=== PATIENT | male | born 1985 | race Two or more races ===

== ENCOUNTER 2018-06-13 12:53 | Emergency (ER) | payer OTHER ==
[~2018-06-13] VITALS: Ht 182.9 cm; Wt 91.6 kg
[2018-06-13] MEDS ORDERED: NAPROXEN 500 MG TABLET PO STA (13:43)
[2018-06-13] MEDS ORDERED: HYDROcodone/APAP 5/325MG 1 TAB TABLET PO ONE (13:45)
--- NOTE | 2018-06-13 14:33 | RAD ---
Examination: 2 views of the right hip and frontal view the pelvis HISTORY: History of right hip pain COMPARISON: None available. FINDINGS: The bilateral femoral heads within the acetabula. Old fractures of the bilateral superior inferior pubic ramus are identified.There is somewhat dysplastic appearance of the right femoral head with fragmentation of the right femoral head in the superior lateral aspect with lucency identified in the right femoral head could be avascular necrosis with underlying fracture of the right femoral head. Severe degenerative changes right hip joint likely degeneration. Moderate degenerative changes left hip joint. IMPRESSION: Fragmentation of the right superolateral femoral head with lucency of the right femoral head could be avascular necrosis with underlying fracture of the right femoral head. Follow-up CT is recommended for further evaluation. Electronically signed by: Ajay Scott MD (06/13/2018 2:30 PM) [facility]
--- NOTE | 2018-06-13 15:28 | RAD ---
Examination: CT right hip without contrast HISTORY: History of right hip pain, difficulty walking COMPARISON: None available TECHNIQUE: Axial CT images of the right hip were performed without contrast. Coronal and sagittal reformats are performed Exposure: One or more of the following individualized dose reduction techniques were utilized for this examination: 1. Automated exposure control 2. Adjustment of the mA and/or kV according to patient size 3. Use of iterative reconstruction technique FINDINGS: The right femoral head is within the acetabulum. There is fragmentation of the right femoral head in its superior aspect with collapse of the superior right femoral head with multiple large subchondral cystic changes in the right femoral head. Moderate size osteophyte formation identified in the right femoral head and in the acetabulum. Moderate severe joint space loss identified in the right hip joint likely degeneration. Old right superior inferior pubic ramus fractures identified. Small right hip joint effusion identified with the fluid in the iliopsoas muscle region IMPRESSION: 1. Fragmentation and collapse of the right femoral head with large multiple subchondral cystic changes in the right femoral head could be secondary to old avascular necrosis with subchondral collapse and due to severe degenerative changes. 2. Small right hip joint effusion and fluid in the iliopsoas bursa. Electronically signed by: Ajay Scott MD (06/13/2018 3:25 PM) [facility]
[2018-06-13] MEDS ORDERED: MORPHINE SULFATE 10 MG/ML VIAL. IM ONE (16:45)
[2018-06-13] MEDS ORDERED: HYDR-3164 PO (17:15)
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
[2018-06-13 17:30] VITALS: BP 128/77
== END 2018-06-13 17:53 | disposition home or self-care (01) ==
LOC: ER 12:53
DX: M16.11 Unilateral primary osteoarthritis, right hip (principal); M25.551 Pain in right hip
CPT/HCPCS: 73502; 73700; 96372; 99284; J2270

== ENCOUNTER 2019-04-09 14:08 | Emergency (ER) | payer OTHER ==
[~2019-04-09] VITALS: Ht 182.9 cm; Wt 98.9 kg
[~2019-04-09 14:08] MED LIST: HYDR-3164 PO
[2019-04-09 14:30] VITALS: BP 206/107
[2019-04-09] MEDS ORDERED: IV NORMAL SALINE 1000ML BAG 1,000 ML IV STA (15:08)
[2019-04-09] MEDS ORDERED: MORPHINE SULFATE 10 MG/ML VIAL. IV STA (15:08)
[2019-04-09] MEDS ORDERED: ONDANSETRON PF 4 MG/2 ML VIAL. IV STA (15:08)
--- NOTE | 2019-04-09 15:25 | PHYS DOC ---
Past Medical History Past Medical History: Hypertension Past Surgical History: No Surgical History Alcohol Use: Occasionally Drug Use: None Adult General Chief Complaint Chief Complaint: FOOT INJURY PAIN HPI HPI Patient is a 33 year old male who presents with R foot pain that has been ongoing for 3 days. The patient states the pains are in the lateral side of his foot, and was red and tender to touch 3 days ago. Denies any fevers. Reports his pain as 9 out of 10 in severity and it hurts when he walks. Review of Systems Review of Systems Constitutional: Denies fever or chills [] Eyes: Denies change in visual acuity, redness, or eye pain [] HENT: Denies nasal congestion or sore throat [] Respiratory: Denies cough or shortness of breath [] Cardiovascular: No additional information not addressed in HPI [] GI: Denies abdominal pain, nausea, vomiting, bloody stools or diarrhea [] : Denies dysuria or hematuria [] Musculoskeletal: Reports R foot pain. Integument: Erythema and tenderness to R foot. Neurologic: Denies headache, focal weakness or sensory changes [] Endocrine: Denies polyuria or polydipsia [] Complete systems were reviewed and found to be within normal limits, except as documented in this note. Current Medications Current Medications Current Medications Medications (Trade) Dose Ordered Sig/Varun Start Time Stop Time Status Last Admin Dose Admin Ketorolac Tromethamine (Toradol 15mg Vial) 10 mg 1X STAT 04/09/19 15:51 04/09/19 15:52 DC 04/09/19 15:59 10 MG Morphine Sulfate (Morphine Sulfate) 5 mg 1X STAT 04/09/19 15:08 04/09/19 15:11 DC Ondansetron HCl (Zofran) 4 mg 1X STAT 04/09/19 15:08 04/09/19 15:11 DC 04/09/19 15:43 4 MG Sodium Chloride 1,000 ml @ 1,000 mls/hr 1X STAT 04/09/19 15:08 04/09/19 16:07 DC 04/09/19 15:43 1,000 MLS/HR Allergies Allergies Allergies Coded Allergies Type Severity Reaction Last Updated Verified No Known Drug Allergies 06/13/18 No Physical Exam Physical Exam Constitutional: Well developed, well nourished, no acute distress, non-toxic appearance. [] HENT: Normocephalic, atraumatic, bilateral external ears normal, oropharynx moist, no oral exudates, nose normal. [] Eyes: PERRLA, EOMI, conjunctiva normal, no discharge. [] Neck: Normal range of motion, no tenderness, supple, no stridor. [] Cardiovascular:Heart rate regular rhythm, no murmur [] Lungs & Thorax: Bilateral breath sounds clear to auscultation [] Abdomen: Bowel sounds normal, soft, no tenderness, no masses, no pulsatile masses. [] Skin: Erythema to R foot. Musculoskeletal: Tenderness to R foot. Neurologic: Alert and oriented X 3, normal motor function, normal sensory function, no focal deficits noted. [] Psychologic: Affect normal, judgement normal, mood normal. [] Current Patient Data Vital Signs Vital Signs Date Time Temp Pulse Resp B/P (MAP) Pulse Ox O2 Delivery O2 Flow Rate FiO2 04/09/19 14:30 98.8 95 16 206/107 (140) 99 Room Air 98.8 Lab Values Laboratory Tests Test 04/09/19 15:30 White Blood Count 11.2 x10^3/uL (4.0-11.0) H Red Blood Count 3.85 x10^6/uL (4.30-5.70) L Hemoglobin 13.9 g/dL (13.0-17.5) Hematocrit 40.2 % (39.0-53.0) Mean Corpuscular Volume 104 fL (79-100) H Mean Corpuscular Hemoglobin 36 pg (25-35) H Mean Corpuscular Hemoglobin Concent 35 g/dL (31-37) Red Cell Distribution Width 17.0 % (11.5-14.5) H Platelet Count 171 x10^3/uL (140-400) Neutrophils (%) (Auto) 83 % (31-73) H Lymphocytes (%) (Auto) 7 % (24-48) L Monocytes (%) (Auto) 10 % (0-9) H Eosinophils (%) (Auto) 0 % (0-3) Basophils (%) (Auto) 0 % (0-3) Neutrophils # (Auto) 9.2 x10^3/uL (1.8-7.7) H Lymphocytes # (Auto) 0.8 x10^3/uL (1.0-4.8) L Monocytes # (Auto) 1.1 x10^3/uL (0.0-1.1) Eosinophils # (Auto) 0.0 x10^3/uL (0.0-0.7) Basophils # (Auto) 0.0 x10^3/uL (0.0-0.2) Sodium Level 137 mmol/L (136-145) Potassium Level 3.5 mmol/L (3.5-5.1) Chloride Level 99 mmol/L (98-107) Carbon Dioxide Level 25 mmol/L (21-32) Anion Gap 13 (6-14) Blood Urea Nitrogen 12 mg/dL (8-26) Creatinine 0.9 mg/dL (0.7-1.3) Estimated GFR (Cockcroft-Gault) 96.0 BUN/Creatinine Ratio 13 (6-20) Glucose Level 108 mg/dL (70-99) H Uric Acid 7.0 mg/dL (3.5-7.2) Calcium Level 9.1 mg/dL (8.5-10.1) Total Bilirubin 0.9 mg/dL (0.2-1.0) Aspartate Amino Transferase (AST) 24 U/L (15-37) Alanine Aminotransferase (ALT) 19 U/L (16-63) Alkaline Phosphatase 83 U/L (46-116) Total Protein 7.9 g/dL (6.4-8.2) Albumin 4.1 g/dL (3.4-5.0) Albumin/Globulin Ratio 1.1 (1.0-1.7) Laboratory Tests 04/09/19 15:30 Laboratory Tests 04/09/19 15:30 EKG EKG [] Radiology/Procedures Radiology/Procedures [][facility] [address] [place] [address] IMAGING REPORT Signed PATIENT: ESTELLA LEVY ACCOUNT: [id number] : 1985 LOCATION: ER AGE: 33 SEX: M EXAM STATUS: REG ER ORD. PHYSICIAN: ISAMAR BOOKER APRN REASON: R foot, pain, and swelling,PT STATES LAT RT FOOT PAIN. PROCEDURE: FOOT RIGHT 3V EXAM: Right foot, 3 views. HISTORY: Pain and swelling. COMPARISON: None. FINDINGS: 3 views of the right foot are obtained. There is no fracture, dislocation or subluxation. There is a small plantar spur. IMPRESSION: No acute osseous finding. Electronically signed by: Negra Reyna MD (04/09/2019 3:37 PM) [facility] DICTATED and SIGNED BY: NEGRA REYNA MD DATE: 04/09/19 0887 Course & Med Decision Making Course & Med Decision Making Pertinent Labs and Imaging studies reviewed. (See chart for details) Patient has swollen and red R foot. Will order labs, uric acid, X-ray. Will also give supportive care. Labs show slightly elevated WBC at 11.5, appears to have R foot Cellulitis. Uric acid is WNL. Will place on Doxycycline 100 mg BID x 7 days. Dragon Disclaimer Dragon Disclaimer This electronic medical record was generated, in whole or in part, using a voice recognition dictation system. Departure Departure Impression: Primary Impression: Cellulitis Disposition: HOME, SELF-CARE Condition: STABLE Referrals: VELMA MINOR MD (PCP) Patient Instructions: Cellulitis Additional Instructions: Thank you for visiting [facility]. We appreciate you trusting us with your care. If any additional problems come up don't hesitate to return to visit us. Please follow up with your primary care provider so they can plan additional care if needed and know about the problem that you had. If symptoms worsen come back to the Emergency Department. Any concerning symptoms that start such as chest pain, shortness of air, weakness or numbness on one side of the body, running high fevers or any other concerning symptoms return to the ER. You have been prescribed an antibiotic today to help fight your infection. Please take all of the antibiotic as directed. If after 48 hours the infection is not improving, please return for more care. If the infection worsens, return to ER for additional care. Scripts Doxycycline Hyclate (DOXYCYCLINE HYCLATE) 100 Mg Capsule 1 CAP PO BID for 10 Days, #20 CAP Prov: ISAMAR BOOKER APRN 04/09/19 Problem Qualifiers Primary Impression: Cellulitis Site of cellulitis: extremity Site of cellulitis of extremity: lower extremity Laterality: right Qualified Codes: L03.115 - Cellulitis of right lower limb ISAMAR BOOKER APRN Apr 09, 2019 15:25
--- NOTE | 2019-04-09 15:40 | RAD ---
EXAM: Right foot, 3 views. HISTORY: Pain and swelling. COMPARISON: None. FINDINGS: 3 views of the right foot are obtained. There is no fracture, dislocation or subluxation. There is a small plantar spur. IMPRESSION: No acute osseous finding. Electronically signed by: Negra Mcdowell MD (04/09/2019 3:37 PM) [facility]
[2019-04-09 15:46] LABS: BASO % 0 % (0-3); EOS % 0 % (0-3); HEMATOCRIT 40.2 % (39.0-53.0); HEMOGLOBIN 13.9 g/dL (13.0-17.5); LYMPH # 0.8 x10^3/uL (1.0-4.8); LYMPH % 7 % (24-48); MEAN CORPUSCULAR HEMOGLOBIN 36 pg (25-35); MEAN CORPUSCULAR HGB CONC 35 g/dL (31-37); MEAN CORPUSCULAR VOLUME 104 fL (79-100); MONO # 1.1 x10^3/uL (0.0-1.1); MONO % 10 % (0-9); NEUT # 9.2 x10^3/uL (1.8-7.7); NEUT % 83 % (31-73); PLATELET COUNT 171 x10^3/uL (140-400); RED BLOOD COUNT 3.85 x10^6/uL (4.30-5.70); WHITE BLOOD COUNT 11.2 x10^3/uL (4.0-11.0)
[2019-04-09] MEDS ORDERED: KETOROLAC 15 MG/ML VIAL. IV STA (15:51)
[2019-04-09 15:56] LABS: CALCIUM 9.1 mg/dL (8.5-10.1); CREATININE 0.9 mg/dL (0.7-1.3); POTASSIUM 3.5 mmol/L (3.5-5.1)
[2019-04-09 16:02] LABS: ALBUMIN 4.1 g/dL (3.4-5.0); ALBUMIN/GLOBULIN RATIO 1.1 (1.0-1.7); TOTAL BILIRUBIN 0.9 mg/dL (0.2-1.0); TOTAL PROTEIN 7.9 g/dL (6.4-8.2)
[2019-04-09] MEDS ORDERED: DOXY100C2 PO (16:30)
== END 2019-04-09 16:54 | disposition home or self-care (01) ==
LOC: ER 14:08
DX: L03.115 Cellulitis of right lower limb (principal); I10 Essential (primary) hypertension
CPT/HCPCS: 36415; 73630; 80053; 84550; 85025; 96374; 96375; 99285; J1885; J2405; J7030

== ENCOUNTER 2019-04-12 05:37 | Emergency (ER) | payer OTHER ==
[~2019-04-12] VITALS: Ht 182.9 cm; Wt 99.8 kg
[~2019-04-12 05:37] MED LIST changes: +DOXY100C2 PO
[2019-04-12 06:00] VITALS: BP 180/112
[2019-04-12] MEDS ORDERED: CEPH-264 PO (06:43)
[2019-04-12] MEDS ORDERED: SULF1TAB24 PO (06:43)
[2019-04-12] MEDS ORDERED: HYDR-2761 PO (06:43)
--- NOTE | 2019-04-12 06:43 | PHYS DOC ---
Past Medical History Past Medical History: Hypertension Past Surgical History: No Surgical History Additional Information: nonsmoker Alcohol Use: Occasionally Drug Use: None Adult General Chief Complaint Chief Complaint: LOWER EXTREMITY EDEMA HPI HPI Patient is 33-year-old male with past medical history of cellulitis of the right lower extremity for 6 days and has been treated with doxycycline for 3 days is presenting to the emergency department with worsening cellulitis of the right lower lower extremity. Patient states that 3 days before [place] he noted some redness and swelling to the lateral aspect of his right foot, he was seen in the emergency department and was given a prescription for doxycycline 3 days ago. He was supposed to return to work today but the pain and swelling have gotten worse so he is presenting to the emergency department again. He denies fever, chills, chest pain, shortness of breath, dysuria, numbness or tingling of the right lower extremity, and loss of motor function of the right lower extremity. Patient denies history of diabetes, history of trauma to the right foot, open sores or stepping on anything with the right foot. Review of Systems Review of Systems Constitutional: Denies fever or chills Eyes: Denies redness or eye pain HENT: Denies nasal congestion or sore throat Respiratory: Denies cough or shortness of breath Cardiovascular: Denies chest pain or palpitations GI: Denies abdominal pain, nausea, or vomiting : Denies dysuria or hematuria Musculoskeletal: Denies back pain; reports foot pain Integument: Reports right foot erythema and swelling Neurologic: Denies headache, focal weakness or sensory changes Complete systems were reviewed and found to be within normal limits, except as documented in this note. Current Medications Current Medications Current Medications Medications (Trade) Dose Ordered Sig/Varun Start Time Stop Time Status Last Admin Dose Admin Acetaminophen/ Hydrocodone Bitart (Lortab 5/325) 1 tab 1X ONCE 04/12/19 06:45 04/12/19 06:46 DC 04/12/19 06:45 1 TAB Cephalexin HCl (Keflex) 500 mg 1X ONCE 04/12/19 07:00 04/12/19 07:01 DC 04/12/19 06:53 500 MG Trimethoprim/ Sulfamethoxazole (Bactrim Ds) 2 tab 1X ONCE 04/12/19 06:45 04/12/19 06:46 DC 04/12/19 06:45 2 TAB Allergies Allergies Allergies Coded Allergies Type Severity Reaction Last Updated Verified No Known Drug Allergies 06/13/18 No Physical Exam Physical Exam Constitutional: Well developed, well nourished, no acute distress, non-toxic appearance HENT: Normocephalic, atraumatic, oropharynx moist Eyes: Conjunctiva normal, no discharge Neck: Normal range of motion, no tenderness, supple Cardiovascular: Heart rate normal, regular rhythm Lungs & Thorax: Bilateral breath sounds clear to auscultation, no wheezing Skin: Warm, dry, no erythema, no rash Extremities: ROM intact, localized redness and swelling the right lower extremity, tenderness over the erythematous area, no evidence of trauma or open wounds Neurologic: Alert and oriented X 3, no focal deficits noted Psychologic: Affect normal, judgement normal Current Patient Data Vital Signs Vital Signs Date Time Temp Pulse Resp B/P (MAP) Pulse Ox O2 Delivery O2 Flow Rate FiO2 04/12/19 06:45 97 04/12/19 06:00 98.5 75 17 180/112 (134) Room Air 98.5 EKG EKG [] Radiology/Procedures Radiology/Procedures PROCEDURE: FOOT RIGHT 3V Exam: Right foot 3 views INDICATION: Pain TECHNIQUE: Frontal, lateral and oblique views of the right foot Comparisons: None FINDINGS: Bone mineralization is normal. No acute or healed fractures. Mild soft tissue swelling overlying the forefoot. Joint spaces are well-maintained. IMPRESSION: Soft tissue swelling overlying the forefoot without underlying osseous abnormality. Electronically signed by: Дмитрий Wright MD (04/12/2019 6:52 AM) [facility] Course & Med Decision Making Course & Med Decision Making Pertinent Imaging studies reviewed. (See chart for details) Patient is a 33-year-old male that is presenting emergency department with right lower extremity cellulitis. Patient was seen and examined at bedside. Physical exam was significant for localized redness and swelling of the right lower extremity. Patient has completed 3 days worth of doxycycline at home and is not improving. X-ray of the foot negative for acute bony pathology. Pain addressed. Patient will be discharged with change in antibiotics to Bactrim and Keflex and given return precautions for worsening local infection or systemic infection. Crutches provided. Patient stable for discharge with outpatient follow-up with PCP. Discussed findings and plan with patient and family, who acknowledge understanding and agreement. Dragon Disclaimer Dragon Disclaimer This electronic medical record was generated, in whole or in part, using a voice recognition dictation system. Departure Departure Impression: Primary Impression: Cellulitis Disposition: 01 HOME, SELF-CARE Condition: STABLE Referrals: VELMA MINOR MD (PCP) Patient Instructions: Cellulitis, [id number] Scripts Hydrocodone Bit/Acetaminophen (HYDROCODONE-APAP 5-325 ) 1 Tab Tablet 0.5-1 TAB PO PRN Q6HRS PRN for PAIN, #10 TAB 0 Refills Prov: ISAMAR YOON DO 04/12/19 Cephalexin (KEFLEX) 500 Mg Capsule 500 MG PO QID for Infection for 7 Days, #28 CAP 0 Refills Prov: ISAMAR YOON DO 04/12/19 Sulfamethoxazole/Trimethoprim (BACTRIM DS TABLET) 1 Each Tablet 2 EACH PO Q12HR for Infection for 7 Days, #28 TAB 0 Refills Prov: ISAMAR YOON DO 04/12/19 Problem Qualifiers Primary Impression: Cellulitis Site of cellulitis: extremity Site of cellulitis of extremity: lower extremity Laterality: right Qualified Codes: L03.115 - Cellulitis of right lower limb ISAMAR YOON DO Apr 12, 2019 06:43
[2019-04-12] MEDS ORDERED: HYDROcodone/APAP 5/325MG 1 TAB TABLET PO ONE (06:45)
[2019-04-12] MEDS ORDERED: SMZ/TMP 800/160MG TABLET. PO ONE (06:45)
[2019-04-12] MEDS ORDERED: CEPHALEXIN 250 MG CAPSULE. PO SCH (06:45)
--- NOTE | 2019-04-12 06:55 | RAD ---
Exam: Right foot 3 views INDICATION: Pain TECHNIQUE: Frontal, lateral and oblique views of the right foot Comparisons: None FINDINGS: Bone mineralization is normal. No acute or healed fractures. Mild soft tissue swelling overlying the forefoot. Joint spaces are well-maintained. IMPRESSION: Soft tissue swelling overlying the forefoot without underlying osseous abnormality. Electronically signed by: Дмитрий Wright MD (04/12/2019 6:52 AM) [facility]
[2019-04-12] MEDS ORDERED: CEPHALEXIN 250 MG CAPSULE. PO ONE (07:00)
== END 2019-04-12 06:54 | disposition home or self-care (01) ==
LOC: ER 05:37
DX: L03.115 Cellulitis of right lower limb (principal); M79.89 Other specified soft tissue disorders; I10 Essential (primary) hypertension; Z79.899 Other long term (current) drug therapy
CPT/HCPCS: 73630; 99284

== ENCOUNTER 2019-08-27 08:52 | Emergency (ER) | payer OTHER ==
[~2019-08-27] VITALS: Ht 180.3 cm; Wt 108.0 kg
[~2019-08-27 08:52] MED LIST changes: +CEPH-264 PO; +HYDR-2761 PO; +SULF1TAB24 PO
--- NOTE | 2019-08-27 09:25 | PHYS DOC ---
Past Medical History Past Medical History: Hypertension Past Surgical History: No Surgical History Smoking Status: Never Smoker Alcohol Use: Occasionally Drug Use: None General Adult EDM: Chief Complaint: WRIST PAIN HPI: HPI: 34-year-old male presents with a chief complaint of left wrist pain. Patient is left-hand dominant. He states last night tripped fell injured his left wrist. Patient has pain with range of motion. There is noticeable swelling along the distal radius and ulnar and in the hand. Left hand is neurovascularly intact. I do not see any obvious deformities. Review of Systems: Review of Systems: Review of systems: Constitutional symptoms- No fever, no chills. Eyes- No Discharge, No Visual Loss Respiratory symptoms- No shortness of breath, No wheezing, No Dyspnea on Exertion Cardiovascular Systems; No chest pain, No Palpitations, No syncope Gastrointestinal symptoms: NO abdominal pain, no nausea, no vomiting or diarrhea. Genitourinary symptoms: No dysuria. Musculoskeletal symptoms: No back pain positive extremity pain. NEUROLOGICAL Symptoms: No headache, no generalized weakness; No focal Weakness Heart Score: Risk Factors: Risk Factors: DM, Current or recent (<one month) smoker, HTN, HLP, family history of CAD, obesity. Risk Scores: Score 0 - 3: 2.5% MACE over next 6 weeks - Discharge Home Score 4 - 6: 20.3% MACE over next 6 weeks - Admit for Clinical Observation Score 7 - 10: 72.7% MACE over next 6 weeks - Early Invasive Strategies Allergies: Allergies: Allergies Coded Allergies Type Severity Reaction Last Updated Verified No Known Drug Allergies 06/13/18 No Physical Exam: PE: General: alert, no acute distress. Skin: warm, dry and intact. Head:: Normocephalic, atraumatic. Neck: Trachea midline. Eyes: EOMI, Normal conjunctiva, No drainage CARDIOVASCULAR: Regular rate and rhythm RESPIRATORY: No respiratory distress Back: Full range of motion. MUSCULOSKELETAL: Swelling left distal radius ulnar wrist region swelling in the hand decreased ROM at wrist due to pain and swelling, left upper extremity neurovascularly intact GASTROINTESTINAL: Abdomen soft without rebound or guarding. NEUROLOGICAL: Alert and noted to person, place and time. No neurological deficits observed Psychiatric: Cooperative. Normal judgment Current Patient Data: Vital Signs: Vital Signs Date Time Temp Pulse Resp B/P (MAP) Pulse Ox O2 Delivery O2 Flow Rate FiO2 5/13/20 08:55 97.9 118 20 196/137 (156) 100 Room Air 97.9 EKG: EKG: [] Radiology/Procedures: Radiology/Procedures: [] Impression: FINDINGS/ IMPRESSION: 1. There is a nondisplaced fracture involving the dorsal aspect of the radius with suspected intra-articular extension. No significant angulation is visualized. 2. Extensive soft tissue swelling is noted along the dorsal aspect of the hand. Positioning of the triquetrum on AP and oblique views appears normal, however on the lateral view the triquetrum appears more conspicuous without definite fracture. If there is persistent clinical concern, further evaluation with CT may be of benefit. Course & Med Decision Making: Course & Med Decision Making Pertinent Labs and Imaging studies reviewed. (See chart for details) [] Tear anterior splint placed by nursing. Splint evaluated post application. Patient's hand continues to be neurovascularly intact. Patient was initially treated with naproxen 500 mg p.o.--Minimal improvement of pain with medication. Blood pressure noted to be elevated greater than 190 systolic. I suspect patient's elevated blood pressures related due to pain. Will treat patient with morphine 2 mg IM. X-ray results reviewed and discussed with orthopedics- Dr Ng. Dr Ng is requesting CT upper extremity. Patient can follow up with him outpatient after CT performed--- ct result p ending at discharge. Patient will be discharged home with instructions to take tylenol and ibuprogen and Rx norco. Total treatment with morphine in ER-- morphine 2mg x 2 Dragon Disclaimer: Dragon Disclaimer: This electronic medical record was generated, in whole or in part, using a voice recognition dictation system. Departure Departure Impression: Primary Impression: Wrist fracture, left Additional Impression: Wrist fracture, closed Referrals: VELMA MINOR MD (PCP) Patient Instructions: Wrist Fracture Scripts Hydrocodone/Apap 5-325 (NORCO 5-325 TABLET) 1 Each Tablet 1-2 TAB PO Q4-6HRS, #20 TAB Prov: JULIAN CAPPS DO 08/27/19 Tramadol Hcl (ULTRAM) 50 Mg Tablet 1 TAB PO PRN Q6HRS PRN for pain MDD 4 Tablet(s) for 7 Days, #28 TAB 0 Refills Prov: JULIAN CAPPS DO 08/27/19 JULIAN CAPPS DO August 27, 2019 09:25
[2019-08-27] MEDS ORDERED: TRAM-48 PO (09:29)
[2019-08-27] MEDS ORDERED: NAPROXEN 500 MG TABLET PO ONE (09:45)
--- NOTE | 2019-08-27 09:49 | RAD ---
WRIST 3V LEFT 08/27/2019 9:07 AM INDICATION: Pain post fall. Posterior pain and swelling COMPARISON: None available. TECHNIQUE: 3 views the left wrist are provided. FINDINGS/ IMPRESSION: 1. There is a nondisplaced fracture involving the dorsal aspect of the radius with suspected intra-articular extension. No significant angulation is visualized. 2. Extensive soft tissue swelling is noted along the dorsal aspect of the hand. Positioning of the triquetrum on AP and oblique views appears normal, however on the lateral view the triquetrum appears more conspicuous without definite fracture. If there is persistent clinical concern, further evaluation with CT may be of benefit. Electronically signed by: Awilda Montes MD (08/27/2019 9:46 AM) [id number]
[2019-08-27 10:25] VITALS: BP 210/97
[2019-08-27] MEDS ORDERED: MORPHINE SULFATE 2 MG/ML VIAL. IM ONE ×2 (10:30→11:15)
[2019-08-27] MEDS ORDERED: HYDROcodone/APAP 5/325MG 1 TAB TABLET PO ONE (10:30)
[2019-08-27] MEDS ORDERED: HYDR-3164 PO (10:55)
--- NOTE | 2019-08-27 11:39 | RAD ---
Examination: CT left wrist without contrast HISTORY: History of intra-articular fracture left wrist COMPARISON: Radiograph same day exam TECHNIQUE: Axial CT images of the left wrist was performed without contrast. Coronal and sagittal reformats are performed Exposure: One or more of the following individualized dose reduction techniques were utilized for this examination: 1. Automated exposure control 2. Adjustment of the mA and/or kV according to patient size 3. Use of iterative reconstruction technique FINDINGS: Mild displaced comminuted fracture of the dorsal aspect of the distal radius with intra-articular extension into the radiocarpal joint. The alignment of the carpal bones grossly appears unremarkable. There is a 7 mm bony projection identified from the triquetrum dorsally probably congenital or osteophyte. The visualized flexor tendons grossly appears unremarkable. There is mild increased stranding dorsal to the extensor region of the wrist likely secondary to soft tissue injury. IMPRESSION: 1. Minimal displaced comminuted fracture of the dorsal aspect of the distal radius with intra-articular extension. Electronically signed by: Ajay Scott MD (08/27/2019 11:36 AM) [id number]
== END 2019-08-27 11:15 | disposition home or self-care (01) ==
LOC: ER 08:52
DX: S52.572A Other intraarticular fracture of lower end of left radius, initial encounter for closed fracture (principal); R60.0 Localized edema; I10 Essential (primary) hypertension; W01.0XXA Fall on same level from slipping, tripping and stumbling without subsequent striking against object, initial encounter; Y93.89 Activity, other specified; Y92.89 Other specified places as the place of occurrence of the external cause; Y99.8 Other external cause status
CPT/HCPCS: 29125; 73110; 73200; 96372; 99284; J2270

== ENCOUNTER → 2019-09-22 | Outpatient (CLI) | payer OTHER ==
[2019-08-27 10:25] VITALS: BP 210/97
[~2019-09-22] MED LIST changes: +AMLO10TA8 PO; +BUPIVACAINE MPF 0.5% 10 ML VIAL for KCIC. IJ ONE; +IOHEXOL 300 MG/ML 50 ML VIAL. INT ART ONE; +LIDOCAINE 1% Multi-Dose 20 ML VIAL. ID ONE; +LISI-130 PO; +TRAM-48 PO; +methylPREDNISolone ACETATE 40 MG/ML VIAL. INT ART ONE
--- NOTE | 2019-09-22 17:10 | KCIC ---
PROCEDURE Therapeutic right hip injection using fluoroscopic guidance. HISTORY Hip pain. TECHNIQUE The procedure was explained to the patient as were potential risks, including infection, bleeding or allergic reaction. All questions were answered. Informed written and verbal consent was obtained. The hip was prepped and draped in the usual sterile manner. Following administration of local anesthetic, a 22-gauge spinal needle was advanced into the hip joint without difficulty, with care taken to avoid the vascular structures. Stylet was removed and following negative aspiration, a mixture of 4 cc Omnipaque-300, 2 cc (80 mg) Depo-Medrol, 4 cc bupivacaine and 4 cc 1% lidocaine were injected without difficulty. Fluoroscopy demonstrates uniform and satisfactory distribution of the injection through the hip. The needle was removed. There was good hemostasis at the injection site. The patient left in stable condition without immediate complication. Patient was advised as to potential postprocedural complications and advised to contact their physician or the emergency room in such event. A single spot image was obtained. 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 FLUOROSCOPY TIME: 22 seconds Electronically signed by: Gene Damico MD (09/22/2019 5:07 PM) [id number]
== END | disposition home or self-care (01) ==
LOC: KCIC 12:22
PROVIDERS: ATTEND Orthopaedic Surgery Sports Medicine
DX: M87.051 Idiopathic aseptic necrosis of right femur (principal)
CPT/HCPCS: 20610; 77002; J1030; J3490; Q9967

== ENCOUNTER 2019-09-24 16:41 | Inpatient (IN) | payer OTHER ==
[~2019-09-24] VITALS: Ht 182.9 cm; Wt 105.2 kg
[~2019-09-24 16:41] MED LIST changes: -AMLO10TA8 PO; -BUPIVACAINE MPF 0.5% 10 ML VIAL for KCIC. IJ ONE; -IOHEXOL 300 MG/ML 50 ML VIAL. INT ART ONE; -LIDOCAINE 1% Multi-Dose 20 ML VIAL. ID ONE; -LISI-130 PO; -methylPREDNISolone ACETATE 40 MG/ML VIAL. INT ART ONE
[2019-09-24 16:59] LABS: BASO % 0 % (0-3); EOS % 1 % (0-3); HEMATOCRIT 44.4 % (39.0-53.0); HEMOGLOBIN 15.2 g/dL (13.0-17.5); LYMPH # 1.5 x10^3/uL (1.0-4.8); LYMPH % 27 % (24-48); MEAN CORPUSCULAR HEMOGLOBIN 32 pg (25-35); MEAN CORPUSCULAR HGB CONC 34 g/dL (31-37); MEAN CORPUSCULAR VOLUME 93 fL (79-100); MONO # 0.6 x10^3/uL (0.0-1.1); MONO % 10 % (0-9); NEUT # 3.5 x10^3/uL (1.8-7.7); NEUT % 62 % (31-73); PLATELET COUNT 189 x10^3/uL (140-400); RED BLOOD COUNT 4.79 x10^6/uL (4.30-5.70); WHITE BLOOD COUNT 5.7 x10^3/uL (4.0-11.0)
[2019-09-24] MEDS ORDERED: MORPHINE SULFATE 2 MG/ML VIAL. IV/SQ PRN (17:00)
--- NOTE | 2019-09-24 17:11 | RAD ---
EXAM: Chest, single view. HISTORY: Chest pain. COMPARISON: None. FINDINGS: A frontal view of the chest is obtained. There is no infiltrate, pleural effusion or pneumothorax. The heart is normal in size. IMPRESSION: No acute pulmonary finding. Electronically signed by: Negra Mcdowell MD (09/24/2019 5:08 PM) [id number]
[2019-09-24] MEDS: NITROGLYCERIN SUBLINGUAL 0.4 MG BOTTLE OF 25. SL PRN ×2 (17:14→17:48)
[2019-09-24] MEDS ORDERED: ONDANSETRON PF 4 MG/2 ML VIAL. IVP ONE (17:30)
[2019-09-24 17:40] LABS: PROTHROMBIN TIME PATIENT 13.5 SEC (11.7-14.0)
[2019-09-24 17:50] LABS: CALCIUM 8.1 mg/dL (8.5-10.1); CREATININE 0.8 mg/dL (0.7-1.3); GFR 109.4; POTASSIUM 3.9 mmol/L (3.5-5.1)
[2019-09-24 17:55] LABS: CREATINE KINASE 74 U/L (39-308)
[2019-09-24 17:56] LABS: ALBUMIN 3.6 g/dL (3.4-5.0); ALBUMIN/GLOBULIN RATIO 0.9 (1.0-1.7); MAGNESIUM 2.1 mg/dL (1.8-2.4); TOTAL BILIRUBIN 0.3 mg/dL (0.2-1.0); TOTAL PROTEIN 7.8 g/dL (6.4-8.2)
--- NOTE | 2019-09-24 18:01 | PHYS DOC ---
Past Medical History Past Medical History: Hypertension Past Surgical History: No Surgical History Smoking Status: Never Smoker Alcohol Use: Occasionally Drug Use: None General Adult EDM: Chief Complaint: CHEST PAIN HPI: HPI: Patient is a 34 year old male with history of hypertension who presents to the ED today complaining of a sharp 8 out of 10 substernal chest pain nonradiating in nature that began 1-1/2 days ago. Patient denies anything specifically exacerbating or relieving his pain. He states he went to work today and was dizzy and had shortness of breath. 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 Review of Systems: Review of Systems: Constitutional: Denies fever or chills. [] Eyes: Denies change in visual acuity. [] HENT: Denies nasal congestion or sore throat. [] Respiratory: Reports shortness of breath. Denies shortness of breath. [] Cardiovascular: Reports chest pain GI: Denies abdominal pain, nausea, vomiting, bloody stools or diarrhea. [] : Denies dysuria. [] Musculoskeletal: Denies back pain or joint pain. [] Integument: Denies rash. [] Neurologic: Denies headache, focal weakness or sensory changes. [] Endocrine: Denies polyuria or polydipsia. [] Lymphatic: Denies swollen glands. [] Psychiatric: Denies depression or anxiety. [] Heart Score: HEART Score for Chest Pain: HEART Score for Chest Pain Response (Comments) Value History Slighlty/Non-Suspicious 0 ECG Normal 0 Age < 45 0 Risk Factors 1 or 2 Risk Factors 1 Troponin < Normal Limit 0 Total 1 Risk Factors: Risk Factors: DM, Current or recent (<one month) smoker, HTN, HLP, family histo ry of CAD, obesity. Risk Scores: Score 0 - 3: 2.5% MACE over next 6 weeks - Discharge Home Score 4 - 6: 20.3% MACE over next 6 weeks - Admit for Clinical Observation Score 7 - 10: 72.7% MACE over next 6 weeks - Early Invasive Strategies Current Medications: Current Medications Medications (Trade) Dose Ordered Sig/Varun Start Time Stop Time Status Last Admin Dose Admin Morphine Sulfate (Morphine Sulfate) 2 mg PRN Q15MIN PRN 09/24/19 17:00 09/25/19 16:59 09/24/19 17:52 2 MG Nitroglycerin (Nitrostat) 0.4 mg PRN Q5MIN PRN 09/24/19 17:00 09/25/19 16:59 09/24/19 17:48 0.4 MG Ondansetron HCl (Zofran) 4 mg 1X ONCE 09/24/19 17:30 09/24/19 17:31 DC 09/24/19 17:52 4 MG Allergies: Allergies: Allergies Coded Allergies Type Severity Reaction Last Updated Verified No Known Drug Allergies 06/13/18 No Physical Exam: PE: Constitutional: Well developed, well nourished, no acute distress, non-toxic appearance. [] HENT: Normocephalic, atraumatic, bilateral external ears normal, oropharynx moist, no oral exudates, nose normal. [] Eyes: PERRLA, EOMI, conjunctiva normal, no discharge. [] Neck: Normal range of motion, no tenderness, supple, no stridor. [] Cardiovascular:Heart rate regular rhythm, no murmur [] Lungs & Thorax: Bilateral breath sounds clear to auscultation [] Abdomen: Bowel sounds normal, soft, no tenderness, no masses, no pulsatile m asses. [] Skin: Warm, dry, no erythema, no rash. [] Back: No tenderness, no CVA tenderness. [] Extremities: No tenderness, no cyanosis, no clubbing, ROM intact, no edema. [] Neurologic: Alert and oriented X 3, normal motor function, normal sensory function, no focal deficits noted. [] Psychologic: Affect normal, judgement normal, mood normal. [] Current Patient Data: Labs: Laboratory Tests Test 09/24/19 16:48 09/24/19 17:20 White Blood Count 5.7 x10^3/uL (4.0-11.0) Red Blood Count 4.79 x10^6/uL (4.30-5.70) Hemoglobin 15.2 g/dL (13.0-17.5) Hematocrit 44.4 % (39.0-53.0) Mean Corpuscular Volume 93 fL (79-100) Mean Corpuscular Hemoglobin 32 pg (25-35) Mean Corpuscular Hemoglobin Concent 34 g/dL (31-37) Red Cell Distribution Width 19.0 % (11.5-14.5) H Platelet Count 189 x10^3/uL (140-400) Neutrophils (%) (Auto) 62 % (31-73) Lymphocytes (%) (Auto) 27 % (24-48) Monocytes (%) (Auto) 10 % (0-9) H Eosinophils (%) (Auto) 1 % (0-3) Basophils (%) (Auto) 0 % (0-3) Neutrophils # (Auto) 3.5 x10^3/uL (1.8-7.7) Lymphocytes # (Auto) 1.5 x10^3/uL (1.0-4.8) Monocytes # (Auto) 0.6 x10^3/uL (0.0-1.1) Eosinophils # (Auto) 0.0 x10^3/uL (0.0-0.7) Basophils # (Auto) 0.0 x10^3/uL (0.0-0.2) Sodium Level 135 mmol/L (136-145) L Potassium Level 3.9 mmol/L (3.5-5.1) Chloride Level 100 mmol/L (98-107) Carbon Dioxide Level 22 mmol/L (21-32) Anion Gap 13 (6-14) Blood Urea Nitrogen 7 mg/dL (8-26) L Creatinine 0.8 mg/dL (0.7-1.3) Estimated GFR (Cockcroft-Gault) 109.4 BUN/Creatinine Ratio 9 (6-20) Glucose Level 95 mg/dL (70-99) Calcium Level 8.1 mg/dL (8.5-10.1) L Magnesium Level Pending Total Bilirubin Pending Aspartate Amino Transferase (AST) Pending Alanine Aminotransferase (ALT) Pending Alkaline Phosphatase Pending Creatine Kinase 74 U/L (39-308) Creatine Kinase MB (Mass) 0.9 ng/mL (0.0-3.6) Creatine Kinase MB Relative Index % (0-4) Troponin I Quantitative < 0.017 ng/mL (0.000-0.055) PB-Llg-A-Type Natriuretic Peptide 15 pg/mL (0-124) Total Protein Pending Albumin Pending Albumin/Globulin Ratio Pending Thyroid Stimulating Hormone (TSH) 0.312 uIU/mL (0.358-3.74) L Laboratory Tests 09/24/19 16:48 Laboratory Tests 6/10/20 17:20 Vital Signs: Vital Signs Date Time Temp Pulse Resp B/P (MAP) Pulse Ox O2 Delivery O2 Flow Rate FiO2 09/24/19 17:52 Room Air 09/24/19 17:48 86 143/83 09/24/19 16:41 98.3 14 100 98.3 EKG: EKG: Interpreted by Dr. Pham sinus rhythm HR 82 no STEMI[] Radiology/Procedures: Radiology/Procedures: []PROCEDURE: PORTABLE CHEST 1V EXAM: Chest, single view. HISTORY: Chest pain. COMPARISON: None. FINDINGS: A frontal view of the chest is obtained. There is no infiltrate, pleural effusion or pneumothorax. The heart is normal in size. IMPRESSION: No acute pulmonary finding. Electronically signed by: Negra Reyna MD (09/24/2019 5:08 PM) [id number] DICTATED and SIGNED BY: NEGRA REYNA MD DATE: 09/24/19 1708 Course & Med Decision Making: Course & Med Decision Making Pertinent Labs and Imaging studies reviewed. (See chart for details) This is a 34-year-old male patient presenting to the ED today complaining of substernal chest pain for 1-1/2 days. EKG is negative, chest x-ray is negative, troponin is normal, d-dimer is normal. Blood pressure noted in the 160s over low 100s. Patient was given nitroglycerin in the ED. Blood pressure has eased up in the 140s over 80s. Spoke with Dr. Patel who accepted patient for admission Routine consult placed for cardiology Dragon Disclaimer: Draggenevieve Disclaimer: This electronic medical record was generated, in whole or in part, using a voice recognition dictation system. Departure Departure Impression: Primary Impression: Chest pain Qualified Codes: R07.9 - Chest pain, unspecified Additional Impression: Hypertension Qualified Codes: I10 - Essential (primary) hypertension Disposition: ADMITTED INPATIENT Condition: STABLE Referrals: VELMA MINOR MD (PCP) Justicifation of Admission Dx: Justifications for Admission: Justification of Admission Dx: Yes Angina: New-Onset ROBYN GALAVIZ APPLICATION PERFORMANCE ENGINEER Sep 24, 2019 18:01
[2019-09-24 19:08] LABS: D-DIMER < 0.27 ug/mlFEU (0.00-0.50)
--- NOTE | 2019-09-24 20:30 | NUR ---
The patient, ESTELLA LEVY, 34 y/o, M admitted by CLARK DIEHL MD, was given written information regarding hospital policies, unit procedures and contact persons. patient was transferred to room 667 by ED bed assisted by ed staff member. Valuables were checked and noted. Patient is currently laying in bed watching TV. He denies pain at this time. Patient denies any needs at this time. This RN will continue to monitor the patient at this time.
[2019-09-24] MEDS ORDERED: ONDANSETRON PF 4 MG/2 ML VIAL. IV PRN ×2 (20:45→22:00)
[2019-09-24] MEDS ORDERED: MORPHINE SULFATE 4 MG/ML VIAL. IV PRN (20:45)
[2019-09-24] MEDS ORDERED: NITROGLYCERIN SUBLINGUAL 0.4 MG BOTTLE OF 25. SL PRN (20:45)
[2019-09-24 20:57] LABS: BILIRUBIN,URINE NEGATIVE (NEG); CLARITY,URINE CLOUDY; COLOR,URINE YELLOW; NITRITE,URINE NEGATIVE (NEG); PH,URINE 5.5 (<5.0-8.0); PROTEIN,URINE NEGATIVE (NEG-TRACE); UROBILINOGEN,URINE 0.2 mg/dL (0.2 mg/dL)
[2019-09-24 21:02] LABS: BACTERIA,URINE 0 /HPF (0-FEW); RBC,URINE 0 /HPF (0-2); SQUAMOUS EPITHELIAL CELL,UR FEW /LPF; WBC,URINE OCC /HPF (0-4)
[2019-09-24 21:03] LABS: BARBITURATES NEG (NEG); BENZODIAZEPINES NEG (NEG); CANNABINOIDS NEG (NEG); COCAINE NEG (NEG); METHADONE NEG (NEG); OPIATES POS (NEG); PHENCYCLIDINE NEG (NEG)
[2019-09-24 21:08] LABS: AMPHETAMINE/METHAMPHETAMINE NEG (NEG)
--- NOTE | 2019-09-24 21:54 | PDOC1 ---
History and Physical Date of Admission Date of Admission DATE: 09/24/19 TIME: 21:53 Identification/Chief Complaint Chief Complaint Chest pain Source Source: Patient History of Present Illness History of Present Illness Mr Finch is a 34-year-old male with PMHx elevated blood pressure without dx of HTN, ETOH use, gout who is presenting to the ED today complaining of substernal chest pain for 1 week. It comes and goes in waves, exertion sometimes exacerbates it. It does not radiate. Rates it between a 4-6 out of 10. 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 He has tried omeprazole for 2 days without relief. Cut back on red meat as well. He has not cut back on his drinking. EKG reviewed by myself is NSR with normal axis. Chest x-ray is negative for acute pathology, troponin is normal, d-dimer is normal. He notes he has been stressed since the of his daughter 5 months ago and with the coronavirus pandemic as his is a nurse and health care. He does drink moderate Giovanni heavily and realizes this may be the culprit. He is especially concerned because of early cardiac disease in his father and paternal grandfather and early at age 44 for both of them, he notes this was due to very early onset of Alzheimer's dementia. He tells me his PCP Dr. Andre had recently seen him in the office and advised him to start on antihypertensive, however this was never called into the pharmacy. I have advised him that starting an acute new antihypertensive in the hospital is not within current guidelines, and should be done on an ambulatory basis unless there is an acute coronary syndrome or acute CVA. Blood pressure noted in the 160s over low 100s. Patient was given nitroglycerin in the ED. Blood pressure has eased up in the 140s over 80s. Due to concern for above he has been admitted for further care. Past Medical History Cardiovascular: HTN Past Surgical History Past Surgical History: No pertinent history Family History Family History: Alcohol Abuse, Alzheimer's Disease (Early onset, at 44 in his father and paternal grandfather), Coronary Artery Disease, High Cholestrol, Hypertension Social History Smoke: No ALCOHOL: heavy Drugs: None Current Problem List Problem List Problems Medical Problems: (1) Chest pain Status: Acute (2) Hypertension Status: Acute Current Medications Current Medications Current Medications Nitroglycerin (Nitrostat) 0.4 mg PRN Q5MIN PRN SL CP RATING > 1/10 Last administered on 09/24/19at 17:48; Start 09/24/19 at 17:00; Stop 09/25/19 at 16:59 Morphine Sulfate (Morphine Sulfate) 2 mg PRN Q15MIN PRN IV/SQ PAIN GREATER THAN 3/10 Last administered on 09/24/19at 17:52; Start 09/24/19 at 17:00; Stop 09/25/19 at 16:59 Ondansetron HCl (Zofran) 4 mg 1X ONCE IVP Last administered on 09/24/19at 17:52; Start 09/24/19 at 17:30; Stop 09/24/19 at 17:31; Status DC Ondansetron HCl (Zofran) 4 mg PRN Q8HRS PRN IV NAUSEA/VOMITING; Start 09/24/19 at 20:45; Stop 09/25/19 at 20:44 Morphine Sulfate (Morphine Sulfate) 4 mg PRN Q2HR PRN IV PAIN; Start 09/24/19 at 20:45; Stop 09/25/19 at 20:44 Nitroglycerin (Nitrostat) 0.4 mg PRN Q5MIN PRN SL CHEST PAIN; Start 09/24/19 at 20:45; Stop 09/25/19 at 20:44; Status UNV Active Scripts Active [place] 5-325 Tablet (Acetaminophen/Hydrocodone Bitart) 1 Each Tablet 1-2 Tab PO Q4-6HRS Ultram (Tramadol Hcl) 50 Mg Tablet 1 Tab PO PRN Q6HRS PRN MDD 4 Tablet(s) 7 Days Hydrocodone-Apap 5-325 (Hydrocodone Bit/Acetaminophen) 1 Tab Tablet 0.5-1 Tab PO PRN Q6HRS PRN Keflex (Cephalexin) 500 Mg Capsule 500 Mg PO QID 7 Days Bactrim Ds Tablet (Sulfamethoxazole/Trimethoprim) 1 Each Tablet 2 Each PO Q12HR 7 Days Doxycycline Hyclate 100 Mg Capsule 1 Cap PO BID 10 Days [place] 5-325 Tablet (Acetaminophen/Hydrocodone Bitart) 1 Each Tablet 1-2 Tab PO Q6HRS Allergies Allergies: Coded Allergies: No Known Drug Allergies (Unverified , 06/13/18) ROS General: No: Chills, Night Sweats, Fatigue, Malaise, Appetite, Other PSYCHOLOGICAL ROS: No: Anxiety, Behavioral Disorder, Concentration difficultie, Decreased libido, Depression, Disorientation, Hallucinations, Hostility, Irritablity, Memory difficulties, Mood Swings, Obsessive thoughts, Physical abuse, Sexual abuse, Sleep disturbances, Suicidal ideation, Other Eyes: No Blurry vision, No Decreased vision, No Double vision, No Dry eyes, No Excessive tearing, No Eye Pain, No Itchy Eyes, No Loss of vision, No Photophobia, No Scotomata, No Uses contacts, No Uses glasses, No Other HEENT: No: Heacaches, Visual Changes, Hearing change, Nasal congestion, Nasal discharge, Oral lesions, Sinus pain, Sore Throat, Epistaxis, Sneezing, Snoring, Tinnitus, Vertigo, Vocal changes, Other ALLERGY AND IMMUNOLOGY: No: Hives, Insect Bite Sensitivity, Itchy/Watery Eyes, Nasal Congestion, Post Nasal Drip, Seasonal Allergies, Other Hematological and Lymphatic: No: Bleeding Problems, Blood Clots, Blood Transfusions, Brusing, Night Sweats, Pallor, Swollen Lymph Nodes, Other ENDOCRINE: No: Breast Changes, Galactorrhea, Hair Pattern Changes, Hot Flashes, Malaise/lethargy, Mood Swings, Palpitations, Polydipsia/polyuria, Skin Changes, Temperature Intolerance, Unexpected Weight Changes, Other Breast: No New/Changing Breast Lumps, No Nipple changes, No Nipple discharge, No Other Respiratory: YES: Cough; No: Hemoptysis, Orthopnea, Pleuritic Pain, Shortness of breath, SOB with excertion, Sputum Changes, Stridor, Tachypnea, Wheezing, Other Cardiovascular: yes Chest Pain; No Palpitations, No Orthopnea, No Paroxysmal Noc. Dyspnea, No Edema, No Lt Headedness, No Other Gastrointestinal: Yes Nausea; No Vomiting, No Abdominal Pain, No Diarrhea, No Constipation, No Melena, No Hematochezia, No Other Genitourinary: No Dysuria, No Frequency, No Incontinence, No Hematuria, No Retention, No Discharge, No Urgency, No Pain, No Flank Pain, No Other, No , No , No , No , No , No , No Musculoskeletal: No Gait Disturbance, No Joint Pain, No Joint Stiffness, No Joint Swelling, No Muscle Pain, No Muscular Weakness, No Pain In:, No Swelling In:, No Other Neurological: No Behavorial Changes, No Bowel/Bladder ControlChng, No Confusion, No Dizziness, No Gait Disturbance, No Headaches, No Impaired Coord/balance, No Memory Loss, No Numbness/Tingling, No Seizures, No Speech Problems, No Tremors, No Visual Changes, No Weakness, No Other Skin: No Dry Skin, No Eczema, No Hair Changes, No Lumps, No Mole Changes, No Mottling, No Nail Changes, No Pruritus, No Rash, No Skin Lesion Changes, No Other, No Acne Physical Exam General: Alert, Oriented X3, Cooperative, No acute distress HEENT: Atraumatic, PERRLA, EOMI, Mucous membr. moist/pink Lungs: Clear to auscultation, Normal air movement Heart: S1S2, RRR, no thrills, no rubs, no gallops, no murmurs Abdomen: Normal bowel sounds, Soft, No tenderness, No hepatosplenomegaly, No masses Rectal Exam: not examined Extremities: No clubbing, No cyanosis, No edema, Normal pulses, No tenderness/swelling Skin: No rashes, No breakdown, No significant lesion Neuro: Normal gait, Normal speech, Strength at 5/5 X4 ext, Normal tone, Sensation intact, Cranial nerves 3-12 NL, Reflexes 2+ Psych/Mental Status: Mental status NL, Mood NL Vitals Vitals Vital Signs Date Time Temp Pulse Resp B/P (MAP) Pulse Ox O2 Delivery O2 Flow Rate FiO2 09/24/19 20:23 Room Air 09/24/19 19:50 78 20 149/89 (109) 95 09/24/19 16:41 98.3 98.3 Labs Labs Laboratory Tests Test 09/24/19 16:48 09/24/19 17:20 09/24/19 20:28 09/24/19 21:05 White Blood Count 5.7 x10^3/uL (4.0-11.0) Red Blood Count 4.79 x10^6/uL (4.30-5.70) Hemoglobin 15.2 g/dL (13.0-17.5) Hematocrit 44.4 % (39.0-53.0) Mean Corpuscular Volume 93 fL (79-100) Mean Corpuscular Hemoglobin 32 pg (25-35) Mean Corpuscular Hemoglobin Concent 34 g/dL (31-37) Red Cell Distribution Width 19.0 % (11.5-14.5) Platelet Count 189 x10^3/uL (140-400) Neutrophils (%) (Auto) 62 % (31-73) Lymphocytes (%) (Auto) 27 % (24-48) Monocytes (%) (Auto) 10 % (0-9) Eosinophils (%) (Auto) 1 % (0-3) Basophils (%) (Auto) 0 % (0-3) Neutrophils # (Auto) 3.5 x10^3/uL (1.8-7.7) Lymphocytes # (Auto) 1.5 x10^3/uL (1.0-4.8) Monocytes # (Auto) 0.6 x10^3/uL (0.0-1.1) Eosinophils # (Auto) 0.0 x10^3/uL (0.0-0.7) Basophils # (Auto) 0.0 x10^3/uL (0.0-0.2) Prothrombin Time 13.5 SEC (11.7-14.0) Prothromb Time International Ratio 1.1 (0.8-1.1) D-Dimer (Amy) < 0.27 ug/mlFEU Sodium Level 135 mmol/L (136-145) Potassium Level 3.9 mmol/L (3.5-5.1) Chloride Level 100 mmol/L (98-107) Carbon Dioxide Level 22 mmol/L (21-32) Anion Gap 13 (6-14) Blood Urea Nitrogen 7 mg/dL (8-26) Creatinine 0.8 mg/dL (0.7-1.3) Estimated GFR (Cockcroft-Gault) 109.4 BUN/Creatinine Ratio 9 (6-20) Glucose Level 95 mg/dL (70-99) Calcium Level 8.1 mg/dL (8.5-10.1) Magnesium Level 2.1 mg/dL (1.8-2.4) Total Bilirubin 0.3 mg/dL (0.2-1.0) Aspartate Amino Transf (AST/SGOT) 86 U/L (15-37) Alanine Aminotransferase (ALT/SGPT) 58 U/L (16-63) Alkaline Phosphatase 100 U/L (46-116) Creatine Kinase 74 U/L (39-308) Creatine Kinase MB (Mass) 0.9 ng/mL (0.0-3.6) Creatine Kinase MB Relative Index % (0-4) Troponin I Quantitative < 0.017 ng/mL (0.000-0.055) < 0.017 ng/mL (0.000-0.055) TU-Wpd-X-Type Natriuretic Peptide 15 pg/mL (0-124) Total Protein 7.8 g/dL (6.4-8.2) Albumin 3.6 g/dL (3.4-5.0) Albumin/Globulin Ratio 0.9 (1.0-1.7) Thyroid Stimulating Hormone (TSH) 0.312 uIU/mL (0.358-3.74) Urine Collection Type Unknown Urine Color Yellow Urine Clarity Cloudy Urine pH 5.5 (<5.0-8.0) Urine Specific Panacea 1.015 (1.000-1.030) Urine Protein Negative mg/dL (NEG-TRACE) Urine Glucose (UA) Negative mg/dL (NEG) Urine Ketones (Stick) Negative mg/dL (NEG) Urine Blood Negative (NEG) Urine Nitrite Negative (NEG) Urine Bilirubin Negative (NEG) Urine Urobilinogen Dipstick 0.2 mg/dL (0.2 mg/dL) Urine Leukocyte Esterase Negative (NEG) Urine RBC 0 /HPF (0-2) Urine WBC Occ /HPF (0-4) Urine Squamous Epithelial Cells Few /LPF Urine Bacteria 0 /HPF (0-FEW) Urine Mucus Slight /LPF Urine Opiates Screen Pos (NEG) Urine Methadone Screen Neg (NEG) Urine Barbiturates Neg (NEG) Urine Phencyclidine Screen Neg (NEG) Urine Amphetamine/Methamphetamine Neg (NEG) Urine Benzodiazepines Screen Neg (NEG) Urine Cocaine Screen Neg (NEG) Urine Cannabinoids Screen Neg (NEG) Urine Ethyl Alcohol Pos (NEG) Laboratory Tests Test 09/24/19 16:48 09/24/19 17:20 09/24/19 20:28 09/24/19 21:05 White Blood Count 5.7 x10^3/uL (4.0-11.0) Red Blood Count 4.79 x10^6/uL (4.30-5.70) Hemoglobin 15.2 g/dL (13.0-17.5) Hematocrit 44.4 % (39.0-53.0) Mean Corpuscular Volume 93 fL (79-100) Mean Corpuscular Hemoglobin 32 pg (25-35) Mean Corpuscular Hemoglobin Concent 34 g/dL (31-37) Red Cell Distribution Width 19.0 % (11.5-14.5) Platelet Count 189 x10^3/uL (140-400) Neutrophils (%) (Auto) 62 % (31-73) Lymphocytes (%) (Auto) 27 % (24-48) Monocytes (%) (Auto) 10 % (0-9) Eosinophils (%) (Auto) 1 % (0-3) Basophils (%) (Auto) 0 % (0-3) Neutrophils # (Auto) 3.5 x10^3/uL (1.8-7.7) Lymphocytes # (Auto) 1.5 x10^3/uL (1.0-4.8) Monocytes # (Auto) 0.6 x10^3/uL (0.0-1.1) Eosinophils # (Auto) 0.0 x10^3/uL (0.0-0.7) Basophils # (Auto) 0.0 x10^3/uL (0.0-0.2) Prothrombin Time 13.5 SEC (11.7-14.0) Prothromb Time International Ratio 1.1 (0.8-1.1) D-Dimer (Amy) < 0.27 ug/mlFEU Sodium Level 135 mmol/L (136-145) Potassium Level 3.9 mmol/L (3.5-5.1) Chloride Level 100 mmol/L (98-107) Carbon Dioxide Level 22 mmol/L (21-32) Anion Gap 13 (6-14) Blood Urea Nitrogen 7 mg/dL (8-26) Creatinine 0.8 mg/dL (0.7-1.3) Estimated GFR (Cockcroft-Gault) 109.4 BUN/Creatinine Ratio 9 (6-20) Glucose Level 95 mg/dL (70-99) Calcium Level 8.1 mg/dL (8.5-10.1) Magnesium Level 2.1 mg/dL (1.8-2.4) Total Bilirubin 0.3 mg/dL (0.2-1.0) Aspartate Amino Transf (AST/SGOT) 86 U/L (15-37) Alanine Aminotransferase (ALT/SGPT) 58 U/L (16-63) Alkaline Phosphatase 100 U/L (46-116) Creatine Kinase 74 U/L (39-308) Creatine Kinase MB (Mass) 0.9 ng/mL (0.0-3.6) Creatine Kinase MB Relative Index % (0-4) Troponin I Quantitative < 0.017 ng/mL (0.000-0.055) < 0.017 ng/mL (0.000-0.055) JA-Ltc-X-Type Natriuretic Peptide 15 pg/mL (0-124) Total Protein 7.8 g/dL (6.4-8.2) Albumin 3.6 g/dL (3.4-5.0) Albumin/Globulin Ratio 0.9 (1.0-1.7) Thyroid Stimulating Hormone (TSH) 0.312 uIU/mL (0.358-3.74) Urine Collection Type Unknown Urine Color Yellow Urine Clarity Cloudy Urine pH 5.5 (<5.0-8.0) Urine Specific Panacea 1.015 (1.000-1.030) Urine Protein Negative mg/dL (NEG-TRACE) Urine Glucose (UA) Negative mg/dL (NEG) Urine Ketones (Stick) Negative mg/dL (NEG) Urine Blood Negative (NEG) Urine Nitrite Negative (NEG) Urine Bilirubin Negative (NEG) Urine Urobilinogen Dipstick 0.2 mg/dL (0.2 mg/dL) Urine Leukocyte Esterase Negative (NEG) Urine RBC 0 /HPF (0-2) Urine WBC Occ /HPF (0-4) Urine Squamous Epithelial Cells Few /LPF Urine Bacteria 0 /HPF (0-FEW) Urine Mucus Slight /LPF Urine Opiates Screen Pos (NEG) Urine Methadone Screen Neg (NEG) Urine Barbiturates Neg (NEG) Urine Phencyclidine Screen Neg (NEG) Urine Amphetamine/Methamphetamine Neg (NEG) Urine Benzodiazepines Screen Neg (NEG) Urine Cocaine Screen Neg (NEG) Urine Cannabinoids Screen Neg (NEG) Urine Ethyl Alcohol Pos (NEG) Images Images A frontal view of the chest is obtained. There is no infiltrate, pleural effusion or pneumothorax. The heart is normal in size. IMPRESSION: No acute pulmonary finding. VTE Prophylaxis Ordered VTE Prophylaxis Devices: No VTE Pharmacological Prophylaxi: No Assessment/Plan Assessment/Plan A/P: Chest pain - seems atypical, more likely GERD, though he failed a short PPI trial. Given his high risk family history of early paternal and paternal grandfather in 40s a further cardiac workup is indicated Elevated blood pressure without diagnosis of Hypertension - will monitor, needs ambulatory monitoring before starting meds Elevated blood sugar - will check a1c. Family history of very early onset alzheimers and early onset cardiac disease - will check lipid profile, A1c H/o gout - check uric acid Heavy ETOH use - CIWA scale. Counseled on cutting back FEN - General diet PPX - SCDs, low risk FULL CODE Dispo - inpatient for chest pain in high risk family Justicifation of Admission Dx: Justifications for Admission: Justification of Admission Dx: Yes Angina: [facility] CLARK DIEHL MD Sep 24, 2019 21:54
[2019-09-24 23:00] VITALS: BP 172/115
[2019-09-24] MEDS ORDERED: diphenhydrAMINE 50 MG/ML VIAL IVP PRN (23:30)
[2019-09-24] MEDS ORDERED: HALOPERIDOL LACTATE 5 MG/ML VIAL. IVP PRN (23:30)
[2019-09-24] MEDS ORDERED: cloNIDine HCL 0.1 MG TABLET PO PRN (23:30)
[2019-09-24] MEDS ORDERED: LIDO:MAALOX 1:1 20 ML SINGLE DOSE. PO PRN (23:45)
[2019-09-24] MEDS ORDERED: PANTOPRAZOLE 40 MG TABLET.DR. PO ONE (23:45)
[2019-09-25] MEDS: LORazepam 1 MG TABLET PO PRN ×2 (00:05→16:00)
[2019-09-25 03:00] VITALS: BP 144/96
[2019-09-25 04:25] LABS: BASO % 1 % (0-3); EOS % 1 % (0-3); HEMATOCRIT 45.5 % (39.0-53.0); HEMOGLOBIN 15.5 g/dL (13.0-17.5); LYMPH # 1.5 x10^3/uL (1.0-4.8); LYMPH % 20 % (24-48); MEAN CORPUSCULAR HEMOGLOBIN 32 pg (25-35); MEAN CORPUSCULAR HGB CONC 34 g/dL (31-37); MEAN CORPUSCULAR VOLUME 94 fL (79-100); MONO # 0.9 x10^3/uL (0.0-1.1); MONO % 12 % (0-9); NEUT # 5.1 x10^3/uL (1.8-7.7); NEUT % 66 % (31-73); PLATELET COUNT 151 x10^3/uL (140-400); RED BLOOD COUNT 4.86 x10^6/uL (4.30-5.70); RED CELL DISTRIBUTION WIDTH 18.9 % (11.5-14.5); WHITE BLOOD COUNT 7.6 x10^3/uL (4.0-11.0)
[2019-09-25 04:46] LABS: CALCIUM 8.7 mg/dL (8.5-10.1); CREATININE 1.1 mg/dL (0.7-1.3); GFR 75.7; POTASSIUM 4.2 mmol/L (3.5-5.1)
[2019-09-25 05:20] LABS: CHOLESTEROL/HDL RATIO 1.9
--- NOTE | 2019-09-25 06:39 | EKG ---
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 Electronically Signed On 09-26-2019 16:29:31 CDT by Dilip Huerta
[2019-09-25 07:00] VITALS: BP 179/97
[2019-09-25] MEDS ORDERED: PANTOPRAZOLE 40 MG TABLET.DR. PO SCH (07:30)
--- NOTE | 2019-09-25 10:57 | PDOC2 ---
DANG SINGH MEDICAL FRONT DESK SPECIALIST 09/25/19 1057: CARDIAC CONSULT DATE OF CONSULT Date of Consult DATE: 09/25/19 TIME: 10:31 REASON FOR CONSULT Reason for Consult: Chest pain REFERRING PHYSICIAN Referring Physician: Mauro SOURCE Source: Chart review, Patient HISTORY OF PRESENT ILLNESS HISTORY OF PRESENT ILLNESS This is a pleasant 34 yo male admitted for complains of chest pain. Reports that this started 2 days ago describing it as nonradiating chest pressure right above the epigastric region. This is not associated with n/v, ROM, palpitations or sustained dizziness. No diaphoresis. He took some prilosec but did not work. Yesterday it started again and it made him feel like its hard to take a deep breath but no SOA. He had a fall about 6 weeks ago and was noted with avascular necrosis to his right hip needing future surgery and sustained a broken wrist to his left from that fall which is now healing but still needing a brace. No hx of CAD, DM2 but has been told that he needs BP meds but was decided to do lifestyle modifications. So far he has failed in that regard, noting that he has gained 15 pounds in the last 6 months, drinks about 5L of white wine consumed in a 2-3 day period, He also has been noted with loud snoring and insomnia but no morning VANCE or midday somnolence but was noted that he pretty much eat only once a day. He was given protonix while he is here and his discomfort has not recurred. He also has bipolar disorder and is no treatment and he drinks this heavy which he has been doing it for >5 yrs due to anxiety. PAST MEDICAL HISTORY Cardiovascular: HTN Pulmonary: No pertinent hx CENTRAL NERVOUS SYSTEM: Other (No pertinent history) GI: No pertinent hx Heme/Onc: No pertinent hx Hepatobiliary: No pertinent hx Psych: Anxiety, Bipolar, Other (alcoholism) Musculoskeletal: Osteoarthritis, Other (right hip avascular necrosis, recent fall with left wrist injury) Rheumatologic: No pertinent hx, Gout (hyperuricemia) Infectious disease: No pertinent hx ENT: No pertinent hx Endocrine: No pertinent hx Dermatology: No pertinent hx PAST SURGICAL HISTORY Past Surgical History: Other (left calf repair) FAMILY HISTORY Family History: Coronary Artery Disease (grandfather) SOCIAL HISTORY Smoke: Quit (10 pk yr) ALCOHOL: heavy (5L of white wine consumed over 2-3 days) Lives: with Family CURRENT MEDICATIONS CURRENT MEDICATIONS Current Medications Medications (Trade) Dose Ordered Sig/Varun Route PRN Reason Start Time Stop Time Status Last Admin Dose Admin Nitroglycerin (Nitrostat) 0.4 mg PRN Q5MIN PRN SL CP RATING > 1/10 09/24/19 17:00 09/24/19 17:48 Morphine Sulfate (Morphine Sulfate) 2 mg PRN Q15MIN PRN IV/SQ PAIN GREATER THAN 3/10 09/24/19 17:00 09/25/19 16:59 09/24/19 17:52 Ondansetron HCl (Zofran) 4 mg 1X ONCE IVP 09/24/19 17:30 09/24/19 17:31 DC 09/24/19 17:52 Morphine Sulfate (Morphine Sulfate) 4 mg PRN Q2HR PRN IV PAIN 09/24/19 20:45 09/25/19 20:44 09/24/19 22:28 Lorazepam (Ativan) 2 mg PRN Q1HR PRN PO For CIWA 8-14 09/24/19 23:30 09/25/19 00:05 Pantoprazole Sodium (Protonix) 40 mg 1X ONCE PO 09/24/19 23:45 09/24/19 23:46 DC 09/25/19 00:01 Pantoprazole Sodium (Protonix) 40 mg DAILYAC PO 09/25/19 07:30 09/25/19 08:29 ALLERGIES ALLERGIES: Coded Allergies: No Known Drug Allergies (Unverified , 06/13/18) ROS Review of System 14 point ROS evaluated with pertinent positives noted per HPI PHYSICAL EXAM General: Alert, Oriented X3, Cooperative, No acute distress HEENT: Atraumatic, Mucous membr. moist/pink Lungs: Clear to auscultation, Normal air movement Heart: Regular rate (SR no ectopies), Normal S1, Normal S2, No murmurs Abdomen: Soft, No tenderness Extremities: No cyanosis, No edema Skin: No breakdown, No significant lesion Neuro: Normal speech, Sensation intact Psych/Mental Status: Mental status NL, Mood NL MUSCULOSKELETAL: Other (left wrist brace) VITALS/I&O VITALS/I&O: Vital Signs Date Time Temp Pulse Resp B/P (MAP) Pulse Ox O2 Delivery O2 Flow Rate FiO2 6/11/20 08:00 Room Air 09/25/19 07:00 98.0 72 16 179/97 (124) 98 98.0 I & O 09/24/19 09/24/19 09/25/19 15:00 23:00 07:00 Intake Total 350 ml 0 ml Balance 350 ml 0 ml LABS Lab: Laboratory Tests Test 09/24/19 16:48 09/24/19 17:20 09/24/19 20:28 09/24/19 21:05 White Blood Count 5.7 x10^3/uL (4.0-11.0) Red Blood Count 4.79 x10^6/uL (4.30-5.70) Hemoglobin 15.2 g/dL (13.0-17.5) Hematocrit 44.4 % (39.0-53.0) Mean Corpuscular Volume 93 fL (79-100) Mean Corpuscular Hemoglobin 32 pg (25-35) Mean Corpuscular Hemoglobin Concent 34 g/dL (31-37) Red Cell Distribution Width 19.0 % (11.5-14.5) H Platelet Count 189 x10^3/uL (140-400) Neutrophils (%) (Auto) 62 % (31-73) Lymphocytes (%) (Auto) 27 % (24-48) Monocytes (%) (Auto) 10 % (0-9) H Eosinophils (%) (Auto) 1 % (0-3) Basophils (%) (Auto) 0 % (0-3) Neutrophils # (Auto) 3.5 x10^3/uL (1.8-7.7) Lymphocytes # (Auto) 1.5 x10^3/uL (1.0-4.8) Monocytes # (Auto) 0.6 x10^3/uL (0.0-1.1) Eosinophils # (Auto) 0.0 x10^3/uL (0.0-0.7) Basophils # (Auto) 0.0 x10^3/uL (0.0-0.2) Prothrombin Time 13.5 SEC (11.7-14.0) Prothrombin Time INR 1.1 (0.8-1.1) D-Dimer (Amy) < 0.27 ug/mlFEU Sodium Level 135 mmol/L (136-145) L Potassium Level 3.9 mmol/L (3.5-5.1) Chloride Level 100 mmol/L (98-107) Carbon Dioxide Level 22 mmol/L (21-32) Anion Gap 13 (6-14) Blood Urea Nitrogen 7 mg/dL (8-26) L Creatinine 0.8 mg/dL (0.7-1.3) Estimated GFR (Cockcroft-Gault) 109.4 BUN/Creatinine Ratio 9 (6-20) Glucose Level 95 mg/dL (70-99) Calcium Level 8.1 mg/dL (8.5-10.1) L Magnesium Level 2.1 mg/dL (1.8-2.4) Total Bilirubin 0.3 mg/dL (0.2-1.0) Aspartate Amino Transferase (AST) 86 U/L (15-37) H Alanine Aminotransferase (ALT) 58 U/L (16-63) Alkaline Phosphatase 100 U/L (46-116) Creatine Kinase 74 U/L (39-308) Creatine Kinase MB (Mass) 0.9 ng/mL (0.0-3.6) Creatine Kinase MB Relative Index % (0-4) Troponin I Quantitative < 0.017 ng/mL (0.000-0.055) < 0.017 ng/mL (0.000-0.055) YZ-Kcp-W-Type Natriuretic Peptide 15 pg/mL (0-124) Total Protein 7.8 g/dL (6.4-8.2) Albumin 3.6 g/dL (3.4-5.0) Albumin/Globulin Ratio 0.9 (1.0-1.7) L Thyroid Stimulating Hormone (TSH) 0.312 uIU/mL (0.358-3.74) L Free Thyroxine 0.80 ng/dL (0.76-1.46) Urine Collection Type Unknown Urine Color Yellow Urine Clarity Cloudy Urine pH 5.5 (<5.0-8.0) Urine Specific [place] 1.015 (1.000-1.030) Urine Protein Negative mg/dL (NEG-TRACE) Urine Glucose (UA) Negative mg/dL (NEG) Urine Ketones (Stick) Negative mg/dL (NEG) Urine Blood Negative (NEG) Urine Nitrite Negative (NEG) Urine Bilirubin Negative (NEG) Urine Urobilinogen Dipstick 0.2 mg/dL (0.2 mg/dL) Urine Leukocyte Esterase Negative (NEG) Urine RBC 0 /HPF (0-2) Urine WBC Occ /HPF (0-4) Urine Squamous Epithelial Cells Few /LPF Urine Bacteria 0 /HPF (0-FEW) Urine Mucus Slight /LPF Urine Opiates Screen Pos (NEG) Urine Methadone Screen Neg (NEG) Urine Barbiturates Neg (NEG) Urine Phencyclidine Screen Neg (NEG) Urine Amphetamine/Methamphetamine Neg (NEG) Urine Benzodiazepines Screen Neg (NEG) Urine Cocaine Screen Neg (NEG) Urine Cannabinoids Screen Neg (NEG) Urine Ethyl Alcohol Pos (NEG) Uric Acid 7.5 mg/dL (3.5-7.2) H Test 09/25/19 00:00 09/25/19 03:43 Troponin I Quantitative < 0.017 ng/mL (0.000-0.055) White Blood Count 7.6 x10^3/uL (4.0-11.0) Red Blood Count 4.86 x10^6/uL (4.30-5.70) Hemoglobin 15.5 g/dL (13.0-17.5) Hematocrit 45.5 % (39.0-53.0) Mean Corpuscular Volume 94 fL (79-100) Mean Corpuscular Hemoglobin 32 pg (25-35) Mean Corpuscular Hemoglobin Concent 34 g/dL (31-37) Red Cell Distribution Width 18.9 % (11.5-14.5) H Platelet Count 151 x10^3/uL (140-400) Neutrophils (%) (Auto) 66 % (31-73) Lymphocytes (%) (Auto) 20 % (24-48) L Monocytes (%) (Auto) 12 % (0-9) H Eosinophils (%) (Auto) 1 % (0-3) Basophils (%) (Auto) 1 % (0-3) Neutrophils # (Auto) 5.1 x10^3/uL (1.8-7.7) Lymphocytes # (Auto) 1.5 x10^3/uL (1.0-4.8) Monocytes # (Auto) 0.9 x10^3/uL (0.0-1.1) Eosinophils # (Auto) 0.0 x10^3/uL (0.0-0.7) Basophils # (Auto) 0.0 x10^3/uL (0.0-0.2) Sodium Level 136 mmol/L (136-145) Potassium Level 4.2 mmol/L (3.5-5.1) Chloride Level 99 mmol/L (98-107) Carbon Dioxide Level 28 mmol/L (21-32) Anion Gap 9 (6-14) Blood Urea Nitrogen 9 mg/dL (8-26) Creatinine 1.1 mg/dL (0.7-1.3) Estimated GFR (Cockcroft-Gault) 75.7 Glucose Level 111 mg/dL (70-99) H Calcium Level 8.7 mg/dL (8.5-10.1) Triglycerides Level 87 mg/dL (0-150) Cholesterol Level 236 mg/dL (0-200) H LDL Cholesterol, Calculated 95 mg/dL (0-100) VLDL Cholesterol, Calculated 17 mg/dL (0-40) Non-HDL Cholesterol Calculated 112 mg/dL (0-129) HDL Cholesterol 124 mg/dL (40-60) H Cholesterol/HDL Ratio 1.9 Laboratory Tests 09/24/19 16:48 09/25/19 03:43 Laboratory Tests 09/24/19 17:20 09/25/19 03:43 ASSESSMENT/PLAN ASSESSMENT/PLAN 1. Atypical CP: possibly GI/esophagitis secondary to heavy ETOH use. doubt ACS. 2. Heavy ETOH abuse: 5L white wine consumed over 2-3 day period 3. Possible MAICO 4. Obesity: recent 15 pound wt gain with sedentary lifetyle 5. HTN urgency: multiple contributors as above 6. Hx of Bipolar disorder: mainly anxiety and depression, no meds 7. Suspect fatty liver 8. Hyperuricemia Recommendations 1. PPI.Consider outpt GI evaluation 2. Agree with starting norvasc. Avoid HCTZ with associated elevated uric acid level. If BP remains labile then could consider addition of ACEi 3. Lifestyle modification 4. Will need detox as he has been consuming this ETOH amount for >5 yrs and will need psychiatric referral 5. Will obtain baseline TTE and will referral for outpt MAICO w/u 6. Anticipate DC this afternoon if TTE is unremarkable. IRIS SALAZAR MD 09/26/19 0856: CARDIAC CONSULT ASSESSMENT/PLAN ASSESSMENT/PLAN Patient seen and examined 09/25/19. Agree with DIRECTOR DIGITAL ANALYTICS's assessment and plan. CP with atypical features and most probably GI etiology CA ruled out 2D echo showed normal LVF without any WMA Start norvas for better BP control OK for DC from cardiac standpoint DANG SINGH APRN Sep 25, 2019 10:57 IRIS SALAZAR MD Sep 26, 2019 08:56
[2019-09-25 11:00] VITALS: BP 189/118
[2019-09-25] MEDS ORDERED: amLODIPine BESYLATE 10 MG TABLET PO SCH (11:00)
--- NOTE | 2019-09-25 12:54 | NUR ---
SW following. Discussed with RN, RN advised no SW needs, discharge order for home with self care. RN advised pt to follow up outpatient for alcohol or psych information.
--- NOTE | 2019-09-25 13:23 | CARD ---
MR#: [id number] Date of Study: 09/25/2019 Ordering Physician: DANG SINGH, Referring Physician: DANG SINGH Tech: Court Atkinson [facility] APPROVED REPORT EXAM: Two-dimensional and M-mode echocardiogram with Doppler and color Doppler. Other Information Quality : Good INDICATION Chest Pain 2D DIMENSIONS RVDd2.9 (2.9-3.5cm)Left Atrium(2D)3.4 (1.6-4.0cm) IVSd1.3 (0.7-1.1cm)Aortic Root(2D)3.3 (2.0-3.7cm) LVDd5.3 (3.9-5.9cm)LVOT Diameter2.3 (1.8-2.4cm) PWd1.2 (0.7-1.1cm)LVDs3.9 (2.5-4.0cm) FS (%) 26.5 %SV69.1 ml LVEF(%)55.0 (>50%) Aortic Valve AoV Peak En.128.2cm/sAoV VTI25.0cm AO Peak GR.6.6mmHgLVOT Peak En.120.2cm/s AO Mean GR.4mmHgAVA (VMAX)3.85cm2 MIO (VTI)3.80cm2 Mitral Valve MV E Scluyxbp20.0cm/sMV DECEL YRJV247bi MV A Ksyvatue54.6cm/sE/A Ratio1.6 Tricuspid Valve TR P. Soxemdot601tw/sRAP TVYFNCAY9mfUb TR Peak Gr.75ryUwPYFD08llXt Pulmonary Vein S1 Belsgnqe56.5cm/sD2 Xgdzrvnf40.7cm/s LEFT VENTRICLE The left ventricle is normal size. There is mild concentric left ventricular hypertrophy. The left ve ntricular systolic function is normal. The Ejection Fraction is 55-60%. There is normal LV segmental wall motion. The left ventricular diastolic function and filling is normal for age. RIGHT VENTRICLE The right ventricle is normal size. The right ventricular systolic function is normal. ATRIA The left atrium size is normal. The right atrium size is normal. The interatrial septum is intact wit h no evidence for an atrial septal defect or patent foramen ovale as noted on 2-D or Doppler imaging. AORTIC VALVE The aortic valve is normal in structure and function. Doppler and Color Flow revealed no significant aortic regurgitation. There is no significant aortic valvular stenosis. MITRAL VALVE The mitral valve is normal in structure and function. There is no evidence of mitral valve prolapse. There is no mitral valve stenosis. Doppler and Color Flow revealed no mitral valve regurgitation note d. TRICUSPID VALVE The tricuspid valve is normal in structure and function. Doppler and Color Flow revealed trace tricus pid regurgitation. The PA pressure was estimated at 26 mmHg. There is no tricuspid valve stenosis. PULMONIC VALVE The pulmonary valve is normal in structure and function. Doppler and Color Flow revealed no pulmonic valvular regurgitation. There is no pulmonic valvular stenosis. GREAT VESSELS The aortic root is normal in size. The ascending aorta is normal in size. The IVC is normal in size a nd collapses >50% with inspiration. PERICARDIAL EFFUSION There is no evidence of significant pericardial effusion. Critical Notification Critical Value: No <Conclusion> The left ventricular systolic function is normal. The Ejection Fraction is 55-60%. There is normal LV segmental wall motion. Trace tricuspid regurgitation. The PA pressure was estimated at 26 mmHg. There is no evidence of significant pericardial effusion. Signed by : Robin Newsome, Electronically Approved : 09/25/2019 13:23:30
--- NOTE | 2019-09-25 14:52 | DS ---
DATE OF DISCHARGE: 09/25/2019 ADMISSION DIAGNOSIS: Chest pain. DISCHARGE DIAGNOSES: Resolving chest pain, suspect gastroesophageal reflux disease. HOSPITAL COURSE: The patient is a pleasant 34-year-old male who presented with chest pain. We admitted him. Did serial enzymes, serial EKGs, consulted Cardiology, gave him some Protonix that seem to help a lot. We suspect he has GERD. We are going to discharge with close outpatient followup. DISPOSITION: Home. ACTIVITY: As tolerated. DIET: Low sodium. MEDICATIONS: Please see MRAD. TOTAL TIME: 33 minutes. AMADA MARTINEZ DO DR: VENUS/arielle JOB#: [id number] / [id number]
[2019-09-25] MEDS ORDERED: AMLO10TA8 PO (15:22)
[2019-09-25] MEDS ORDERED: LISI-130 PO (15:22)
[2019-09-25 15:26] VITALS: BP 180/113
[2019-09-25] MEDS ORDERED: LISINOPRIL 20 MG TABLET PO SCH (16:00)
[2019-09-25 16:31] VITALS: BP 186/114
--- NOTE | 2019-09-25 16:33 | NUR ---
This RN escorted patient out to main entrance with . Called in prescriptions of lisinopril and lorazepam to pharmacy, corrected the pharmacy. IV and telemonitor removed. All personal belongings with patient.
[2019-09-29] MEDS ORDERED: MULTIVITAMIN with MINERAL TABLET. PO SCH (09:00)
[2019-09-29] MEDS ORDERED: FOLIC ACID 1 MG TABLET. PO SCH (09:00)
[2019-09-29] MEDS ORDERED: THIAMINE 100 MG TABLET. PO SCH (09:00)
== END 2019-09-25 16:33 | disposition home or self-care (01) | DRG 392 ==
LOC: ER 16:41 → 6 SOUTH 18:03
PROVIDERS: ADMIT Internal Medicine; ATTEND Internal Medicine
DX: K21.9 Gastro-esophageal reflux disease without esophagitis (principal); M87.9 Osteonecrosis, unspecified; E66.9 Obesity, unspecified; Z68.31 Body mass index [BMI] 31.0-31.9, adult; F10.10 Alcohol abuse, uncomplicated; F31.9 Bipolar disorder, unspecified; F41.9 Anxiety disorder, unspecified; I10 Essential (primary) hypertension; I16.0 Hypertensive urgency; Z82.0 Family history of epilepsy and other diseases of the nervous system; Z82.49 Family history of ischemic heart disease and other diseases of the circulatory system; M19.90 Unspecified osteoarthritis, unspecified site
CPT/HCPCS: 36415; 71045; 80048; 80053; 80061; 80307; 81001; 82553; 83735; 83880; 84439; 84443; 84480; 84484; 84550; 85025; 85379; 85610; 93005; 93306; 96374; 96375; J2270; J2405; 99285-25; G0378

== ENCOUNTER 2020-02-12 11:12 | Emergency (ER) | payer OTHER ==
[2019-09-25 11:05] VITALS: BP 179/97
[~2020-02-12] VITALS: Ht 182.9 cm; Wt 103.0 kg
[~2020-02-12 11:12] MED LIST changes: +AMLO-187 PO; +LISI-130 PO
[2020-02-12] MEDS ORDERED: DIPH,PERTUSS(ACELL),TET VAC/PF 0.5 ML SYRINGE. VAX IM ONE (11:45)
[2020-02-12] MEDS ORDERED: LIDOCAINE 1% PF 2 ML VIAL. INJ ONE (11:45)
--- NOTE | 2020-02-12 12:30 | ED.ADGEN ---
Past Medical History Past Medical History: Hypertension Past Surgical History: No Surgical History Smoking Status: Former Smoker Alcohol Use: Occasionally Drug Use: None General Adult EDM: Chief Complaint: LACERATION/AVULSION HPI: HPI: Patient is a 34 year old male who presents with lacerations to his right middle finger. PT was using a slicer and accidentally cut his finger. He is unsure of his last tetanus immunization. He denies any decreased ROM, numbness, tingling, or decreased sensation. He denies any pain at this time. Review of Systems: Review of Systems: Complete ROS is negative unless otherwise noted in HPI. Current Medications: Current Medications Medications (Trade) Dose Ordered Sig/Varun Start Time Stop Time Status Last Admin Dose Admin Diphtheria/ Tetanus/Acell Pertussis (ADACEL TDap SYRINGE) 0.5 ml ONCE ONCE 02/12/20 11:45 02/12/20 11:46 DC 02/12/20 12:08 0.5 ML Lidocaine HCl (Xylocaine-Mpf 1% 2ml Vial) 4 ml 1X ONCE 02/12/20 11:45 02/12/20 11:46 DC 02/12/20 12:08 4 ML Allergies: Allergies: Allergies Coded Allergies Type Severity Reaction Last Updated Verified No Known Drug Allergies 06/13/18 No Physical Exam: PE: See Above Constitutional: Well developed, well nourished, no acute distress, non-toxic appearance. [] HENT: Normocephalic, atraumatic, bilateral external ears normal, nose normal. [] Eyes: PERRLA, EOMI, conjunctiva normal, no discharge. [] Neck: Normal range of motion, no stridor. [] Cardiovascular:Heart rate regular rhythm Lungs & Thorax: Respirations even and unlabored, no retractions, no respiratory distress Skin: Warm, dry,; 2 lacerations to the palmar surface of the right third digit distal to the DIP the distal laceration measures 2 cm, bleeding is controlled, no visible foreign body; the proximal laceration measures 1.5 cm, bleeding is controlled, no visible foreign body Extremities: Third digit of right hand: No cyanosis, ROM intact, no edema, PMS intact [] Neurologic: Alert and oriented X 3, no focal deficits noted. [] Psychologic: Affect normal, judgement normal, mood normal. [] Current Patient Data: Vital Signs: Vital Signs Date Time Temp Pulse Resp B/P (MAP) Pulse Ox O2 Delivery O2 Flow Rate FiO2 02/12/20 11:19 97.4 69 20 181/117 (138) 98 Room Air 97.4 EKG: EKG: [] Heart Score: Risk Factors: Risk Factors: DM, Current or recent (<one month) smoker, HTN, HLP, family history of CAD, obesity. Risk Scores: Score 0 - 3: 2.5% MACE over next 6 weeks - Discharge Home Score 4 - 6: 20.3% MACE over next 6 weeks - Admit for Clinical Observation Score 7 - 10: 72.7% MACE over next 6 weeks - Early Invasive Strategies Radiology/Procedures: Radiology/Procedures: Laceration Repair by me: Anesthesia: 1% lidocaine locally Location: Distal laceration of palmar surface of right middle finger Tendon/Joint/Nerves: No injury Foreign body: None detected after copious irrigation and exploration with chlorhexidine and normal saline Technique: 5 Simple Interrupted Sutures with 4-0 Ethilon Complexity: No subcutaneous sutures/mucosal repair/edge excision Post Closure Length: 2 cm Anesthesia: 1% lidocaine locally Location: Proximal laceration of palmar surface of right middle finger Tendon/Joint/Nerves: No injury Foreign body: None detected after copious irrigation and exploration with chlorhexidine and normal saline Technique: 3 Simple Interrupted Sutures with 4-0 Ethilon Complexity: No subcutaneous sutures/mucosal repair/edge excision Post Closure Length: 1.5 cm Patient's bleeding was easily controlled in the department and there is no indication of anemia. No evidence of compartment syndrome, neurologic injury, vascular injury, open joint, tendon laceration, or foreign body. Patient is appropriate for outpatient follow up. [] Course & Med Decision Making: Course & Med Decision Making I have reviewed the PA/PLASTERER ROUGH's note and Plan of Care. I was available for consultation as needed during the patient's visit in the emergency department. I agree with the clinical impression, plans and disposition.Pertinent Labs and Imaging studies reviewed. (See chart for details) [] Dragon Disclaimer: Dragon Disclaimer: This electronic medical record was generated, in whole or in part, using a voice recognition dictation system. Departure Departure Impression: Primary Impression: Laceration of finger of right hand without foreign body without damage to pina l Additional Impressions: Laceration of middle finger of right hand without complication Need for Tdap vaccination Disposition: 01 DC HOME SELF CARE/HOMELESS Condition: STABLE Referrals: VELMA MINOR MD (PCP) Patient Instructions: Laceration Care, Adult, Llba-mf-Tsaf, VIS, Tetanus, Diphtheria (Td); Tetanus, Diphtheria, Pertussis (Tdap) - CDC Additional Instructions: Keep the area clean and dry. You may take Tylenol or ibuprofen as needed for pain. Keep the dressing that was placed today on for 24 hours then change the dressing twice a day and apply antibiotic ointment to the area. Follow-up with your primary care doctor, or return to the emergency room in 10-14 days to have the sutures removed, sooner if you develop signs of infection including: redness, warmth, drainage, or a fever. Problem Qualifiers Primary Impression: Laceration of finger of right hand without foreign body without damage to nail Encounter type: initial encounter Finger: middle finger Qualified Codes: S61.212A - Laceration without foreign body of right middle finger without damage to nail, initial encounter Additional Impressions: Laceration of middle finger of right hand without complication Encounter type: initial encounter Qualified Codes: S61.212A - Laceration without foreign body of right middle finger without damage to nail, initial encounter EMERY ATKINS APRN Feb 12, 2020 12:30 TONY RODRIGUEZ MD Feb 12, 2020 13:01
== END 2020-02-12 12:43 | disposition home or self-care (01) ==
LOC: ER 11:12
DX: S61.212A Laceration without foreign body of right middle finger without damage to nail, initial encounter (principal); I10 Essential (primary) hypertension; Z87.891 Personal history of nicotine dependence; W26.8XXA Contact with other sharp object(s), not elsewhere classified, initial encounter; Y93.89 Activity, other specified; Y92.89 Other specified places as the place of occurrence of the external cause; Y99.8 Other external cause status
CPT/HCPCS: 12002; 90471; 90715; 99283; J3490

== ENCOUNTER 2020-08-22 20:42 | Emergency (ER) | payer OTHER ==
[~2020-08-22] VITALS: Ht 182.9 cm; Wt 100.0 kg
[2020-08-22 21:18] LABS: BASO # 0.1 x10^3/uL (0.0-0.2); BASO % 1 % (0-3); EOS # 0.1 x10^3/uL (0.0-0.7); EOS % 2 % (0-3); HEMATOCRIT 42.9 % (39.0-53.0); HEMOGLOBIN 14.6 g/dL (13.0-17.5); LYMPH # 1.4 x10^3/uL (1.0-4.8); LYMPH % 25 % (24-48); MEAN CORPUSCULAR HEMOGLOBIN 32 pg (25-35); MEAN CORPUSCULAR HGB CONC 34 g/dL (31-37); MEAN CORPUSCULAR VOLUME 93 fL (79-100); MONO # 0.8 x10^3/uL (0.0-1.1); MONO % 14 % (0-9); NEUT # 3.4 x10^3/uL (1.8-7.7); NEUT % 58 % (31-73); PLATELET COUNT 107 x10^3/uL (140-400); RED CELL DISTRIBUTION WIDTH 15.1 % (11.5-14.5); WHITE BLOOD COUNT 5.8 x10^3/uL (4.0-11.0)
--- NOTE | 2020-08-22 21:24 | EKG ---
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
--- NOTE | 2020-08-22 21:24 | RAD ---
Exam: CT head INDICATION: Altered mental status TECHNIQUE: Sequential axial images through the head were obtained without the administration of IV co ntrast. Exposure: One or more of the following in the visualized dose reduction techniques were utilized for this examination: 1. Automated exposure control 2. Adjustment of the MA and/or KV according to patient size 3. Use of iterative of reconstructive technique Comparisons: None FINDINGS: No focal parenchymal lesion or hemorrhage is identified. There is no midline shift or sulcal effaceme nt. Mild patchy hypodensity in the periventricular white matter. No acute vascular territory infarction i s identified. Grant-white distinction is preserved. The ventricular system is within normal limits without compression hydrocephalus. The basal cisterns are well maintained. The visualized portions of the paranasal sinuses and mastoid air cells are well-pneumatized. No acute fractures. IMPRESSION: Mild small vessel ischemic change, technically age indeterminate without recent prior imaging. Electronically signed by: Дмитрий Wright MD (08/22/2020 9:22 PM) [facility]
[2020-08-22 21:27] LABS: CALCIUM 8.4 mg/dL (8.5-10.1); CREATININE 0.8 mg/dL (0.7-1.3); GFR 108.8; POTASSIUM 4.7 mmol/L (3.5-5.1)
[2020-08-22 21:33] LABS: ALBUMIN 4.1 g/dL (3.4-5.0); ALBUMIN/GLOBULIN RATIO 1.1 (1.0-1.7); MAGNESIUM 2.3 mg/dL (1.8-2.4); TOTAL BILIRUBIN 0.3 mg/dL (0.2-1.0); TOTAL PROTEIN 7.8 g/dL (6.4-8.2)
[2020-08-22] MEDS ORDERED: MULTIVIT INFUSN,ADULT 4,VIT K 10 ML, THIAMINE INJ 100 MG, FOLIC ACID INJ 1 MG in IV NOR... IV ONE (22:00)
--- NOTE | 2020-08-22 22:01 | PHYS DOC ---
Past Medical History Past Medical History: Alcoholism, Hypertension Past Medical History Limited secondary to intoxication Past Surgical History: No Surgical History Past Surgical History Limited secondary to intoxication Smoking Status: Former Smoker Alcohol Use: Heavy Drug Use: None Social History Limited secondary to intoxication General Adult EDM: Chief Complaint: ALCOHOL INTOXICATION HPI: HPI: Patient is a 35 year old male presents via EMS with report of episode of altered mental status in which patient was cooking in the kitchen and subsequently became less responsive and walked to another room sat down on the floor and u rinated on himself. Patient reportedly drank 1 pint of whiskey in addition to 10 beers. Spouse reports he typically drinks that amount. Denies history of seizures. Denies nausea or vomiting. EMS reports blood glucose within normal limits. History of present illness limited secondary to intoxication. Review of Systems: Review of Systems: Constitutional: Denies fever or chills Respiratory: Denies cough or shortness of breath Cardiovascular: Denies chest pain GI: Denies vomiting : Reports urination on self Neurologic: Reports episode of becoming unresponsive Review of systems limited secondary to intoxication Heart Score: C/O Chest Pain: N/A Current Medications: Current Medications Medications (Trade) Dose Ordered Sig/Varun Start Time Stop Time Status Last Admin Dose Admin Multivitamins 10 ml/Thiamine HCl 100 mg/Folic Acid 1 mg/Sodium Chloride 1,011.2 ml @ 1,000 mls/ hr 1X ONCE 08/22/20 22:00 08/22/20 23:00 08/22/20 21:30 1,000 MLS/HR Allergies: Allergies: Allergies Coded Allergies Type Severity Reaction Last Updated Verified No Known Drug Allergies 06/13/18 No Physical Exam: PE: Constitutional: Well developed, well nourished, intoxicated, non-toxic appearance HENT: Normocephalic, atraumatic Eyes: PERRL, EOMI, conjunctiva normal, no discharge, horizontal nystagmus noted Neck: Normal range of motion, no tenderness, supple Lungs & Thorax: No respiratory distress, equal chest rise and fall Abdomen: Soft, no tenderness Skin: Warm, dry, no erythema, no rash Extremities: No tenderness, ROM intact, no edema Neurologic: Alert and oriented X 3, intoxicated, normal motor function, normal sensory function, no focal deficits noted Psychologic: Affect intoxicated, judgment abnormal Current Patient Data: Labs: Laboratory Tests Test 08/22/20 20:55 White Blood Count 5.8 x10^3/uL (4.0-11.0) Red Blood Count 4.60 x10^6/uL (4.30-5.70) Hemoglobin 14.6 g/dL (13.0-17.5) Hematocrit 42.9 % (39.0-53.0) Mean Corpuscular Volume 93 fL (79-100) Mean Corpuscular Hemoglobin 32 pg (25-35) Mean Corpuscular Hemoglobin Concent 34 g/dL (31-37) Red Cell Distribution Width 15.1 % (11.5-14.5) H Platelet Count 107 x10^3/uL (140-400) L Neutrophils (%) (Auto) 58 % (31-73) Lymphocytes (%) (Auto) 25 % (24-48) Monocytes (%) (Auto) 14 % (0-9) H Eosinophils (%) (Auto) 2 % (0-3) Basophils (%) (Auto) 1 % (0-3) Neutrophils # (Auto) 3.4 x10^3/uL (1.8-7.7) Lymphocytes # (Auto) 1.4 x10^3/uL (1.0-4.8) Monocytes # (Auto) 0.8 x10^3/uL (0.0-1.1) Eosinophils # (Auto) 0.1 x10^3/uL (0.0-0.7) Basophils # (Auto) 0.1 x10^3/uL (0.0-0.2) Sodium Level 141 mmol/L (136-145) Potassium Level 4.7 mmol/L (3.5-5.1) Chloride Level 103 mmol/L (98-107) Carbon Dioxide Level 24 mmol/L (21-32) Anion Gap 14 (6-14) Blood Urea Nitrogen 13 mg/dL (8-26) Creatinine 0.8 mg/dL (0.7-1.3) Estimated GFR (Cockcroft-Gault) 108.8 BUN/Creatinine Ratio 16 (6-20) Glucose Level 92 mg/dL (70-99) Calcium Level 8.4 mg/dL (8.5-10.1) L Magnesium Level 2.3 mg/dL (1.8-2.4) Total Bilirubin 0.3 mg/dL (0.2-1.0) Aspartate Amino Transferase (AST) 78 U/L (15-37) H Alanine Aminotransferase (ALT) 64 U/L (16-63) H Alkaline Phosphatase 134 U/L (46-116) H Total Protein 7.8 g/dL (6.4-8.2) Albumin 4.1 g/dL (3.4-5.0) Albumin/Globulin Ratio 1.1 (1.0-1.7) Ethyl Alcohol Level 425 mg/dL (0-10) *H Laboratory Tests 08/22/20 20:55 Laboratory Tests 08/22/20 20:55 EKG: EKG: @2047 NSR at 89bpm, NO ST elevation, incomplete RBBB, QRS 108ms, QT/QTc 344/420ms Compared to prior EKG from 09/24/19 without significant change from prior. Radiology/Procedures: Radiology/Procedures: PROCEDURE: CT HEAD WO CONTRAST Exam: CT head INDICATION: Altered mental status TECHNIQUE: Sequential axial images through the head were obtained without the administration of IV contrast. Exposure: One or more of the following in the visualized dose reduction techni ques were utilized for this examination: 1. Automated exposure control 2. Adjustment of the MA and/or KV according to patient size 3. Use of iterative of reconstructive technique Comparisons: None FINDINGS: No focal parenchymal lesion or hemorrhage is identified. There is no midline shift or sulcal effacement. Mild patchy hypodensity in the periventricular white matter. No acute vascular territory infarction is identified. Grant-white distinction is preserved. The ventricular system is within normal limits without compression hydrocephalus. The basal cisterns are well maintained. The visualized portions of the paranasal sinuses and mastoid air cells are well- pneumatized. No acute fractures. IMPRESSION: Mild small vessel ischemic change, technically age indeterminate without recent prior imaging. Electronically signed by: Дмитрий Wright MD (08/22/2020 9:22 PM) [facility] Course & Med Decision Making: Course & Med Decision Making Pertinent Labs and Imaging studies reviewed. (See chart for details) Patient presents via EMS with report of episode of unresponsiveness. Patient reports drinking heavily. Patient does appear intoxicated. Patient otherwise neurologically intact. CT head without acute process. EKG stable. Labs obtained and posted to chart. EtOH 425. Banana bag provided. Additional liter of IVF provided. Patient observed in ER until clinically sober. Patient requesting help with his ETOH abuse. PAT consult obtained. Requesting rapid COVID testing. Rapid COVID testing negative. Recommendation for admission to [facility]. Patient stable for discharge to [facility] for drug and alcohol rehab. Discussed findings and plan with patient and spouse, who acknowledge understanding and agreement. Corrie Disclaimer: Corrie Disclaimer: This electronic medical record was generated, in whole or in part, using a voice recognition dictation system. Departure Departure Impression: Primary Impression: Alcohol abuse Additional Impression: Lactic acidosis Disposition: HOME / SELF CARE / HOMELESS (to [facility] for ETOH abuse) Condition: STABLE Referrals: VELMA MINOR MD (PCP) Patient Instructions: Alcohol Intoxication, [id number], Alcohol and Drug Addiction, Finding Treatment, Alcohol, FAQs, How Much is Too Much Alcohol, [id number] Additional Instructions: Present directly to [facility] for help with your ETOH abuse. Scripts Chlordiazepoxide Hcl (CHLORDIAZEPOXIDE HCL) 25 Mg Capsule 25 MG PO UD, #15 CAP Day #1: Take 50mg PO QID Day #2: Take 50mg PO BID Day #3: Take 25mg PO BID Day #4: Take 25mg PO QHS Prov: ISAMAR YOON DO 08/23/20 ISAMAR YOON DO August 22, 2020 22:01
[2020-08-22 22:32] LABS: BILIRUBIN,URINE NEGATIVE (NEG); CLARITY,URINE CLEAR; NITRITE,URINE NEGATIVE (NEG); PH,URINE 5.5 (<5.0-8.0); PROTEIN,URINE NEGATIVE (NEG-TRACE); UROBILINOGEN,URINE 0.2 mg/dL (0.2 mg/dL)
[2020-08-22 22:37] LABS: BARBITURATES NEG (NEG); BENZODIAZEPINES NEG (NEG); CANNABINOIDS NEG (NEG); COCAINE NEG (NEG); METHADONE NEG (NEG); OPIATES NEG (NEG); PHENCYCLIDINE NEG (NEG)
[2020-08-22 22:38] LABS: COLOR,URINE STRAW
[2020-08-22 22:39] LABS: BACTERIA,URINE 0 /HPF (0-FEW); RBC,URINE 0 /HPF (0-2); WBC,URINE 0 /HPF (0-4)
[2020-08-22 22:40] LABS: AMPHETAMINE/METHAMPHETAMINE NEG (NEG)
[2020-08-22] MEDS ORDERED: IV NORMAL SALINE 1000ML BAG 1,000 ML IV ONE (23:00)
[2020-08-23] MEDS ORDERED: CHLO25CA9 PO (00:10)
[2020-08-23 00:44] VITALS: BP 188/91
== END 2020-08-23 01:15 | disposition home or self-care (01) ==
LOC: ER 20:42
DX: F10.229 Alcohol dependence with intoxication, unspecified (principal); Y90.8 Blood alcohol level of 240 mg/100 ml or more; Z20.822 Contact with and (suspected) exposure to COVID-19; E87.2 Acidosis; R41.82 Altered mental status, unspecified; I10 Essential (primary) hypertension; Z87.891 Personal history of nicotine dependence
CPT/HCPCS: 36415; 70450; 80053; 80307; 81001; 82553; 83605; 83735; 84484; 85025; 87426; 93005; 96365; 99285; G0480; J3411; J3490; J7030; U0003; U0005

== ENCOUNTER 2020-08-27 20:59 | Inpatient (IN) | payer OTHER ==
[~2020-08-27] VITALS: Ht 182.9 cm; Wt 110.7 kg
[~2020-08-27 20:59] MED LIST changes: +CHLO25CA9 PO
[2020-08-27 21:00] VITALS: BP 177/96
[2020-08-27] MEDS ORDERED: ONDANSETRON PF 4 MG/2 ML VIAL. IVP PRN (21:30)
[2020-08-27] MEDS: ZIPRASIDONE 20 MG CAPSULE PO SCH (21:30)
[2020-08-27] MEDS: GABAPENTIN 300 MG CAPSULE. PO SCH (21:30)
[2020-08-27] MEDS ORDERED: IV NORMAL SALINE 1000ML BAG 1,000 ML IV SCH (21:30)
[2020-08-27] MEDS ORDERED: HALOPERIDOL LACTATE 5 MG/ML VIAL. IVP PRN (21:30)
[2020-08-27] MEDS ORDERED: traZODone 100 MG TABLET. PO PRN (21:30)
[2020-08-27] MEDS ORDERED: diphenhydrAMINE 50 MG/ML VIAL IVP PRN (21:30)
[2020-08-27] MEDS ORDERED: MAGNESIUM HYDROXIDE 2,400 MG/30 ML ORAL.SUSP. PO PRN (21:30)
[2020-08-27 23:00] VITALS: BP 171/100
--- NOTE | 2020-08-27 23:12 | PDOC1 ---
History and Physical Date of Admission Date of Admission DATE: 08/27/20 TIME: 23:11 Identification/Chief Complaint Chief Complaint Delerijulisa stauffer Source Source: Caregiver, Chart review, Patient History of Present Illness History of Present Illness Mr Finch is a 35-year-old male with PMHx elevated blood pressure without dx of HTN, ETOH use, gout who is presenting accepted as a direct admission from [facility]. He was seen on Sunday08/22/2020 intoxicated looking for alcohol withdrawal treatment was referred to [facility] and subsequently taken to [facility] but his withdrawal symptoms were not well controlled or manageable in residential treatment setting and therefore he was transferred to [facility] for inpatient treatment of delirium tremens. He was given phenobarbitol and valium treatment, continued to be difficult to redirect, hallucinating, making staff feel unsafe and transferred to [facility] for further care. 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 EKG reviewed by myself is NSR with normal axis and RBBB. Chest x-ray is negative for acute pathology, troponin is normal, d-dimer is normal. 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 He does drink heavily and has sought treatment on a few occasions. He is especially concerned because of early cardiac disease in his father and paternal grandfather and early at age 44 for both of them, he notes this was due to very early onset of Alzheimer's dementia. He is not easy to redirect and confused. His is concerned about history of bipolar disorder that required inpatient treatment and depakote therapy at [facility] ([facility]) several years ago. Blood pressure noted in the 170s over low 100s. Afebrile on exam. Accepted at [facility] for further treatment of his alcohol withdrawal deleriu Past Medical History Cardiovascular: HTN Pulmonary: No pertinent hx CENTRAL NERVOUS SYSTEM: Other GI: No pertinent hx Heme/Onc: No pertinent hx Hepatobiliary: No pertinent hx Psych: Anxiety, Bipolar, Other Musculoskeletal: Osteoarthritis, Other Rheumatologic: No pertinent hx, Gout Infectious disease: No pertinent hx Endocrine: No pertinent hx Past Surgical History Past Surgical History: Other Family History Family History: Coronary Artery Disease Social History Smoke: No ALCOHOL: heavy Drugs: None, Cocaine (in remission) Current Medications Current Medications Current Medications Sodium Chloride 1,000 ml @ 100 mls/hr Q10H IV ; Start 08/27/20 at 21:30; Stop 08/28/20 at 07:29 Ondansetron HCl (Zofran) 4 mg PRN Q6HRS PRN IVP NAUSEA/VOMITING; Start 08/27/20 at 21:30 Acetaminophen (Tylenol) 650 mg PRN Q6HRS PRN PO Headaches, Temp > 101.5F; Start 08/27/20 at 21:30 Senna/Docusate Sodium (Senna Plus) 1 tab BID PO ; Start 08/28/20 at 09:00 Magnesium Hydroxide (Milk Of Magnesia) 2,400 mg PRN Q12HR PRN PO CONSTIPATION; Start 08/27/20 at 21:30 Multivitamins (Thera M Plus) 1 tab DAILY PO ; Start 09/01/20 at 09:00 Folic Acid (Folic Acid) 1 mg DAILY PO ; Start 09/01/20 at 09:00 Thiamine Mononitrate (Vitamin B-1) 100 mg DAILY PO ; Start 09/01/20 at 09:00 Lorazepam (Ativan) 1 mg PRN Q1HR PRN PO For CIWA 8-14; Start 08/27/20 at 21:30 Lorazepam (Ativan) 2 mg PRN Q1HR PRN PO For CIWA 15 or greater; Start 08/27/20 at 21:30 Lorazepam (Ativan Inj) 1 mg PRN Q1HR PRN IV For CIWA 8-14; Start 08/27/20 at 21:30 Lorazepam (Ativan Inj) 2 mg PRN Q1HR PRN IV For CIWA 15 or greater; Start 08/27/20 at 21:30 Haloperidol Lactate (Haldol Inj) 5 mg PRN Q4HRS PRN IVP Hallucinatns,Confusn,Delirium; Start 08/27/20 at 21:30 Diphenhydramine HCl (Benadryl) 25 mg PRN Q15MIN PRN IVP EPS symptoms 2'Haldol admin; Start 08/27/20 at 21:30 Clonidine HCl (Catapres) 0.1 mg PRN Q1HR PRN PO SBP > 180 or DBP > 100, MRX3; Start 08/27/20 at 21:30 Gabapentin (Neurontin) 300 mg TID PO ; Start 08/27/20 at 21:30 Trazodone HCl (Desyrel) 50 mg PRN QHS PRN PO Sleep/depression; Start 08/27/20 at 21:30 Ziprasidone (Geodon) 20 mg QHS PO ; Start 08/27/20 at 21:30 Active Scripts Active Chlordiazepoxide Hcl 25 Mg Capsule 25 Mg PO UD Day #1: Take 50mg PO QID Day #2: Take 50mg PO BID Day #3: Take 25mg PO BID Day #4: Take 25mg PO QHS Lisinopril 40 Mg Tablet 40 Mg PO DAILY 30 Days Amlodipine Besylate 10 Mg Tablet 10 Mg PO DAILY 30 Days Loleta 5-325 Tablet (Acetaminophen/Hydrocodone Bitart) 1 Each Tablet 1-2 Tab PO Q4-6HRS Ultram (Tramadol Hcl) 50 Mg Tablet 1 Tab PO PRN Q6HRS PRN MDD 4 Tablet(s) 7 Days Hydrocodone-Apap 5-325 (Hydrocodone Bit/Acetaminophen) 1 Tab Tablet 0.5-1 Tab PO PRN Q6HRS PRN Keflex (Cephalexin) 500 Mg Capsule 500 Mg PO QID 7 Days Bactrim Ds Tablet (Sulfamethoxazole/Trimethoprim) 1 Each Tablet 2 Each PO Q12HR 7 Days Doxycycline Hyclate 100 Mg Capsule 1 Cap PO BID 10 Days Loleta 5-325 Tablet (Acetaminophen/Hydrocodone Bitart) 1 Each Tablet 1-2 Tab PO Q6HRS Allergies Allergies: Coded Allergies: No Known Drug Allergies (Unverified , 06/13/18) ROS Review of System Unable to complete due to confusion General: YES: Fatigue, Malaise; No: Chills, Night Sweats, Appetite, Other PSYCHOLOGICAL ROS: No: Anxiety, Behavioral Disorder, Concentration difficultie, Decreased libido, Depression, Disorientation, Hallucinations, Hostility, Irritablity, Memory difficulties, Mood Swings, Obsessive thoughts, Physical abuse, Sexual abuse, Sleep disturbances, Suicidal ideation, Other Eyes: No Blurry vision, No Decreased vision, No Double vision, No Dry eyes, No Excessive tearing, No Eye Pain, No Itchy Eyes, No Loss of vision, No Photophobia, No Scotomata, No Uses contacts, No Uses glasses, No Other HEENT: No: Heacaches, Visual Changes, Hearing change, Nasal congestion, Nasal discharge, Oral lesions, Sinus pain, Sore Throat, Epistaxis, Sneezing, Snoring, Tinnitus, Vertigo, Vocal changes, Other ALLERGY AND IMMUNOLOGY: No: Hives, Insect Bite Sensitivity, Itchy/Watery Eyes, Nasal Congestion, Post Nasal Drip, Seasonal Allergies, Other Hematological and Lymphatic: No: Bleeding Problems, Blood Clots, Blood Transfusions, Brusing, Night Sweats, Pallor, Swollen Lymph Nodes, Other ENDOCRINE: No: Breast Changes, Galactorrhea, Hair Pattern Changes, Hot Flashes, Malaise/lethargy, Mood Swings, Palpitations, Polydipsia/polyuria, Skin Changes, Temperature Intolerance, Unexpected Weight Changes, Other Breast: No New/Changing Breast Lumps, No Nipple changes, No Nipple discharge, No Other Respiratory: No: Cough, Hemoptysis, Orthopnea, Pleuritic Pain, Shortness of breath, SOB with excertion, Sputum Changes, Stridor, Tachypnea, Wheezing, Other Cardiovascular: No Chest Pain, No Palpitations, No Orthopnea, No Paroxysmal Noc. Dyspnea, No Edema, No Lt Headedness, No Other Gastrointestinal: No Nausea, No Vomiting, No Abdominal Pain, No Diarrhea, No Constipation, No Melena, No Hematochezia, No Other Genitourinary: No Dysuria, No Frequency, No Incontinence, No Hematuria, No Retention, No Discharge, No Urgency, No Pain, No Flank Pain, No Other, No , No , No , No , No , No , No Musculoskeletal: Yes Joint Pain, Yes Joint Stiffness; No Gait Disturbance, No Joint Swelling, No Muscle Pain, No Muscular Weakness, No Pain In:, No Swelling In:, No Other Neurological: No Behavorial Changes, No Bowel/Bladder ControlChng, No Confusion, No Dizziness, No Gait Disturbance, No Headaches, No Impaired Coord/balance, No Memory Loss, No Numbness/Tingling, No Seizures, No Speech Problems, No Tremors, No Visual Changes, No Weakness, No Other Skin: No Dry Skin, No Eczema, No Hair Changes, No Lumps, No Mole Changes, No Mottling, No Nail Changes, No Pruritus, No Rash, No Skin Lesion Changes, No Other, No Acne Physical Exam General: Alert, Cooperative, moderate distress HEENT: Atraumatic, PERRLA, EOMI, Mucous membr. moist/pink Lungs: Clear to auscultation, Normal air movement Heart: S1S2, RRR, no thrills, no rubs, no gallops, no murmurs Abdomen: Normal bowel sounds, Soft, No tenderness, No hepatosplenomegaly, No masses Rectal Exam: not examined Extremities: No clubbing, No cyanosis, No edema, Normal pulses, No tenderness/swelling Skin: No rashes, No breakdown, No significant lesion Neuro: Normal speech, Strength at 5/5 X4 ext, Normal tone, Sensation intact, Cranial nerves 3-12 NL, Reflexes 2+ Psych/Mental Status: Other (Delerious) Vitals Vitals Vital Signs Date Time Temp Pulse Resp B/P (MAP) Pulse Ox O2 Delivery O2 Flow Rate FiO2 08/27/20 23:00 99.2 85 20 171/100 (123) 98 Room Air 99.2 VTE Prophylaxis Ordered VTE Prophylaxis Devices: No VTE Pharmacological Prophylaxi: No Assessment/Plan Assessment/Plan A/P: Acute alcohol withdrawal with delerium - CIWA. PAT consult. Thiamine, folic acid. Add gabapentin, prn clonidine. May need acamprosate or depade/vivitrol outpatient therapy Bipolar disorder - notes prior psychiatric hospitalization started on depakote, but compliance was difficult Hypertension - will monitor, needs ambulatory monitoring for titrating meds, but based on history has been treated with amlodipine Thrombocytopenia - likely due to heavy alcohol use and bone marrow suppression Family history of very early onset alzheimers and early onset cardiac disease H/o gout - monitor uric acid Heavy ETOH use - CIWA scale. Counseled on cutting back AVN of right hip - has orthopedic surgery consult outpatient, needs ETOH treatment prior FEN - General diet PPX - SCDs, low risk FULL CODE Dispo - inpatient for chest pain in high risk family Justifications for Admission Other Justification CLARK DIEHL MD August 27, 2020 23:12
[2020-08-28 03:00] VITALS: BP 195/112
[2020-08-28] MEDS: cloNIDine HCL 0.1 MG TABLET PO PRN ×2 (03:06→08:07)
[2020-08-28 04:25] LABS: BASO % 0 % (0-3); EOS # 0.2 x10^3/uL (0.0-0.7); EOS % 2 % (0-3); HEMATOCRIT 41.8 % (39.0-53.0); HEMOGLOBIN 14.2 g/dL (13.0-17.5); LYMPH # 0.9 x10^3/uL (1.0-4.8); LYMPH % 8 % (24-48); MEAN CORPUSCULAR HEMOGLOBIN 32 pg (25-35); MEAN CORPUSCULAR HGB CONC 34 g/dL (31-37); MEAN CORPUSCULAR VOLUME 93 fL (79-100); MONO # 2.3 x10^3/uL (0.0-1.1); MONO % 22 % (0-9); NEUT # 7.2 x10^3/uL (1.8-7.7); NEUT % 68 % (31-73); PLATELET COUNT 174 x10^3/uL (140-400); RED BLOOD COUNT 4.48 x10^6/uL (4.30-5.70); RED CELL DISTRIBUTION WIDTH 14.6 % (11.5-14.5); WHITE BLOOD COUNT 10.6 x10^3/uL (4.0-11.0)
[2020-08-28 05:27] LABS: ALBUMIN 2.8 g/dL (3.4-5.0); ALBUMIN/GLOBULIN RATIO 0.6 (1.0-1.7); CALCIUM 8.9 mg/dL (8.5-10.1); CREATININE 0.7 mg/dL (0.7-1.3); GFR 126.9; POTASSIUM 3.6 mmol/L (3.5-5.1); TOTAL BILIRUBIN 0.8 mg/dL (0.2-1.0); TOTAL PROTEIN 7.4 g/dL (6.4-8.2)
[2020-08-28 07:00] VITALS: BP 187/109
[2020-08-28 07:36] LABS: % BANDS 3 % (0-9); % EOS 1 % (0-5); % LYMPHS 13 % (24-48); % MONOS 21 % (0-10); % SEGS 62 % (35-66); PLT ESTIMATE ADEQUATE (ADEQUATE)
[2020-08-28] MEDS: GABAPENTIN 300 MG CAPSULE. PO SCH ×3 (08:06→21:24)
[2020-08-28] MEDS: SENNOSIDES/DOCUSATE 8.6/50MG TABLET. PO SCH ×2 (08:06→21:24)
[2020-08-28] MEDS ORDERED: amLODIPine BESYLATE 10 MG TABLET PO SCH (09:00)
--- NOTE | 2020-08-28 09:41 | PDOC ---
PROGRESS NOTES Date of Service: DATE: 08/28/20 TIME: 09:41 Chief Complaint Chief Complaint VTE Prophylaxis Ordered VTE Prophylaxis Devices: No VTE Pharmacological Prophylaxi: No Assessment/Plan IMPRESSION A/P: Acute alcohol withdrawal with delerium - REBEL. PAT consult. Thiamine, folic acid. Add gabapentin, prn clonidine. May need acamprosate or depade/vivitrol outpatient therapy Bipolar disorder - notes prior psychiatric hospitalization started on depakote, but compliance was difficult Hypertension - will monitor, needs ambulatory monitoring for titrating meds, but based on history has been treated with amlodipine Thrombocytopenia - likely due to heavy alcohol use and bone marrow suppression uncontrolled hypertension Family history of very early onset alzheimers and early onset cardiac disease H/o gout - monitor uric acid Heavy ETOH use - CIWA scale. 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 Probable old fractures of the superior to inferior pubic ramus. 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 PLAN FEN - General diet PPX - SCDs, low risk FULL CODE Dispo - inpatient for chest pain in high risk family iv hydralazine 10 mg q 4 hrs prn bp support PAT CONSULT GI CONSULT Ammonia level change norvasc to 5 mg po bid neurology consult 38 min pt exam, chart review, > 50% of time spent with exam, chart review, pt care coordination History of Present Illness History of Present Illness dentification/Chief Complaint Chief Complaint James stauffer Source Source: Caregiver, Chart review, Patient History of Present Illness History of Present Illness Mr Finch is a 35-year-old male with PMHx elevated blood pressure without dx of HTN, ETOH use, gout who is presenting accepted as a direct admission from [facility]. He was seen on Sunday08/22/2020 intoxicated looking for alcohol withdrawal treatment was referred to [facility] [[email or web address] and subsequently taken to [facility] but his withdrawal symptoms were not well controlled or manageable in residential treatment setting and therefore he was transferred to [facility] for inpatient treatment of delirium tremens. He was given phenobarbitol and valium treatment, continued to be difficult to redirect, hallucinating, making staff feel unsafe and transferred to preferred hospital for further care. 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 EKG reviewed by myself is NSR with normal axis and RBBB. Chest x-ray is negative for acute pathology, troponin is normal, d-dimer is normal. 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 He does drink heavily and has sought treatment on a few occasions. He is especially concerned because of early cardiac disease in his father and paternal grandfather and early at age 44 for both of them, he notes this was due to very early onset of Alzheimer's dementia. He is not easy to redirect and confused. His is concerned about history of bipolar disorder that required inpatient treatment and depakote therapy at [facility] ([facility]) several years ago. Blood pressure noted in the 170s over low 100s. Afebrile on exam. Accepted at [facility] for further treatment of his alcohol withdrawal deleriu Past Medical History Cardiovascular: HTN Pulmonary: No pertinent hx CENTRAL NERVOUS SYSTEM: Other GI: No pertinent hx Heme/Onc: No pertinent hx Hepatobiliary: No pertinent hx Psych: Anxiety, Bipolar, Other Musculoskeletal: Osteoarthritis, Other Rheumatologic: No pertinent hx, Gout Infectious disease: No pertinent hx Endocrine: No pertinent hx Past Surgical History Past Surgical History: Other Family History Family History: Coronary Artery Disease Social History Smoke: No ALCOHOL: heavy Drugs: None, Cocaine (in remission) Current Medications Current Medications Current Medications Sodium Chloride 1,000 ml @ 100 mls/hr Q10H IV ; Start 08/27/20 at 21:30; Stop 08/28/20 at 07:29 Ondansetron HCl (Zofran) 4 mg PRN Q6HRS PRN IVP NAUSEA/VOMITING; Start 08/27/20 at 21:30 Acetaminophen (Tylenol) 650 mg PRN Q6HRS PRN PO Headaches, Temp > 101.5F; Start 08/27/20 at 21:30 Senna/Docusate Sodium (Senna Plus) 1 tab BID PO ; Start 08/28/20 at 09:00 Magnesium Hydroxide (Milk Of Magnesia) 2,400 mg PRN Q12HR PRN PO CONSTIPATION; Start 08/27/20 at 21:30 Multivitamins (Thera M Plus) 1 tab DAILY PO ; Start 09/01/20 at 09:00 Folic Acid (Folic Acid) 1 mg DAILY PO ; Start 09/01/20 at 09:00 Thiamine Mononitrate (Vitamin B-1) 100 mg DAILY PO ; Start 09/01/20 at 09:00 Lorazepam (Ativan) 1 mg PRN Q1HR PRN PO For CIWA 8-14; Start 08/27/20 at 21:30 Lorazepam (Ativan) 2 mg PRN Q1HR PRN PO For CIWA 15 or greater; Start 08/27/20 at 21:30 Lorazepam (Ativan Inj) 1 mg PRN Q1HR PRN IV For CIWA 8-14; Start 08/27/20 at 21:30 Lorazepam (Ativan Inj) 2 mg PRN Q1HR PRN IV For CIWA 15 or greater; Start 08/27/20 at 21:30 Haloperidol Lactate (Haldol Inj) 5 mg PRN Q4HRS PRN IVP Hallucinatns,Confusn,Delirium; Start 08/27/20 at 21:30 Diphenhydramine HCl (Benadryl) 25 mg PRN Q15MIN PRN IVP EPS symptoms 2'Haldol admin; Start 08/27/20 at 21:30 Clonidine HCl (Catapres) 0.1 mg PRN Q1HR PRN PO SBP > 180 or DBP > 100, MRX3; Start 08/27/20 at 21:30 Gabapentin (Neurontin) 300 mg TID PO ; Start 08/27/20 at 21:30 Trazodone HCl (Desyrel) 50 mg PRN QHS PRN PO Sleep/depression; Start 08/27/20 a t 21:30 Ziprasidone (Geodon) 20 mg QHS PO ; Start 08/27/20 at 21:30 Active Scripts Active Chlordiazepoxide Hcl 25 Mg Capsule 25 Mg PO UD Day #1: Take 50mg PO QID Day #2: Take 50mg PO BID Day #3: Take 25mg PO BID Day #4: Take 25mg PO QHS Lisinopril 40 Mg Tablet 40 Mg PO DAILY 30 Days Amlodipine Besylate 10 Mg Tablet 10 Mg PO DAILY 30 Days [place] 5-325 Tablet (Acetaminophen/Hydrocodone Bitart) 1 Each Tablet 1-2 Tab PO Q4-6HRS Ultram (Tramadol Hcl) 50 Mg Tablet 1 Tab PO PRN Q6HRS PRN MDD 4 Tablet(s) 7 Days Hydrocodone-Apap 5-325 (Hydrocodone Bit/Acetaminophen) 1 Tab Tablet 0.5-1 Tab PO PRN Q6HRS PRN Keflex (Cephalexin) 500 Mg Capsule 500 Mg PO QID 7 Days Bactrim Ds Tablet (Sulfamethoxazole/Trimethoprim) 1 Each Tablet 2 Each PO Q12HR 7 Days Doxycycline Hyclate 100 Mg Capsule 1 Cap PO BID 10 Days [place] 5-325 Tablet (Acetaminophen/Hydrocodone Bitart) 1 Each Tablet 1-2 Tab PO Q6HRS Allergies Allergies: Coded Allergies: No Known Drug Allergies (Unverified , 06/13/18) ROS Review of System Unable to complete due to confusion General: YES: Fatigue, Malaise; No: Chills, Night Sweats, Appetite, Other PSYCHOLOGICAL ROS: No: Anxiety, Behavioral Disorder, Concentration difficultie, Decreased libido, Depression, Disorientation, Hallucinations, Hostility, Irritablity, Memory difficulties, Mood Swings, Obsessive thoughts, Physical abuse, Sexual abuse, Sleep disturbances, Suicidal ideation, Other Eyes: No Blurry vision, No Decreased vision, No Double vision, No Dry eyes, No Excessive tearing, No Eye Pain, No Itchy Eyes, No Loss of vision, No Melissa tophobia, No Scotomata, No Uses contacts, No Uses glasses, No Other HEENT: No: Heacaches, Visual Changes, Hearing change, Nasal congestion, Nasal discharge, Oral lesions, Sinus pain, Sore Throat, Epistaxis, Sneezing, Snoring, Tinnitus, Vertigo, Vocal changes, Other ALLERGY AND IMMUNOLOGY: No: Hives, Insect Bite Sensitivity, Itchy/Watery Eyes, Nasal Congestion, Post Nasal Drip, Seasonal Allergies, Other Hematological and Lymphatic: No: Bleeding Problems, Blood Clots, Blood Transfusions, Brusing, Night Sweats, Pallor, Swollen Lymph Nodes, Other ENDOCRINE: No: Breast Changes, Galactorrhea, Hair Pattern Changes, Hot Flashes, Malaise/lethargy, Mood Swings, Palpitations, Polydipsia/polyuria, Skin Changes, Temperature Intolerance, Unexpected Weight Changes, Other Breast: No New/Changing Breast Lumps, No Nipple changes, No Nipple discharge, No Other Respiratory: No: Cough, Hemoptysis, Orthopnea, Pleuritic Pain, Shortness of breath, SOB with excertion, Sputum Changes, Stridor, Tachypnea, Wheezing, Other Cardiovascular: No Chest Pain, No Palpitations, No Orthopnea, No Paroxysmal Noc. Dyspnea, No Edema, No Lt Headedness, No Other Gastrointestinal: No Nausea, No Vomiting, No Abdominal Pain, No Diarrhea, No Constipation, No Melena, No Hematochezia, No Other Genitourinary: No Dysuria, No Frequency, No Incontinence, No Hematuria, No Retention, No Discharge, No Urgency, No Pain, No Flank Pain, No Other, No , No , No , No , No , No , No Musculoskeletal: Yes Joint Pain, Yes Joint Stiffness; No Gait Disturbance, No Joint Swelling, No Muscle Pain, No Muscular Weakness, No Pain In:, No Swelling In:, No Other Neurological: No Behavorial Changes, No Bowel/Bladder ControlChng, No Confusion, No Dizziness, No Gait Disturbance, No Headaches, No Impaired Coor d/balance, No Memory Loss, No Numbness/Tingling, No Seizures, No Speech Problems, No Tremors, No Visual Changes, No Weakness, No Other Skin: No Dry Skin, No Eczema, No Hair Changes, No Lumps, No Mole Changes, No Mottling, No Nail Changes, No Pruritus, No Rash, No Skin Lesion Changes, No Other, No Acne Vitals Vitals Vital Signs Date Time Temp Pulse Resp B/P (MAP) Pulse Ox O2 Delivery O2 Flow Rate FiO2 08/28/20 08:07 88 187/109 08/28/20 07:00 98.2 20 97 Room Air 98.2 Physical Exam Physical Exam disorented General: Alert, Cooperative, No acute distress Heart: Regular rate Lungs: Clear Abdomen: Normal bowel sounds, Soft, No tenderness, No hepatosplenomegaly, No masses Extremities: No clubbing, No cyanosis, No edema, Normal pulses, No tenderness/swelling Skin: No rashes, No breakdown, No significant lesion Labs LABS Examination: 2 views of the right hip HISTORY: History of right hip pain COMPARISON: CT right hip from 06/05/2018. 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 Probable old fractures of the superior to inferior pubic ramus. Electronically signed by: Ajay Scott MD (08/19/2019 2:51 PM) [id number] DICTATED and SIGNED BY: AJAY SCOTT MD DATE: 08/19/19 1451 Mitral Valve MV E Velocity 99.0cm/s MV DECEL TIME 163ms MV A Velocity 60.6cm/s E/A Ratio 1.6 Tricuspid Valve TR P. Velocity 238cm/s RAP ESTIMATE 3mmHg TR Peak Gr. 23mmHg RVSP 26mmHg Pulmonary Vein S1 Velocity 66.5cm/s D2 Velocity 58.7cm/s LEFT VENTRICLE The left ventricle is normal size. There is mild concentric left ventricular hypertrophy. The left ventricular systolic function is normal. The Ejection Fraction is 55-60%. There is normal LV segmental wall motion. The left ventric ular diastolic function and filling is normal for age. RIGHT VENTRICLE The right ventricle is normal size. The right ventricular systolic function is normal. ATRIA The left atrium size is normal. The right atrium size is normal. The interatrial septum is intact with no evidence for an atrial septal defect or patent foramen ovale as noted on 2-D or Doppler imaging. AORTIC VALVE The aortic valve is normal in structure and function. Doppler and Color Flow revealed no significant aortic regurgitation. There is no significant aortic valvular stenosis. MITRAL VALVE The mitral valve is normal in structure and function. There is no evidence of mitral valve prolapse. There is no mitral valve stenosis. Doppler and Color Flow revealed no mitral valve regurgitation noted. TRICUSPID VALVE The tricuspid valve is normal in structure and function. Doppler and Color Flow revealed trace tricuspid regurgitation. The PA pressure was estimated at 26 mmHg. There is no tricuspid valve stenosis. PULMONIC VALVE The pulmonary valve is normal in structure and function. Doppler and Color Flow revealed no pulmonic valvular regurgitation. There is no pulmonic valvular stenosis. GREAT VESSELS The aortic root is normal in size. The ascending aorta is normal in size. The IVC is normal in size and collapses >50% with inspiration. PERICARDIAL EFFUSION There is no evidence of significant pericardial effusion. Critical Notification Critical Value: No <Conclusion> The left ventricular systolic function is normal. The Ejection Fraction is 55-60%. There is normal LV segmental wall motion. Trace tricuspid regurgitation. The PA pressure was estimated at 26 mmHg. There is no evidence of significant pericardial effusion. Signed by : Iris Salazar, Electronically Approved : 09/25/2019 13:23:30 DICTATED and SIGNED BY: IRIS SALAZAR MD DATE: 09/25/19 1318 Exam: CT head INDICATION: Altered mental status TECHNIQUE: Sequential axial images through the head were obtained without the administration of IV contrast. Exposure: One or more of the following in the visualized dose reduction techniques were utilized for this examination: 1. Automated exposure control 2. Adjustment of the MA and/or KV according to patient size 3. Use of iterative of reconstructive technique Comparisons: None FINDINGS: No focal parenchymal lesion or hemorrhage is identified. There is no midline shift or sulcal effacement. Mild patchy hypodensity in the periventricular white matter. No acute vascular territory infarction is identified. Grant-white distinction is preserved. The ventricular system is within normal limits without compression hydrocephalus. The basal cisterns are well maintained. The visualized portions of the paranasal sinuses and mastoid air cells are well- pneumatized. No acute fractures. IMPRESSION: Mild small vessel ischemic change, technically age indeterminate without recent prior imaging. Electronically signed by: Дмитрий Sampson MD (08/22/2020 9:22 PM) [facility] DICTATED and SIGNED BY: ДМИТРИЙ SAMPSON MD DATE: 08/22/20 [id number] 0 Laboratory Tests Test 08/28/20 04:00 White Blood Count 10.6 x10^3/uL (4.0-11.0) Red Blood Count 4.48 x10^6/uL (4.30-5.70) Hemoglobin 14.2 g/dL (13.0-17.5) Hematocrit 41.8 % (39.0-53.0) Mean Corpuscular Volume 93 fL (79-100) Mean Corpuscular Hemoglobin 32 pg (25-35) Mean Corpuscular Hemoglobin Concent 34 g/dL (31-37) Red Cell Distribution Width 14.6 % (11.5-14.5) Platelet Count 174 x10^3/uL (140-400) Neutrophils (%) (Auto) 68 % (31-73) Lymphocytes (%) (Auto) 8 % (24-48) Monocytes (%) (Auto) 22 % (0-9) Eosinophils (%) (Auto) 2 % (0-3) Basophils (%) (Auto) 0 % (0-3) Neutrophils # (Auto) 7.2 x10^3/uL (1.8-7.7) Lymphocytes # (Auto) 0.9 x10^3/uL (1.0-4.8) Monocytes # (Auto) 2.3 x10^3/uL (0.0-1.1) Eosinophils # (Auto) 0.2 x10^3/uL (0.0-0.7) Basophils # (Auto) 0.0 x10^3/uL (0.0-0.2) Segmented Neutrophils % 62 % (35-66) Band Neutrophils % 3 % (0-9) Lymphocytes % 13 % (24-48) Monocytes % 21 % (0-10) Eosinophils % 1 % (0-5) Platelet Estimate Adequate (ADEQUATE) Sodium Level 136 mmol/L (136-145) Potassium Level 3.6 mmol/L (3.5-5.1) Chloride Level 101 mmol/L (98-107) Carbon Dioxide Level 22 mmol/L (21-32) Anion Gap 13 (6-14) Blood Urea Nitrogen 8 mg/dL (8-26) Creatinine 0.7 mg/dL (0.7-1.3) Estimated GFR (Cockcroft-Gault) 126.9 BUN/Creatinine Ratio 11 (6-20) Glucose Level 95 mg/dL (70-99) Calcium Level 8.9 mg/dL (8.5-10.1) Total Bilirubin 0.8 mg/dL (0.2-1.0) Aspartate Amino Transf (AST/SGOT) 29 U/L (15-37) Alanine Aminotransferase (ALT/SGPT) 55 U/L (16-63) Alkaline Phosphatase 78 U/L (46-116) Total Protein 7.4 g/dL (6.4-8.2) Albumin 2.8 g/dL (3.4-5.0) Albumin/Globulin Ratio 0.6 (1.0-1.7) Comment Review of Relevant I have reviewed the following items semaj (where applicable) has been applied. Labs Laboratory Tests Test 08/28/20 04:00 White Blood Count 10.6 x10^3/uL (4.0-11.0) Red Blood Count 4.48 x10^6/uL (4.30-5.70) Hemoglobin 14.2 g/dL (13.0-17.5) Hematocrit 41.8 % (39.0-53.0) Mean Corpuscular Volume 93 fL (79-100) Mean Corpuscular Hemoglobin 32 pg (25-35) Mean Corpuscular Hemoglobin Concent 34 g/dL (31-37) Red Cell Distribution Width 14.6 % (11.5-14.5) Platelet Count 174 x10^3/uL (140-400) Neutrophils (%) (Auto) 68 % (31-73) Lymphocytes (%) (Auto) 8 % (24-48) Monocytes (%) (Auto) 22 % (0-9) Eosinophils (%) (Auto) 2 % (0-3) Basophils (%) (Auto) 0 % (0-3) Neutrophils # (Auto) 7.2 x10^3/uL (1.8-7.7) Lymphocytes # (Auto) 0.9 x10^3/uL (1.0-4.8) Monocytes # (Auto) 2.3 x10^3/uL (0.0-1.1) Eosinophils # (Auto) 0.2 x10^3/uL (0.0-0.7) Basophils # (Auto) 0.0 x10^3/uL (0.0-0.2) Segmented Neutrophils % 62 % (35-66) Band Neutrophils % 3 % (0-9) Lymphocytes % 13 % (24-48) Monocytes % 21 % (0-10) Eosinophils % 1 % (0-5) Platelet Estimate Adequate (ADEQUATE) Sodium Level 136 mmol/L (136-145) Potassium Level 3.6 mmol/L (3.5-5.1) Chloride Level 101 mmol/L (98-107) Carbon Dioxide Level 22 mmol/L (21-32) Anion Gap 13 (6-14) Blood Urea Nitrogen 8 mg/dL (8-26) Creatinine 0.7 mg/dL (0.7-1.3) Estimated GFR (Cockcroft-Gault) 126.9 BUN/Creatinine Ratio 11 (6-20) Glucose Level 95 mg/dL (70-99) Calcium Level 8.9 mg/dL (8.5-10.1) Total Bilirubin 0.8 mg/dL (0.2-1.0) Aspartate Amino Transf (AST/SGOT) 29 U/L (15-37) Alanine Aminotransferase (ALT/SGPT) 55 U/L (16-63) Alkaline Phosphatase 78 U/L (46-116) Total Protein 7.4 g/dL (6.4-8.2) Albumin 2.8 g/dL (3.4-5.0) Albumin/Globulin Ratio 0.6 (1.0-1.7) Laboratory Tests Test 08/28/20 04:00 White Blood Count 10.6 x10^3/uL (4.0-11.0) Red Blood Count 4.48 x10^6/uL (4.30-5.70) Hemoglobin 14.2 g/dL (13.0-17.5) Hematocrit 41.8 % (39.0-53.0) Mean Corpuscular Volume 93 fL (79-100) Mean Corpuscular Hemoglobin 32 pg (25-35) Mean Corpuscular Hemoglobin Concent 34 g/dL (31-37) Red Cell Distribution Width 14.6 % (11.5-14.5) Platelet Count 174 x10^3/uL (140-400) Neutrophils (%) (Auto) 68 % (31-73) Lymphocytes (%) (Auto) 8 % (24-48) Monocytes (%) (Auto) 22 % (0-9) Eosinophils (%) (Auto) 2 % (0-3) Basophils (%) (Auto) 0 % (0-3) Neutrophils # (Auto) 7.2 x10^3/uL (1.8-7.7) Lymphocytes # (Auto) 0.9 x10^3/uL (1.0-4.8) Monocytes # (Auto) 2.3 x10^3/uL (0.0-1.1) Eosinophils # (Auto) 0.2 x10^3/uL (0.0-0.7) Basophils # (Auto) 0.0 x10^3/uL (0.0-0.2) Segmented Neutrophils % 62 % (35-66) Band Neutrophils % 3 % (0-9) Lymphocytes % 13 % (24-48) Monocytes % 21 % (0-10) Eosinophils % 1 % (0-5) Platelet Estimate Adequate (ADEQUATE) Sodium Level 136 mmol/L (136-145) Potassium Level 3.6 mmol/L (3.5-5.1) Chloride Level 101 mmol/L (98-107) Carbon Dioxide Level 22 mmol/L (21-32) Anion Gap 13 (6-14) Blood Urea Nitrogen 8 mg/dL (8-26) Creatinine 0.7 mg/dL (0.7-1.3) Estimated GFR (Cockcroft-Gault) 126.9 BUN/Creatinine Ratio 11 (6-20) Glucose Level 95 mg/dL (70-99) Calcium Level 8.9 mg/dL (8.5-10.1) Total Bilirubin 0.8 mg/dL (0.2-1.0) Aspartate Amino Transf (AST/SGOT) 29 U/L (15-37) Alanine Aminotransferase (ALT/SGPT) 55 U/L (16-63) Alkaline Phosphatase 78 U/L (46-116) Total Protein 7.4 g/dL (6.4-8.2) Albumin 2.8 g/dL (3.4-5.0) Albumin/Globulin Ratio 0.6 (1.0-1.7) Medications Current Medications Sodium Chloride 1,000 ml @ 100 mls/hr Q10H IV Last administered on 08/27/20at 23:20; Start 08/27/20 at 21:30; Stop 08/28/20 at 07:29; Status DC Ondansetron HCl (Zofran) 4 mg PRN Q6HRS PRN IVP NAUSEA/VOMITING; Start 08/27/20 at 21:30 Acetaminophen (Tylenol) 650 mg PRN Q6HRS PRN PO Headaches, Temp > 101.5F; Start 08/27/20 at 21:30 Senna/Docusate Sodium (Senna Plus) 1 tab BID PO Last administered on 08/28/20at 08:06; Start 08/28/20 at 09:00 Magnesium Hydroxide (Milk Of Magnesia) 2,400 mg PRN Q12HR PRN PO CONSTIPATION; Start 08/27/20 at 21:30 Multivitamins (Thera M Plus) 1 tab DAILY PO ; Start 09/01/20 at 09:00 Folic Acid (Folic Acid) 1 mg DAILY PO ; Start 09/01/20 at 09:00 Thiamine Mononitrate (Vitamin B-1) 100 mg DAILY PO ; Start 09/01/20 at 09:00 Lorazepam (Ativan) 1 mg PRN Q1HR PRN PO For CIWA 8-14; Start 08/27/20 at 21:30 Lorazepam (Ativan) 2 mg PRN Q1HR PRN PO For CIWA 15 or greater; Start 08/27/20 at 21:30 Lorazepam (Ativan Inj) 1 mg PRN Q1HR PRN IV For CIWA 8-14 Last administered on 08/27/20at 23:31; Start 08/27/20 at 21:30 Lorazepam (Ativan Inj) 2 mg PRN Q1HR PRN IV For CIWA 15 or greater Last administered on 08/28/20at 02:31; Start 08/27/20 at 21:30 Haloperidol Lactate (Haldol Inj) 5 mg PRN Q4HRS PRN IVP Hallucinatns,Confusn,Delirium; Start 08/27/20 at 21:30 Diphenhydramine HCl (Benadryl) 25 mg PRN Q15MIN PRN IVP EPS symptoms 2'Haldol admin; Start 08/27/20 at 21:30 Clonidine HCl (Catapres) 0.1 mg PRN Q1HR PRN PO SBP > 180 or DBP > 100, MRX3 Last administered on 08/28/20at 08:07; Start 08/27/20 at 21:30 Gabapentin (Neurontin) 300 mg TID PO Last administered on 08/28/20at 08:06; Start 08/27/20 at 21:30 Trazodone HCl (Desyrel) 50 mg PRN QHS PRN PO Sleep/depression; Start 08/27/20 at 21:30 Ziprasidone (Geodon) 20 mg QHS PO ; Start 08/27/20 at 21:30 Amlodipine Besylate (Norvasc) 10 mg DAILY PO Last administered on 08/28/20at 0 8:07; Start 08/28/20 at 09:00 Active Scripts Active Chlordiazepoxide Hcl 25 Mg Capsule 25 Mg PO UD Day #1: Take 50mg PO QID Day #2: Take 50mg PO BID Day #3: Take 25mg PO BID Day #4: Take 25mg PO QHS Lisinopril 40 Mg Tablet 40 Mg PO DAILY 30 Days Amlodipine Besylate 10 Mg Tablet 10 Mg PO DAILY 30 Days [place] 5-325 Tablet (Acetaminophen/Hydrocodone Bitart) 1 Each Tablet 1-2 Tab PO Q4-6HRS Ultram (Tramadol Hcl) 50 Mg Tablet 1 Tab PO PRN Q6HRS PRN MDD 4 Tablet(s) 7 Days Hydrocodone-Apap 5-325 (Hydrocodone Bit/Acetaminophen) 1 Tab Tablet 0.5-1 Tab PO PRN Q6HRS PRN Keflex (Cephalexin) 500 Mg Capsule 500 Mg PO QID 7 Days Bactrim Ds Tablet (Sulfamethoxazole/Trimethoprim) 1 Each Tablet 2 Each PO Q12HR 7 Days Doxycycline Hyclate 100 Mg Capsule 1 Cap PO BID 10 Days [place] 5-325 Tablet (Acetaminophen/Hydrocodone Bitart) 1 Each Tablet 1-2 Tab PO Q6HRS Vitals/I & O Vital Sign - Last 24 Hours 08/27/20 08/27/20 08/28/20 08/28/20 21:00 23:00 03:00 03:06 Temp 98.3 99.2 99.7 98.3 99.2 99.7 Pulse 78 85 96 89 Resp 18 20 18 B/P (MAP) 177/96 (123) 171/100 (123) 195/112 (139) 195/112 Pulse Ox 99 98 97 O2 Delivery Room Air Room Air Room Air 08/28/20 08/28/20 08/28/20 07:00 08:07 08:07 Temp 98.2 98.2 Pulse 88 88 88 Resp 20 B/P (MAP) 187/109 (135) 187/109 187/109 Pulse Ox 97 O2 Delivery Room Air Justicifation of Admission Dx: Justifications for Admission: Justification of Admission Dx: Yes Angina: Symp at Rest GREG OLGUIN MD August 28, 2020 09:41
[2020-08-28] MEDS ORDERED: MULTIVIT INFUSN,ADULT 4,VIT K 10 ML, THIAMINE INJ 100 MG, FOLIC ACID INJ 1 MG in IV NOR... IV SCH (10:30)
[2020-08-28 11:04] LABS: PROTHROMBIN TIME PATIENT 13.9 SEC (11.7-14.0)
[2020-08-28 11:12] VITALS: BP 181/109
[2020-08-28] MEDS: hydrALAZINE 20 MG/ML VIAL. IVP PRN (12:27)
[2020-08-28] MEDS: LISINOPRIL 20 MG TABLET PO SCH (12:31)
--- NOTE | 2020-08-28 13:18 | PDOC2 ---
GI CONSULT Reason For Consult: alcohol abuse HPI: HPI: 35-year-old male with PMHx alcohol abuse transferred from [place] for DTs and EtOH withdrawal management. CBC, CMP, ammonia all wnl. He admits to EGD and colonoscopy in the past but cannot tell me any results or where they were done. He admits to abdominal pain but cannot tell me where. Other history:elevated blood pressure without dx of HTN, ETOH use, gout who is presenting accepted as a direct admission from [facility]. He was seen on Sunday08/22/2020 intoxicated looking for alcohol withdrawal treatment was referred to [facility] and subsequently taken to [facility] but his withdrawal symptoms were not well controlled or manageable in residential treatment setting and therefore he was transferred to [facility] for inpatient treatment of delirium tremens. He was given phenobarbitol and valium treatment, continued to be difficult to redirect, hallucinating, making staff feel unsafe and transferred to [facility] for further care. 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 EKG reviewed by myself is NSR with normal axis and RBBB. Chest x-ray is negative for acute pathology, troponin is normal, d-dimer is normal. 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 He does drink heavily and has sought treatment on a few occasions. He is especially concerned because of early cardiac disease in his father and paternal grandfath er and early at age 44 for both of them, he notes this was due to very early onset of Alzheimer's dementia. He is not easy to redirect and confused. His is concerned about history of bipolar disorder that required inpatient treatment and depakote therapy at [facility] several years ago. Blood pressure noted in the 170s over low 100s. Afebrile on exam. Accepted at [facility] for further treatment of his alcohol withdrawal delerium PMH: PMH: Past Medical History Cardiovascular: HTN Pulmonary: No pertinent hx CENTRAL NERVOUS SYSTEM: Other GI: No pertinent hx Heme/Onc: No pertinent hx Hepatobiliary: No pertinent hx Psych: Anxiety, Bipolar, Other Musculoskeletal: Osteoarthritis, Other Rheumatologic: No pertinent hx, Gout Infectious disease: No pertinent hx Endocrine: No pertinent hx Past Surgical History Past Surgical History: Other Family History Family History: Coronary Artery Disease Social History Smoke: No ALCOHOL: heavy Drugs: None, Cocaine (in remission) Current Medications Current Medications Current Medications Sodium Chloride 1,000 ml @ 100 mls/hr Q10H IV ; Start 08/27/20 at 21:30; Stop 08/28/20 at 07:29 Ondansetron HCl (Zofran) 4 mg PRN Q6HRS PRN IVP NAUSEA/VOMITING; Start 08/27/20 at 21:30 Acetaminophen (Tylenol) 650 mg PRN Q6HRS PRN PO Headaches, Temp > 101.5F; Start 08/27/20 at 21:30 Senna/Docusate Sodium (Senna Plus) 1 tab BID PO ; Start 08/28/20 at 09:00 Magnesium Hydroxide (Milk Of Magnesia) 2,400 mg PRN Q12HR PRN PO CONSTIPATION; Start 08/27/20 at 21:30 Multivitamins (Thera M Plus) 1 tab DAILY PO ; Start 09/01/20 at 09:00 Folic Acid (Folic Acid) 1 mg DAILY PO ; Start 09/01/20 at 09:00 Thiamine Mononitrate (Vitamin B-1) 100 mg DAILY PO ; Start 09/01/20 at 09:00 Lorazepam (Ativan) 1 mg PRN Q1HR PRN PO For CIWA 8-14; Start 08/27/20 at 21:30 Lorazepam (Ativan) 2 mg PRN Q1HR PRN PO For CIWA 15 or greater; Start 08/27/20 at 21:30 Lorazepam (Ativan Inj) 1 mg PRN Q1HR PRN IV For CIWA 8-14; Start 08/27/20 at 21:30 Lorazepam (Ativan Inj) 2 mg PRN Q1HR PRN IV For CIWA 15 or greater; Start 08/27/20 at 21:30 Haloperidol Lactate (Haldol Inj) 5 mg PRN Q4HRS PRN IVP Hallucinatns,Confusn,Delirium; Start 08/27/20 at 21:30 Diphenhydramine HCl (Benadryl) 25 mg PRN Q15MIN PRN IVP EPS symptoms 2'Haldol admin; Start 08/27/20 at 21:30 Clonidine HCl (Catapres) 0.1 mg PRN Q1HR PRN PO SBP > 180 or DBP > 100, MRX3; Start 08/27/20 at 21:30 Gabapentin (Neurontin) 300 mg TID PO ; Start 08/27/20 at 21:30 Trazodone HCl (Desyrel) 50 mg PRN QHS PRN PO Sleep/depression; Start 08/27/20 at 21:30 Ziprasidone (Geodon) 20 mg QHS PO ; Start 08/27/20 at 21:30 Active Scripts Active Chlordiazepoxide Hcl 25 Mg Capsule 25 Mg PO UD Day #1: Take 50mg PO QID Day #2: Take 50mg PO BID Day #3: Take 25mg PO BID Day #4: Take 25mg PO QHS Lisinopril 40 Mg Tablet 40 Mg PO DAILY 30 Days Amlodipine Besylate 10 Mg Tablet 10 Mg PO DAILY 30 Days [place] 5-325 Tablet (Acetaminophen/Hydrocodone Bitart) 1 Each Tablet 1-2 Tab PO Q4-6HRS Ultram (Tramadol Hcl) 50 Mg Tablet 1 Tab PO PRN Q6HRS PRN MDD 4 Tablet(s) 7 Days Hydrocodone-Apap 5-325 (Hydrocodone Bit/Acetaminophen) 1 Tab Tablet 0.5-1 Tab PO PRN Q6HRS PRN Keflex (Cephalexin) 500 Mg Capsule 500 Mg PO QID 7 Days Bactrim Ds Tablet (Sulfamethoxazole/Trimethoprim) 1 Each Tablet 2 Each PO Q12HR 7 Days Doxycycline Hyclate 100 Mg Capsule 1 Cap PO BID 10 Days [place] 5-325 Tablet (Acetaminophen/Hydrocodone Bitart) 1 Each Tablet 1-2 Tab PO Q6HRS Allergies Allergies: Coded Allergies: No Known Drug Allergies (Unverified , 06/13/18) Social History: Smoke: No ALCOHOL: heavy Drugs: None, Cocaine (in remission) ROS: per HPI VItals: Vitals: Vital Signs Date Time Temp Pulse Resp B/P (MAP) Pulse Ox O2 Delivery O2 Flow Rate FiO2 08/28/20 12:31 95 181/109 08/28/20 11:12 98.0 20 96 Room Air 98.0 Labs: Labs: Laboratory Tests Test 08/28/20 04:00 08/28/20 10:35 White Blood Count 10.6 x10^3/uL (4.0-11.0) Red Blood Count 4.48 x10^6/uL (4.30-5.70) Hemoglobin 14.2 g/dL (13.0-17.5) Hematocrit 41.8 % (39.0-53.0) Mean Corpuscular Volume 93 fL (79-100) Mean Corpuscular Hemoglobin 32 pg (25-35) Mean Corpuscular Hemoglobin Concent 34 g/dL (31-37) Red Cell Distribution Width 14.6 % (11.5-14.5) Platelet Count 174 x10^3/uL (140-400) Neutrophils (%) (Auto) 68 % (31-73) Lymphocytes (%) (Auto) 8 % (24-48) Monocytes (%) (Auto) 22 % (0-9) Eosinophils (%) (Auto) 2 % (0-3) Basophils (%) (Auto) 0 % (0-3) Neutrophils # (Auto) 7.2 x10^3/uL (1.8-7.7) Lymphocytes # (Auto) 0.9 x10^3/uL (1.0-4.8) Monocytes # (Auto) 2.3 x10^3/uL (0.0-1.1) Eosinophils # (Auto) 0.2 x10^3/uL (0.0-0.7) Basophils # (Auto) 0.0 x10^3/uL (0.0-0.2) Segmented Neutrophils % 62 % (35-66) Band Neutrophils % 3 % (0-9) Lymphocytes % 13 % (24-48) Monocytes % 21 % (0-10) Eosinophils % 1 % (0-5) Platelet Estimate Adequate (ADEQUATE) Sodium Level 136 mmol/L (136-145) Potassium Level 3.6 mmol/L (3.5-5.1) Chloride Level 101 mmol/L (98-107) Carbon Dioxide Level 22 mmol/L (21-32) Anion Gap 13 (6-14) Blood Urea Nitrogen 8 mg/dL (8-26) Creatinine 0.7 mg/dL (0.7-1.3) Estimated GFR (Cockcroft-Gault) 126.9 BUN/Creatinine Ratio 11 (6-20) Glucose Level 95 mg/dL (70-99) Calcium Level 8.9 mg/dL (8.5-10.1) Total Bilirubin 0.8 mg/dL (0.2-1.0) Aspartate Amino Transf (AST/SGOT) 29 U/L (15-37) Alanine Aminotransferase (ALT/SGPT) 55 U/L (16-63) Alkaline Phosphatase 78 U/L (46-116) Total Protein 7.4 g/dL (6.4-8.2) Albumin 2.8 g/dL (3.4-5.0) Albumin/Globulin Ratio 0.6 (1.0-1.7) Free Thyroxine 1.31 ng/dL (0.76-1.46) Prothrombin Time 13.9 SEC (11.7-14.0) Prothromb Time International Ratio 1.1 (0.8-1.1) Ammonia 16 mcmol/L (11-34) PE: Physical Exam General: Alert, Cooperative, moderate distress HEENT: Atraumatic, PERRLA, EOMI, Mucous membr. moist/pink Lungs: Clear to auscultation, Normal air movement Heart: S1S2, RRR, no thrills, no rubs, no gallops, no murmurs Abdomen: Normal bowel sounds, Soft, No tenderness, No hepatosplenomegaly, No masses Rectal Exam: not examined Extremities: No clubbing, No cyanosis, No edema, Normal pulses, No tenderness/swelling Skin: No rashes, No breakdown, No significant lesion Neuro: Normal speech, Strength at 5/5 X4 ext, Normal tone, Sensation intact, Cranial nerves 3-12 NL, Reflexes 2+ Psych/Mental Status: Other (Delerious) A/P: A/P: A/P 1) EtOH abuse: LFTs are wnl without evidence of anemia or GI bleed. I asked the urse to add a banana bag this am 2_ Abd pain: diffsue. Will check RICHARD Cedillo MD August 28, 2020 13:18
[2020-08-28] MEDS: THIAMINE INJ 100 MG in IV DEXTROSE 5% 50 ML IV SCH ×2 (14:08→21:25)
[2020-08-28 14:29] VITALS: BP 176/112
[2020-08-28 19:00] VITALS: BP 165/107
[2020-08-28] MEDS: ZIPRASIDONE 20 MG CAPSULE PO SCH (21:24)
[2020-08-28 23:00] VITALS: BP 164/108
[2020-08-29] VITALS (7 sets, daily range): BP systolic 137–190; BP diastolic 77–113
--- NOTE | 2020-08-29 00:28 | CONS ---
DATE OF CONSULTATION: 08/28/2020 REFERRING PHYSICIAN: Olivier Garcia MD REASON FOR CONSULTATION: Alcohol withdrawal syndrome with lethargy. HISTORY OF PRESENT ILLNESS: The patient is a 35-year-old alcoholic, whose story began when he presented to [facility] on 08/22/2020 with acute intoxication. Alcohol level was measured at that time and found to be 425. He was not kept for detox at [facility], but was transferred to [facility]. At [facility], his withdrawal was not manageable, so he was transferred to [facility] on 08/25/2020. He remained at [facility] for several days, but when his discovered that [place] was not covered under their insurance, she requested transfer to [facility], which occurred on 08/27/2020. While at [place], he underwent alcohol withdrawal protocol and did have quite a bit of hallucinations and delirium. Since being at [place], he has still been very lethargic. Nurse reports she did not give him any sedating medications today. Currently, the patient denies any hallucinations. He is not complaining of any pain. PAST MEDICAL HISTORY: 1. Seasonal allergies. 2. Hypertension. 3. Right hip avascular necrosis. 4. Neuropathy. 5. Left foot bunion surgery. 6. Alcoholism. 7. Gout. ALLERGIES: No known allergies to drugs. HOME MEDICATIONS PRIOR TO ADMISSION: None. FAMILY HISTORY: His father was alcoholic; he had coronary artery disease and dementia. SOCIAL HISTORY: He does not smoke tobacco, but is a former smoker. He uses marijuana 1-2 times per month. He is a heavy drinker. REVIEW OF SYSTEMS: He is very lethargic. He denies any change in vision or hearing. He is not aware of any cognitive change. He has been able to chew and swallow. He is not having shortness of breath, chest or abdominal pain. He does not complain of bone or joint pain other than the right hip. He has had no fever or rash. No gastrointestinal or genitourinary complaints. He does have swelling. He does not complain of easy bruising or excessive bleeding. He denies any gastrointestinal or genitourinary complaints. He is not a reliable historian because he is quite sleepy. PHYSICAL EXAMINATION: VITAL SIGNS: The blood pressure was 176/112, pulse 102, respirations 20, temperature 98 degrees axillary, oximetry was 96% on room air. His weight was 110.7 kilograms, height 72 inches with a calculated body mass index of 33.1. NEUROLOGIC: He was sleepy, but able to alert slightly with stimulation. He was oriented to year and month, but did not realize he was in a hospital. When I explained he was at [facility], he did retain that information. When I asked later, but felt he had been there for about a month even though it had only been a day. He was lethargic throughout the entire exam, but was able to participate and cooperate and follow commands. He did not appear to be hallucinating. Examination of the cranial nerves revealed visual demarco were full to confrontation. Extraocular movements were intact. The eyes were conjugate. Pursuit movements were smooth and saccadic eye movements were without dysmetria. Facial sensation was intact. The muscles of mastication and facial expression were powerful symmetrically. Hearing was intact to finger rub. The palate arched symmetrically and the tongue was midline with full motion. Funduscopic exam was not possible as he could not cooperate. Muscle bulk and tone was normal. Power was fairly full and symmetric in the upper and lower extremities. He had pain to testing of the right hip. Reflexes were 2/4 and symmetric in the upper extremities, 1/4 at the knees and 1/4 at the ankles. Toes were not upgoing. Coordination testing with [id number], [id number], fine motor and rapid alternating movements were fair. Sensory exam was intact to pain, light touch, proprioception, graphesthesia, cold thermal and vibration. There was no extinction to double simultaneous stimulation. Gait was not testable. NECK: Auscultation of the carotid arteries did not reveal a bruit. CARDIOVASCULAR SYSTEM: Heart rhythm is regular without a murmur. EXTREMITIES: Peripheral pulses were symmetric in hands and feet. There did appear to be edema of the hands and feet. There was no cyanosis. LABORATORY RESULTS: CBC was performed on 08/28/2020 revealing a normal white blood cell count, hemoglobin, hematocrit and platelet count. Chemistries were performed on 08/28/2020. Electrolytes were normal. BUN and creatinine were normal and GFR calculated at 126.9. Glucose was normal as well as calcium. The liver enzymes were not elevated. Ammonia was 16. Total protein was 7.4, but albumin was low at 2.8. T4, free, was 1.31. PT/INR was 1.1. IMAGING STUDIES: CT scan of the head was performed on 08/22/2020 when he initially presented with acute intoxication to the point of alcohol poisoning when he had mild small vessel disease; there was no evidence for stroke or fracture. IMPRESSION: The patient is a 35-year-old alcoholic, who presented to [facility] in 08/22/2020 with an alcohol level of 425. He did spend several days at [facility] before he was transferred to [place]. He has received alcohol withdrawal protocol including psychotropic medications to try to prevent delirium and seizure. He is extremely sedated. He has been receiving thiamine to try to prevent damage from Wernicke or Korsakoff syndrome. He has received Geodon at [place] last evening. He has also received lorazepam late last night and early this morning. I do not see anything focal that would suggest he has had stroke. He still has the ability to retain memory, so I really do not think he has Korsakoff syndrome nor is there any ophthalmoplegia to suggest a Wernicke. RECOMMENDATIONS: At this stage of his withdrawal, we need to start to reduce sedating medications to allow him to metabolize these medicines and begin to wake up. I think he should be able to improve from the current situation. If he does not wake up off the sedating medications, then we could consider further imaging. I will be happy to reevaluate. NESTOR DR: Radha TID: [id number]
[2020-08-29] MEDS: hydrALAZINE 20 MG/ML VIAL. IVP PRN ×2 (03:02→07:41)
[2020-08-29] MEDS: ACETAMINOPHEN 325 MG TABLET. PO PRN (03:05)
[2020-08-29 04:37] LABS: BASO % 0 % (0-3); EOS # 0.1 x10^3/uL (0.0-0.7); EOS % 1 % (0-3); HEMATOCRIT 44.3 % (39.0-53.0); HEMOGLOBIN 15.3 g/dL (13.0-17.5); LYMPH # 0.6 x10^3/uL (1.0-4.8); LYMPH % 6 % (24-48); MEAN CORPUSCULAR HEMOGLOBIN 32 pg (25-35); MEAN CORPUSCULAR HGB CONC 35 g/dL (31-37); MEAN CORPUSCULAR VOLUME 92 fL (79-100); MONO # 2.1 x10^3/uL (0.0-1.1); MONO % 22 % (0-9); NEUT # 6.7 x10^3/uL (1.8-7.7); NEUT % 71 % (31-73); PLATELET COUNT 229 x10^3/uL (140-400); RED BLOOD COUNT 4.81 x10^6/uL (4.30-5.70); RED CELL DISTRIBUTION WIDTH 14.1 % (11.5-14.5); WHITE BLOOD COUNT 9.5 x10^3/uL (4.0-11.0)
[2020-08-29 05:44] LABS: ALBUMIN 2.9 g/dL (3.4-5.0); ALBUMIN/GLOBULIN RATIO 0.6 (1.0-1.7); CALCIUM 9.1 mg/dL (8.5-10.1); CREATININE 0.7 mg/dL (0.7-1.3); GFR 126.9; POTASSIUM 3.2 mmol/L (3.5-5.1); TOTAL BILIRUBIN 0.9 mg/dL (0.2-1.0); TOTAL PROTEIN 7.9 g/dL (6.4-8.2)
[2020-08-29] MEDS: THIAMINE INJ 100 MG in IV DEXTROSE 5% 50 ML IV SCH ×3 (08:26→22:04)
[2020-08-29] MEDS: SENNOSIDES/DOCUSATE 8.6/50MG TABLET. PO SCH ×2 (10:14→21:52)
[2020-08-29] MEDS: LISINOPRIL 20 MG TABLET PO SCH ×2 (10:14→21:52)
[2020-08-29] MEDS: FOLIC ACID 1 MG TABLET. PO SCH (10:14)
[2020-08-29] MEDS: GABAPENTIN 300 MG CAPSULE. PO SCH ×3 (10:15→21:52)
[2020-08-29] MEDS: amLODIPine BESYLATE 5 MG TABLET PO SCH ×2 (10:15→21:53)
--- NOTE | 2020-08-29 10:19 | RAD ---
Ultrasound the abdomen complete. HISTORY: Abdominal pain Ultrasound was used to evaluate the abdomen. Study is limited. Patient was unable to hold his breath. Pancreas was obscured. Distal abdominal aorta was normal. Spleen was normal in size. Left kidney was not optimally visualized but was normal in size measuring 12.3 cm without hydronephrosis. Right kidn ey was 11.9 cm in length without hydronephrosis. Liver is poorly evaluated. Common duct was normal me asuring 2 mm. No definite gallstones noted. Gallbladder wall is not thickened. Vena cava at the liver poorly evaluated. IMPRESSION: 1. Very limited study. 2. No definite gallstones. 3. No hydronephrosis in the kidneys. Electronically signed by: Neto Green MD (08/29/2020 10:16 AM) [facility]
--- NOTE | 2020-08-29 10:31 | PDOC ---
PROGRESS NOTES Date of Service: DATE: 08/29/20 TIME: 10:30 Chief Complaint Chief Complaint VTE Prophylaxis Ordered VTE Prophylaxis Devices: No VTE Pharmacological Prophylaxi: No Assessment/Plan IMPRESSION A/P: Acute alcohol withdrawal with delerium - CIWA. PAT consult. Thiamine, folic acid. Add gabapentin, prn clonidine. May need acamprosate or depade/vivitrol outpatient therapy Bipolar disorder - notes prior psychiatric hospitalization started on depakote, but compliance was difficult Hypertension - will monitor, needs ambulatory monitoring for titrating meds, but based on history has been treated with amlodipine Thrombocytopenia - likely due to heavy alcohol use and bone marrow suppression uncontrolled hypertension Family history of very early onset alzheimers and early onset cardiac disease H/o gout - monitor uric acid Heavy ETOH use - CIWA scale. 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 Probable old fractures of the superior to inferior pubic ramus. 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 08-29 PAT CONSULT GI CONSULT Ammonia level BP UNCONTROLLED change norvasc to 5 mg po bid ADD LISINOPRIL 5 MG PO BID , PRN IV HYDRALAZINE neurology consult receiving thiamine iv high dose to prevent damage from Wernicke or Korsakoff syndrome. Acute alcohol withdrawal with delerium - CIWA. PAT consult. Thiamine, folic acid. Add gabapentin, prn clonidine. May need acamprosate or depade/vivitrol outpatient therapy Bipolar disorder - notes prior psychiatric hospitalization started on depakote, but compliance was difficult 39 min pt exam, chart review, > 50% of time spent with exam, chart review, pt care coordination History of Present Illness History of Present Illness dentification/Chief Complaint Chief Complaint Delerium tremens Source Source: Caregiver, Chart review, Patient History of Present Illness History of Present Illness Mr Finch is a 35-year-old male with PMHx elevated blood pressure without dx of HTN, ETOH use, gout who is presenting accepted as a direct admission from [facility]. He was seen on Sunday08/22/2020 intoxicated looking for alcohol withdrawal treatment was referred to [facility] and subsequently taken to [facility] but his withdrawal symptoms were not well controlled or manageable in residential treatment setting and therefore he was transferred to [facility] for inpatient treatment of delirium tremens. He was given phenobarbitol and valium treatment, continued to be difficult to redirect, hallucinating, making staff feel unsafe and transferred to [facility] for further care. 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 EKG reviewed by myself is NSR with normal axis and RBBB. Chest x-ray is negative for acute pathology, troponin is normal, d-dimer is normal. 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 He does drink heavily and has sought treatment on a few occasions. He is especially concerned because of early cardiac disease in his father and paternal grandfather and early at age 44 for both of them, he notes this was due to very early onset of Alzheimer's dementia. He is not easy to redirect and confused. His is concerned about history of bipolar disorder that required inpatient treatment and depakote therapy at [facility] ([facility]) several years ago. Blood pressure noted in the 170s over low 100s. Afebrile on exam. Accepted at [facility] for further treatment of his alcohol withdrawal deleriu Past Medical History Cardiovascular: HTN Pulmonary: No pertinent hx CENTRAL NERVOUS SYSTEM: Other GI: No pertinent hx Heme/Onc: No pertinent hx Hepatobiliary: No pertinent hx Psych: Anxiety, Bipolar, Other Musculoskeletal: Osteoarthritis, Other Rheumatologic: No pertinent hx, Gout Infectious disease: No pertinent hx Endocrine: No pertinent hx Past Surgical History Past Surgical History: Other Family History Family History: Coronary Artery Disease Social History Smoke: No ALCOHOL: heavy Drugs: None, Cocaine (in remission) Current Medications Current Medications Current Medications Sodium Chloride 1,000 ml @ 100 mls/hr Q10H IV ; Start 08/27/20 at 21:30; Stop 08/28/20 at 07:29 Ondansetron HCl (Zofran) 4 mg PRN Q6HRS PRN IVP NAUSEA/VOMITING; Start 08/27/20 at 21:30 Acetaminophen (Tylenol) 650 mg PRN Q6HRS PRN PO Headaches, Temp > 101.5F; Start 08/27/20 at 21:30 Senna/Docusate Sodium (Senna Plus) 1 tab BID PO ; Start 08/28/20 at 09:00 Magnesium Hydroxide (Milk Of Magnesia) 2,400 mg PRN Q12HR PRN PO CONSTIPATION; Start 08/27/20 at 21:30 Multivitamins (Thera M Plus) 1 tab DAILY PO ; Start 09/01/20 at 09:00 Folic Acid (Folic Acid) 1 mg DAILY PO ; Start 09/01/20 at 09:00 Thiamine Mononitrate (Vitamin B-1) 100 mg DAILY PO ; Start 09/01/20 at 09:00 Lorazepam (Ativan) 1 mg PRN Q1HR PRN PO For CIWA 8-14; Start 08/27/20 at 21:30 Lorazepam (Ativan) 2 mg PRN Q1HR PRN PO For CIWA 15 or greater; Start 08/27/20 at 21:30 Lorazepam (Ativan Inj) 1 mg PRN Q1HR PRN IV For CIWA 8-14; Start 08/27/20 at 21:30 Lorazepam (Ativan Inj) 2 mg PRN Q1HR PRN IV For CIWA 15 or greater; Start 08/27/20 at 21:30 Haloperidol Lactate (Haldol Inj) 5 mg PRN Q4HRS PRN IVP Hallucinatns,Confusn,Delirium; Start 08/27/20 at 21:30 Diphenhydramine HCl (Benadryl) 25 mg PRN Q15MIN PRN IVP EPS symptoms 2'Haldol admin; Start 08/27/20 at 21:30 Clonidine HCl (Catapres) 0.1 mg PRN Q1HR PRN PO SBP > 180 or DBP > 100, MRX3; Start 08/27/20 at 21:30 Gabapentin (Neurontin) 300 mg TID PO ; Start 08/27/20 at 21:30 Trazodone HCl (Desyrel) 50 mg PRN QHS PRN PO Sleep/depression; Start 08/27/20 at 21:30 Ziprasidone (Geodon) 20 mg QHS PO ; Start 08/27/20 at 21:30 Active Scripts Active Chlordiazepoxide Hcl 25 Mg Capsule 25 Mg PO UD Day #1: Take 50mg PO QID Day #2: Take 50mg PO BID Day #3: Take 25mg PO BID Day #4: Take 25mg PO QHS Lisinopril 40 Mg Tablet 40 Mg PO DAILY 30 Days Amlodipine Besylate 10 Mg Tablet 10 Mg PO DAILY 30 Days [place] 5-325 Tablet (Acetaminophen/Hydrocodone Bitart) 1 Each Tablet 1-2 Tab PO Q4-6HRS Ultram (Tramadol Hcl) 50 Mg Tablet 1 Tab PO PRN Q6HRS PRN MDD 4 Tablet(s) 7 Days Hydrocodone-Apap 5-325 (Hydrocodone Bit/Acetaminophen) 1 Tab Tablet 0.5-1 Tab PO PRN Q6HRS PRN Keflex (Cephalexin) 500 Mg Capsule 500 Mg PO QID 7 Days Bactrim Ds Tablet (Sulfamethoxazole/Trimethoprim) 1 Each Tablet 2 Each PO Q12HR 7 Days Doxycycline Hyclate 100 Mg Capsule 1 Cap PO BID 10 Days [place] 5-325 Tablet (Acetaminophen/Hydrocodone Bitart) 1 Each Tablet 1-2 Tab PO Q6HRS Allergies Allergies: Coded Allergies: No Known Drug Allergies (Unverified , 06/13/18) ROS Review of System Unable to complete due to confusion General: YES: Fatigue, Malaise; No: Chills, Night Sweats, Appetite, Other PSYCHOLOGICAL ROS: No: Anxiety, Behavioral Disorder, Concentration difficultie, Decreased libido, Depression, Disorientation, Hallucinations, Hostility, Irritablity, Memory difficulties, Mood Swings, Obsessive thoughts, Physical abuse, Sexual abuse, Sleep disturbances, Suicidal ideation, Other Eyes: No Blurry vision, No Decreased vision, No Double vision, No Dry eyes, No Excessive tearing, No Eye Pain, No Itchy Eyes, No Loss of vision, No Photophobia, No Scotomata, No Uses contacts, No Uses glasses, No Other HEENT: No: Heacaches, Visual Changes, Hearing change, Nasal congestion, Nasal discharge, Oral lesions, Sinus pain, Sore Throat, Epistaxis, Sneezing, Snoring, Tinnitus, Vertigo, Vocal changes, Other ALLERGY AND IMMUNOLOGY: No: Hives, Insect Bite Sensitivity, Itchy/Watery Eyes, Nasal Congestion, Post Nasal Drip, Seasonal Allergies, Other Hematological and Lymphatic: No: Bleeding Problems, Blood Clots, Blood Transfusions, Brusing, Night Sweats, Pallor, Swollen Lymph Nodes, Other ENDOCRINE: No: Breast Changes, Galactorrhea, Hair Pattern Changes, Hot Flashes, Malaise/lethargy, Mood Swings, Palpitations, Polydipsia/polyuria, Skin Changes, Temperature Intolerance, Unexpected Weight Changes, Other Breast: No New/Changing Breast Lumps, No Nipple changes, No Nipple discharge, No Other Respiratory: No: Cough, Hemoptysis, Orthopnea, Pleuritic Pain, Shortness of breath, SOB with excertion, Sputum Changes, Stridor, Tachypnea, Wheezing, Other Cardiovascular: No Chest Pain, No Palpitations, No Orthopnea, No Paroxysmal Noc. Dyspnea, No Edema, No Lt Headedness, No Other Gastrointestinal: No Nausea, No Vomiting, No Abdominal Pain, No Diarrhea, No Constipation, No Melena, No Hematochezia, No Other Genitourinary: No Dysuria, No Frequency, No Incontinence, No Hematuria, No Retention, No Discharge, No Urgency, No Pain, No Flank Pain, No Other, No , No , No , No , No , No , No Musculoskeletal: Yes Joint Pain, Yes Joint Stiffness; No Gait Disturbance, No Joint Swelling, No Muscle Pain, No Muscular Weakness, No Pain In:, No Swelling In:, No Other Neurological: No Behavorial Changes, No Bowel/Bladder ControlChng, No Confusion, No Dizziness, No Gait Disturbance, No Headaches, No Impaired Coord/balance, No Memory Loss, No Numbness/Tingling, No Seizures, No Speech Problems, No Tremors, No Visual Changes, No Weakness, No Other Skin: No Dry Skin, No Eczema, No Hair Changes, No Lumps, No Mole Changes, No Mottling, No Nail Changes, No Pruritus, No Rash, No Skin Lesion Changes, No Other, No Acne Vitals Vitals Vital Signs Date Time Temp Pulse Resp B/P (MAP) Pulse Ox O2 Delivery O2 Flow Rate FiO2 08/29/20 10:15 102 176/113 08/29/20 08:00 Room Air 08/29/20 07:00 98.8 20 96 98.8 Physical Exam Physical Exam disorented General: Alert, Cooperative, No acute distress Heart: Regular rate Lungs: Clear Abdomen: Normal bowel sounds, Soft, No tenderness, No hepatosplenomegaly, No masses Extremities: No clubbing, No cyanosis, No edema, Normal pulses, No tenderness/swelling Skin: No rashes, No breakdown, No significant lesion Labs LABS Laboratory Tests Test 08/28/20 10:35 08/29/20 03:30 Prothrombin Time 13.9 SEC (11.7-14.0) Prothromb Time International Ratio 1.1 (0.8-1.1) Ammonia 16 mcmol/L (11-34) White Blood Count 9.5 x10^3/uL (4.0-11.0) Red Blood Count 4.81 x10^6/uL (4.30-5.70) Hemoglobin 15.3 g/dL (13.0-17.5) Hematocrit 44.3 % (39.0-53.0) Mean Corpuscular Volume 92 fL (79-100) Mean Corpuscular Hemoglobin 32 pg (25-35) Mean Corpuscular Hemoglobin Concent 35 g/dL (31-37) Red Cell Distribution Width 14.1 % (11.5-14.5) Platelet Count 229 x10^3/uL (140-400) Neutrophils (%) (Auto) 71 % (31-73) Lymphocytes (%) (Auto) 6 % (24-48) Monocytes (%) (Auto) 22 % (0-9) Eosinophils (%) (Auto) 1 % (0-3) Basophils (%) (Auto) 0 % (0-3) Neutrophils # (Auto) 6.7 x10^3/uL (1.8-7.7) Lymphocytes # (Auto) 0.6 x10^3/uL (1.0-4.8) Monocytes # (Auto) 2.1 x10^3/uL (0.0-1.1) Eosinophils # (Auto) 0.1 x10^3/uL (0.0-0.7) Basophils # (Auto) 0.0 x10^3/uL (0.0-0.2) Sodium Level 134 mmol/L (136-145) Potassium Level 3.2 mmol/L (3.5-5.1) Chloride Level 97 mmol/L (98-107) Carbon Dioxide Level 22 mmol/L (21-32) Anion Gap 15 (6-14) Blood Urea Nitrogen 8 mg/dL (8-26) Creatinine 0.7 mg/dL (0.7-1.3) Estimated GFR (Cockcroft-Gault) 126.9 BUN/Creatinine Ratio 11 (6-20) Glucose Level 93 mg/dL (70-99) Calcium Level 9.1 mg/dL (8.5-10.1) Total Bilirubin 0.9 mg/dL (0.2-1.0) Aspartate Amino Transf (AST/SGOT) 33 U/L (15-37) Alanine Aminotransferase (ALT/SGPT) 50 U/L (16-63) Alkaline Phosphatase 92 U/L (46-116) Total Protein 7.9 g/dL (6.4-8.2) Albumin 2.9 g/dL (3.4-5.0) Albumin/Globulin Ratio 0.6 (1.0-1.7) Comment Review of Relevant I have reviewed the following items semaj (where applicable) has been applied. Labs Laboratory Tests Test 08/28/20 04:00 08/28/20 10:35 08/29/20 03:30 White Blood Count 10.6 x10^3/uL (4.0-11.0) 9.5 x10^3/uL (4.0-11.0) Red Blood Count 4.48 x10^6/uL (4.30-5.70) 4.81 x10^6/uL (4.30-5.70) Hemoglobin 14.2 g/dL (13.0-17.5) 15.3 g/dL (13.0-17.5) Hematocrit 41.8 % (39.0-53.0) 44.3 % (39.0-53.0) Mean Corpuscular Volume 93 fL (79-100) 92 fL (79-100) Mean Corpuscular Hemoglobin 32 pg (25-35) 32 pg (25-35) Mean Corpuscular Hemoglobin Concent 34 g/dL (31-37) 35 g/dL (31-37) Red Cell Distribution Width 14.6 % (11.5-14.5) 14.1 % (11.5-14.5) Platelet Count 174 x10^3/uL (140-400) 229 x10^3/uL (140-400) Neutrophils (%) (Auto) 68 % (31-73) 71 % (31-73) Lymphocytes (%) (Auto) 8 % (24-48) 6 % (24-48) Monocytes (%) (Auto) 22 % (0-9) 22 % (0-9) Eosinophils (%) (Auto) 2 % (0-3) 1 % (0-3) Basophils (%) (Auto) 0 % (0-3) 0 % (0-3) Neutrophils # (Auto) 7.2 x10^3/uL (1.8-7.7) 6.7 x10^3/uL (1.8-7.7) Lymphocytes # (Auto) 0.9 x10^3/uL (1.0-4.8) 0.6 x10^3/uL (1.0-4.8) Monocytes # (Auto) 2.3 x10^3/uL (0.0-1.1) 2.1 x10^3/uL (0.0-1.1) Eosinophils # (Auto) 0.2 x10^3/uL (0.0-0.7) 0.1 x10^3/uL (0.0-0.7) Basophils # (Auto) 0.0 x10^3/uL (0.0-0.2) 0.0 x10^3/uL (0.0-0.2) Segmented Neutrophils % 62 % (35-66) Band Neutrophils % 3 % (0-9) Lymphocytes % 13 % (24-48) Monocytes % 21 % (0-10) Eosinophils % 1 % (0-5) Platelet Estimate Adequate (ADEQUATE) Sodium Level 136 mmol/L (136-145) 134 mmol/L (136-145) Potassium Level 3.6 mmol/L (3.5-5.1) 3.2 mmol/L (3.5-5.1) Chloride Level 101 mmol/L (98-107) 97 mmol/L (98-107) Carbon Dioxide Level 22 mmol/L (21-32) 22 mmol/L (21-32) Anion Gap 13 (6-14) 15 (6-14) Blood Urea Nitrogen 8 mg/dL (8-26) 8 mg/dL (8-26) Creatinine 0.7 mg/dL (0.7-1.3) 0.7 mg/dL (0.7-1.3) Estimated GFR (Cockcroft-Gault) 126.9 126.9 BUN/Creatinine Ratio 11 (6-20) 11 (6-20) Glucose Level 95 mg/dL (70-99) 93 mg/dL (70-99) Calcium Level 8.9 mg/dL (8.5-10.1) 9.1 mg/dL (8.5-10.1) Total Bilirubin 0.8 mg/dL (0.2-1.0) 0.9 mg/dL (0.2-1.0) Aspartate Amino Transf (AST/SGOT) 29 U/L (15-37) 33 U/L (15-37) Alanine Aminotransferase (ALT/SGPT) 55 U/L (16-63) 50 U/L (16-63) Alkaline Phosphatase 78 U/L (46-116) 92 U/L (46-116) Total Protein 7.4 g/dL (6.4-8.2) 7.9 g/dL (6.4-8.2) Albumin 2.8 g/dL (3.4-5.0) 2.9 g/dL (3.4-5.0) Albumin/Globulin Ratio 0.6 (1.0-1.7) 0.6 (1.0-1.7) Free Thyroxine 1.31 ng/dL (0.76-1.46) Prothrombin Time 13.9 SEC (11.7-14.0) Prothromb Time International Ratio 1.1 (0.8-1.1) Ammonia 16 mcmol/L (11-34) Laboratory Tests Test 08/28/20 10:35 08/29/20 03:30 Prothrombin Time 13.9 SEC (11.7-14.0) Prothromb Time International Ratio 1.1 (0.8-1.1) Ammonia 16 mcmol/L (11-34) White Blood Count 9.5 x10^3/uL (4.0-11.0) Red Blood Count 4.81 x10^6/uL (4.30-5.70) Hemoglobin 15.3 g/dL (13.0-17.5) Hematocrit 44.3 % (39.0-53.0) Mean Corpuscular Volume 92 fL (79-100) Mean Corpuscular Hemoglobin 32 pg (25-35) Mean Corpuscular Hemoglobin Concent 35 g/dL (31-37) Red Cell Distribution Width 14.1 % (11.5-14.5) Platelet Count 229 x10^3/uL (140-400) Neutrophils (%) (Auto) 71 % (31-73) Lymphocytes (%) (Auto) 6 % (24-48) Monocytes (%) (Auto) 22 % (0-9) Eosinophils (%) (Auto) 1 % (0-3) Basophils (%) (Auto) 0 % (0-3) Neutrophils # (Auto) 6.7 x10^3/uL (1.8-7.7) Lymphocytes # (Auto) 0.6 x10^3/uL (1.0-4.8) Monocytes # (Auto) 2.1 x10^3/uL (0.0-1.1) Eosinophils # (Auto) 0.1 x10^3/uL (0.0-0.7) Basophils # (Auto) 0.0 x10^3/uL (0.0-0.2) Sodium Level 134 mmol/L (136-145) Potassium Level 3.2 mmol/L (3.5-5.1) Chloride Level 97 mmol/L (98-107) Carbon Dioxide Level 22 mmol/L (21-32) Anion Gap 15 (6-14) Blood Urea Nitrogen 8 mg/dL (8-26) Creatinine 0.7 mg/dL (0.7-1.3) Estimated GFR (Cockcroft-Gault) 126.9 BUN/Creatinine Ratio 11 (6-20) Glucose Level 93 mg/dL (70-99) Calcium Level 9.1 mg/dL (8.5-10.1) Total Bilirubin 0.9 mg/dL (0.2-1.0) Aspartate Amino Transf (AST/SGOT) 33 U/L (15-37) Alanine Aminotransferase (ALT/SGPT) 50 U/L (16-63) Alkaline Phosphatase 92 U/L (46-116) Total Protein 7.9 g/dL (6.4-8.2) Albumin 2.9 g/dL (3.4-5.0) Albumin/Globulin Ratio 0.6 (1.0-1.7) Medications Current Medications Sodium Chloride 1,000 ml @ 100 mls/hr Q10H IV Last administered on 08/27/20at 23:20; Start 08/27/20 at 21:30; Stop 08/28/20 at 07:29; Status DC Ondansetron HCl (Zofran) 4 mg PRN Q6HRS PRN IVP NAUSEA/VOMITING; Start 08/27/20 at 21:30 Acetaminophen (Tylenol) 650 mg PRN Q6HRS PRN PO Headaches, Temp > 101.5F Last administered on 08/29/20at 03:05; Start 08/27/20 at 21:30 Senna/Docusate Sodium (Senna Plus) 1 tab BID PO Last administered on 08/29/20at 10:14; Start 08/28/20 at 09:00 Magnesium Hydroxide (Milk Of Magnesia) 2,400 mg PRN Q12HR PRN PO CONSTIPATION; Start 08/27/20 at 21:30 Multivitamins (Thera M Plus) 1 tab DAILY PO ; Start 09/01/20 at 09:00 Folic Acid (Folic Acid) 1 mg DAILY PO Last administered on 08/29/20at 10:14; Start 08/29/20 at 09:00 Thiamine Mononitrate (Vitamin B-1) 100 mg DAILY PO ; Start 09/01/20 at 09:00; Stop 08/28/20 at 11:38; Status DC Lorazepam (Ativan) 1 mg PRN Q1HR PRN PO For CIWA 8-14; Start 08/27/20 at 21:30 Lorazepam (Ativan) 2 mg PRN Q1HR PRN PO For CIWA 15 or greater; Start 08/27/20 at 21:30 Lorazepam (Ativan Inj) 1 mg PRN Q1HR PRN IV For CIWA 8-14 Last administered on 08/27/20at 23:31; Start 08/27/20 at 21:30 Lorazepam (Ativan Inj) 2 mg PRN Q1HR PRN IV For CIWA 15 or greater Last administered on 08/29/20at 10:24; Start 08/27/20 at 21:30 Haloperidol Lactate (Haldol Inj) 5 mg PRN Q4HRS PRN IVP Hallucinatns,Confusn,Delirium; Start 08/27/20 at 21:30 Diphenhydramine HCl (Benadryl) 25 mg PRN Q15MIN PRN IVP EPS symptoms 2'Haldol admin; Start 08/27/20 at 21:30 Clonidine HCl (Catapres) 0.1 mg PRN Q1HR PRN PO SBP > 180 or DBP > 100, MRX3 Last administered on 08/28/20at 08:07; Start 08/27/20 at 21:30 Gabapentin (Neurontin) 300 mg TID PO Last administered on 08/29/20at 10:15; Start 08/27/20 at 21:30 Trazodone HCl (Desyrel) 50 mg PRN QHS PRN PO Sleep/depression; Start 08/27/20 at 21:30 Ziprasidone (Geodon) 20 mg QHS PO Last administered on 08/28/20at 21:24; Start 08/27/20 at 21:30 Amlodipine Besylate (Norvasc) 10 mg DAILY PO Last administered on 08/28/20at 08:07; Start 08/28/20 at 09:00; Stop 08/28/20 at 09:53; Status DC Hydralazine HCl (Apresoline Inj) 10 mg PRN Q4HRS PRN IVP ELEVATED BP, SEE COMMENTS Last administered on 08/29/20at 07:41; Start 08/28/20 at 10:00 Lisinopril (Prinivil) 40 mg DAILY PO Last administered on 08/29/20at 10:14; Start 08/28/20 at 10:00 Amlodipine Besylate (Norvasc) 5 mg BID PO Last administered on 08/29/20at 10:15; Start 08/29/20 at 09:00 Multivitamins 10 ml/Thiamine HCl 100 mg/Folic Acid 1 mg/Sodium Chloride 1,011.2 ml @ 100 mls/ hr DAILY IV ; Start 08/28/20 at 10:30; Stop 08/28/20 at 11:38; Status DC Thiamine HCl 100 mg/Dextrose 51 ml @ 102 mls/hr TID IV Last administered on 08/29/20at 08:26; Start 08/28/20 at 14:00 Active Scripts Active Chlordiazepoxide Hcl 25 Mg Capsule 25 Mg PO UD Day #1: Take 50mg PO QID Day #2: Take 50mg PO BID Day #3: Take 25mg PO BID Day #4: Take 25mg PO QHS Lisinopril 40 Mg Tablet 40 Mg PO DAILY 30 Days Amlodipine Besylate 10 Mg Tablet 10 Mg PO DAILY 30 Days [place] 5-325 Tablet (Acetaminophen/Hydrocodone Bitart) 1 Each Tablet 1-2 Tab PO Q4-6HRS Ultram (Tramadol Hcl) 50 Mg Tablet 1 Tab PO PRN Q6HRS PRN MDD 4 Tablet(s) 7 Days Hydrocodone-Apap 5-325 (Hydrocodone Bit/Acetaminophen) 1 Tab Tablet 0.5-1 Tab PO PRN Q6HRS PRN Keflex (Cephalexin) 500 Mg Capsule 500 Mg PO QID 7 Days Bactrim Ds Tablet (Sulfamethoxazole/Trimethoprim) 1 Each Tablet 2 Each PO Q12HR 7 Days Doxycycline Hyclate 100 Mg Capsule 1 Cap PO BID 10 Days [place] 5-325 Tablet (Acetaminophen/Hydrocodone Bitart) 1 Each Tablet 1-2 Tab PO Q6HRS Vitals/I & O Vital Sign - Last 24 Hours 08/28/20 08/28/20 08/28/20 08/28/20 11:12 12:27 12:31 14:29 Temp 98.0 98.0 98.0 98.0 Pulse 95 95 95 102 Resp 20 20 B/P (MAP) 181/109 (133) 181/109 181/109 176/112 (133) Pulse Ox 96 96 O2 Delivery Room Air Room Air 08/28/20 08/28/20 08/28/20 08/29/20 19:00 20:15 23:00 03:00 Temp 97.6 98.2 101.5 97.6 98.2 101.5 Pulse 95 107 111 Resp 20 20 18 B/P (MAP) 165/107 (126) 164/108 (126) 190/113 (138) Pulse Ox 96 96 98 O2 Delivery Room Air Room Air Room Air Room Air 5/16/08/29/20 08/29/20 08/29/20 03:02 04:15 07:00 07:41 Temp 101.2 98.8 101.2 98.8 Pulse 111 90 102 Resp 18 20 B/P (MAP) 190/113 155/88 (110) 176/113 (134) 176/113 Pulse Ox 98 96 O2 Delivery Room Air 08/29/20 08/29/20 08/29/20 08:00 10:14 10:15 Pulse 102 102 B/P (MAP) 176/113 176/113 O2 Delivery Room Air Intake and Output 08/28/20 08/28/20 08/29/20 15:00 23:00 07:00 Intake Total 350 ml 100 ml Output Total 0 ml 0 ml Balance 350 ml 100 ml 0 ml Justicifation of Admission Dx: Justifications for Admission: Justification of Admission Dx: Yes Angina: Symp at Rest GREG OLGUIN MD August 29, 2020 10:30
[2020-08-29] MEDS ORDERED: POTASSIUM CHLORIDE 20 MEQ TABLET.ER. PO ONE (12:30)
[2020-08-29] MEDS: LISINOPRIL 5 MG TABLET. PO SCH ×2 (12:36→22:02)
--- NOTE | 2020-08-29 13:32 | PDOC ---
Date of Service: DATE: 08/29/20 TIME: 13:30 Subjective: Subjective: denies pain today. Abd sono unrevealing Objective: Vital Signs: Vital Signs Date Time Temp Pulse Resp B/P (MAP) Pulse Ox O2 Delivery O2 Flow Rate FiO2 08/29/20 12:36 99 143/82 08/29/20 11:00 99.3 22 95 Room Air 99.3 Labs: Laboratory Tests Test 08/29/20 03:30 White Blood Count 9.5 x10^3/uL (4.0-11.0) Red Blood Count 4.81 x10^6/uL (4.30-5.70) Hemoglobin 15.3 g/dL (13.0-17.5) Hematocrit 44.3 % (39.0-53.0) Mean Corpuscular Volume 92 fL (79-100) Mean Corpuscular Hemoglobin 32 pg (25-35) Mean Corpuscular Hemoglobin Concent 35 g/dL (31-37) Red Cell Distribution Width 14.1 % (11.5-14.5) Platelet Count 229 x10^3/uL (140-400) Neutrophils (%) (Auto) 71 % (31-73) Lymphocytes (%) (Auto) 6 % (24-48) Monocytes (%) (Auto) 22 % (0-9) Eosinophils (%) (Auto) 1 % (0-3) Basophils (%) (Auto) 0 % (0-3) Neutrophils # (Auto) 6.7 x10^3/uL (1.8-7.7) Lymphocytes # (Auto) 0.6 x10^3/uL (1.0-4.8) Monocytes # (Auto) 2.1 x10^3/uL (0.0-1.1) Eosinophils # (Auto) 0.1 x10^3/uL (0.0-0.7) Basophils # (Auto) 0.0 x10^3/uL (0.0-0.2) Sodium Level 134 mmol/L (136-145) Potassium Level 3.2 mmol/L (3.5-5.1) Chloride Level 97 mmol/L (98-107) Carbon Dioxide Level 22 mmol/L (21-32) Anion Gap 15 (6-14) Blood Urea Nitrogen 8 mg/dL (8-26) Creatinine 0.7 mg/dL (0.7-1.3) Estimated GFR (Cockcroft-Gault) 126.9 BUN/Creatinine Ratio 11 (6-20) Glucose Level 93 mg/dL (70-99) Calcium Level 9.1 mg/dL (8.5-10.1) Total Bilirubin 0.9 mg/dL (0.2-1.0) Aspartate Amino Transf (AST/SGOT) 33 U/L (15-37) Alanine Aminotransferase (ALT/SGPT) 50 U/L (16-63) Alkaline Phosphatase 92 U/L (46-116) Total Protein 7.9 g/dL (6.4-8.2) Albumin 2.9 g/dL (3.4-5.0) Albumin/Globulin Ratio 0.6 (1.0-1.7) Physical Exam: Physical Exam: PE: Physical Exam General: Alert, Cooperative, moderate distress HEENT: Atraumatic, PERRLA, EOMI, Mucous membr. moist/pink Lungs: Clear to auscultation, Normal air movement Heart: S1S2, RRR, no thrills, no rubs, no gallops, no murmurs Abdomen: Normal bowel sounds, Soft, No tenderness, No hepatosplenomegaly, No masses Rectal Exam: not examined Extremities: No clubbing, No cyanosis, No edema, Normal pulses, No tenderness/swelling Skin: No rashes, No breakdown, No significant lesion Neuro: Normal speech, Strength at 5/5 X4 ext, Normal tone, Sensation intact, Cranial nerves 3-12 NL, Reflexes 2+ Psych/Mental Status: Other (Delerious) Assessment & Plan: Assessment : A/P: A/P: A/P 1) EtOH abuse: LFTs are wnl without evidence of anemia or GI bleed. 2_Abd pain: diffuse. Abd sono unrevealing Plan: Monitor Justicifation of Admission Dx: Justifications for Admission: Justification of Admission Dx: Yes Angina: Symp at Rest RICHARD FREY MD August 29, 2020 13:32
--- NOTE | 2020-08-29 18:03 | PDOC ---
PROGRESS NOTES Date of Service DATE: 08/29/20 TIME: 17:58 Assessment 1. Prolonged alcohol withdrawal syndrome-he initially presented to the emergency room at [facility] on August 22, 2020 with an alcohol level of 425. He is now 7 days out from his last drink. He should be recovering from the alcohol withdrawal but continues to be lethargic at times. I am concerned that the Ativan is perpetuating the lethargy. 2. He does not have any cranial neuropathies. Strength and coordination are symmetric as is sensation. Plan 1. I would like to try limiting medications such as Ativan to see if he can start to wake up. I would recommend getting him out of the bed and walking him with assist to try to get him activated. I would continue with multivitamins and thiamine. Subjective I would like to be on less sedating medications. Objective Vital Signs Date Time Temp Pulse Resp B/P (MAP) Pulse Ox O2 Delivery O2 Flow Rate FiO2 08/29/20 15:00 99.9 97 22 142/77 (98) 93 Room Air 99.9 Intake and Output 08/29/20 07:00 Intake Total 450 ml Output Total 0 ml Balance 450 ml Intake Oral 450 ml Output Urine Total 0 ml # Voids 4 PHYSICAL EXAM He was lying in the bed on his back with his left eye open and his right eye partially open. Speech was fluent and clear. He was able to respond to ques tions. He was not oriented to place but was oriented to month and year. Examination of the cranial nerves revealed visual demarco were full to confrontation. Extraocular movements were intact. The eyes were conjugate. There was no nystagmus. Facial sensation was intact. The muscles of mastication and facial expression were symmetric. Hearing was intact to finger rub. The tongue was midline with full motion. Shoulder shrug was symmetric. Muscle bulk and tone was normal. He did not have asterixis with outstretched arms. There was no rebound. Power was fairly full and symmetric in arms and legs. Right leg was not as testable because of his painful right hip. Coordination testing with [id number] was slow but did not have ataxia. Sensation was intact to light touch. Review of Relevant I have reviewed the following items semaj (where applicable) has been applied. Labs Laboratory Tests Test 08/28/20 04:00 08/28/20 10:35 08/29/20 03:30 White Blood Count 10.6 x10^3/uL (4.0-11.0) 9.5 x10^3/uL (4.0-11.0) Red Blood Count 4.48 x10^6/uL (4.30-5.70) 4.81 x10^6/uL (4.30-5.70) Hemoglobin 14.2 g/dL (13.0-17.5) 15.3 g/dL (13.0-17.5) Hematocrit 41.8 % (39.0-53.0) 44.3 % (39.0-53.0) Mean Corpuscular Volume 93 fL (79-100) 92 fL (79-100) Mean Corpuscular Hemoglobin 32 pg (25-35) 32 pg (25-35) Mean Corpuscular Hemoglobin Concent 34 g/dL (31-37) 35 g/dL (31-37) Red Cell Distribution Width 14.6 % (11.5-14.5) 14.1 % (11.5-14.5) Platelet Count 174 x10^3/uL (140-400) 229 x10^3/uL (140-400) Neutrophils (%) (Auto) 68 % (31-73) 71 % (31-73) Lymphocytes (%) (Auto) 8 % (24-48) 6 % (24-48) Monocytes (%) (Auto) 22 % (0-9) 22 % (0-9) Eosinophils (%) (Auto) 2 % (0-3) 1 % (0-3) Basophils (%) (Auto) 0 % (0-3) 0 % (0-3) Neutrophils # (Auto) 7.2 x10^3/uL (1.8-7.7) 6.7 x10^3/uL (1.8-7.7) Lymphocytes # (Auto) 0.9 x10^3/uL (1.0-4.8) 0.6 x10^3/uL (1.0-4.8) Monocytes # (Auto) 2.3 x10^3/uL (0.0-1.1) 2.1 x10^3/uL (0.0-1.1) Eosinophils # (Auto) 0.2 x10^3/uL (0.0-0.7) 0.1 x10^3/uL (0.0-0.7) Basophils # (Auto) 0.0 x10^3/uL (0.0-0.2) 0.0 x10^3/uL (0.0-0.2) Segmented Neutrophils % 62 % (35-66) Band Neutrophils % 3 % (0-9) Lymphocytes % 13 % (24-48) Monocytes % 21 % (0-10) Eosinophils % 1 % (0-5) Platelet Estimate Adequate (ADEQUATE) Sodium Level 136 mmol/L (136-145) 134 mmol/L (136-145) Potassium Level 3.6 mmol/L (3.5-5.1) 3.2 mmol/L (3.5-5.1) Chloride Level 101 mmol/L (98-107) 97 mmol/L (98-107) Carbon Dioxide Level 22 mmol/L (21-32) 22 mmol/L (21-32) Anion Gap 13 (6-14) 15 (6-14) Blood Urea Nitrogen 8 mg/dL (8-26) 8 mg/dL (8-26) Creatinine 0.7 mg/dL (0.7-1.3) 0.7 mg/dL (0.7-1.3) Estimated GFR (Cockcroft-Gault) 126.9 126.9 BUN/Creatinine Ratio 11 (6-20) 11 (6-20) Glucose Level 95 mg/dL (70-99) 93 mg/dL (70-99) Calcium Level 8.9 mg/dL (8.5-10.1) 9.1 mg/dL (8.5-10.1) Total Bilirubin 0.8 mg/dL (0.2-1.0) 0.9 mg/dL (0.2-1.0) Aspartate Amino Transf (AST/SGOT) 29 U/L (15-37) 33 U/L (15-37) Alanine Aminotransferase (ALT/SGPT) 55 U/L (16-63) 50 U/L (16-63) Alkaline Phosphatase 78 U/L (46-116) 92 U/L (46-116) Total Protein 7.4 g/dL (6.4-8.2) 7.9 g/dL (6.4-8.2) Albumin 2.8 g/dL (3.4-5.0) 2.9 g/dL (3.4-5.0) Albumin/Globulin Ratio 0.6 (1.0-1.7) 0.6 (1.0-1.7) Free Thyroxine 1.31 ng/dL (0.76-1.46) Prothrombin Time 13.9 SEC (11.7-14.0) Prothromb Time International Ratio 1.1 (0.8-1.1) Ammonia 16 mcmol/L (11-34) Laboratory Tests Test 08/29/20 03:30 White Blood Count 9.5 x10^3/uL (4.0-11.0) Red Blood Count 4.81 x10^6/uL (4.30-5.70) Hemoglobin 15.3 g/dL (13.0-17.5) Hematocrit 44.3 % (39.0-53.0) Mean Corpuscular Volume 92 fL (79-100) Mean Corpuscular Hemoglobin 32 pg (25-35) Mean Corpuscular Hemoglobin Concent 35 g/dL (31-37) Red Cell Distribution Width 14.1 % (11.5-14.5) Platelet Count 229 x10^3/uL (140-400) Neutrophils (%) (Auto) 71 % (31-73) Lymphocytes (%) (Auto) 6 % (24-48) Monocytes (%) (Auto) 22 % (0-9) Eosinophils (%) (Auto) 1 % (0-3) Basophils (%) (Auto) 0 % (0-3) Neutrophils # (Auto) 6.7 x10^3/uL (1.8-7.7) Lymphocytes # (Auto) 0.6 x10^3/uL (1.0-4.8) Monocytes # (Auto) 2.1 x10^3/uL (0.0-1.1) Eosinophils # (Auto) 0.1 x10^3/uL (0.0-0.7) Basophils # (Auto) 0.0 x10^3/uL (0.0-0.2) Sodium Level 134 mmol/L (136-145) Potassium Level 3.2 mmol/L (3.5-5.1) Chloride Level 97 mmol/L (98-107) Carbon Dioxide Level 22 mmol/L (21-32) Anion Gap 15 (6-14) Blood Urea Nitrogen 8 mg/dL (8-26) Creatinine 0.7 mg/dL (0.7-1.3) Estimated GFR (Cockcroft-Gault) 126.9 BUN/Creatinine Ratio 11 (6-20) Glucose Level 93 mg/dL (70-99) Calcium Level 9.1 mg/dL (8.5-10.1) Total Bilirubin 0.9 mg/dL (0.2-1.0) Aspartate Amino Transf (AST/SGOT) 33 U/L (15-37) Alanine Aminotransferase (ALT/SGPT) 50 U/L (16-63) Alkaline Phosphatase 92 U/L (46-116) Total Protein 7.9 g/dL (6.4-8.2) Albumin 2.9 g/dL (3.4-5.0) Albumin/Globulin Ratio 0.6 (1.0-1.7) Medications Current Medications Sodium Chloride 1,000 ml @ 100 mls/hr Q10H IV Last administered on 08/27/20at 23:20; Start 08/27/20 at 21:30; Stop 08/28/20 at 07:29; Status DC Ondansetron HCl (Zofran) 4 mg PRN Q6HRS PRN IVP NAUSEA/VOMITING; Start 08/27/20 at 21:30 Acetaminophen (Tylenol) 650 mg PRN Q6HRS PRN PO Headaches, Temp > 101.5F Last administered on 08/29/20at 03:05; Start 08/27/20 at 21:30 Senna/Docusate Sodium (Senna Plus) 1 tab BID PO Last administered on 08/29/20at 10:14; Start 08/28/20 at 09:00 Magnesium Hydroxide (Milk Of Magnesia) 2,400 mg PRN Q12HR PRN PO CONSTIPATION; Start 08/27/20 at 21:30 Multivitamins (Thera M Plus) 1 tab DAILY PO ; Start 09/01/20 at 09:00 Folic Acid (Folic Acid) 1 mg DAILY PO Last administered on 08/29/20at 10:14; Start 08/29/20 at 09:00 Thiamine Mononitrate (Vitamin B-1) 100 mg DAILY PO ; Start 09/01/20 at 09:00; Stop 08/28/20 at 11:38; Status DC Lorazepam (Ativan) 1 mg PRN Q1HR PRN PO For CIWA 8-14; Start 08/27/20 at 21:30 Lorazepam (Ativan) 2 mg PRN Q1HR PRN PO For CIWA 15 or greater; Start 08/27/20 at 21:30 Lorazepam (Ativan Inj) 1 mg PRN Q1HR PRN IV For CIWA 8-14 Last administered on 08/27/20at 23:31; Start 08/27/20 at 21:30 Lorazepam (Ativan Inj) 2 mg PRN Q1HR PRN IV For CIWA 15 or greater Last administered on 08/29/20at 12:36; Start 08/27/20 at 21:30 Haloperidol Lactate (Haldol Inj) 5 mg PRN Q4HRS PRN IVP Hallucinatns,Confusn,Delirium; Start 08/27/20 at 21:30 Diphenhydramine HCl (Benadryl) 25 mg PRN Q15MIN PRN IVP EPS symptoms 2'Haldol admin; Start 08/27/20 at 21:30 Clonidine HCl (Catapres) 0.1 mg PRN Q1HR PRN PO SBP > 180 or DBP > 100, MRX3 Last administered on 08/28/20at 08:07; Start 08/27/20 at 21:30 Gabapentin (Neurontin) 300 mg TID PO Last administered on 08/29/20at 13:53; Start 08/27/20 at 21:30 Trazodone HCl (Desyrel) 50 mg PRN QHS PRN PO Sleep/depression; Start 08/27/20 at 21:30 Ziprasidone (Geodon) 20 mg QHS PO Last administered on 08/28/20at 21:24; Start 08/27/20 at 21:30 Amlodipine Besylate (Norvasc) 10 mg DAILY PO Last administered on 08/28/20at 08:07; Start 08/28/20 at 09:00; Stop 08/28/20 at 09:53; Status DC Hydralazine HCl (Apresoline Inj) 10 mg PRN Q4HRS PRN IVP ELEVATED BP, SEE COMMENTS Last administered on 08/29/20at 07:41; Start 08/28/20 at 10:00 Lisinopril (Prinivil) 40 mg DAILY PO Last administered on 08/29/20at 10:14; Start 08/28/20 at 10:00 Amlodipine Besylate (Norvasc) 5 mg BID PO Last administered on 08/29/20at 10:15; Start 08/29/20 at 09:00 Multivitamins 10 ml/Thiamine HCl 100 mg/Folic Acid 1 mg/Sodium Chloride 1,011.2 ml @ 100 mls/ hr DAILY IV ; Start 08/28/20 at 10:30; Stop 08/28/20 at 11:38; Status DC Thiamine HCl 100 mg/Dextrose 51 ml @ 102 mls/hr TID IV Last administered on 08/29/20at 14:00; Start 08/28/20 at 14:00 Lisinopril (Prinivil) 5 mg BID PO Last administered on 08/29/20at 12:36; Start 08/29/20 at 12:30 Potassium Chloride (Klor-Con) 40 meq 1X ONCE PO Last administered on 08/29/20at 12:35; Start 08/29/20 at 12:30; Stop 08/29/20 at 12:31; Status DC Potassium Chloride (Klor-Con) 20 meq [id number] PO ; Start 08/30/20 at 08:00 Active Scripts Active Chlordiazepoxide Hcl 25 Mg Capsule 25 Mg PO UD Day #1: Take 50mg PO QID Day #2: Take 50mg PO BID Day #3: Take 25mg PO BID Day #4: Take 25mg PO QHS Lisinopril 40 Mg Tablet 40 Mg PO DAILY 30 Days Amlodipine Besylate 10 Mg Tablet 10 Mg PO DAILY 30 Days Aquilla 5-325 Tablet (Acetaminophen/Hydrocodone Bitart) 1 Each Tablet 1-2 Tab PO Q4-6HRS Ultram (Tramadol Hcl) 50 Mg Tablet 1 Tab PO PRN Q6HRS PRN MDD 4 Tablet(s) 7 Days Hydrocodone-Apap 5-325 (Hydrocodone Bit/Acetaminophen) 1 Tab Tablet 0.5-1 Tab PO PRN Q6HRS PRN Keflex (Cephalexin) 500 Mg Capsule 500 Mg PO QID 7 Days Bactrim Ds Tablet (Sulfamethoxazole/Trimethoprim) 1 Each Tablet 2 Each PO Q12HR 7 Days Doxycycline Hyclate 100 Mg Capsule 1 Cap PO BID 10 Days Aquilla 5-325 Tablet (Acetaminophen/Hydrocodone Bitart) 1 Each Tablet 1-2 Tab PO Q6HRS Vitals/I & O Vital Sign - Last 24 Hours 08/28/20 08/28/20 08/28/20 08/29/20 19:00 20:15 23:00 03:00 Temp 97.6 98.2 101.5 97.6 98.2 101.5 Pulse 95 107 111 Resp 20 20 18 B/P (MAP) 165/107 (126) 164/108 (126) 190/113 (138) Pulse Ox 96 96 98 O2 Delivery Room Air Room Air Room Air Room Air 08/29/20 08/29/20 08/29/20 08/29/20 03:02 04:15 07:00 07:41 Temp 101.2 98.8 101.2 98.8 Pulse 111 90 102 Resp 18 20 B/P (MAP) 190/113 155/88 (110) 176/113 (134) 176/113 Pulse Ox 98 96 O2 Delivery Room Air 08/29/20 08/29/20 08/29/20 08/29/20 08:00 10:14 10:15 11:00 Temp 99.3 99.3 Pulse 102 102 99 Resp 22 B/P (MAP) 176/113 176/113 143/82 (102) Pulse Ox 95 O2 Delivery Room Air Room Air 08/29/20 08/29/20 12:36 15:00 Temp 99.9 99.9 Pulse 99 97 Resp 22 B/P (MAP) 143/82 142/77 (98) Pulse Ox 93 O2 Delivery Room Air Intake and Output 08/28/20 08/28/20 08/29/20 15:00 23:00 07:00 Intake Total 350 ml 100 ml Output Total 0 ml 0 ml Balance 350 ml 100 ml 0 ml Justicifation of Admission Dx: Justifications for Admission: Justification of Admission Dx: Yes Angina: Symp at Rest [address] MD August 29, 2020 18:03
[2020-08-29] MEDS: ZIPRASIDONE 20 MG CAPSULE PO SCH (21:53)
[2020-08-30 03:00] VITALS: BP 181/103
[2020-08-30] MEDS: hydrALAZINE 20 MG/ML VIAL. IVP PRN (04:49)
[2020-08-30] MEDS: ACETAMINOPHEN 325 MG TABLET. PO PRN (04:50)
[2020-08-30 07:00] VITALS: BP 141/83
[2020-08-30] MEDS: SENNOSIDES/DOCUSATE 8.6/50MG TABLET. PO SCH ×2 (08:29→20:04)
[2020-08-30] MEDS: POTASSIUM CHLORIDE 20 MEQ TABLET.ER. PO SCH (08:30)
[2020-08-30] MEDS: amLODIPine BESYLATE 5 MG TABLET PO SCH ×2 (08:30→20:05)
[2020-08-30] MEDS: LISINOPRIL 5 MG TABLET. PO SCH ×2 (08:31→20:05)
[2020-08-30] MEDS: FOLIC ACID 1 MG TABLET. PO SCH (08:31)
[2020-08-30] MEDS: GABAPENTIN 300 MG CAPSULE. PO SCH ×3 (08:31→20:05)
[2020-08-30] MEDS: THIAMINE INJ 100 MG in IV DEXTROSE 5% 50 ML IV SCH ×3 (08:32→20:04)
--- NOTE | 2020-08-30 08:40 | PDOC ---
PROGRESS NOTES Date of Service: DATE: 08/30/20 TIME: 08:40 Chief Complaint Chief Complaint VTE Prophylaxis Ordered VTE Prophylaxis Devices: No VTE Pharmacological Prophylaxi: No Assessment/Plan IMPRESSION A/P: Acute alcohol withdrawal with delerium - CIWA. PAT consult. Thiamine, folic acid. Add gabapentin, prn clonidine. May need acamprosate or depade/vivitrol outpatient therapy Bipolar disorder - notes prior psychiatric hospitalization started on depakote, but compliance was difficult Hypertension - will monitor, needs ambulatory monitoring for titrating meds, but based on history has been treated with amlodipine Thrombocytopenia - likely due to heavy alcohol use and bone marrow suppression uncontrolled hypertension Family history of very early onset alzheimers and early onset cardiac disease H/o gout - monitor uric acid Heavy ETOH use - CIWA scale. 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 Probable old fractures of the superior to inferior pubic ramus. 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 08-30 PAT CONSULT GI CONSULT Ammonia level BP UNCONTROLLED change norvasc to 5 mg po bid ADD LISINOPRIL 5 MG PO BID , PRN IV HYDRALAZINE neurology consult receiving thiamine iv high dose to prevent damage from Wernicke or Korsakoff syndrome. Acute alcohol withdrawal with delerium - CIWA. PAT consult. Thiamine, folic acid. Add gabapentin, prn clonidine. May need acamprosate or depade/vivitrol outpatient therapy Bipolar disorder - notes prior psychiatric hospitalization started on depakote, but compliance was difficult 29 min pt exam, chart review, > 50% of time spent with exam, chart review, pt care coordination 5-16 PAT CONSULT GI CONSULT Ammonia level BP UNCONTROLLED change norvasc to 5 mg po bid ADD LISINOPRIL 5 MG PO BID , PRN IV HYDRALAZINE neurology consult receiving thiamine iv high dose to prevent damage from Wernicke or Korsakoff syndrome. Acute alcohol withdrawal with delerium - CIWA. PAT consult. Thiamine, folic acid. Add gabapentin, prn clonidine. May need acamprosate or depade/vivitrol outpatient therapy Bipolar disorder - notes prior psychiatric hospitalization started on depakote, but compliance was difficult 39 min pt exam, chart review, > 50% of time spent with exam, chart review, pt care coordination History of Present Illness History of Present Illness dentification/Chief Complaint Chief Complaint James stauffer Source Source: Caregiver, Chart review, Patient History of Present Illness History of Present Illness Mr Finch is a 35-year-old male with PMHx elevated blood pressure without dx of HTN, ETOH use, gout who is presenting accepted as a direct admission from [facility]. He was seen on Sunday08/22/2020 intoxicated looking for alcohol withdrawal treatment was referred to [facility] and subsequently taken to [facility] but his withdrawal symptoms were not well controlled or manageable in residential treatment setting and therefore he was transferred to [facility] for inpatient treatment of delirium tremens. He was given phenobarbitol and valium treatment, continued to be difficult to redirect, hallucinating, making staff feel unsafe and transferred to [facility] for further care. 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 EKG reviewed by myself is NSR with normal axis and RBBB. Chest x-ray is negative for acute pathology, troponin is normal, d-dimer is normal. 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 He does drink heavily and has sought treatment on a few occasions. He is especially concerned because of early cardiac disease in his father and paternal grandfather and early at age 44 for both of them, he notes this was due to very early onset of Alzheimer's dementia. He is not easy to redirect and confused. His is concerned about history of bipolar disorder that required inpatient treatment and depakote therapy at [facility] ([facility] several years ago. Blood pressure noted in the 170s over low 100s. Afebrile on exam. Accepted at [facility] for further treatment of his alcohol withdrawal deleriu Past Medical History Cardiovascular: HTN Pulmonary: No pertinent hx CENTRAL NERVOUS SYSTEM: Other GI: No pertinent hx Heme/Onc: No pertinent hx Hepatobiliary: No pertinent hx Psych: Anxiety, Bipolar, Other Musculoskeletal: Osteoarthritis, Other Rheumatologic: No pertinent hx, Gout Infectious disease: No pertinent hx Endocrine: No pertinent hx Past Surgical History Past Surgical History: Other Family History Family History: Coronary Artery Disease Social History Smoke: No ALCOHOL: heavy Drugs: None, Cocaine (in remission) Current Medications Current Medications Current Medications Sodium Chloride 1,000 ml @ 100 mls/hr Q10H IV ; Start 08/27/20 at 21:30; Stop 08/28/20 at 07:29 Ondansetron HCl (Zofran) 4 mg PRN Q6HRS PRN IVP NAUSEA/VOMITING; Start 08/27/20 at 21:30 Acetaminophen (Tylenol) 650 mg PRN Q6HRS PRN PO Headaches, Temp > 101.5F; Start 08/27/20 at 21:30 Senna/Docusate Sodium (Senna Plus) 1 tab BID PO ; Start 08/28/20 at 09:00 Magnesium Hydroxide (Milk Of Magnesia) 2,400 mg PRN Q12HR PRN PO CONSTIPATION; Start 08/27/20 at 21:30 Multivitamins (Thera M Plus) 1 tab DAILY PO ; Start 09/01/20 at 09:00 Folic Acid (Folic Acid) 1 mg DAILY PO ; Start 09/01/20 at 09:00 Thiamine Mononitrate (Vitamin B-1) 100 mg DAILY PO ; Start 09/01/20 at 09:00 Lorazepam (Ativan) 1 mg PRN Q1HR PRN PO For CIWA 8-14; Start 08/27/20 at 21:30 Lorazepam (Ativan) 2 mg PRN Q1HR PRN PO For CIWA 15 or greater; Start 08/27/20 at 21:30 Lorazepam (Ativan Inj) 1 mg PRN Q1HR PRN IV For CIWA 8-14; Start 08/27/20 at 21:30 Lorazepam (Ativan Inj) 2 mg PRN Q1HR PRN IV For CIWA 15 or greater; Start 08/27/20 at 21:30 Haloperidol Lactate (Haldol Inj) 5 mg PRN Q4HRS PRN IVP Hallucinatns,Confusn,Delirium; Start 08/27/20 at 21:30 Diphenhydramine HCl (Benadryl) 25 mg PRN Q15MIN PRN IVP EPS symptoms 2'Haldol admin; Start 08/27/20 at 21:30 Clonidine HCl (Catapres) 0.1 mg PRN Q1HR PRN PO SBP > 180 or DBP > 100, MRX3; Start 08/27/20 at 21:30 Gabapentin (Neurontin) 300 mg TID PO ; Start 08/27/20 at 21:30 Trazodone HCl (Desyrel) 50 mg PRN QHS PRN PO Sleep/depression; Start 08/27/20 at 21:30 Ziprasidone (Geodon) 20 mg QHS PO ; Start 08/27/20 at 21:30 Active Scripts Active Chlordiazepoxide Hcl 25 Mg Capsule 25 Mg PO UD Day #1: Take 50mg PO QID Day #2: Take 50mg PO BID Day #3: Take 25mg PO BID Day #4: Take 25mg PO QHS Lisinopril 40 Mg Tablet 40 Mg PO DAILY 30 Days Amlodipine Besylate 10 Mg Tablet 10 Mg PO DAILY [address] [employer] 5-325 Tablet (Acetaminophen/Hydrocodone Bitart) 1 Each Tablet 1-2 Tab PO Q4-6HRS Ultram (Tramadol Hcl) 50 Mg Tablet 1 Tab PO PRN Q6HRS PRN MDD 4 Tablet(s) 7 Days Hydrocodone-Apap 5-325 (Hydrocodone Bit/Acetaminophen) 1 Tab Tablet 0.5-1 Tab PO PRN Q6HRS PRN Keflex (Cephalexin) 500 Mg Capsule 500 Mg PO QID 7 Days Bactrim Ds Tablet (Sulfamethoxazole/Trimethoprim) 1 Each Tablet 2 Each PO Q12HR 7 Days Doxycycline Hyclate 100 Mg Capsule 1 Cap PO BID [address] [employer] 5-325 Tablet (Acetaminophen/Hydrocodone Bitart) 1 Each Tablet 1-2 Tab PO Q6HRS Allergies Allergies: Coded Allergies: No Known Drug Allergies (Unverified , 06/13/18) ROS Review of System Unable to complete due to confusion General: YES: Fatigue, Malaise; No: Chills, Night Sweats, Appetite, Other PSYCHOLOGICAL ROS: No: Anxiety, Behavioral Disorder, Concentration difficultie, Decreased libido, Depression, Disorientation, Hallucinations, Hostility, Irritablity, Memory difficulties, Mood Swings, Obsessive thoughts, Physical abuse, Sexual abuse, Sleep disturbances, Suicidal ideation, Other Eyes: No Blurry vision, No Decreased vision, No Double vision, No Dry eyes, No Excessive tearing, No Eye Pain, No Itchy Eyes, No Loss of vision, No Photophobia, No Scotomata, No Uses contacts, No Uses glasses, No Other HEENT: No: Heacaches, Visual Changes, Hearing change, Nasal congestion, Nasal discharge, Oral lesions, Sinus pain, Sore Throat, Epistaxis, Sneezing, Snoring, Tinnitus, Vertigo, Vocal changes, Other ALLERGY AND IMMUNOLOGY: No: Hives, Insect Bite Sensitivity, Itchy/Watery Eyes, Nasal Congestion, Post Nasal Drip, Seasonal Allergies, Other Hematological and Lymphatic: No: Bleeding Problems, Blood Clots, Blood Tr ansfusions, Brusing, Night Sweats, Pallor, Swollen Lymph Nodes, Other ENDOCRINE: No: Breast Changes, Galactorrhea, Hair Pattern Changes, Hot Flashes, Malaise/lethargy, Mood Swings, Palpitations, Polydipsia/polyuria, Skin Changes, Temperature Intolerance, Unexpected Weight Changes, Other Breast: No New/Changing Breast Lumps, No Nipple changes, No Nipple discharge, No Other Respiratory: No: Cough, Hemoptysis, Orthopnea, Pleuritic Pain, Shortness of breath, SOB with excertion, Sputum Changes, Stridor, Tachypnea, Wheezing, Other Cardiovascular: No Chest Pain, No Palpitations, No Orthopnea, No Paroxysmal Noc. Dyspnea, No Edema, No Lt Headedness, No Other Gastrointestinal: No Nausea, No Vomiting, No Abdominal Pain, No Diarrhea, No Constipation, No Melena, No Hematochezia, No Other Genitourinary: No Dysuria, No Frequency, No Incontinence, No Hematuria, No Retention, No Discharge, No Urgency, No Pain, No Flank Pain, No Other, No , No , No , No , No , No , No Musculoskeletal: Yes Joint Pain, Yes Joint Stiffness; No Gait Disturbance, No Joint Swelling, No Muscle Pain, No Muscular Weakness, No Pain In:, No Swelling In:, No Other Neurological: No Behavorial Changes, No Bowel/Bladder ControlChng, No Confusion, No Dizziness, No Gait Disturbance, No Headaches, No Impaired Coord/balance, No Memory Loss, No Numbness/Tingling, No Seizures, No Speech Problems, No Tremors, No Visual Changes, No Weakness, No Other Skin: No Dry Skin, No Eczema, No Hair Changes, No Lumps, No Mole Changes, No Mottling, No Nail Changes, No Pruritus, No Rash, No Skin Lesion Changes, No Other, No Acne Vitals Vitals Vital Signs Date Time Temp Pulse Resp B/P (MAP) Pulse Ox O2 Delivery O2 Flow Rate FiO2 08/30/20 08:31 98 141/83 08/30/20 07:00 99.4 18 96 Room Air 99.4 Physical Exam Physical Exam disorented General: Alert, Cooperative, No acute distress Heart: Regular rate Lungs: Clear Abdomen: Normal bowel sounds, Soft, No tenderness, No hepatosplenomegaly, No masses Extremities: No clubbing, No cyanosis, No edema, Normal pulses, No tenderness/swelling Skin: No rashes, No breakdown, No significant lesion Comment Review of Relevant I have reviewed the following items semaj (where applicable) has been applied. Labs Laboratory Tests Test 08/28/20 10:35 08/29/20 03:30 Prothrombin Time 13.9 SEC (11.7-14.0) Prothromb Time International Ratio 1.1 (0.8-1.1) Ammonia 16 mcmol/L (11-34) White Blood Count 9.5 x10^3/uL (4.0-11.0) Red Blood Count 4.81 x10^6/uL (4.30-5.70) Hemoglobin 15.3 g/dL (13.0-17.5) Hematocrit 44.3 % (39.0-53.0) Mean Corpuscular Volume 92 fL (79-100) Mean Corpuscular Hemoglobin 32 pg (25-35) Mean Corpuscular Hemoglobin Concent 35 g/dL (31-37) Red Cell Distribution Width 14.1 % (11.5-14.5) Platelet Count 229 x10^3/uL (140-400) Neutrophils (%) (Auto) 71 % (31-73) Lymphocytes (%) (Auto) 6 % (24-48) Monocytes (%) (Auto) 22 % (0-9) Eosinophils (%) (Auto) 1 % (0-3) Basophils (%) (Auto) 0 % (0-3) Neutrophils # (Auto) 6.7 x10^3/uL (1.8-7.7) Lymphocytes # (Auto) 0.6 x10^3/uL (1.0-4.8) Monocytes # (Auto) 2.1 x10^3/uL (0.0-1.1) Eosinophils # (Auto) 0.1 x10^3/uL (0.0-0.7) Basophils # (Auto) 0.0 x10^3/uL (0.0-0.2) Sodium Level 134 mmol/L (136-145) Potassium Level 3.2 mmol/L (3.5-5.1) Chloride Level 97 mmol/L (98-107) Carbon Dioxide Level 22 mmol/L (21-32) Anion Gap 15 (6-14) Blood Urea Nitrogen 8 mg/dL (8-26) Creatinine 0.7 mg/dL (0.7-1.3) Estimated GFR (Cockcroft-Gault) 126.9 BUN/Creatinine Ratio 11 (6-20) Glucose Level 93 mg/dL (70-99) Calcium Level 9.1 mg/dL (8.5-10.1) Total Bilirubin 0.9 mg/dL (0.2-1.0) Aspartate Amino Transf (AST/SGOT) 33 U/L (15-37) Alanine Aminotransferase (ALT/SGPT) 50 U/L (16-63) Alkaline Phosphatase 92 U/L (46-116) Total Protein 7.9 g/dL (6.4-8.2) Albumin 2.9 g/dL (3.4-5.0) Albumin/Globulin Ratio 0.6 (1.0-1.7) Medications Current Medications Sodium Chloride 1,000 ml @ 100 mls/hr Q10H IV Last administered on 08/27/20at 23:20; Start 08/27/20 at 21:30; Stop 08/28/20 at 07:29; Status DC Ondansetron HCl (Zofran) 4 mg PRN Q6HRS PRN IVP NAUSEA/VOMITING; Start 08/27/20 at 21:30 Acetaminophen (Tylenol) 650 mg PRN Q6HRS PRN PO Headaches, Temp > 101.5F Last administered on 08/30/20at 04:50; Start 08/27/20 at 21:30 Senna/Docusate Sodium (Senna Plus) 1 tab BID PO Last administered on 08/30/20at 08:29; Start 08/28/20 at 09:00 Magnesium Hydroxide (Milk Of Magnesia) 2,400 mg PRN Q12HR PRN PO CONSTIPATION; Start 08/27/20 at 21:30 Multivitamins (Thera M Plus) 1 tab DAILY PO ; Start 09/01/20 at 09:00 Folic Acid (Folic Acid) 1 mg DAILY PO Last administered on 08/30/20at 08:31; Start 08/29/20 at 09:00 Thiamine Mononitrate (Vitamin B-1) 100 mg DAILY PO ; Start 09/01/20 at 09:00; Stop 08/28/20 at 11:38; Status DC Lorazepam (Ativan) 1 mg PRN Q1HR PRN PO For CIWA 8-14; Start 08/27/20 at 21:30 Lorazepam (Ativan) 2 mg PRN Q1HR PRN PO For CIWA 15 or greater; Start 08/27/20 at 21:30 Lorazepam (Ativan Inj) 1 mg PRN Q1HR PRN IV For CIWA 8-14 Last administered on 08/27/20at 23:31; Start 08/27/20 at 21:30 Lorazepam (Ativan Inj) 2 mg PRN Q1HR PRN IV For CIWA 15 or greater Last administered on 08/29/20at 12:36; Start 08/27/20 at 21:30 Haloperidol Lactate (Haldol Inj) 5 mg PRN Q4HRS PRN IVP Hallucinatns,Confusn,Delirium; Start 08/27/20 at 21:30 Diphenhydramine HCl (Benadryl) 25 mg PRN Q15MIN PRN IVP EPS symptoms 2'Haldol admin; Start 08/27/20 at 21:30 Clonidine HCl (Catapres) 0.1 mg PRN Q1HR PRN PO SBP > 180 or DBP > 100, MRX3 Last administered on 08/28/20at 08:07; Start 08/27/20 at 21:30 Gabapentin (Neurontin) 300 mg TID PO Last administered on 08/30/20at 08:31; Start 08/27/20 at 21:30 Trazodone HCl (Desyrel) 50 mg PRN QHS PRN PO Sleep/depression; Start 08/27/20 at 21:30 Ziprasidone (Geodon) 20 mg QHS PO Last administered on 08/29/20at 21:53; Start 08/27/20 at 21:30 Amlodipine Besylate (Norvasc) 10 mg DAILY PO Last administered on 08/28/20 08:07; Start 08/28/20 at 09:00; Stop 08/28/20 at 09:53; Status DC Hydralazine HCl (Apresoline Inj) 10 mg PRN Q4HRS PRN IVP ELEVATED BP, SEE COMMENTS Last administered on 08/30/20at 04:49; Start 08/28/20 at 10:00 Lisinopril (Prinivil) 40 mg DAILY PO Last administered on 08/29/20at 21:52; Start 08/28/20 at 10:00 Amlodipine Besylate (Norvasc) 5 mg BID PO Last administered on 08/30/20 08:30; Start 08/29/20 at 09:00 Multivitamins 10 ml/Thiamine HCl 100 mg/Folic Acid 1 mg/Sodium Chloride 1,011.2 ml @ 100 mls/ hr DAILY IV ; Start 08/28/20 at 10:30; Stop 08/28/20 at 11:38; Status DC Thiamine HCl 100 mg/Dextrose 51 ml @ 102 mls/hr TID IV Last administered on 08/30/20at 08:32; Start 08/28/20 at 14:00 Lisinopril (Prinivil) 5 mg BID PO Last administered on 08/30/20at 08:31; Start 08/29/20 at 12:30 Potassium Chloride (Klor-Con) 40 meq 1X ONCE PO Last administered on 08/29/20at 12:35; Start 08/29/20 at 12:30; Stop 08/29/20 at 12:31; Status DC Potassium Chloride (Klor-Con) 20 meq [id number] PO Last administered on 08/30/20at 08:30; Start 08/30/20 at 08:00 Active Scripts Active Chlordiazepoxide Hcl 25 Mg Capsule 25 Mg PO UD Day #1: Take 50mg PO QID Day #2: Take 50mg PO BID Day #3: Take 25mg PO BID Day #4: Take 25mg PO QHS Lisinopril 40 Mg Tablet 40 Mg PO DAILY 30 Days Amlodipine Besylate 10 Mg Tablet 10 Mg PO DAILY [address] [employer] 5-325 Tablet (Acetaminophen/Hydrocodone Bitart) 1 Each Tablet 1-2 Tab PO Q4-6HRS Ultram (Tramadol Hcl) 50 Mg Tablet 1 Tab PO PRN Q6HRS PRN MDD 4 Tablet(s) 7 Days Hydrocodone-Apap 5-325 (Hydrocodone Bit/Acetaminophen) 1 Tab Tablet 0.5-1 Tab PO PRN Q6HRS PRN Keflex (Cephalexin) 500 Mg Capsule 500 Mg PO QID 7 Days Bactrim Ds Tablet (Sulfamethoxazole/Trimethoprim) 1 Each Tablet 2 Each PO Q12HR 7 Days Doxycycline Hyclate 100 Mg Capsule 1 Cap PO BID [address] [employer] 5-325 Tablet (Acetaminophen/Hydrocodone Bitart) 1 Each Tablet 1-2 Tab PO Q6HRS Vitals/I & O Vital Sign - Last 24 Hours 08/29/20 08/29/20 08/29/20 08/29/20 10:14 10:15 11:00 12:36 Temp 99.3 99.3 Pulse 102 102 99 99 Resp 22 B/P (MAP) 176/113 176/113 143/82 (102) 143/82 Pulse Ox 95 O2 Delivery Room Air 08/29/20 08/29/20 08/29/20 08/29/20 15:00 19:00 19:45 21:52 Temp 99.9 99.6 99.9 99.6 Pulse 97 108 108 Resp 22 20 B/P (MAP) 142/77 (98) 163/105 (124) 163/105 Pulse Ox 93 94 O2 Delivery Room Air Room Air Room Air 08/29/20 08/29/20 08/29/20 08/30/20 21:53 22:02 23:00 03:00 Temp 101.0 100.3 101.0 100.3 Pulse 108 108 109 103 Resp 18 18 B/P (MAP) 163/105 163/105 137/89 (105) 181/103 (129) Pulse Ox 92 95 O2 Delivery Room Air Room Air 08/30/20 08/30/20 08/30/20 08/30/20 04:49 07:00 08:30 08:31 Temp 99.4 99.4 Pulse 102 98 98 98 Resp 18 B/P (MAP) 181/94 141/83 (102) 141/83 141/83 Pulse Ox 96 O2 Delivery Room Air Intake and Output 08/29/20 08/29/20 08/30/20 15:00 23:00 07:00 Intake Total 0 ml 100 ml Balance 0 ml 100 ml Justicifation of Admission Dx: Justifications for Admission: Justification of Admission Dx: Yes Angina: Symp at Rest GREG OLGUIN MD August 30, 2020 08:40
--- NOTE | 2020-08-30 10:34 | NUR ---
[facility] following. Discussed with RN, pt from home, room air, regular diet. PT/OT/ST ordered. Neurology and GI following. Suman LUIS) meeting with patient today. [facility] will continue to follow. Addendum: 08/30/20 at 1245 by ZACHARIAH NOVAK Suman LUIS) met with pt, pt does want treatment but is not medically stable to be screened at this time. Suman will return when pt medically ready to be seen.
[2020-08-30 11:00] VITALS: BP 106/55
[2020-08-30] MEDS ORDERED: MULTIVIT INFUSN,ADULT 4,VIT K 10 ML, THIAMINE INJ 100 MG, FOLIC ACID INJ 1 MG in IV NOR... IV ONE (11:00)
[2020-08-30] MEDS: IV NORMAL SALINE 1000ML BAG 1,000 ML IV SCH ×2 (11:25→20:04)
--- NOTE | 2020-08-30 12:40 | PDOC ---
PROGRESS NOTES Date of Service DATE: 08/30/20 TIME: 12:37 Assessment Prolonged alcohol withdrawal syndrome Also role of medications to treat withdrawal, last dose of lorazepam was yesterday, 08/29 Bipolar disorder, hypertension, thrombocytopenia, h/o gout, AVN of right hip Plan Continue current regimen, no additional neurological studies needed Subjective No complaints Objective Vital Signs Date Time Temp Pulse Resp B/P (MAP) Pulse Ox O2 Delivery O2 Flow Rate FiO2 08/30/20 11:00 99.2 98 18 106/55 (72) 95 Room Air 99.2 Intake and Output 08/30/20 07:00 Intake Total 100 ml Balance 100 ml Intake Oral 100 ml # Voids 5 # Bowel Movements 2 PHYSICAL EXAM Alert. Oriented to place and person, not date. PERRL. EOMI. CN: no focal findings. Muscle tone: normal. Muscle strength: 5/5, right hip limited by pain DTR: 1+ Plantar reflex: Flexor Gait: not examined in bed. Sensory exam: no abnormal findings. No cerebellar signs elicited. Review of Relevant I have reviewed the following items semaj (where applicable) has been applied. Labs Laboratory Tests Test 08/29/20 03:30 White Blood Count 9.5 x10^3/uL (4.0-11.0) Red Blood Count 4.81 x10^6/uL (4.30-5.70) Hemoglobin 15.3 g/dL (13.0-17.5) Hematocrit 44.3 % (39.0-53.0) Mean Corpuscular Volume 92 fL (79-100) Mean Corpuscular Hemoglobin 32 pg (25-35) Mean Corpuscular Hemoglobin Concent 35 g/dL (31-37) Red Cell Distribution Width 14.1 % (11.5-14.5) Platelet Count 229 x10^3/uL (140-400) Neutrophils (%) (Auto) 71 % (31-73) Lymphocytes (%) (Auto) 6 % (24-48) Monocytes (%) (Auto) 22 % (0-9) Eosinophils (%) (Auto) 1 % (0-3) Basophils (%) (Auto) 0 % (0-3) Neutrophils # (Auto) 6.7 x10^3/uL (1.8-7.7) Lymphocytes # (Auto) 0.6 x10^3/uL (1.0-4.8) Monocytes # (Auto) 2.1 x10^3/uL (0.0-1.1) Eosinophils # (Auto) 0.1 x10^3/uL (0.0-0.7) Basophils # (Auto) 0.0 x10^3/uL (0.0-0.2) Sodium Level 134 mmol/L (136-145) Potassium Level 3.2 mmol/L (3.5-5.1) Chloride Level 97 mmol/L (98-107) Carbon Dioxide Level 22 mmol/L (21-32) Anion Gap 15 (6-14) Blood Urea Nitrogen 8 mg/dL (8-26) Creatinine 0.7 mg/dL (0.7-1.3) Estimated GFR (Cockcroft-Gault) 126.9 BUN/Creatinine Ratio 11 (6-20) Glucose Level 93 mg/dL (70-99) Calcium Level 9.1 mg/dL (8.5-10.1) Total Bilirubin 0.9 mg/dL (0.2-1.0) Aspartate Amino Transf (AST/SGOT) 33 U/L (15-37) Alanine Aminotransferase (ALT/SGPT) 50 U/L (16-63) Alkaline Phosphatase 92 U/L (46-116) Total Protein 7.9 g/dL (6.4-8.2) Albumin 2.9 g/dL (3.4-5.0) Albumin/Globulin Ratio 0.6 (1.0-1.7) Medications Current Medications Sodium Chloride 1,000 ml @ 100 mls/hr Q10H IV Last administered on 08/27/20at 23:20; Start 08/27/20 at 21:30; Stop 08/28/20 at 07:29; Status DC Ondansetron HCl (Zofran) 4 mg PRN Q6HRS PRN IVP NAUSEA/VOMITING; Start 08/27/20 at 21:30 Acetaminophen (Tylenol) 650 mg PRN Q6HRS PRN PO Headaches, Temp > 101.5F Last administered on 08/30/20at 04:50; Start 08/27/20 at 21:30 Senna/Docusate Sodium (Senna Plus) 1 tab BID PO Last administered on 08/30/20at 08:29; Start 08/28/20 at 09:00 Magnesium Hydroxide (Milk Of Magnesia) 2,400 mg PRN Q12HR PRN PO CONSTIPATION; Start 08/27/20 at 21:30 Multivitamins (Thera M Plus) 1 tab DAILY PO ; Start 09/01/20 at 09:00 Folic Acid (Folic Acid) 1 mg DAILY PO Last administered on 08/30/20at 08:31; Start 08/29/20 at 09:00 Thiamine Mononitrate (Vitamin B-1) 100 mg DAILY PO ; Start 09/01/20 at 09:00; Stop 08/28/20 at 11:38; Status DC Lorazepam (Ativan) 1 mg PRN Q1HR PRN PO For CIWA 8-14; Start 08/27/20 at 21:30 Lorazepam (Ativan) 2 mg PRN Q1HR PRN PO For CIWA 15 or greater; Start 08/27/20 at 21:30 Lorazepam (Ativan Inj) 1 mg PRN Q1HR PRN IV For CIWA 8-14 Last administered on 08/27/20at 23:31; Start 08/27/20 at 21:30 Lorazepam (Ativan Inj) 2 mg PRN Q1HR PRN IV For CIWA 15 or greater Last administered on 08/29/20at 12:36; Start 08/27/20 at 21:30 Haloperidol Lactate (Haldol Inj) 5 mg PRN Q4HRS PRN IVP Hallucinatns,Confusn,Delirium; Start 08/27/20 at 21:30 Diphenhydramine HCl (Benadryl) 25 mg PRN Q15MIN PRN IVP EPS symptoms 2'Haldol admin; Start 08/27/20 at 21:30 Clonidine HCl (Catapres) 0.1 mg PRN Q1HR PRN PO SBP > 180 or DBP > 100, MRX3 Last administered on 08/28/20at 08:07; Start 08/27/20 at 21:30 Gabapentin (Neurontin) 300 mg TID PO Last administered on 08/30/20at 08:31; Start 08/27/20 at 21:30 Trazodone HCl (Desyrel) 50 mg PRN QHS PRN PO Sleep/depression; Start 08/27/20 at 21:30 Ziprasidone (Geodon) 20 mg QHS PO Last administered on 08/29/20at 21:53; Start 08/27/20 at 21:30 Amlodipine Besylate (Norvasc) 10 mg DAILY PO Last administered on 08/28/20at 08:07; Start 08/28/20 at 09:00; Stop 08/28/20 at 09:53; Status DC Hydralazine HCl (Apresoline Inj) 10 mg PRN Q4HRS PRN IVP ELEVATED BP, SEE COMMENTS Last administered on 08/30/20at 04:49; Start 08/28/20 at 10:00 Lisinopril (Prinivil) 40 mg DAILY PO Last administered on 08/29/20at 21:52; Start 08/28/20 at 10:00 Amlodipine Besylate (Norvasc) 5 mg BID PO Last administered on 08/30/20at 08:30; Start 08/29/20 at 09:00 Multivitamins 10 ml/Thiamine HCl 100 mg/Folic Acid 1 mg/Sodium Chloride 1,011.2 ml @ 100 mls/ hr DAILY IV ; Start 08/28/20 at 10:30; Stop 08/28/20 at 11:38; Status DC Thiamine HCl 100 mg/Dextrose 51 ml @ 102 mls/hr TID IV Last administered on 08/30/20at 08:32; Start 08/28/20 at 14:00 Lisinopril (Prinivil) 5 mg BID PO Last administered on 08/30/20at 08:31; Start 08/29/20 at 12:30 Potassium Chloride (Klor-Con) 40 meq 1X ONCE PO Last administered on 08/29/20at 12:35; Start 08/29/20 at 12:30; Stop 08/29/20 at 12:31; Status DC Potassium Chloride (Klor-Con) 20 meq [id number] PO Last administered on 08/30/20at 08:30; Start 08/30/20 at 08:00 Multivitamins 10 ml/Thiamine HCl 100 mg/Folic Acid 1 mg/Sodium Chloride 1,011.2 ml @ 1,000.088 mls/hr 1X ONCE IV Last administered on 08/30/20at 09:47; Start 08/30/20 at 11:00; Stop 08/30/20 at 12:00; Status DC Sodium Chloride 1,000 ml @ 100 mls/hr Q10H IV Last administered on 08/30/20at 11:25; Start 08/30/20 at 12:00 Multivitamins 10 ml/Thiamine HCl 100 mg/Folic Acid 1 mg/Sodium Chloride 1,011.2 ml @ 1,000.088 mls/hr DAILY IV ; Start 08/31/20 at 09:00; Stop 09/03/20 at 10:01 Active Scripts Active Chlordiazepoxide Hcl 25 Mg Capsule 25 Mg PO UD Day #1: Take 50mg PO QID Day #2: Take 50mg PO BID Day #3: Take 25mg PO BID Day #4: Take 25mg PO QHS Lisinopril 40 Mg Tablet 40 Mg PO DAILY 30 Days Amlodipine Besylate 10 Mg Tablet 10 Mg PO DAILY 30 Days [place] 5-325 Tablet (Acetaminophen/Hydrocodone Bitart) 1 Each Tablet 1-2 Tab PO Q4-6HRS Ultram (Tramadol Hcl) 50 Mg Tablet 1 Tab PO PRN Q6HRS PRN MDD 4 Tablet(s) 7 Days Hydrocodone-Apap 5-325 (Hydrocodone Bit/Acetaminophen) 1 Tab Tablet 0.5-1 Tab PO PRN Q6HRS PRN Keflex (Cephalexin) 500 Mg Capsule 500 Mg PO QID 7 Days Bactrim Ds Tablet (Sulfamethoxazole/Trimethoprim) 1 Each Tablet 2 Each PO Q12HR 7 Days Doxycycline Hyclate 100 Mg Capsule 1 Cap PO BID 10 Days [place] 5-325 Tablet (Acetaminophen/Hydrocodone Bitart) 1 Each Tablet 1-2 Tab PO Q6HRS Vitals/I & O Vital Sign - Last 24 Hours 08/29/20 08/29/20 08/29/20 08/29/20 15:00 19:00 19:45 21:52 Temp 99.9 99.6 99.9 99.6 Pulse 97 108 108 Resp 22 20 B/P (MAP) 142/77 (98) 163/105 (124) 163/105 Pulse Ox 93 94 O2 Delivery Room Air Room Air Room Air 08/29/20 08/29/20 08/29/20 08/30/20 21:53 22:02 23:00 03:00 Temp 101.0 100.3 101.0 100.3 Pulse 108 108 109 103 Resp 18 18 B/P (MAP) 163/105 163/105 137/89 (105) 181/103 (129) Pulse Ox 92 95 O2 Delivery Room Air Room Air 08/30/20 08/30/20 08/30/20 08/30/20 04:49 07:00 08:00 08:30 Temp 99.4 99.4 Pulse 102 98 98 Resp 18 B/P (MAP) 181/94 141/83 (102) 141/83 Pulse Ox 96 O2 Delivery Room Air Room Air 08/30/20 08/30/20 08:31 11:00 Temp 99.2 99.2 Pulse 98 98 Resp 18 B/P (MAP) 141/83 106/55 (72) Pulse Ox 95 O2 Delivery Room Air Intake and Output 08/29/20 08/29/20 08/30/20 15:00 23:00 07:00 Intake Total 0 ml 100 ml Balance 0 ml 100 ml Justicifation of Admission Dx: Justifications for Admission: Justification of Admission Dx: Yes Angina: [facility] ЕКАТЕРИНА CAAL MD August 30, 2020 12:40
[2020-08-30 13:35] LABS: CALCIUM 9.2 mg/dL (8.5-10.1); CREATININE 1.6 mg/dL (0.7-1.3); GFR 48.9; POTASSIUM 3.6 mmol/L (3.5-5.1)
--- NOTE | 2020-08-30 14:28 | PDOC ---
Date of Service: DATE: 08/30/20 TIME: 14:25 Objective: Objective: D/w staff - sometimes wakes up but doesn't make sense. Vital Signs: Vital Signs Date Time Temp Pulse Resp B/P (MAP) Pulse Ox O2 Delivery O2 Flow Rate FiO2 08/30/20 11:00 99.2 98 18 106/55 (72) 95 Room Air 99.2 Labs: Laboratory Tests Test 08/30/20 13:00 Sodium Level 138 mmol/L Potassium Level 3.6 mmol/L Chloride Level 101 mmol/L Carbon Dioxide Level 25 mmol/L Anion Gap 12 Blood Urea Nitrogen 19 mg/dL Creatinine 1.6 mg/dL Estimated GFR (Cockcroft-Gault) 48.9 Glucose Level 114 mg/dL Calcium Level 9.2 mg/dL PE: GEN: NAD - lunch tray untouched LUNGS: snoring HEART: RRR ABD: soft, quiet BS NEURO/PSYCH: sleeping, did not rouse w/ exam A/P: Alcohol withdrawal, encephalopathy -- Continue support. Justicifation of Admission Dx: Justifications for Admission: Justification of Admission Dx: Yes Angina: [facility] at [facility] MARIBEL CAPPS August 30, 2020 14:28
[2020-08-30 14:59] VITALS: BP 129/72
[2020-08-30 19:00] VITALS: BP 143/94
[2020-08-30] MEDS: ZIPRASIDONE 20 MG CAPSULE PO SCH (20:05)
[2020-08-30 22:57] VITALS: BP 160/91
[2020-08-31 03:25] VITALS: BP 187/108
[2020-08-31] MEDS: cloNIDine HCL 0.1 MG TABLET PO PRN ×2 (05:00→10:52)
[2020-08-31 07:00] VITALS: BP 186/113
[2020-08-31] MEDS: amLODIPine BESYLATE 5 MG TABLET PO SCH ×2 (07:52→20:09)
[2020-08-31] MEDS: LISINOPRIL 20 MG TABLET PO SCH (07:53)
[2020-08-31] MEDS: FOLIC ACID 1 MG TABLET. PO SCH (07:53)
[2020-08-31] MEDS: GABAPENTIN 300 MG CAPSULE. PO SCH ×3 (07:53→20:09)
[2020-08-31] MEDS: LISINOPRIL 5 MG TABLET. PO SCH (07:53)
[2020-08-31] MEDS: THIAMINE INJ 100 MG in IV DEXTROSE 5% 50 ML IV SCH ×3 (07:58→20:09)
[2020-08-31] MEDS: IV NORMAL SALINE 1000ML BAG 1,000 ML IV SCH ×2 (08:00→22:35)
[2020-08-31] MEDS: SENNOSIDES/DOCUSATE 8.6/50MG TABLET. PO SCH ×2 (09:00→20:09)
[2020-08-31] MEDS ORDERED: MULTIVIT INFUSN,ADULT 4,VIT K 10 ML, THIAMINE INJ 100 MG, FOLIC ACID INJ 1 MG in IV NOR... IV SCH (09:00)
--- NOTE | 2020-08-31 09:43 | PDOC ---
PROGRESS NOTES Date of Service: DATE: 08/31/20 TIME: 09:43 Chief Complaint Chief Complaint VTE Prophylaxis Ordered VTE Prophylaxis Devices: No VTE Pharmacological Prophylaxi: No Assessment/Plan IMPRESSION A/P: Acute alcohol withdrawal with delerium - CIRUPERTO. PAT consult. Thiamine, folic acid. Add gabapentin, prn clonidine. May need acamprosate or depade/vivitrol outpatient therapy Bipolar disorder - notes prior psychiatric hospitalization started on depakote, but compliance was difficult Hypertension - will monitor, needs ambulatory monitoring for titrating meds, but based on history has been treated with amlodipine Thrombocytopenia - likely due to heavy alcohol use and bone marrow suppression uncontrolled hypertension Family history of very early onset alzheimers and early onset cardiac disease H/o gout - monitor uric acid Heavy ETOH use - CIWA scale. 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 Probable old fractures of the superior to inferior pubic ramus. 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 08-31 PAT CONSULT GI CONSULT Ammonia level BP UNCONTROLLED change norvasc to 5 mg po bid ADD LISINOPRIL 5 MG PO BID , PRN IV HYDRALAZINE neurology consult receiving thiamine iv high dose to prevent damage from Wernicke or Korsakoff syndrome. Acute alcohol withdrawal with delerium - RACHELLEWA. PAT consult. Thiamine, folic acid. Add gabapentin, prn clonidine. May need acamprosate or depade/vivitrol outpatient therapy Bipolar disorder - notes prior psychiatric hospitalization started on depakote, but compliance was difficult MAY NEED INPATIENT REHAB D/W BY PHONE [phone] 27 min pt exam, chart review, > 50% of time spent with exam, chart review, pt care coordination 5-17 PAT CONSULT GI CONSULT Ammonia level BP UNCONTROLLED change norvasc to 5 mg po bid ADD LISINOPRIL 5 MG PO BID , PRN IV HYDRALAZINE neurology consult receiving thiamine iv high dose to prevent damage from Wernicke or Korsakoff syndrome. Acute alcohol withdrawal with delerium - CIWA. PAT consult. Thiamine, folic acid. Add gabapentin, prn clonidine. May need acamprosate or depade/vivitrol outpatient therapy Bipolar disorder - notes prior psychiatric hospitalization started on depakote, but compliance was difficult 29 min pt exam, chart review, > 50% of time spent with exam, chart review, pt care coordination 5-16 PAT CONSULT GI CONSULT Ammonia level BP UNCONTROLLED change norvasc to 5 mg po bid ADD LISINOPRIL 5 MG PO BID , PRN IV HYDRALAZINE neurology consult receiving thiamine iv high dose to prevent damage from Wernicke or Korsakoff syndrome. Acute alcohol withdrawal with delerium - CIWA. PAT consult. Thiamine, folic acid. Add gabapentin, prn clonidine. May need acamprosate or depade/vivitrol outpatient therapy Bipolar disorder - notes prior psychiatric hospitalization started on depakote, but compliance was difficult 39 min pt exam, chart review, > 50% of time spent with exam, chart review, pt care coordination History of Present Illness History of Present Illness dentification/Chief Complaint Chief Complaint James stauffer Source Source: Caregiver, Chart review, Patient History of Present Illness History of Present Illness Mr Finch is a 35-year-old male with PMHx elevated blood pressure without dx of HTN, ETOH use, gout who is presenting accepted as a direct admission from [facility]. He was seen on Sunday08/22/2020 intoxicated looking for alcohol withdrawal treatment was referred to [facility] and subsequently taken to [facility] but his withdrawal symptoms were not well controlled or manageable in residential treatment setting and therefore he was transferred to [facility] for inpatient treatment of delirium tremens. He was given phenobarbitol and valium treatment, continued to be difficult to redirect, hallucinating, making staff feel unsafe and transferred to preferred hospital for further care. 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 EKG reviewed by myself is NSR with normal axis and RBBB. Chest x-ray is negative for acute pathology, troponin is normal, d-dimer is normal. 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 He does drink heavily and has sought treatment on a few occasions. He is especially concerned because of early cardiac disease in his father and paternal grandfather and early at age 44 for both of them, he notes this was due to very early onset of Alzheimer's dementia. He is not easy to redirect and confused. His is concerned about history of bipolar disorder that required inpatient treatment and depakote therapy at [facility] several years ago. Blood pressure noted in the 170s over low 100s. Afebrile on exam. Accepted at [facility] for further treatment of his alcohol withdrawal deleriu Past Medical History Cardiovascular: HTN Pulmonary: No pertinent hx CENTRAL NERVOUS SYSTEM: Other GI: No pertinent hx Heme/Onc: No pertinent hx Hepatobiliary: No pertinent hx Psych: Anxiety, Bipolar, Other Musculoskeletal: Osteoarthritis, Other Rheumatologic: No pertinent hx, Gout Infectious disease: No pertinent hx Endocrine: No pertinent hx Past Surgical History Past Surgical History: Other Family History Family History: Coronary Artery Disease Social History Smoke: No ALCOHOL: heavy Drugs: None, Cocaine (in remission) Current Medications Current Medications Current Medications Sodium Chloride 1,000 ml @ 100 mls/hr Q10H IV ; Start 08/27/20 at 21:30; Stop 08/28/20 at 07:29 Ondansetron HCl (Zofran) 4 mg PRN Q6HRS PRN IVP NAUSEA/VOMITING; Start 08/27/20 at 21:30 Acetaminophen (Tylenol) 650 mg PRN Q6HRS PRN PO Headaches, Temp > 101.5F; Start 08/27/20 at 21:30 Senna/Docusate Sodium (Senna Plus) 1 tab BID PO ; Start 08/28/20 at 09:00 Magnesium Hydroxide (Milk Of Magnesia) 2,400 mg PRN Q12HR PRN PO CONSTIPATION; Start 08/27/20 at 21:30 Multivitamins (Thera M Plus) 1 tab DAILY PO ; Start 09/01/20 at 09:00 Folic Acid (Folic Acid) 1 mg DAILY PO ; Start 09/01/20 at 09:00 Thiamine Mononitrate (Vitamin B-1) 100 mg DAILY PO ; Start 09/01/20 at 09:00 Lorazepam (Ativan) 1 mg PRN Q1HR PRN PO For CIWA 8-14; Start 08/27/20 at 21:30 Lorazepam (Ativan) 2 mg PRN Q1HR PRN PO For CIWA 15 or greater; Start 08/27/20 at 21:30 Lorazepam (Ativan Inj) 1 mg PRN Q1HR PRN IV For CIWA 8-14; Start 08/27/20 at 21:30 Lorazepam (Ativan Inj) 2 mg PRN Q1HR PRN IV For CIWA 15 or greater; Start 08/27/20 at 21:30 Haloperidol Lactate (Haldol Inj) 5 mg PRN Q4HRS PRN IVP Halluci natns,Confusn,Delirium; Start 08/27/20 at 21:30 Diphenhydramine HCl (Benadryl) 25 mg PRN Q15MIN PRN IVP EPS symptoms 2'Haldol a dmin; Start 08/27/20 at 21:30 Clonidine HCl (Catapres) 0.1 mg PRN Q1HR PRN PO SBP > 180 or DBP > 100, MRX3; Start 08/27/20 at 21:30 Gabapentin (Neurontin) 300 mg TID PO ; Start 08/27/20 at 21:30 Trazodone HCl (Desyrel) 50 mg PRN QHS PRN PO Sleep/depression; Start 08/27/20 at 21:30 Ziprasidone (Geodon) 20 mg QHS PO ; Start 08/27/20 at 21:30 Active Scripts Active Chlordiazepoxide Hcl 25 Mg Capsule 25 Mg PO UD Day #1: Take 50mg PO QID Day #2: Take 50mg PO BID Day #3: Take 25mg PO BID Day #4: Take 25mg PO QHS Lisinopril 40 Mg Tablet 40 Mg PO DAILY 30 Days Amlodipine Besylate 10 Mg Tablet 10 Mg PO DAILY 30 Days Carman 5-325 Tablet (Acetaminophen/Hydrocodone Bitart) 1 Each Tablet 1-2 Tab PO Q4-6HRS Ultram (Tramadol Hcl) 50 Mg Tablet 1 Tab PO PRN Q6HRS PRN MDD 4 Tablet(s) 7 Days Hydrocodone-Apap 5-325 (Hydrocodone Bit/Acetaminophen) 1 Tab Tablet 0.5-1 Tab PO PRN Q6HRS PRN Keflex (Cephalexin) 500 Mg Capsule 500 Mg PO QID 7 Days Bactrim Ds Tablet (Sulfamethoxazole/Trimethoprim) 1 Each Tablet 2 Each PO Q12HR 7 Days Doxycycline Hyclate 100 Mg Capsule 1 Cap PO BID 10 Days Carman 5-325 Tablet (Acetaminophen/Hydrocodone Bitart) 1 Each Tablet 1-2 Tab PO Q6HRS Allergies Allergies: Coded Allergies: No Known Drug Allergies (Unverified , 06/13/18) ROS Review of System Unable to complete due to confusion General: YES: Fatigue, Malaise; No: Chills, Night Sweats, Appetite, Other PSYCHOLOGICAL ROS: No: Anxiety, Behavioral Disorder, Concentration difficultie, Decreased libido, Depression, Disorientation, Hallucinations, Hostility, Irritablity, Memory difficulties, Mood Swings, Obsessive thoughts, Physical abuse, Sexual abuse, Sleep disturbances, Suicidal ideation, Other Eyes: No Blurry vision, No Decreased vision, No Double vision, No Dry eyes, No Excessive tearing, No Eye Pain, No Itchy Eyes, No Loss of vision, No Photophobia, No Scotomata, No Uses contacts, No Uses glasses, No Other HEENT: No: Heacaches, Visual Changes, Hearing change, Nasal congestion, Nasal discharge, Oral lesions, Sinus pain, Sore Throat, Epistaxis, Sneezing, Snoring, Tinnitus, Vertigo, Vocal changes, Other ALLERGY AND IMMUNOLOGY: No: Hives, Insect Bite Sensitivity, Itchy/Watery Eyes, Nasal Congestion, Post Nasal Drip, Seasonal Allergies, Other Hematological and Lymphatic: No: Bleeding Problems, Blood Clots, Blood Transfusions, Brusing, Night Sweats, Pallor, Swollen Lymph Nodes, Other ENDOCRINE: No: Breast Changes, Galactorrhea, Hair Pattern Changes, Hot Flashes, Malaise/lethargy, Mood Swings, Palpitations, Polydipsia/polyuria, Skin Changes, Temperature Intolerance, Unexpected Weight Changes, Other Breast: No New/Changing Breast Lumps, No Nipple changes, No Nipple discharge, No Other Respiratory: No: Cough, Hemoptysis, Orthopnea, Pleuritic Pain, Shortness of breath, SOB with excertion, Sputum Changes, Stridor, Tachypnea, Wheezing, Other Cardiovascular: No Chest Pain, No Palpitations, No Orthopnea, No Paroxysmal Noc. Dyspnea, No Edema, No Lt Headedness, No Other Gastrointestinal: No Nausea, No Vomiting, No Abdominal Pain, No Diarrhea, No Constipation, No Melena, No Hematochezia, No Other Genitourinary: No Dysuria, No Frequency, No Incontinence, No Hematuria, No Retention, No Discharge, No Urgency, No Pain, No Flank Pain, No Other, No , No , No , No , No , No , No Musculoskeletal: Yes Joint Pain, Yes Joint Stiffness; No Gait Disturbance, No Joint Swelling, No Muscle Pain, No Muscular Weakness, No Pain In:, No Swelling In:, No Other Neurological: No Behavorial Changes, No Bowel/Bladder ControlChng, No Confusion, No Dizziness, No Gait Disturbance, No Headaches, No Impaired Coord/balance, No Memory Loss, No Numbness/Tingling, No Seizures, No Speech Problems, No Tremors, No Visual Changes, No Weakness, No Other Skin: No Dry Skin, No Eczema, No Hair Changes, No Lumps, No Mole Changes, No Mo ttling, No Nail Changes, No Pruritus, No Rash, No Skin Lesion Changes, No Other, No Acne Vitals Vitals Vital Signs Date Time Temp Pulse Resp B/P (MAP) Pulse Ox O2 Delivery O2 Flow Rate FiO2 08/31/20 07:53 101 186/113 08/31/20 07:00 98.5 20 92 Room Air 98.5 Physical Exam Physical Exam disorented General: Alert, Oriented X3, Cooperative, No acute distress Heart: Regular rate Lungs: Clear Abdomen: Normal bowel sounds, Soft, No tenderness, No hepatosplenomegaly, No masses Extremities: No clubbing, No cyanosis, No edema, Normal pulses, No te nderness/swelling Skin: No rashes, No breakdown, No significant lesion Labs LABS Laboratory Tests Test 08/30/20 13:00 Sodium Level 138 mmol/L (136-145) Potassium Level 3.6 mmol/L (3.5-5.1) Chloride Level 101 mmol/L (98-107) Carbon Dioxide Level 25 mmol/L (21-32) Anion Gap 12 (6-14) Blood Urea Nitrogen 19 mg/dL (8-26) Creatinine 1.6 mg/dL (0.7-1.3) Estimated GFR (Cockcroft-Gault) 48.9 Glucose Level 114 mg/dL (70-99) Calcium Level 9.2 mg/dL (8.5-10.1) Comment Review of Relevant I have reviewed the following items semaj (where applicable) has been applied. Labs Laboratory Tests Test 08/30/20 13:00 Sodium Level 138 mmol/L (136-145) Potassium Level 3.6 mmol/L (3.5-5.1) Chloride Level 101 mmol/L (98-107) Carbon Dioxide Level 25 mmol/L (21-32) Anion Gap 12 (6-14) Blood Urea Nitrogen 19 mg/dL (8-26) Creatinine 1.6 mg/dL (0.7-1.3) Estimated GFR (Cockcroft-Gault) 48.9 Glucose Level 114 mg/dL (70-99) Calcium Level 9.2 mg/dL (8.5-10.1) Laboratory Tests Test 08/30/20 13:00 Sodium Level 138 mmol/L (136-145) Potassium Level 3.6 mmol/L (3.5-5.1) Chloride Level 101 mmol/L (98-107) Carbon Dioxide Level 25 mmol/L (21-32) Anion Gap 12 (6-14) Blood Urea Nitrogen 19 mg/dL (8-26) Creatinine 1.6 mg/dL (0.7-1.3) Estimated GFR (Cockcroft-Gault) 48.9 Glucose Level 114 mg/dL (70-99) Calcium Level 9.2 mg/dL (8.5-10.1) Medications Current Medications Sodium Chloride 1,000 ml @ 100 mls/hr Q10H IV Last administered on 08/27/20at 23:20; Start 08/27/20 at 21:30; Stop 08/28/20 at 07:29; Status DC Ondansetron HCl (Zofran) 4 mg PRN Q6HRS PRN IVP NAUSEA/VOMITING; Start 08/27/20 at 21:30 Acetaminophen (Tylenol) 650 mg PRN Q6HRS PRN PO Headaches, Temp > 101.5F Last administered on 08/30/20at 04:50; Start 08/27/20 at 21:30 Senna/Docusate Sodium (Senna Plus) 1 tab BID PO Last administered on 08/30/20at 20:04; Start 08/28/20 at 09:00 Magnesium Hydroxide (Milk Of Magnesia) 2,400 mg PRN Q12HR PRN PO CONSTIPATION; Start 08/27/20 at 21:30 Multivitamins (Thera M Plus) 1 tab DAILY PO ; Start 09/01/20 at 09:00 Folic Acid (Folic Acid) 1 mg DAILY PO Last administered on 08/31/20at 07:53; Start 08/29/20 at 09:00 Thiamine Mononitrate (Vitamin B-1) 100 mg DAILY PO ; Start 09/01/20 at 09:00; Stop 08/28/20 at 11:38; Status DC Lorazepam (Ativan) 1 mg PRN Q1HR PRN PO For CIWA 8-14; Start 08/27/20 at 21:30 Lorazepam (Ativan) 2 mg PRN Q1HR PRN PO For CIWA 15 or greater Last administered on 08/30/20at 12:47; Start 08/27/20 at 21:30 Lorazepam (Ativan Inj) 1 mg PRN Q1HR PRN IV For CIWA 8-14 Last administered on 08/27/20at 23:31; Start 08/27/20 at 21:30 Lorazepam (Ativan Inj) 2 mg PRN Q1HR PRN IV For CIWA 15 or greater Last administered on 08/29/20at 12:36; Start 08/27/20 at 21:30 Haloperidol Lactate (Haldol Inj) 5 mg PRN Q4HRS PRN IVP Hallucinatns,Confusn,Delirium; Start 08/27/20 at 21:30 Diphenhydramine HCl (Benadryl) 25 mg PRN Q15MIN PRN IVP EPS symptoms 2'Haldol admin; Start 08/27/20 at 21:30 Clonidine HCl (Catapres) 0.1 mg PRN Q1HR PRN PO SBP > 180 or DBP > 100, MRX3 Last administered on 08/31/20at 05:00; Start 08/27/20 at 21:30 Gabapentin (Neurontin) 300 mg TID PO Last administered on 08/31/20at 07:53; Start 08/27/20 at 21:30 Trazodone HCl (Desyrel) 50 mg PRN QHS PRN PO Sleep/depression; Start 08/27/20 at 21:30 Ziprasidone (Geodon) 20 mg QHS PO Last administered on 08/30/20at 20:05; Start 08/27/20 at 21:30 Amlodipine Besylate (Norvasc) 10 mg DAILY PO Last administered on 08/28/20at 08:07; Start 08/28/20 at 09:00; Stop 08/28/20 at 09:53; Status DC Hydralazine HCl (Apresoline Inj) 10 mg PRN Q4HRS PRN IVP ELEVATED BP, SEE COMMENTS Last administered on 08/30/20at 04:49; Start 08/28/20 at 10:00 Lisinopril (Prinivil) 40 mg DAILY PO Last administered on 08/31/20at 07:53; Start 08/28/20 at 10:00 Amlodipine Besylate (Norvasc) 5 mg BID PO Last administered on 08/31/20at 07:52; Start 08/29/20 at 09:00 Multivitamins 10 ml/Thiamine HCl 100 mg/Folic Acid 1 mg/Sodium Chloride 1,011.2 ml @ 100 mls/ hr DAILY IV ; Start 08/28/20 at 10:30; Stop 08/28/20 at 11:38; Status DC Thiamine HCl 100 mg/Dextrose 51 ml @ 102 mls/hr TID IV Last administered on 08/31/20at 07:58; Start 08/28/20 at 14:00 Lisinopril (Prinivil) 5 mg BID PO Last administered on 08/31/20at 07:53; Start 08/29/20 at 12:30 Potassium Chloride (Klor-Con) 40 meq 1X ONCE PO Last administered on 08/29/20at 12:35; Start 08/29/20 at 12:30; Stop 08/29/20 at 12:31; Status DC Potassium Chloride (Klor-Con) 20 meq [id number] PO Last administered on 08/30/20at 08:30; Start 08/30/20 at 08:00 Multivitamins 10 ml/Thiamine HCl 100 mg/Folic Acid 1 mg/Sodium Chloride 1,011.2 ml @ 1,000.088 mls/hr 1X ONCE IV Last administered on 08/30/20at 09:47; Start 08/30/20 at 11:00; Stop 08/30/20 at 12:00; Status DC Sodium Chloride 1,000 ml @ 100 mls/hr Q10H IV Last administered on 08/30/20at 20:04; Start 08/30/20 at 12:00 Multivitamins 10 ml/Thiamine HCl 100 mg/Folic Acid 1 mg/Sodium Chloride 1,011.2 ml @ 1,000.088 mls/hr DAILY IV ; Start 08/31/20 at 09:00; Stop 09/03/20 at 10:01 Active Scripts Active Chlordiazepoxide Hcl 25 Mg Capsule 25 Mg PO UD Day #1: Take 50mg PO QID Day #2: Take 50mg PO BID Day #3: Take 25mg PO BID Day #4: Take 25mg PO QHS Lisinopril 40 Mg Tablet 40 Mg PO DAILY 30 Days Amlodipine Besylate 10 Mg Tablet 10 Mg PO DAILY 30 Days Carman 5-325 Tablet (Acetaminophen/Hydrocodone Bitart) 1 Each Tablet 1-2 Tab PO Q4-6HRS Ultram (Tramadol Hcl) 50 Mg Tablet 1 Tab PO PRN Q6HRS PRN MDD 4 Tablet(s) 7 Days Hydrocodone-Apap 5-325 (Hydrocodone Bit/Acetaminophen) 1 Tab Tablet 0.5-1 Tab PO PRN Q6HRS PRN Keflex (Cephalexin) 500 Mg Capsule 500 Mg PO QID 7 Days Bactrim Ds Tablet (Sulfamethoxazole/Trimethoprim) 1 Each Tablet 2 Each PO Q12HR 7 Days Doxycycline Hyclate 100 Mg Capsule 1 Cap PO BID 10 Days Carman 5-325 Tablet (Acetaminophen/Hydrocodone Bitart) 1 Each Tablet 1-2 Tab PO Q6HRS Vitals/I & O Vital Sign - Last 24 Hours 08/30/20 08/30/20 08/30/20 08/30/20 11:00 14:59 19:00 20:00 Temp 99.2 100.3 99.0 99.2 100.3 99.0 Pulse 98 96 103 Resp 18 18 20 B/P (MAP) 106/55 (72) 129/72 (91) 143/94 (110) Pulse Ox 95 95 93 O2 Delivery Room Air Room Air Room Air Room Air 508/30/20 08/30/20 08/31/20 20:05 20:05 22:57 03:25 Temp 98.8 98.9 98.8 98.9 Pulse 103 103 98 116 Resp 18 20 B/P (MAP) 143/94 143/94 160/91 (114) 187/108 (134) Pulse Ox 93 94 O2 Delivery Room Air Room Air 08/31/20 08/31/20 08/31/20 08/31/20 05:00 07:00 07:52 07:53 Temp 98.5 98.5 Pulse 116 101 101 101 Resp 20 B/P (MAP) 187/108 186/113 (137) 186/113 186/113 Pulse Ox 92 O2 Delivery Room Air 08/31/20 07:53 Pulse 101 B/P (MAP) 186/113 Intake and Output 08/30/20 08/30/20 08/31/20 15:00 23:00 07:00 Intake Total 400 ml 1486 ml 0 ml Balance 400 ml 1486 ml 0 ml Justicifation of Admission Dx: Justifications for Admission: Justification of Admission Dx: Yes Angina: Symp at Rest GREG OLGUIN MD August 31, 2020 09:43
[2020-08-31] MEDS: POTASSIUM CHLORIDE 20 MEQ TABLET.ER. PO SCH (10:33)
--- NOTE | 2020-08-31 10:40 | PDOC ---
Date of Service: DATE: 08/31/20 TIME: 10:38 Subjective: Subjective: Not going to eat the breakfast that's here - that's for tomorrow. Said he cooked himself a meal last night - braised meat with a nicky-glaze. Objective: Objective: D/w nurse - better today, has stooled (large amount). Vital Signs: Vital Signs Date Time Temp Pulse Resp B/P (MAP) Pulse Ox O2 Delivery O2 Flow Rate FiO2 08/31/20 07:53 101 186/113 08/31/20 07:00 98.5 20 92 Room Air 98.5 Labs: Laboratory Tests Test 08/30/20 13:00 Sodium Level 138 mmol/L Potassium Level 3.6 mmol/L Chloride Level 101 mmol/L Carbon Dioxide Level 25 mmol/L Anion Gap 12 Blood Urea Nitrogen 19 mg/dL Creatinine 1.6 mg/dL Estimated GFR (Cockcroft-Gault) 48.9 Glucose Level 114 mg/dL Calcium Level 9.2 mg/dL PE: GEN: NAD LUNGS: CTAB HEART: mildly tachycardic ABD: S/ND/NT NEURO/PSYCH: confused A/P: Alcohol withdrawal, encephalopathy -- More alert today but mental status still a problem. Justicifation of Admission Dx: Justifications for Admission: Justification of Admission Dx: Yes Angina: Symp at Rest MARIBEL CAPPS August 31, 2020 10:40
--- NOTE | 2020-08-31 10:50 | PDOC ---
PROGRESS NOTES Date of Service DATE: 08/31/20 TIME: 10:47 Assessment Prolonged alcohol withdrawal syndrome, I doubt that he has early Alzheimer's, still too soon to state that this is Korsakoff dementia Also role of medications to treat withdrawal, last dose of lorazepam was yesterday, 08/29 Bipolar disorder, hypertension, thrombocytopenia, h/o gout, AVN of right hip Plan Continue current regimen, no additional neurological studies needed He can follow-up with me or my nurse practitioner in 2 or 3 months for repeat mental status testing, as long as he abstains from alcohol Subjective No complaints. is worried about family history of early Alzheimer's Objective Vital Signs Date Time Temp Pulse Resp B/P (MAP) Pulse Ox O2 Delivery O2 Flow Rate FiO2 08/31/20 07:53 101 186/113 08/31/20 07:00 98.5 20 92 Room Air 98.5 Intake and Output 08/31/20 07:00 Intake Total 1886 ml Balance 1886 ml Intake Oral 450 ml Blood Product IV Normal Saline Flush 1436 ml # Voids 1 # Bowel Movements 1 PHYSICAL EXAM Alert. Oriented to place and person, not date. PERRL. EOMI. CN: no focal findings. Muscle tone: normal. Muscle strength: 5/5, right hip limited by pain DTR: 1+ Plantar reflex: Flexor Gait: not examined in bed. Sensory exam: no abnormal findings. No cerebellar signs elicited. Review of Relevant I have reviewed the following items semaj (where applicable) has been applied. Labs Laboratory Tests Test 08/30/20 13:00 Sodium Level 138 mmol/L (136-145) Potassium Level 3.6 mmol/L (3.5-5.1) Chloride Level 101 mmol/L (98-107) Carbon Dioxide Level 25 mmol/L (21-32) Anion Gap 12 (6-14) Blood Urea Nitrogen 19 mg/dL (8-26) Creatinine 1.6 mg/dL (0.7-1.3) Estimated GFR (Cockcroft-Gault) 48.9 Glucose Level 114 mg/dL (70-99) Calcium Level 9.2 mg/dL (8.5-10.1) Laboratory Tests Test 08/30/20 13:00 Sodium Level 138 mmol/L (136-145) Potassium Level 3.6 mmol/L (3.5-5.1) Chloride Level 101 mmol/L (98-107) Carbon Dioxide Level 25 mmol/L (21-32) Anion Gap 12 (6-14) Blood Urea Nitrogen 19 mg/dL (8-26) Creatinine 1.6 mg/dL (0.7-1.3) Estimated GFR (Cockcroft-Gault) 48.9 Glucose Level 114 mg/dL (70-99) Calcium Level 9.2 mg/dL (8.5-10.1) Medications Current Medications Sodium Chloride 1,000 ml @ 100 mls/hr Q10H IV Last administered on 08/27/20at 23:20; Start 08/27/20 at 21:30; Stop 08/28/20 at 07:29; Status DC Ondansetron HCl (Zofran) 4 mg PRN Q6HRS PRN IVP NAUSEA/VOMITING; Start 08/27/20 at 21:30 Acetaminophen (Tylenol) 650 mg PRN Q6HRS PRN PO Headaches, Temp > 101.5F Last administered on 08/30/20at 04:50; Start 08/27/20 at 21:30 Senna/Docusate Sodium (Senna Plus) 1 tab BID PO Last administered on 08/30/20at 20:04; Start 08/28/20 at 09:00 Magnesium Hydroxide (Milk Of Magnesia) 2,400 mg PRN Q12HR PRN PO CONSTIPATION; Start 08/27/20 at 21:30 Multivitamins (Thera M Plus) 1 tab DAILY PO ; Start 09/01/20 at 09:00 Folic Acid (Folic Acid) 1 mg DAILY PO Last administered on 08/31/20at 07:53; Start 08/29/20 at 09:00 Thiamine Mononitrate (Vitamin B-1) 100 mg DAILY PO ; Start 09/01/20 at 09:00; Stop 08/28/20 at 11:38; Status DC Lorazepam (Ativan) 1 mg PRN Q1HR PRN PO For CIWA 8-14; Start 08/27/20 at 21:30 Lorazepam (Ativan) 2 mg PRN Q1HR PRN PO For CIWA 15 or greater Last admini stered on 08/30/20at 12:47; Start 08/27/20 at 21:30 Lorazepam (Ativan Inj) 1 mg PRN Q1HR PRN IV For CIWA 8-14 Last administered on 08/27/20at 23:31; Start 08/27/20 at 21:30 Lorazepam (Ativan Inj) 2 mg PRN Q1HR PRN IV For CIWA 15 or greater Last administered on 08/29/20at 12:36; Start 08/27/20 at 21:30 Haloperidol Lactate (Haldol Inj) 5 mg PRN Q4HRS PRN IVP Hallucinatns,Confusn,Delirium; Start 08/27/20 at 21:30 Diphenhydramine HCl (Benadryl) 25 mg PRN Q15MIN PRN IVP EPS symptoms 2'Haldol admin; Start 08/27/20 at 21:30 Clonidine HCl (Catapres) 0.1 mg PRN Q1HR PRN PO SBP > 180 or DBP > 100, MRX3 Last administered on 08/31/20at 05:00; Start 08/27/20 at 21:30 Gabapentin (Neurontin) 300 mg TID PO Last administered on 08/31/20at 07:53; Start 08/27/20 at 21:30 Trazodone HCl (Desyrel) 50 mg PRN QHS PRN PO Sleep/depression; Start 08/27/20 at 21:30 Ziprasidone (Geodon) 20 mg QHS PO Last administered on 08/30/20at 20:05; Start 08/27/20 at 21:30 Amlodipine Besylate (Norvasc) 10 mg DAILY PO Last administered on 08/28/20at 08:07; Start 08/28/20 at 09:00; Stop 08/28/20 at 09:53; Status DC Hydralazine HCl (Apresoline Inj) 10 mg PRN Q4HRS PRN IVP ELEVATED BP, SEE COMMENTS Last administered on 08/30/20at 04:49; Start 08/28/20 at 10:00 Lisinopril (Prinivil) 40 mg DAILY PO Last administered on 08/31/20at 07:53; Start 08/28/20 at 10:00 Amlodipine Besylate (Norvasc) 5 mg BID PO Last administered on 08/31/20at 07:52; Start 08/29/20 at 09:00 Multivitamins 10 ml/Thiamine HCl 100 mg/Folic Acid 1 mg/Sodium Chloride 1,011.2 ml @ 100 mls/ hr DAILY IV ; Start 08/28/20 at 10:30; Stop 08/28/20 at 11:38; Status DC Thiamine HCl 100 mg/Dextrose 51 ml @ 102 mls/hr TID IV Last administered on 08/31/20at 07:58; Start 08/28/20 at 14:00 Lisinopril (Prinivil) 5 mg BID PO Last administered on 08/31/20at 07:53; Start 08/29/20 at 12:30 Potassium Chloride (Klor-Con) 40 meq 1X ONCE PO Last administered on 08/29/20at 12:35; Start 08/29/20 at 12:30; Stop 08/29/20 at 12:31; Status DC Potassium Chloride (Klor-Con) 20 meq [id number] PO Last administered on 08/31/20at 10:33; Start 08/30/20 at 08:00 Multivitamins 10 ml/Thiamine HCl 100 mg/Folic Acid 1 mg/Sodium Chloride 1,011.2 ml @ 1,000.088 mls/hr 1X ONCE IV Last administered on 08/30/20at 09:47; Start 08/30/20 at 11:00; Stop 08/30/20 at 12:00; Status DC Sodium Chloride 1,000 ml @ 100 mls/hr Q10H IV Last administered on 08/30/20at 20:04; Start 08/30/20 at 12:00 Multivitamins 10 ml/Thiamine HCl 100 mg/Folic Acid 1 mg/Sodium Chloride 1,011.2 ml @ 1,000.088 mls/hr DAILY IV Last administered on 08/31/20at 10:30; Start 08/31/20 at 09:00; Stop 09/03/20 at 10:01 Active Scripts Active Chlordiazepoxide Hcl 25 Mg Capsule 25 Mg PO UD Day #1: Take 50mg PO QID Day #2: Take 50mg PO BID Day #3: Take 25mg PO BID Day #4: Take 25mg PO QHS Lisinopril 40 Mg Tablet 40 Mg PO DAILY 30 Days Amlodipine Besylate 10 Mg Tablet 10 Mg PO DAILY 30 Days [place] 5-325 Tablet (Acetaminophen/Hydrocodone Bitart) 1 Each Tablet 1-2 Tab PO Q4-6HRS Ultram (Tramadol Hcl) 50 Mg Tablet 1 Tab PO PRN Q6HRS PRN MDD 4 Tablet(s) 7 Days Hydrocodone-Apap 5-325 (Hydrocodone Bit/Acetaminophen) 1 Tab Tablet 0.5-1 Tab PO PRN Q6HRS PRN Keflex (Cephalexin) 500 Mg Capsule 500 Mg PO QID 7 Days Bactrim Ds Tablet (Sulfamethoxazole/Trimethoprim) 1 Each Tablet 2 Each PO Q12HR 7 Days Doxycycline Hyclate 100 Mg Capsule 1 Cap PO BID 10 Days [place] 5-325 Tablet (Acetaminophen/Hydrocodone Bitart) 1 Each Tablet 1-2 Tab PO Q6HRS Vitals/I & O Vital Sign - Last 24 Hours 08/30/20 08/30/20 08/30/20 08/30/20 11:00 14:59 19:00 20:00 Temp 99.2 100.3 99.0 99.2 100.3 99.0 Pulse 98 96 103 Resp 18 18 20 B/P (MAP) 106/55 (72) 129/72 (91) 143/94 (110) Pulse Ox 95 95 93 O2 Delivery Room Air Room Air Room Air Room Air 08/30/20 08/30/20 08/30/20 08/31/20 20:05 20:05 22:57 03:25 Temp 98.8 98.9 98.8 98.9 Pulse 103 103 98 116 Resp 18 20 B/P (MAP) 143/94 143/94 160/91 (114) 187/108 (134) Pulse Ox 93 94 O2 Delivery Room Air Room Air 08/31/20 08/31/20 08/31/20 08/31/20 05:00 07:00 07:52 07:53 Temp 98.5 98.5 Pulse 116 101 101 101 Resp 20 B/P (MAP) 187/108 186/113 (137) 186/113 186/113 Pulse Ox 92 O2 Delivery Room Air 08/31/20 07:53 Pulse 101 B/P (MAP) 186/113 Intake and Output 08/30/20 08/30/20 08/31/20 15:00 23:00 07:00 Intake Total 400 ml 1486 ml 0 ml Balance 400 ml 1486 ml 0 ml Justicifation of Admission Dx: Justifications for Admission: Justification of Admission Dx: Yes Angina: Symp at Rest ЕКАТЕРИНА CAAL MD August 31, 2020 10:50
[2020-08-31 11:00] VITALS: BP 189/104
[2020-08-31] MEDS ORDERED: cloNIDine TTS-2 1 PATCH PATCH TD SCH (13:00)
[2020-08-31 15:00] VITALS: BP 149/85
[2020-08-31 19:00] VITALS: BP 135/77
[2020-08-31] MEDS: ZIPRASIDONE 20 MG CAPSULE PO SCH (20:09)
[2020-08-31 22:48] VITALS: BP 146/87
[2020-09-01 03:00] VITALS: BP 142/82
[2020-09-01 06:14] LABS: ALBUMIN 2.5 g/dL (3.4-5.0); CALCIUM 8.6 mg/dL (8.5-10.1); CREATININE 0.8 mg/dL (0.7-1.3); GFR 108.8; PHOSPHORUS 2.9 mg/dL (2.6-4.7); POTASSIUM 3.5 mmol/L (3.5-5.1)
[2020-09-01 07:00] VITALS: BP 147/94
--- NOTE | 2020-09-01 08:43 | PDOC ---
PROGRESS NOTES Date of Service: DATE: 09/01/20 TIME: 08:43 Chief Complaint Chief Complaint VTE Prophylaxis Ordered VTE Prophylaxis Devices: No VTE Pharmacological Prophylaxi: No Assessment/Plan IMPRESSION A/P: Acute alcohol withdrawal with delerium - REBEL. PAT consult. Thiamine, folic acid. Add gabapentin, prn clonidine. May need acamprosate or depade/vivitrol outpatient therapy Bipolar disorder - notes prior psychiatric hospitalization started on depakote, but compliance was difficult Hypertension - will monitor, needs ambulatory monitoring for titrating meds, but based on history has been treated with amlodipine Thrombocytopenia - likely due to heavy alcohol use and bone marrow suppression uncontrolled hypertension Family history of very early onset alzheimers and early onset cardiac disease H/o gout - monitor uric acid Heavy ETOH use - CIWA scale. 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 Probable old fractures of the superior to inferior pubic ramus. 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 09-01 PAT CONSULT today, less confused GI CONSULT Ammonia level BP CONTROLLED change norvasc to 5 mg po bid ADD LISINOPRIL 5 MG PO BID , PRN IV HYDRALAZINE neurology consult receiving thiamine iv high dose to prevent damage from Wernicke or Korsakoff syndrome. Acute alcohol withdrawal with delerium - REBEL. PAT consult. Thiamine, folic acid. Add gabapentin, prn clonidine. May need acamprosate or depade/vivitrol outpatient therapy Bipolar disorder - notes prior psychiatric hospitalization started on depakote, but compliance was difficult NEEDs INPATIENT REHAB D/W BY PHONE [phone] left message 29 min pt exam, chart review, > 50% of time spent with exam, chart review, pt care coordination 5-18 PAT CONSULT GI CONSULT Ammonia level BP UNCONTROLLED change norvasc to 5 mg po bid ADD LISINOPRIL 5 MG PO BID , PRN IV HYDRALAZINE neurology consult receiving thiamine iv high dose to prevent damage from Wernicke or Korsakoff syndrome. Acute alcohol withdrawal with delerium - CIWA. PAT consult. Thiamine, folic acid. Add gabapentin, prn clonidine. May need acamprosate or depade/vivitrol outpatient therapy Bipolar disorder - notes prior psychiatric hospitalization started on depakote, but compliance was difficult MAY NEED INPATIENT REHAB D/W BY PHONE [phone] 27 min pt exam, chart review, > 50% of time spent with exam, chart review, pt care coordination 5-17 PAT CONSULT GI CONSULT Ammonia level BP UNCONTROLLED change norvasc to 5 mg po bid ADD LISINOPRIL 5 MG PO BID , PRN IV HYDRALAZINE neurology consult receiving thiamine iv high dose to prevent damage from Wernicke or Korsakoff syndrome. Acute alcohol withdrawal with delerium - CIWA. PAT consult. Thiamine, folic acid. Add gabapentin, prn clonidine. May need acamprosate or depade/vivitrol outpatient therapy Bipolar disorder - notes prior psychiatric hospitalization started on depakote, but compliance was difficult 29 min pt exam, chart review, > 50% of time spent with exam, chart review, pt care coordination 5-16 PAT CONSULT GI CONSULT Ammonia level BP UNCONTROLLED change norvasc to 5 mg po bid ADD LISINOPRIL 5 MG PO BID , PRN IV HYDRALAZINE neurology consult receiving thiamine iv high dose to prevent damage from Wernicke or Korsakoff syndrome. Acute alcohol withdrawal with delerium - CIWA. PAT consult. Thiamine, folic acid. Add gabapentin, prn clonidine. May need acamprosate or depade/vivitrol outpatient therapy Bipolar disorder - notes prior psychiatric hospitalization started on depakote, but compliance was difficult 39 min pt exam, chart review, > 50% of time spent with exam, chart review, pt care coordination History of Present Illness History of Present Illness dentification/Chief Complaint Chief Complaint James stauffer Source Source: Caregiver, Chart review, Patient History of Present Illness History of Present Illness Mr Finch is a 35-year-old male with PMHx elevated blood pressure without dx of HTN, ETOH use, gout who is presenting accepted as a direct admission from [facility]. He was seen on Sunday08/22/2020 intoxicated looking for alcohol withdrawal treatment was referred to [facility] and subsequently taken to [facility] but his withdrawal symptoms were not well controlled or manageable in residential treatment setting and therefore he was transferred to [facility] for inpatient treatment of delirium tremens. He was given phenobarbitol and valium treatment, continued to be difficult to redirect, hallucinating, making staff feel unsafe and transferred to preferred hospital for further care. 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 EKG reviewed by myself is NSR with normal axis and RBBB. Chest x-ray is negative for acute pathology, troponin is normal, d-dimer is normal. 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 He does drink heavily and has sought treatment on a few occasions. He is especially concerned because of early cardiac disease in his father and paternal grandfather and early at age 44 for both of them, he notes this was due to very early onset of Alzheimer's dementia. He is not easy to redirect and confused. His is concerned about history of bipolar disorder that required inpatient treatment and depakote therapy at [facility] ([facility]) several years ago. Blood pressure noted in the 170s over low 100s. Afebrile on exam. Accepted at [facility] for further treatment of his alcohol withdrawal deleriu Past Medical History Cardiovascular: HTN Pulmonary: No pertinent hx CENTRAL NERVOUS SYSTEM: Other GI: No pertinent hx Heme/Onc: No pertinent hx Hepatobiliary: No pertinent hx Psych: Anxiety, Bipolar, Other Musculoskeletal: Osteoarthritis, Other Rheumatologic: No pertinent hx, Gout Infectious disease: No pertinent hx Endocrine: No pertinent hx Past Surgical History Past Surgical History: Other Family History Family History: Coronary Artery Disease Social History Smoke: No ALCOHOL: heavy Drugs: None, Cocaine (in remission) Current Medications Current Medications Current Medications Sodium Chloride 1,000 ml @ 100 mls/hr Q10H IV ; Start 08/27/20 at 21:30; Stop 08/28/20 at 07:29 Ondansetron HCl (Zofran) 4 mg PRN Q6HRS PRN IVP NAUSEA/VOMITING; Start 08/27/20 at 21:30 Acetaminophen (Tylenol) 650 mg PRN Q6HRS PRN PO Headaches, Temp > 101.5F; Start 08/27/20 at 21:30 Senna/Docusate Sodium (Senna Plus) 1 tab BID PO ; Start 08/28/20 at 09:00 Magnesium Hydroxide (Milk Of Magnesia) 2,400 mg PRN Q12HR PRN PO CONSTIPATION; Start 08/27/20 at 21:30 Multivitamins (Thera M Plus) 1 tab DAILY PO ; Start 09/01/20 at 09:00 Folic Acid (Folic Acid) 1 mg DAILY PO ; Start 09/01/20 at 09:00 Thiamine Mononitrate (Vitamin B-1) 100 mg DAILY PO ; Start 09/01/20 at 09:00 Lorazepam (Ativan) 1 mg PRN Q1HR PRN PO For CIWA 8-14; Start 08/27/20 at 21:30 Lorazepam (Ativan) 2 mg PRN Q1HR PRN PO For CIWA 15 or greater; Start 08/27/20 at 21:30 Lorazepam (Ativan Inj) 1 mg PRN Q1HR PRN IV For CIWA 8-14; Start 08/27/20 at 21:30 Lorazepam (Ativan Inj) 2 mg PRN Q1HR PRN IV For CIWA 15 or greater; Start 08/27/20 at 21:30 Haloperidol Lactate (Haldol Inj) 5 mg PRN Q4HRS PRN IVP Hallucinatns,Confusn,Delirium; Start 08/27/20 at 21:30 Diphenhydramine HCl (Benadryl) 25 mg PRN Q15MIN PRN IVP EPS symptoms 2'Haldol admin; Start 08/27/20 at 21:30 Clonidine HCl (Catapres) 0.1 mg PRN Q1HR PRN PO SBP > 180 or DBP > 100, MRX3; Start 08/27/20 at 21:30 Gabapentin (Neurontin) 300 mg TID PO ; Start 08/27/20 at 21:30 Trazodone HCl (Desyrel) 50 mg PRN QHS PRN PO Sleep/depression; Start 08/27/20 at 21:30 Ziprasidone (Geodon) 20 mg QHS PO ; Start 08/27/20 at 21:30 Active Scripts Active Chlordiazepoxide Hcl 25 Mg Capsule 25 Mg PO UD Day #1: Take 50mg PO QID Day #2: Take 50mg PO BID Day #3: Take 25mg PO BID Day #4: Take 25mg PO QHS Lisinopril 40 Mg Tablet 40 Mg PO DAILY 30 Days Amlodipine Besylate 10 Mg Tablet 10 Mg PO DAILY 30 Days [place] 5-325 Tablet (Acetaminophen/Hydrocodone Bitart) 1 Each Tablet 1-2 Tab PO Q4-6HRS Ultram (Tramadol Hcl) 50 Mg Tablet 1 Tab PO PRN Q6HRS PRN MDD 4 Tablet(s) 7 Days Hydrocodone-Apap 5-325 (Hydrocodone Bit/Acetaminophen) 1 Tab Tablet 0.5-1 Tab PO PRN Q6HRS PRN Keflex (Cephalexin) 500 Mg Capsule 500 Mg PO QID 7 Days Bactrim Ds Tablet (Sulfamethoxazole/Trimethoprim) 1 Each Tablet 2 Each PO Q12HR 7 Days Doxycycline Hyclate 100 Mg Capsule 1 Cap PO BID 10 Days [place] 5-325 Tablet (Acetaminophen/Hydrocodone Bitart) 1 Each Tablet 1-2 Tab PO Q6HRS Allergies Allergies: Coded Allergies: No Known Drug Allergies (Unverified , 06/13/18) ROS Review of System Unable to complete due to confusion General: YES: Fatigue, Malaise; No: Chills, Night Sweats, Appetite, Other PSYCHOLOGICAL ROS: No: Anxiety, Behavioral Disorder, Concentration difficultie, Decreased libido, Depression, Disorientation, Hallucinations, Hostility, Irritablity, Memory difficulties, Mood Swings, Obsessive thoughts, Physical abuse, Sexual abuse, Sleep disturbances, Suicidal ideation, Other Eyes: No Blurry vision, No Decreased vision, No Double vision, No Dry eyes, No Excessive tearing, No Eye Pain, No Itchy Eyes, No Loss of vision, No Photophobia, No Scotomata, No Uses contacts, No Uses glasses, No Other HEENT: No: Heacaches, Visual Changes, Hearing change, Nasal congestion, Nasal discharge, Oral lesions, Sinus pain, Sore Throat, Epistaxis, Sneezing, Snoring, Tinnitus, Vertigo, Vocal changes, Other ALLERGY AND IMMUNOLOGY: No: Hives, Insect Bite Sensitivity, Itchy/Watery Eyes, Nasal Congestion, Post Nasal Drip, Seasonal Allergies, Other Hematological and Lymphatic: No: Bleeding Problems, Blood Clots, Blood Transfusions, Brusing, Night Sweats, Pallor, Swollen Lymph Nodes, Other ENDOCRINE: No: Breast Changes, Galactorrhea, Hair Pattern Changes, Hot Flashes, Malaise/lethargy, Mood Swings, Palpitations, Polydipsia/polyuria, Skin Changes, Temperature Intolerance, Unexpected Weight Changes, Other Breast: No New/Changing Breast Lumps, No Nipple changes, No Nipple discharge, No Other Respiratory: No: Cough, Hemoptysis, Orthopnea, Pleuritic Pain, Shortness of breath, SOB with excertion, Sputum Changes, Stridor, Tachypnea, Wheezing, Other Cardiovascular: No Chest Pain, No Palpitations, No Orthopnea, No Paroxysmal Noc. Dyspnea, No Edema, No Lt Headedness, No Other Gastrointestinal: No Nausea, No Vomiting, No Abdominal Pain, No Diarrhea, No Constipation, No Melena, No Hematochezia, No Other Genitourinary: No Dysuria, No Frequency, No Incontinence, No Hematuria, No Retention, No Discharge, No Urgency, No Pain, No Flank Pain, No Other, No , No , No , No , No , No , No Musculoskeletal: Yes Joint Pain, Yes Joint Stiffness; No Gait Disturbance, No Joint Swelling, No Muscle Pain, No Muscular Weakness, No Pain In:, No Swelling In:, No Other Neurological: No Behavorial Changes, No Bowel/Bladder ControlChng, No Confusion, No Dizziness, No Gait Disturbance, No Headaches, No Impaired Coord/balance, No Memory Loss, No Numbness/Tingling, No Seizures, No Speech Problems, No Tremors, No Visual Changes, No Weakness, No Other Skin: No Dry Skin, No Eczema, No Hair Changes, No Lumps, No Mole Changes, No Mottling, No Nail Changes, No Pruritus, No Rash, No Skin Lesion Changes, No Other, No Acne Vitals Vitals Vital Signs Date Time Temp Pulse Resp B/P (MAP) Pulse Ox O2 Delivery O2 Flow Rate FiO2 09/01/20 07:00 99.5 75 18 147/94 (111) 94 Room Air 99.5 Physical Exam Physical Exam disorented General: Alert, Oriented X3, Cooperative, No acute distress, mild distress Heart: Regular rate, Normal S1, Normal S2 Lungs: Clear Abdomen: Normal bowel sounds, Soft, No tenderness, No hepatosplenomegaly, No masses Extremities: No clubbing, No cyanosis, No edema, Normal pulses, No tenderness/swelling Skin: No rashes, No breakdown, No significant lesion Labs LABS Laboratory Tests Test 09/01/20 05:35 Sodium Level 137 mmol/L (136-145) Potassium Level 3.5 mmol/L (3.5-5.1) Chloride Level 102 mmol/L (98-107) Carbon Dioxide Level 24 mmol/L (21-32) Anion Gap 11 (6-14) Blood Urea Nitrogen 8 mg/dL (8-26) Creatinine 0.8 mg/dL (0.7-1.3) Estimated GFR (Cockcroft-Gault) 108.8 Glucose Level 93 mg/dL (70-99) Calcium Level 8.6 mg/dL (8.5-10.1) Phosphorus Level 2.9 mg/dL (2.6-4.7) Albumin 2.5 g/dL (3.4-5.0) Comment Review of Relevant I have reviewed the following items semaj (where applicable) has been applied. Labs Laboratory Tests Test 08/30/20 13:00 09/01/20 05:35 Sodium Level 138 mmol/L (136-145) 137 mmol/L (136-145) Potassium Level 3.6 mmol/L (3.5-5.1) 3.5 mmol/L (3.5-5.1) Chloride Level 101 mmol/L (98-107) 102 mmol/L (98-107) Carbon Dioxide Level 25 mmol/L (21-32) 24 mmol/L (21-32) Anion Gap 12 (6-14) 11 (6-14) Blood Urea Nitrogen 19 mg/dL (8-26) 8 mg/dL (8-26) Creatinine 1.6 mg/dL (0.7-1.3) 0.8 mg/dL (0.7-1.3) Estimated GFR (Cockcroft-Gault) 48.9 108.8 Glucose Level 114 mg/dL (70-99) 93 mg/dL (70-99) Calcium Level 9.2 mg/dL (8.5-10.1) 8.6 mg/dL (8.5-10.1) Phosphorus Level 2.9 mg/dL (2.6-4.7) Albumin 2.5 g/dL (3.4-5.0) Laboratory Tests Test 09/01/20 05:35 Sodium Level 137 mmol/L (136-145) Potassium Level 3.5 mmol/L (3.5-5.1) Chloride Level 102 mmol/L (98-107) Carbon Dioxide Level 24 mmol/L (21-32) Anion Gap 11 (6-14) Blood Urea Nitrogen 8 mg/dL (8-26) Creatinine 0.8 mg/dL (0.7-1.3) Estimated GFR (Cockcroft-Gault) 108.8 Glucose Level 93 mg/dL (70-99) Calcium Level 8.6 mg/dL (8.5-10.1) Phosphorus Level 2.9 mg/dL (2.6-4.7) Albumin 2.5 g/dL (3.4-5.0) Medications Current Medications Sodium Chloride 1,000 ml @ 100 mls/hr Q10H IV Last administered on 08/27/20at 23:20; Start 08/27/20 at 21:30; Stop 08/28/20 at 07:29; Status DC Ondansetron HCl (Zofran) 4 mg PRN Q6HRS PRN IVP NAUSEA/VOMITING; Start 08/27/20 at 21:30 Acetaminophen (Tylenol) 650 mg PRN Q6HRS PRN PO Headaches, Temp > 101.5F Last administered on 08/30/20at 04:50; Start 08/27/20 at 21:30 Senna/Docusate Sodium (Senna Plus) 1 tab BID PO Last administered on 08/30/20at 20:04; Start 08/28/20 at 09:00 Magnesium Hydroxide (Milk Of Magnesia) 2,400 mg PRN Q12HR PRN PO CONSTIPATION; Start 08/27/20 at 21:30 Multivitamins (Thera M Plus) 1 tab DAILY PO ; Start 09/01/20 at 09:00 Folic Acid (Folic Acid) 1 mg DAILY PO Last administered on 08/31/20at 07:53; Start 08/29/20 at 09:00 Thiamine Mononitrate (Vitamin B-1) 100 mg DAILY PO ; Start 09/01/20 at 09:00; Stop 08/28/20 at 11:38; Status DC Lorazepam (Ativan) 1 mg PRN Q1HR PRN PO For CIWA 8-14; Start 08/27/20 at 21:30 Lorazepam (Ativan) 2 mg PRN Q1HR PRN PO For CIWA 15 or greater Last administered on 08/30/20at 12:47; Start 08/27/20 at 21:30 Lorazepam (Ativan Inj) 1 mg PRN Q1HR PRN IV For CIWA 8-14 Last administered on 09/01/20at 00:07; Start 08/27/20 at 21:30 Lorazepam (Ativan Inj) 2 mg PRN Q1HR PRN IV For CIWA 15 or greater Last administered on 08/29/20at 12:36; Start 08/27/20 at 21:30 Haloperidol Lactate (Haldol Inj) 5 mg PRN Q4HRS PRN IVP Hallucinatns,Confusn,Delirium; Start 08/27/20 at 21:30 Diphenhydramine HCl (Benadryl) 25 mg PRN Q15MIN PRN IVP EPS symptoms 2'Haldol admin; Start 08/27/20 at 21:30 Clonidine HCl (Catapres) 0.1 mg PRN Q1HR PRN PO SBP > 180 or DBP > 100, MRX3 Last administered on 08/31/20at 10:52; Start 08/27/20 at 21:30 Gabapentin (Neurontin) 300 mg TID PO Last administered on 08/31/20at 20:09; Start 08/27/20 at 21:30 Trazodone HCl (Desyrel) 50 mg PRN QHS PRN PO Sleep/depression; Start 08/27/20 at 21:30 Ziprasidone (Geodon) 20 mg QHS PO Last administered on 08/31/20at 20:09; Start 08/27/20 at 21:30 Amlodipine Besylate (Norvasc) 10 mg DAILY PO Last administered on 08/28/20at 08:07; Start 08/28/20 at 09:00; Stop 08/28/20 at 09:53; Status DC Hydralazine HCl (Apresoline Inj) 10 mg PRN Q4HRS PRN IVP ELEVATED BP, SEE COMMENTS Last administered on 08/30/20at 04:49; Start 08/28/20 at 10:00 Lisinopril (Prinivil) 40 mg DAILY PO Last administered on 08/31/20at 07:53; Start 08/28/20 at 10:00 Amlodipine Besylate (Norvasc) 5 mg BID PO Last administered on 08/31/20at 20:09; Start 08/29/20 at 09:00 Multivitamins 10 ml/Thiamine HCl 100 mg/Folic Acid 1 mg/Sodium Chloride 1,011.2 ml @ 100 mls/ hr DAILY IV ; Start 08/28/20 at 10:30; Stop 08/28/20 at 11:38; Status DC Thiamine HCl 100 mg/Dextrose 51 ml @ 102 mls/hr TID IV Last administered on 08/31/20at 20:09; Start 08/28/20 at 14:00 Lisinopril (Prinivil) 5 mg BID PO Last administered on 08/31/20at 07:53; Start 08/29/20 at 12:30; Stop 08/31/20 at 13:56; Status DC Potassium Chloride (Klor-Con) 40 meq 1X ONCE PO Last administered on 08/29/20at 12:35; Start 08/29/20 at 12:30; Stop 08/29/20 at 12:31; Status DC Potassium Chloride (Klor-Con) 20 meq DAILYWBKFT PO Last administered on 08/31/20at 10:33; Start 08/30/20 at 08:00 Multivitamins 10 ml/Thiamine HCl 100 mg/Folic Acid 1 mg/Sodium Chloride 1,011.2 ml @ 1,000.088 mls/hr 1X ONCE IV Last administered on 08/30/20at 09:47; Start 08/30/20 at 11:00; Stop 08/30/20 at 12:00; Status DC Sodium Chloride 1,000 ml @ 100 mls/hr Q10H IV Last administered on 08/31/20at 22:35; Start 08/30/20 at 12:00 Multivitamins 10 ml/Thiamine HCl 100 mg/Folic Acid 1 mg/Sodium Chloride 1,011.2 ml @ 1,000.088 mls/hr DAILY IV Last administered on 08/31/20at 10:30; Start 08/31/20 at 09:00; Stop 08/31/20 at 12:45; Status DC Clonidine HCl (Catapres Tts-2) 1 patch WEEKLY TD Last administered on 08/31/20at 14:06; Start 08/31/20 at 13:00 Active Scripts Active Chlordiazepoxide Hcl 25 Mg Capsule 25 Mg PO UD Day #1: Take 50mg PO QID Day #2: Take 50mg PO BID Day #3: Take 25mg PO BID Day #4: Take 25mg PO QHS Lisinopril 40 Mg Tablet 40 Mg PO DAILY 30 Days Amlodipine Besylate 10 Mg Tablet 10 Mg PO DAILY 30 Days [place] 5-325 Tablet (Acetaminophen/Hydrocodone Bitart) 1 Each Tablet 1-2 Tab PO Q4-6HRS Ultram (Tramadol Hcl) 50 Mg Tablet 1 Tab PO PRN Q6HRS PRN MDD 4 Tablet(s) 7 Days Hydrocodone-Apap 5-325 (Hydrocodone Bit/Acetaminophen) 1 Tab Tablet 0.5-1 Tab PO PRN Q6HRS PRN Keflex (Cephalexin) 500 Mg Capsule 500 Mg PO QID 7 Days Bactrim Ds Tablet (Sulfamethoxazole/Trimethoprim) 1 Each Tablet 2 Each PO Q12HR 7 Days Doxycycline Hyclate 100 Mg Capsule 1 Cap PO BID 10 Days [place] 5-325 Tablet (Acetaminophen/Hydrocodone Bitart) 1 Each Tablet 1-2 Tab PO Q6HRS Vitals/I & O Vital Sign - Last 24 Hours 08/31/20 08/31/20 08/31/20 08/31/20 10:52 11:00 15:00 19:00 Temp 98.8 99.0 99.5 98.8 99.0 99.5 Pulse 101 104 86 89 Resp 22 18 18 B/P (MAP) 189/104 189/104 (132) 149/85 (106) 135/77 (96) Pulse Ox 94 93 93 O2 Delivery Room Air Room Air Room Air 08/31/20 08/31/20 08/31/20 09/01/20 20:00 20:09 22:48 03:00 Temp 99.6 99.2 99.6 99.2 Pulse 89 100 94 Resp 18 18 B/P (MAP) 135/77 146/87 (106) 142/82 (102) Pulse Ox 93 92 O2 Delivery Room Air Room Air Room Air 09/01/20 07:00 Temp 99.5 99.5 Pulse 75 Resp 18 B/P (MAP) 147/94 (111) Pulse Ox 94 O2 Delivery Room Air Intake and Output 08/31/20 08/31/20 09/01/20 14:59 22:59 06:59 Intake Total 500 ml Balance 500 ml Justicifation of Admission Dx: Justifications for Admission: Justification of Admission Dx: Yes Angina: [facility] GREG OLGUIN MD September 01, 2020 08:43
[2020-09-01] MEDS ORDERED: THIAMINE 100 MG TABLET. PO SCH (09:00)
[2020-09-01] MEDS: THIAMINE INJ 100 MG in IV DEXTROSE 5% 50 ML IV SCH ×3 (09:10→20:31)
[2020-09-01] MEDS: IV NORMAL SALINE 1000ML BAG 1,000 ML IV SCH ×2 (09:12→20:31)
[2020-09-01] MEDS: SENNOSIDES/DOCUSATE 8.6/50MG TABLET. PO SCH ×2 (09:45→20:37)
[2020-09-01] MEDS: POTASSIUM CHLORIDE 20 MEQ TABLET.ER. PO SCH (09:45)
[2020-09-01] MEDS: GABAPENTIN 300 MG CAPSULE. PO SCH ×3 (09:46→20:31)
[2020-09-01] MEDS: amLODIPine BESYLATE 5 MG TABLET PO SCH ×2 (09:46→20:31)
[2020-09-01] MEDS: MULTIVITAMIN with MINERAL TABLET. PO SCH (09:46)
[2020-09-01] MEDS: LISINOPRIL 20 MG TABLET PO SCH (09:46)
[2020-09-01] MEDS: FOLIC ACID 1 MG TABLET. PO SCH (09:46)
--- NOTE | 2020-09-01 09:54 | PDOC ---
Date of Service: DATE: 09/01/20 TIME: 09:53 Subjective: Subjective: Didn't want breakfast. Knows where he's at, knows the year. Objective: Vital Signs: Vital Signs Date Time Temp Pulse Resp B/P (MAP) Pulse Ox O2 Delivery O2 Flow Rate FiO2 09/01/20 09:46 75 147/94 09/01/20 08:30 Room Air 09/01/20 07:00 99.5 18 94 99.5 PE: GEN: NAD LUNGS: CTAB HEART: RRR ABD: soft, non-tender NEURO/PSYCH: still seems a little fuzzy A/P: Alcohol withdrawal -- Less confused? Continue support. Justicifation of Admission Dx: Justifications for Admission: Justification of Admission Dx: Yes Angina: [facility] MARIBEL CAPPS September 01, 2020 09:54
[2020-09-01 11:00] VITALS: BP 143/78
--- NOTE | 2020-09-01 13:56 | NUR ---
SW following. Discussed with RN, pt from home, room air, regular diet. Therapy recommending acute rehab. Suman (RAUL) met with pt, pt stating he is in [place] - pt not appropriate to be screened for placement. RN obtaining a COVID swab for placement. SW will continue to follow.
[2020-09-01 15:00] VITALS: BP 120/64
[2020-09-01 19:00] VITALS: BP 145/93
[2020-09-01] MEDS: ZIPRASIDONE 20 MG CAPSULE PO SCH (20:31)
[2020-09-01 22:44] VITALS: BP 160/99
[2020-09-02] MEDS: IV NORMAL SALINE 1000ML BAG 1,000 ML IV SCH
[2020-09-02 03:00] VITALS: BP 159/97
[2020-09-02 07:00] VITALS: BP 177/97
[2020-09-02 07:15] LABS: BASO # 0.1 x10^3/uL (0.0-0.2); BASO % 1 % (0-3); EOS # 0.3 x10^3/uL (0.0-0.7); EOS % 4 % (0-3); HEMATOCRIT 40.5 % (39.0-53.0); HEMOGLOBIN 13.7 g/dL (13.0-17.5); LYMPH % 13 % (24-48); MEAN CORPUSCULAR HEMOGLOBIN 32 pg (25-35); MEAN CORPUSCULAR HGB CONC 34 g/dL (31-37); MEAN CORPUSCULAR VOLUME 94 fL (79-100); MONO # 1.3 x10^3/uL (0.0-1.1); MONO % 16 % (0-9); NEUT # 5.4 x10^3/uL (1.8-7.7); NEUT % 66 % (31-73); PLATELET COUNT 424 x10^3/uL (140-400); RED BLOOD COUNT 4.31 x10^6/uL (4.30-5.70); RED CELL DISTRIBUTION WIDTH 14.4 % (11.5-14.5); WHITE BLOOD COUNT 8.1 x10^3/uL (4.0-11.0)
[2020-09-02 07:27] LABS: ALBUMIN 2.5 g/dL (3.4-5.0); ALBUMIN/GLOBULIN RATIO 0.5 (1.0-1.7); CALCIUM 8.9 mg/dL (8.5-10.1); CREATININE 0.8 mg/dL (0.7-1.3); GFR 108.8; POTASSIUM 3.7 mmol/L (3.5-5.1); TOTAL BILIRUBIN 0.5 mg/dL (0.2-1.0); TOTAL PROTEIN 7.1 g/dL (6.4-8.2)
[2020-09-02] MEDS: amLODIPine BESYLATE 5 MG TABLET PO SCH ×2 (08:37→21:34)
[2020-09-02] MEDS: MULTIVITAMIN with MINERAL TABLET. PO SCH (08:37)
[2020-09-02] MEDS: GABAPENTIN 300 MG CAPSULE. PO SCH ×3 (08:37→21:37)
[2020-09-02] MEDS: FOLIC ACID 1 MG TABLET. PO SCH (08:38)
[2020-09-02] MEDS: LISINOPRIL 20 MG TABLET PO SCH (08:38)
[2020-09-02] MEDS: POTASSIUM CHLORIDE 20 MEQ TABLET.ER. PO SCH (08:38)
[2020-09-02] MEDS: THIAMINE 100 MG TABLET. PO SCH ×3 (08:38→21:33)
[2020-09-02] MEDS: SENNOSIDES/DOCUSATE 8.6/50MG TABLET. PO SCH ×2 (09:00→21:34)
--- NOTE | 2020-09-02 09:17 | PDOC ---
PROGRESS NOTES Date of Service: DATE: 09/02/20 TIME: 09:17 Chief Complaint Chief Complaint VTE Prophylaxis Ordered VTE Prophylaxis Devices: No VTE Pharmacological Prophylaxi: No Assessment/Plan IMPRESSION A/P: Acute alcohol withdrawal with delerijulisa - REBEL. PAT consult. Thiamine, folic acid. Add gabapentin, prn clonidine. May need acamprosate or depade/vivitrol outpatient therapy Bipolar disorder - notes prior psychiatric hospitalization started on depakote, but compliance was difficult Hypertension - will monitor, needs ambulatory monitoring for titrating meds, but based on history has been treated with amlodipine Thrombocytopenia - likely due to heavy alcohol use and bone marrow suppression uncontrolled hypertension Family history of very early onset alzheimers and early onset cardiac disease H/o gout - monitor uric acid Heavy ETOH use - CIWA scale. 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 Probable old fractures of the superior to inferior pubic ramus. 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 09-02 PAT CONSULT today, less confused d/w rn GI CONSULT Ammonia level BP CONTROLLED change norvasc to 5 mg po bid ADD LISINOPRIL 5 MG PO BID , PRN IV HYDRALAZINE neurology consult receiving thiamine iv high dose to prevent damage from Wernicke or Korsakoff syn drome. Acute alcohol withdrawal with henrry LUQUE. PAT consult. Thiamine, folic acid. Add gabapentin, prn clonidine. May need acamprosate or depade/vivitrol outpatient therapy Bipolar disorder - notes prior psychiatric hospitalization started on de pakote, but compliance was difficult NEEDs INPATIENT REHAB D/W BY PHONE [phone] Discharge Recommendations * Acute Rehab facility 5-19 PAT CONSULT today, less confused GI CONSULT Ammonia level BP CONTROLLED change norvasc to 5 mg po bid ADD LISINOPRIL 5 MG PO BID , PRN IV HYDRALAZINE neurology consult receiving thiamine iv high dose to prevent damage from Wernicke or Korsakoff syndrome. Acute alcohol withdrawal with delerium - CIWA. PAT consult. Thiamine, folic acid. Add gabapentin, prn clonidine. May need acamprosate or depade/vivitrol outpatient therapy Bipolar disorder - notes prior psychiatric hospitalization started on depakote, but compliance was difficult NEEDs INPATIENT REHAB D/W BY PHONE [phone] left message 29 min pt exam, chart review, > 50% of time spent with exam, chart review, pt care coordination 5-18 PAT CONSULT GI CONSULT Ammonia level BP UNCONTROLLED change norvasc to 5 mg po bid ADD LISINOPRIL 5 MG PO BID , PRN IV HYDRALAZINE neurology consult receiving thiamine iv high dose to prevent damage from Wernicke or Korsakoff syndrome. Acute alcohol withdrawal with delerium - CIWA. PAT consult. Thiamine, folic acid. Add gabapentin, prn clonidine. May need acamprosate or depade/vivitrol outpatient therapy Bipolar disorder - notes prior psychiatric hospitalization started on depakote, but compliance was difficult MAY NEED INPATIENT REHAB D/W BY PHONE [phone] 27 min pt exam, chart review, > 50% of time spent with exam, chart review, pt care coordination 5-17 PAT CONSULT GI CONSULT Ammonia level BP UNCONTROLLED change norvasc to 5 mg po bid ADD LISINOPRIL 5 MG PO BID , PRN IV HYDRALAZINE neurology consult receiving thiamine iv high dose to prevent damage from Wernicke or Korsakoff syndrome. Acute alcohol withdrawal with delerium - CIWA. PAT consult. Thiamine, folic acid. Add gabapentin, prn clonidine. May need acamprosate or depade/vivitrol outpatient therapy Bipolar disorder - notes prior psychiatric hospitalization started on depakote, but compliance was difficult 29 min pt exam, chart review, > 50% of time spent with exam, chart review, pt care coordination 5-16 PAT CONSULT GI CONSULT Ammonia level BP UNCONTROLLED change norvasc to 5 mg po bid ADD LISINOPRIL 5 MG PO BID , PRN IV HYDRALAZINE neurology consult receiving thiamine iv high dose to prevent damage from Wernicke or Korsakoff syndrome. Acute alcohol withdrawal with henrry LUQUE. PAT consult. Thiamine, folic acid. Add gabapentin, prn clonidine. May need acamprosate or depade/vivitrol outpatient therapy Bipolar disorder - notes prior psychiatric hospitalization started on depakote, but compliance was difficult 39 min pt exam, chart review, > 50% of time spent with exam, chart review, pt care coordination History of Present Illness History of Present Illness dentification/Chief Complaint Chief Complaint Delerijulisa stauffer Source Source: Caregiver, Chart review, Patient History of Present Illness History of Present Illness Mr Finch is a 35-year-old male with PMHx elevated blood pressure without dx of HTN, ETOH use, gout who is presenting accepted as a direct admission from [facility]. He was seen on Sunday08/22/2020 intoxicated looking for alcohol withdrawal treatment was referred to [facility] and subsequently taken to [facility] but his withdrawal symptoms were not well controlled or manageable in residential treatment setting and therefore he was transferred to [facility] for inpatient treatment of delirium tremens. He was given phenobarbitol and valium treatment, continued to be difficult to redirect, hallucinating, making staff feel unsafe and transferred to [facility] for further care. 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 EKG reviewed by myself is NSR with normal axis and RBBB. Chest x-ray is negative for acute pathology, troponin is normal, d-dimer is normal. 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 He does drink heavily and has sought treatment on a few occasions. He is especially concerned because of early cardiac disease in his father and paternal grandfather and early at age 44 for both of them, he notes this was due to very early onset of Alzheimer's dementia. He is not easy to redirect and confused. His is concerned about history of bipolar disorder that required inpatient treatment and depakote therapy at [facility] ([facility]) several years ago. Blood pressure noted in the 170s over low 100s. Afebrile on exam. Accepted at [facility] for further treatment of his alcohol withdrawal deleriu Past Medical History Cardiovascular: HTN Pulmonary: No pertinent hx CENTRAL NERVOUS SYSTEM: Other GI: No pertinent hx Heme/Onc: No pertinent hx Hepatobiliary: No pertinent hx Psych: Anxiety, Bipolar, Other Musculoskeletal: Osteoarthritis, Other Rheumatologic: No pertinent hx, Gout Infectious disease: No pertinent hx Endocrine: No pertinent hx Past Surgical History Past Surgical History: Other Family History Family History: Coronary Artery Disease Social History Smoke: No ALCOHOL: heavy Drugs: None, Cocaine (in remission) Current Medications Current Medications Current Medications Sodium Chloride 1,000 ml @ 100 mls/hr Q10H IV ; Start 08/27/20 at 21:30; Stop 08/28/20 at 07:29 Ondansetron HCl (Zofran) 4 mg PRN Q6HRS PRN IVP NAUSEA/VOMITING; Start 08/27/20 at 21:30 Acetaminophen (Tylenol) 650 mg PRN Q6HRS PRN PO Headaches, Temp > 101.5F; Start 08/27/20 at 21:30 Senna/Docusate Sodium (Senna Plus) 1 tab BID PO ; Start 08/28/20 at 09:00 Magnesium Hydroxide (Milk Of Magnesia) 2,400 mg PRN Q12HR PRN PO CONSTIPATION; Start 08/27/20 at 21:30 Multivitamins (Thera M Plus) 1 tab DAILY PO ; Start 09/01/20 at 09:00 Folic Acid (Folic Acid) 1 mg DAILY PO ; Start 09/01/20 at 09:00 Thiamine Mononitrate (Vitamin B-1) 100 mg DAILY PO ; Start 09/01/20 at 09:00 Lorazepam (Ativan) 1 mg PRN Q1HR PRN PO For CIWA 8-14; Start 08/27/20 at 21:30 Lorazepam (Ativan) 2 mg PRN Q1HR PRN PO For CIWA 15 or greater; Start 08/27/20 at 21:30 Lorazepam (Ativan Inj) 1 mg PRN Q1HR PRN IV For CIWA 8-14; Start 08/27/20 at 21:30 Lorazepam (Ativan Inj) 2 mg PRN Q1HR PRN IV For CIWA 15 or greater; Start 08/27/20 at 21:30 Haloperidol Lactate (Haldol Inj) 5 mg PRN Q4HRS PRN IVP Hallucinatns,Confusn,Delirium; Start 08/27/20 at 21:30 Diphenhydramine HCl (Benadryl) 25 mg PRN Q15MIN PRN IVP EPS symptoms 2'Haldol admin; Start 08/27/20 at 21:30 Clonidine HCl (Catapres) 0.1 mg PRN Q1HR PRN PO SBP > 180 or DBP > 100, MRX3; Start 08/27/20 at 21:30 Gabapentin (Neurontin) 300 mg TID PO ; Start 08/27/20 at 21:30 Trazodone HCl (Desyrel) 50 mg PRN QHS PRN PO Sleep/depression; Start 08/27/20 at 21:30 Ziprasidone (Geodon) 20 mg QHS PO ; Start 08/27/20 at 21:30 Active Scripts Active Chlordiazepoxide Hcl 25 Mg Capsule 25 Mg PO UD Day #1: Take 50mg PO QID Day #2: Take 50mg PO BID Day #3: Take 25mg PO BID Day #4: Take 25mg PO QHS Lisinopril 40 Mg Tablet 40 Mg PO DAILY 30 Days Amlodipine Besylate 10 Mg Tablet 10 Mg PO DAILY 30 Days [place] 5-325 Tablet (Acetaminophen/Hydrocodone Bitart) 1 Each Tablet 1-2 Tab PO Q4-6HRS Ultram (Tramadol Hcl) 50 Mg Tablet 1 Tab PO PRN Q6HRS PRN MDD 4 Tablet(s) 7 Days Hydrocodone-Apap 5-325 (Hydrocodone Bit/Acetaminophen) 1 Tab Tablet 0.5-1 Tab PO PRN Q6HRS PRN Keflex (Cephalexin) 500 Mg Capsule 500 Mg PO QID 7 Days Bactrim Ds Tablet (Sulfamethoxazole/Trimethoprim) 1 Each Tablet 2 Each PO Q12HR 7 Days Doxycycline Hyclate 100 Mg Capsule 1 Cap PO BID 10 Days [place] 5-325 Tablet (Acetaminophen/Hydrocodone Bitart) 1 Each Tablet 1-2 Tab PO Q6HRS Allergies Allergies: Coded Allergies: No Known Drug Allergies (Unverified , 06/13/18) ROS Review of System Unable to complete due to confusion General: YES: Fatigue, Malaise; No: Chills, Night Sweats, Appetite, Other PSYCHOLOGICAL ROS: No: Anxiety, Behavioral Disorder, Concentration difficultie, Decreased libido, Depression, Disorientation, Hallucinations, Hostility, Irritablity, Memory difficulties, Mood Swings, Obsessive thoughts, Physical abuse, Sexual abuse, Sleep disturbances, Suicidal ideation, Other Eyes: No Blurry vision, No Decreased vision, No Double vision, No Dry eyes, No Excessive tearing, No Eye Pain, No Itchy Eyes, No Loss of vision, No Photophobia, No Scotomata, No Uses contacts, No Uses glasses, No Other HEENT: No: Heacaches, Visual Changes, Hearing change, Nasal congestion, Nasal discharge, Oral lesions, Sinus pain, Sore Throat, Epistaxis, Sneezing, Snoring, Tinnitus, Vertigo, Vocal changes, Other ALLERGY AND IMMUNOLOGY: No: Hives, Insect Bite Sensitivity, Itchy/Watery Eyes, Nasal Congestion, Post Nasal Drip, Seasonal Allergies, Other Hematological and Lymphatic: No: Bleeding Problems, Blood Clots, Blood Transfusions, Brusing, Night Sweats, Pallor, Swollen Lymph Nodes, Other ENDOCRINE: No: Breast Changes, Galactorrhea, Hair Pattern Changes, Hot Flashes, Malaise/lethargy, Mood Swings, Palpitations, Polydipsia/polyuria, Skin Changes, Temperature Intolerance, Unexpected Weight Changes, Other Breast: No New/Changing Breast Lumps, No Nipple changes, No Nipple discharge, No Other Respiratory: No: Cough, Hemoptysis, Orthopnea, Pleuritic Pain, Shortness of breath, SOB with excertion, Sputum Changes, Stridor, Tachypnea, Wheezing, Other Cardiovascular: No Chest Pain, No Palpitations, No Orthopnea, No Paroxysmal Noc. Dyspnea, No Edema, No Lt Headedness, No Other Gastrointestinal: No Nausea, No Vomiting, No Abdominal Pain, No Diarrhea, No Constipation, No Melena, No Hematochezia, No Other Genitourinary: No Dysuria, No Frequency, No Incontinence, No Hematuria, No Retention, No Discharge, No Urgency, No Pain, No Flank Pain, No Other, No , No , No , No , No , No , No Musculoskeletal: Yes Joint Pain, Yes Joint Stiffness; No Gait Disturbance, No Joint Swelling, No Muscle Pain, No Muscular Weakness, No Pain In:, No Swelling In:, No Other Neurological: No Behavorial Changes, No Bowel/Bladder ControlChng, No Confusion, No Dizziness, No Gait Disturbance, No Headaches, No Impaired Coord/balance, No Memory Loss, No Numbness/Tingling, No Seizures, No Speech Problems, No Tremors, No Visual Changes, No Weakness, No Other Skin: No Dry Skin, No Eczema, No Hair Changes, No Lumps, No Mole Changes, No Mottling, No Nail Changes, No Pruritus, No Rash, No Skin Lesion Changes, No Other, No Acne Vitals Vitals Vital Signs Date Time Temp Pulse Resp B/P (MAP) Pulse Ox O2 Delivery O2 Flow Rate FiO2 09/02/20 08:38 82 159/97 09/02/20 07:00 99.2 18 94 99.2 09/02/20 03:00 Room Air Physical Exam Physical Exam disorented General: Alert, Oriented X3, Cooperative, No acute distress Heart: Regular rate, Normal S1, Normal S2 Lungs: Clear Abdomen: Normal bowel sounds, Soft, No tenderness, No hepatosplenomegaly, No masses Extremities: No clubbing, No cyanosis, No edema, Normal pulses, No tenderness/swelling Skin: No rashes, No breakdown, No significant lesion Labs LABS * Coordination Patient condition at conclusion of therapy * Pt in chair * Personal alarm on * Call light in reach * Phone in reach * PtIn no apparent distress * Pt denies further needs Communicated Patient Care With (Name, Title) * NANCY Klein Goal 1 - Bed Mobility Assistance Required * Independent Goal 1 Assessment * Appropriate - Continue Goal 2 - Transfers Assistance Required * Independent Goal 2 - Transfer Type * Stand-Step Goal 3 - Ambulation Assistance Required * Independent Goal 3 - Ambulation Distance * 100' Goal 3 - Ambulation Device * No Device Goal 3 Assessment * Appropriate - Continue Goal 4 - Stairs Assistance Required * Independent Goal 4 - Number of Stairs * >9 Goal 4 - Device on Stairs * Rail on Right Goal 4 Assessment * Appropriate - Continue Treatment Plan * Therapeutic Exercise * Bed Mobility Training * Transfer training * Gait Training * Dynamic Balance Training Frequency of Treatment Expected * 5 visits/week Duration of Treatment Expected * 1 week Discharge Recommendations * Acute Rehab facility Laboratory Tests Test 09/01/20 11:09 09/02/20 05:55 SARS-CoV-2 RNA (EMMANUELLE) Negative (Negative) White Blood Count 8.1 x10^3/uL (4.0-11.0) Red Blood Count 4.31 x10^6/uL (4.30-5.70) Hemoglobin 13.7 g/dL (13.0-17.5) Hematocrit 40.5 % (39.0-53.0) Mean Corpuscular Volume 94 fL (79-100) Mean Corpuscular Hemoglobin 32 pg (25-35) Mean Corpuscular Hemoglobin Concent 34 g/dL (31-37) Red Cell Distribution Width 14.4 % (11.5-14.5) Platelet Count 424 x10^3/uL (140-400) Neutrophils (%) (Auto) 66 % (31-73) Lymphocytes (%) (Auto) 13 % (24-48) Monocytes (%) (Auto) 16 % (0-9) Eosinophils (%) (Auto) 4 % (0-3) Basophils (%) (Auto) 1 % (0-3) Neutrophils # (Auto) 5.4 x10^3/uL (1.8-7.7) Lymphocytes # (Auto) 1.0 x10^3/uL (1.0-4.8) Monocytes # (Auto) 1.3 x10^3/uL (0.0-1.1) Eosinophils # (Auto) 0.3 x10^3/uL (0.0-0.7) Basophils # (Auto) 0.1 x10^3/uL (0.0-0.2) Sodium Level 140 mmol/L (136-145) Potassium Level 3.7 mmol/L (3.5-5.1) Chloride Level 103 mmol/L (98-107) Carbon Dioxide Level 26 mmol/L (21-32) Anion Gap 11 (6-14) Blood Urea Nitrogen 9 mg/dL (8-26) Creatinine 0.8 mg/dL (0.7-1.3) Estimated GFR (Cockcroft-Gault) 108.8 BUN/Creatinine Ratio 11 (6-20) Glucose Level 82 mg/dL (70-99) Calcium Level 8.9 mg/dL (8.5-10.1) Total Bilirubin 0.5 mg/dL (0.2-1.0) Aspartate Amino Transf (AST/SGOT) 29 U/L (15-37) Alanine Aminotransferase (ALT/SGPT) 32 U/L (16-63) Alkaline Phosphatase 83 U/L (46-116) Total Protein 7.1 g/dL (6.4-8.2) Albumin 2.5 g/dL (3.4-5.0) Albumin/Globulin Ratio 0.5 (1.0-1.7) Comment Review of Relevant I have reviewed the following items semaj (where applicable) has been applied. Labs Laboratory Tests Test 09/01/20 05:35 09/01/20 11:09 09/02/20 05:55 Sodium Level 137 mmol/L (136-145) 140 mmol/L (136-145) Potassium Level 3.5 mmol/L (3.5-5.1) 3.7 mmol/L (3.5-5.1) Chloride Level 102 mmol/L (98-107) 103 mmol/L (98-107) Carbon Dioxide Level 24 mmol/L (21-32) 26 mmol/L (21-32) Anion Gap 11 (6-14) 11 (6-14) Blood Urea Nitrogen 8 mg/dL (8-26) 9 mg/dL (8-26) Creatinine 0.8 mg/dL (0.7-1.3) 0.8 mg/dL (0.7-1.3) Estimated GFR (Cockcroft-Gault) 108.8 108.8 Glucose Level 93 mg/dL (70-99) 82 mg/dL (70-99) Calcium Level 8.6 mg/dL (8.5-10.1) 8.9 mg/dL (8.5-10.1) Phosphorus Level 2.9 mg/dL (2.6-4.7) Albumin 2.5 g/dL (3.4-5.0) 2.5 g/dL (3.4-5.0) SARS-CoV-2 RNA (EMMANUELLE) Negative (Negative) White Blood Count 8.1 x10^3/uL (4.0-11.0) Red Blood Count 4.31 x10^6/uL (4.30-5.70) Hemoglobin 13.7 g/dL (13.0-17.5) Hematocrit 40.5 % (39.0-53.0) Mean Corpuscular Volume 94 fL (79-100) Mean Corpuscular Hemoglobin 32 pg (25-35) Mean Corpuscular Hemoglobin Concent 34 g/dL (31-37) Red Cell Distribution Width 14.4 % (11.5-14.5) Platelet Count 424 x10^3/uL (140-400) Neutrophils (%) (Auto) 66 % (31-73) Lymphocytes (%) (Auto) 13 % (24-48) Monocytes (%) (Auto) 16 % (0-9) Eosinophils (%) (Auto) 4 % (0-3) Basophils (%) (Auto) 1 % (0-3) Neutrophils # (Auto) 5.4 x10^3/uL (1.8-7.7) Lymphocytes # (Auto) 1.0 x10^3/uL (1.0-4.8) Monocytes # (Auto) 1.3 x10^3/uL (0.0-1.1) Eosinophils # (Auto) 0.3 x10^3/uL (0.0-0.7) Basophils # (Auto) 0.1 x10^3/uL (0.0-0.2) BUN/Creatinine Ratio 11 (6-20) Total Bilirubin 0.5 mg/dL (0.2-1.0) Aspartate Amino Transf (AST/SGOT) 29 U/L (15-37) Alanine Aminotransferase (ALT/SGPT) 32 U/L (16-63) Alkaline Phosphatase 83 U/L (46-116) Total Protein 7.1 g/dL (6.4-8.2) Albumin/Globulin Ratio 0.5 (1.0-1.7) Laboratory Tests Test 09/01/20 11:09 09/02/20 05:55 SARS-CoV-2 RNA (EMMANUELLE) Negative (Negative) White Blood Count 8.1 x10^3/uL (4.0-11.0) Red Blood Count 4.31 x10^6/uL (4.30-5.70) Hemoglobin 13.7 g/dL (13.0-17.5) Hematocrit 40.5 % (39.0-53.0) Mean Corpuscular Volume 94 fL (79-100) Mean Corpuscular Hemoglobin 32 pg (25-35) Mean Corpuscular Hemoglobin Concent 34 g/dL (31-37) Red Cell Distribution Width 14.4 % (11.5-14.5) Platelet Count 424 x10^3/uL (140-400) Neutrophils (%) (Auto) 66 % (31-73) Lymphocytes (%) (Auto) 13 % (24-48) Monocytes (%) (Auto) 16 % (0-9) Eosinophils (%) (Auto) 4 % (0-3) Basophils (%) (Auto) 1 % (0-3) Neutrophils # (Auto) 5.4 x10^3/uL (1.8-7.7) Lymphocytes # (Auto) 1.0 x10^3/uL (1.0-4.8) Monocytes # (Auto) 1.3 x10^3/uL (0.0-1.1) Eosinophils # (Auto) 0.3 x10^3/uL (0.0-0.7) Basophils # (Auto) 0.1 x10^3/uL (0.0-0.2) Sodium Level 140 mmol/L (136-145) Potassium Level 3.7 mmol/L (3.5-5.1) Chloride Level 103 mmol/L (98-107) Carbon Dioxide Level 26 mmol/L (21-32) Anion Gap 11 (6-14) Blood Urea Nitrogen 9 mg/dL (8-26) Creatinine 0.8 mg/dL (0.7-1.3) Estimated GFR (Cockcroft-Gault) 108.8 BUN/Creatinine Ratio 11 (6-20) Glucose Level 82 mg/dL (70-99) Calcium Level 8.9 mg/dL (8.5-10.1) Total Bilirubin 0.5 mg/dL (0.2-1.0) Aspartate Amino Transf (AST/SGOT) 29 U/L (15-37) Alanine Aminotransferase (ALT/SGPT) 32 U/L (16-63) Alkaline Phosphatase 83 U/L (46-116) Total Protein 7.1 g/dL (6.4-8.2) Albumin 2.5 g/dL (3.4-5.0) Albumin/Globulin Ratio 0.5 (1.0-1.7) Medications Current Medications Sodium Chloride 1,000 ml @ 100 mls/hr Q10H IV Last administered on 08/27/20at 23:20; Start 08/27/20 at 21:30; Stop 08/28/20 at 07:29; Status DC Ondansetron HCl (Zofran) 4 mg PRN Q6HRS PRN IVP NAUSEA/VOMITING; Start 08/27/20 at 21:30 Acetaminophen (Tylenol) 650 mg PRN Q6HRS PRN PO Headaches, Temp > 101.5F Last administered on 08/30/20at 04:50; Start 08/27/20 at 21:30 Senna/Docusate Sodium (Senna Plus) 1 tab BID PO Last administered on 09/01/20at 20:37; Start 08/28/20 at 09:00 Magnesium Hydroxide (Milk Of Magnesia) 2,400 mg PRN Q12HR PRN PO CONSTIPATION; Start 08/27/20 at 21:30 Multivitamins (Thera M Plus) 1 tab DAILY PO Last administered on 09/02/20at 08:37; Start 09/01/20 at 09:00 Folic Acid (Folic Acid) 1 mg DAILY PO Last administered on 09/02/20at 08:38; Start 08/29/20 at 09:00 Thiamine Mononitrate (Vitamin B-1) 100 mg DAILY PO ; Start 09/01/20 at 09:00; Stop 08/28/20 at 11:38; Status DC Lorazepam (Ativan) 1 mg PRN Q1HR PRN PO For CIWA 8-14; Start 08/27/20 at 21:30 Lorazepam (Ativan) 2 mg PRN Q1HR PRN PO For CIWA 15 or greater Last administered on 08/30/20at 12:47; Start 08/27/20 at 21:30 Lorazepam (Ativan Inj) 1 mg PRN Q1HR PRN IV For CIWA 8-14 Last administered on 09/01/20at 00:07; Start 08/27/20 at 21:30 Lorazepam (Ativan Inj) 2 mg PRN Q1HR PRN IV For CIWA 15 or greater Last administered on 08/29/20at 12:36; Start 08/27/20 at 21:30 Haloperidol Lactate (Haldol Inj) 5 mg PRN Q4HRS PRN IVP Hallucin atns,Confusn,Delirium; Start 08/27/20 at 21:30 Diphenhydramine HCl (Benadryl) 25 mg PRN Q15MIN PRN IVP EPS symptoms 2'Haldol admin; Start 08/27/20 at 21:30 Clonidine HCl (Catapres) 0.1 mg PRN Q1HR PRN PO SBP > 180 or DBP > 100, MRX3 Last administered on 08/31/20at 10:52; Start 08/27/20 at 21:30 Gabapentin (Neurontin) 300 mg TID PO Last administered on 09/02/20at 08:37; Start 08/27/20 at 21:30 Trazodone HCl (Desyrel) 50 mg PRN QHS PRN PO Sleep/depression; Start 08/27/20 at 21:30 Ziprasidone (Geodon) 20 mg QHS PO Last administered on 09/01/20at 20:31; Start 08/27/20 at 21:30 Amlodipine Besylate (Norvasc) 10 mg DAILY PO Last administered on 08/28/20at 08:07; Start 08/28/20 at 09:00; Stop 08/28/20 at 09:53; Status DC Hydralazine HCl (Apresoline Inj) 10 mg PRN Q4HRS PRN IVP ELEVATED BP, SEE COMMENTS Last administered on 08/30/20at 04:49; Start 08/28/20 at 10:00 Lisinopril (Prinivil) 40 mg DAILY PO Last administered on 09/02/20at 08:38; Start 08/28/20 at 10:00 Amlodipine Besylate (Norvasc) 5 mg BID PO Last administered on 09/02/20at 08:37; Start 08/29/20 at 09:00 Multivitamins 10 ml/Thiamine HCl 100 mg/Folic Acid 1 mg/Sodium Chloride 1,011.2 ml @ 100 mls/ hr DAILY IV ; Start 08/28/20 at 10:30; Stop 08/28/20 at 11:38; Status DC Thiamine HCl 100 mg/Dextrose 51 ml @ 102 mls/hr TID IV Last administered on 09/01/20at 20:31; Start 08/28/20 at 14:00; Stop 09/02/20 at 03:59; Status DC Lisinopril (Prinivil) 5 mg BID PO Last administered on 08/31/20at 07:53; Start 08/29/20 at 12:30; Stop 08/31/20 at 13:56; Status DC Potassium Chloride (Klor-Con) 40 meq 1X ONCE PO Last administered on 08/29/20at 12:35; Start 08/29/20 at 12:30; Stop 08/29/20 at 12:31; Status DC Potassium Chloride (Klor-Con) 20 meq [id number] PO Last administered on 09/02/20at 08:38; Start 08/30/20 at 08:00 Multivitamins 10 ml/Thiamine HCl 100 mg/Folic Acid 1 mg/Sodium Chloride 1,011.2 ml @ 1,000.088 mls/hr 1X ONCE IV Last administered on 08/30/20at 09:47; Start 08/30/20 at 11:00; Stop 08/30/20 at 12:00; Status DC Sodium Chloride 1,000 ml @ 100 mls/hr Q10H IV Last administered on 09/01/20at 20:31; Start 08/30/20 at 12:00 Multivitamins 10 ml/Thiamine HCl 100 mg/Folic Acid 1 mg/Sodium Chloride 1,011.2 ml @ 1,000.088 mls/hr DAILY IV Last administered on 08/31/20at 10:30; Start 08/31/20 at 09:00; Stop 08/31/20 at 12:45; Status DC Clonidine HCl (Catapres Tts-2) 1 patch WEEKLY TD Last administered on 08/31/20at 14:06; Start 08/31/20 at 13:00 Thiamine Mononitrate (Vitamin B-1) 100 mg TID PO Last administered on 09/02/20at 08:38; Start 09/02/20 at 09:00 Active Scripts Active Chlordiazepoxide Hcl 25 Mg Capsule 25 Mg PO UD Day #1: Take 50mg PO QID Day #2: Take 50mg PO BID Day #3: Take 25mg PO BID Day #4: Take 25mg PO QHS Lisinopril 40 Mg Tablet 40 Mg PO DAILY 30 Days Amlodipine Besylate 10 Mg Tablet 10 Mg PO DAILY 30 Days [place] 5-325 Tablet (Acetaminophen/Hydrocodone Bitart) 1 Each Tablet 1-2 Tab PO Q4-6HRS Ultram (Tramadol Hcl) 50 Mg Tablet 1 Tab PO PRN Q6HRS PRN MDD 4 Tablet(s) 7 Days Hydrocodone-Apap 5-325 (Hydrocodone Bit/Acetaminophen) 1 Tab Tablet 0.5-1 Tab PO PRN Q6HRS PRN Keflex (Cephalexin) 500 Mg Capsule 500 Mg PO QID 7 Days Bactrim Ds Tablet (Sulfamethoxazole/Trimethoprim) 1 Each Tablet 2 Each PO Q12HR 7 Days Doxycycline Hyclate 100 Mg Capsule 1 Cap PO BID 10 Days [place] 5-325 Tablet (Acetaminophen/Hydrocodone Bitart) 1 Each Tablet 1-2 Tab PO Q6HRS Vitals/I & O Vital Sign - Last 24 Hours 09/01/20 09/01/20 09/01/20 09/01/20 09:46 09:46 11:00 15:00 Temp 98.4 98.7 98.4 98.7 Pulse 75 75 92 77 Resp 18 18 B/P (MAP) 147/94 147/94 143/78 (99) 120/64 (82) Pulse Ox 95 93 O2 Delivery Room Air Room Air 09/01/20 09/01/20 09/01/20 09/01/20 19:00 20:00 20:31 22:44 Temp 98.7 98.8 98.7 98.8 Pulse 66 66 71 Resp 18 18 B/P (MAP) 145/93 (110) 145/93 160/99 (119) Pulse Ox 96 98 O2 Delivery Room Air Room Air Room Air 09/02/20 09/02/20 09/02/20 09/02/20 03:00 07:00 08:37 08:38 Temp 99.6 99.2 99.6 99.2 Pulse 82 79 82 82 Resp 18 18 B/P (MAP) 159/97 (117) 177/97 (123) 159/97 159/97 Pulse Ox 97 94 O2 Delivery Room Air Intake and Output 09/01/20 09/01/20 09/02/20 15:00 23:00 07:00 Intake Total 300 ml 350 ml 0 ml Balance 300 ml 350 ml 0 ml Justicifation of Admission Dx: Justifications for Admission: Justification of Admission Dx: Yes Angina: Symp at Rest GREG OLGUIN MD September 02, 2020 09:17
--- NOTE | 2020-09-02 10:32 | PDOC ---
Date of Service: DATE: 09/02/20 TIME: 10:30 Subjective: Subjective: No complaints. 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 Objective: Objective: D/w nurse - no GI concerns. Vital Signs: Vital Signs Date Time Temp Pulse Resp B/P (MAP) Pulse Ox O2 Delivery O2 Flow Rate FiO2 09/02/20 08:38 82 159/97 09/02/20 07:00 99.2 18 94 99.2 09/02/20 03:00 Room Air Labs: Laboratory Tests Test 09/01/20 11:09 09/02/20 05:55 SARS-CoV-2 RNA (EMMANUELLE) Negative White Blood Count 8.1 x10^3/uL Red Blood Count 4.31 x10^6/uL Hemoglobin 13.7 g/dL Hematocrit 40.5 % Mean Corpuscular Volume 94 fL Mean Corpuscular Hemoglobin 32 pg Mean Corpuscular Hemoglobin Concent 34 g/dL Red Cell Distribution Width 14.4 % Platelet Count 424 x10^3/uL Neutrophils (%) (Auto) 66 % Lymphocytes (%) (Auto) 13 % Monocytes (%) (Auto) 16 % Eosinophils (%) (Auto) 4 % Basophils (%) (Auto) 1 % Neutrophils # (Auto) 5.4 x10^3/uL Lymphocytes # (Auto) 1.0 x10^3/uL Monocytes # (Auto) 1.3 x10^3/uL Eosinophils # (Auto) 0.3 x10^3/uL Basophils # (Auto) 0.1 x10^3/uL Sodium Level 140 mmol/L Potassium Level 3.7 mmol/L Chloride Level 103 mmol/L Carbon Dioxide Level 26 mmol/L Anion Gap 11 Blood Urea Nitrogen 9 mg/dL Creatinine 0.8 mg/dL Estimated GFR (Cockcroft-Gault) 108.8 BUN/Creatinine Ratio 11 Glucose Level 82 mg/dL Calcium Level 8.9 mg/dL Total Bilirubin 0.5 mg/dL Aspartate Amino Transf (AST/SGOT) 29 U/L Alanine Aminotransferase (ALT/SGPT) 32 U/L Alkaline Phosphatase 83 U/L Total Protein 7.1 g/dL Albumin 2.5 g/dL Albumin/Globulin Ratio 0.5 PE: GEN: NAD LUNGS: CTAB HEART: RRR ABD: NABS, S/ND/NT NEURO/PSYCH: A & O 3 A/P: Alcohol withdrawal -- Improving. ?DC soon Justicifation of Admission Dx: Justifications for Admission: Justification of Admission Dx: Yes Angina: Symp at Rest MARIBEL CAPPS September 02, 2020 10:32
[2020-09-02 11:00] VITALS: BP 146/88
--- NOTE | 2020-09-02 14:29 | NUR ---
SCARLET following. Discussed with RN, pt finally clear enough to speak with RAUL. Faith (RAUL) met with pt , provided resources for [facility] and [employer] [employer]. Pt reported to Faith that his is already working with [facility] for treatment for him. SCARLET spoke with pt's , Perla - she reported pt did a 5-7 day detox at [facility], but needs inpatient drug and ETOH rehab. SCARLET notified Perla of therapy recommendation of acute rehab, Perla is in agreement and would like referral sent to [facility] since they are in network with [employer]. Perla questioned whether the acute rehab could get pt transferred to an inpatient drug & ETOH program after he is stronger. SCARLET spoke with Melanie at [facility], she will review the referral, awaiting acceptance decision, notified Melanie of Perlas question. SCARLET will continue to follow. Addendum: 09/02/20 at 1515 by ZACHARIAH NOVAK Pt accepted at [facility]. Awaiting confirmation of when pt will be ready for discharge. NANCY notified.
--- NOTE | 2020-09-02 14:31 | PDOC ---
PROGRESS NOTES Date of Service DATE: 09/02/20 TIME: 14:29 Assessment Prolonged alcohol withdrawal syndrome, I doubt that he has early Alzheimer's, still too soon to state that this is Korsakoff dementia. He always jokes around about his location, apparently told PAT team that he was in [place] Also role of medications to treat withdrawal, last dose of lorazepam was 09/01 Bipolar disorder, hypertension, thrombocytopenia, h/o gout, AVN of right hip Plan Continue current regimen, no additional neurological studies needed He can follow-up with me or my nurse practitioner in 2 or 3 months for repeat mental status testing, as long as he abstains from alcohol Objective Vital Signs Date Time Temp Pulse Resp B/P (MAP) Pulse Ox O2 Delivery O2 Flow Rate FiO2 09/02/20 11:00 98.6 88 18 146/88 (107) 95 98.6 09/02/20 08:30 Room Air Intake and Output 09/02/20 07:00 Intake Total 650 ml Balance 650 ml Intake Oral 650 ml # Voids 1 PHYSICAL EXAM Alert. Oriented to place and person, not date. PERRL. EOMI. CN: no focal findings. Muscle tone: normal. Muscle strength: 5/5, right hip limited by pain DTR: 1+ Plantar reflex: Flexor Gait: not examined in bed. Sensory exam: no abnormal findings. No cerebellar signs elicited. Review of Relevant I have reviewed the following items semaj (where applicable) has been applied. Labs Laboratory Tests Test 09/01/20 05:35 09/01/20 11:09 09/02/20 05:55 Sodium Level 137 mmol/L (136-145) 140 mmol/L (136-145) Potassium Level 3.5 mmol/L (3.5-5.1) 3.7 mmol/L (3.5-5.1) Chloride Level 102 mmol/L (98-107) 103 mmol/L (98-107) Carbon Dioxide Level 24 mmol/L (21-32) 26 mmol/L (21-32) Anion Gap 11 (6-14) 11 (6-14) Blood Urea Nitrogen 8 mg/dL (8-26) 9 mg/dL (8-26) Creatinine 0.8 mg/dL (0.7-1.3) 0.8 mg/dL (0.7-1.3) Estimated GFR (Cockcroft-Gault) 108.8 108.8 Glucose Level 93 mg/dL (70-99) 82 mg/dL (70-99) Calcium Level 8.6 mg/dL (8.5-10.1) 8.9 mg/dL (8.5-10.1) Phosphorus Level 2.9 mg/dL (2.6-4.7) Albumin 2.5 g/dL (3.4-5.0) 2.5 g/dL (3.4-5.0) SARS-CoV-2 RNA (EMMANUELLE) Negative (Negative) White Blood Count 8.1 x10^3/uL (4.0-11.0) Red Blood Count 4.31 x10^6/uL (4.30-5.70) Hemoglobin 13.7 g/dL (13.0-17.5) Hematocrit 40.5 % (39.0-53.0) Mean Corpuscular Volume 94 fL (79-100) Mean Corpuscular Hemoglobin 32 pg (25-35) Mean Corpuscular Hemoglobin Concent 34 g/dL (31-37) Red Cell Distribution Width 14.4 % (11.5-14.5) Platelet Count 424 x10^3/uL (140-400) Neutrophils (%) (Auto) 66 % (31-73) Lymphocytes (%) (Auto) 13 % (24-48) Monocytes (%) (Auto) 16 % (0-9) Eosinophils (%) (Auto) 4 % (0-3) Basophils (%) (Auto) 1 % (0-3) Neutrophils # (Auto) 5.4 x10^3/uL (1.8-7.7) Lymphocytes # (Auto) 1.0 x10^3/uL (1.0-4.8) Monocytes # (Auto) 1.3 x10^3/uL (0.0-1.1) Eosinophils # (Auto) 0.3 x10^3/uL (0.0-0.7) Basophils # (Auto) 0.1 x10^3/uL (0.0-0.2) BUN/Creatinine Ratio 11 (6-20) Total Bilirubin 0.5 mg/dL (0.2-1.0) Aspartate Amino Transf (AST/SGOT) 29 U/L (15-37) Alanine Aminotransferase (ALT/SGPT) 32 U/L (16-63) Alkaline Phosphatase 83 U/L (46-116) Total Protein 7.1 g/dL (6.4-8.2) Albumin/Globulin Ratio 0.5 (1.0-1.7) Laboratory Tests Test 09/02/20 05:55 White Blood Count 8.1 x10^3/uL (4.0-11.0) Red Blood Count 4.31 x10^6/uL (4.30-5.70) Hemoglobin 13.7 g/dL (13.0-17.5) Hematocrit 40.5 % (39.0-53.0) Mean Corpuscular Volume 94 fL (79-100) Mean Corpuscular Hemoglobin 32 pg (25-35) Mean Corpuscular Hemoglobin Concent 34 g/dL (31-37) Red Cell Distribution Width 14.4 % (11.5-14.5) Platelet Count 424 x10^3/uL (140-400) Neutrophils (%) (Auto) 66 % (31-73) Lymphocytes (%) (Auto) 13 % (24-48) Monocytes (%) (Auto) 16 % (0-9) Eosinophils (%) (Auto) 4 % (0-3) Basophils (%) (Auto) 1 % (0-3) Neutrophils # (Auto) 5.4 x10^3/uL (1.8-7.7) Lymphocytes # (Auto) 1.0 x10^3/uL (1.0-4.8) Monocytes # (Auto) 1.3 x10^3/uL (0.0-1.1) Eosinophils # (Auto) 0.3 x10^3/uL (0.0-0.7) Basophils # (Auto) 0.1 x10^3/uL (0.0-0.2) Sodium Level 140 mmol/L (136-145) Potassium Level 3.7 mmol/L (3.5-5.1) Chloride Level 103 mmol/L (98-107) Carbon Dioxide Level 26 mmol/L (21-32) Anion Gap 11 (6-14) Blood Urea Nitrogen 9 mg/dL (8-26) Creatinine 0.8 mg/dL (0.7-1.3) Estimated GFR (Cockcroft-Gault) 108.8 BUN/Creatinine Ratio 11 (6-20) Glucose Level 82 mg/dL (70-99) Calcium Level 8.9 mg/dL (8.5-10.1) Total Bilirubin 0.5 mg/dL (0.2-1.0) Aspartate Amino Transf (AST/SGOT) 29 U/L (15-37) Alanine Aminotransferase (ALT/SGPT) 32 U/L (16-63) Alkaline Phosphatase 83 U/L (46-116) Total Protein 7.1 g/dL (6.4-8.2) Albumin 2.5 g/dL (3.4-5.0) Albumin/Globulin Ratio 0.5 (1.0-1.7) Medications Current Medications Sodium Chloride 1,000 ml @ 100 mls/hr Q10H IV Last administered on 08/27/20at 23:20; Start 08/27/20 at 21:30; Stop 08/28/20 at 07:29; Status DC Ondansetron HCl (Zofran) 4 mg PRN Q6HRS PRN IVP NAUSEA/VOMITING; Start 08/27/20 at 21:30 Acetaminophen (Tylenol) 650 mg PRN Q6HRS PRN PO Headaches, Temp > 101.5F Last administered on 08/30/20at 04:50; Start 08/27/20 at 21:30 Senna/Docusate Sodium (Senna Plus) 1 tab BID PO Last administered on 09/01/20at 20:37; Start 08/28/20 at 09:00 Magnesium Hydroxide (Milk Of Magnesia) 2,400 mg PRN Q12HR PRN PO CONSTIPATION; Start 08/27/20 at 21:30 Multivitamins (Thera M Plus) 1 tab DAILY PO Last administered on 09/02/20at 08:37; Start 09/01/20 at 09:00 Folic Acid (Folic Acid) 1 mg DAILY PO Last administered on 09/02/20at 08:38; Start 08/29/20 at 09:00 Thiamine Mononitrate (Vitamin B-1) 100 mg DAILY PO ; Start 09/01/20 at 09:00; Stop 08/28/20 at 11:38; Status DC Lorazepam (Ativan) 1 mg PRN Q1HR PRN PO For CIWA 8-14; Start 08/27/20 at 21:30 Lorazepam (Ativan) 2 mg PRN Q1HR PRN PO For CIWA 15 or greater Last administered on 08/30/20at 12:47; Start 08/27/20 at 21:30 Lorazepam (Ativan Inj) 1 mg PRN Q1HR PRN IV For CIWA 8-14 Last administered on 09/01/20at 00:07; Start 08/27/20 at 21:30 Lorazepam (Ativan Inj) 2 mg PRN Q1HR PRN IV For CIWA 15 or greater Last administered on 08/29/20at 12:36; Start 08/27/20 at 21:30 Haloperidol Lactate (Haldol Inj) 5 mg PRN Q4HRS PRN IVP Hallucinatns,Confusn,Delirium; Start 08/27/20 at 21:30 Diphenhydramine HCl (Benadryl) 25 mg PRN Q15MIN PRN IVP EPS symptoms 2'Haldol admin; Start 08/27/20 at 21:30 Clonidine HCl (Catapres) 0.1 mg PRN Q1HR PRN PO SBP > 180 or DBP > 100, MRX3 Last administered on 08/31/20at 10:52; Start 08/27/20 at 21:30 Gabapentin (Neurontin) 300 mg TID PO Last administered on 09/02/20at 14:16; Start 08/27/20 at 21:30 Trazodone HCl (Desyrel) 50 mg PRN QHS PRN PO Sleep/depression; Start 08/27/20 at 21:30 Ziprasidone (Geodon) 20 mg QHS PO Last administered on 09/01/20at 20:31; Start 08/27/20 at 21:30 Amlodipine Besylate (Norvasc) 10 mg DAILY PO Last administered on 08/28/20at 08:07; Start 08/28/20 at 09:00; Stop 08/28/20 at 09:53; Status DC Hydralazine HCl (Apresoline Inj) 10 mg PRN Q4HRS PRN IVP ELEVATED BP, SEE COMMENTS Last administered on 08/30/20at 04:49; Start 08/28/20 at 10:00 Lisinopril (Prinivil) 40 mg DAILY PO Last administered on 09/02/20at 08:38; Start 08/28/20 at 10:00 Amlodipine Besylate (Norvasc) 5 mg BID PO Last administered on 09/02/20at 08:37; Start 08/29/20 at 09:00 Multivitamins 10 ml/Thiamine HCl 100 mg/Folic Acid 1 mg/Sodium Chloride 1,011.2 ml @ 100 mls/ hr DAILY IV ; Start 08/28/20 at 10:30; Stop 08/28/20 at 11:38; Status DC Thiamine HCl 100 mg/Dextrose 51 ml @ 102 mls/hr TID IV Last administered on 09/01/20at 20:31; Start 08/28/20 at 14:00; Stop 09/02/20 at 03:59; Status DC Lisinopril (Prinivil) 5 mg BID PO Last administered on 08/31/20at 07:53; Start 08/29/20 at 12:30; Stop 08/31/20 at 13:56; Status DC Potassium Chloride (Klor-Con) 40 meq 1X ONCE PO Last administered on 08/29/20at 12:35; Start 08/29/20 at 12:30; Stop 08/29/20 at 12:31; Status DC Potassium Chloride (Klor-Con) 20 meq [id number] PO Last administered on 09/02/20at 08:38; Start 08/30/20 at 08:00 Multivitamins 10 ml/Thiamine HCl 100 mg/Folic Acid 1 mg/Sodium Chloride 1,011.2 ml @ 1,000.088 mls/hr 1X ONCE IV Last administered on 08/30/20at 09:47; Start 08/30/20 at 11:00; Stop 08/30/20 at 12:00; Status DC Sodium Chloride 1,000 ml @ 100 mls/hr Q10H IV Last administered on 09/01/20at 20:31; Start 08/30/20 at 12:00; Stop 09/02/20 at 11:14; Status DC Multivitamins 10 ml/Thiamine HCl 100 mg/Folic Acid 1 mg/Sodium Chloride 1,011.2 ml @ 1,000.088 mls/hr DAILY IV Last administered on 08/31/20at 10:30; Start 08/31/20 at 09:00; Stop 08/31/20 at 12:45; Status DC Clonidine HCl (Catapres Tts-2) 1 patch WEEKLY TD Last administered on 08/31/20at 14:06; Start 08/31/20 at 13:00 Thiamine Mononitrate (Vitamin B-1) 100 mg TID PO Last administered on 09/02/20at 14:16; Start 09/02/20 at 09:00 Active Scripts Active Chlordiazepoxide Hcl 25 Mg Capsule 25 Mg PO UD Day #1: Take 50mg PO QID Day #2: Take 50mg PO BID Day #3: Take 25mg PO BID Day #4: Take 25mg PO QHS Lisinopril 40 Mg Tablet 40 Mg PO DAILY 30 Days Amlodipine Besylate 10 Mg Tablet 10 Mg PO DAILY 30 Days [place] 5-325 Tablet (Acetaminophen/Hydrocodone Bitart) 1 Each Tablet 1-2 Tab PO Q4-6HRS Ultram (Tramadol Hcl) 50 Mg Tablet 1 Tab PO PRN Q6HRS PRN MDD 4 Tablet(s) 7 Days Hydrocodone-Apap 5-325 (Hydrocodone Bit/Acetaminophen) 1 Tab Tablet 0.5-1 Tab PO PRN Q6HRS PRN Keflex (Cephalexin) 500 Mg Capsule 500 Mg PO QID 7 Days Bactrim Ds Tablet (Sulfamethoxazole/Trimethoprim) 1 Each Tablet 2 Each PO Q12HR 7 Days Doxycycline Hyclate 100 Mg Capsule 1 Cap PO BID 10 Days [place] 5-325 Tablet (Acetaminophen/Hydrocodone Bitart) 1 Each Tablet 1-2 Tab PO Q6HRS Vitals/I & O Vital Sign - Last 24 Hours 09/01/20 09/01/20 09/01/20 09/01/20 15:00 19:00 20:00 20:31 Temp 98.7 98.7 98.7 98.7 Pulse 77 66 66 Resp 18 18 B/P (MAP) 120/64 (82) 145/93 (110) 145/93 Pulse Ox 93 96 O2 Delivery Room Air Room Air Room Air 09/01/20 09/02/20 09/02/20 09/02/20 22:44 03:00 07:00 08:30 Temp 98.8 99.6 99.2 98.8 99.6 99.2 Pulse 71 82 79 Resp 18 18 18 B/P (MAP) 160/99 (119) 159/97 (117) 177/97 (123) Pulse Ox 98 97 94 O2 Delivery Room Air Room Air Room Air 09/02/20 09/02/20 09/02/20 08:37 08:38 11:00 Temp 98.6 98.6 Pulse 82 82 88 Resp 18 B/P (MAP) 159/97 159/97 146/88 (107) Pulse Ox 95 Intake and Output 09/01/20 09/01/20 09/02/20 15:00 23:00 07:00 Intake Total 300 ml 350 ml 0 ml Balance 300 ml 350 ml 0 ml Justicifation of Admission Dx: Justifications for Admission: Justification of Admission Dx: Yes Angina: Symp at Rest ЕКАТЕРИНА CAAL MD September 02, 2020 14:31
[2020-09-02 15:00] VITALS: BP 162/98
[2020-09-02 19:00] VITALS: BP 148/91
[2020-09-02] MEDS: ZIPRASIDONE 20 MG CAPSULE PO SCH (21:34)
[2020-09-02 23:00] VITALS: BP 149/94
[2020-09-03 03:00] VITALS: BP 149/72
[2020-09-03 07:00] VITALS: BP 144/85
[2020-09-03] MEDS: GABAPENTIN 300 MG CAPSULE. PO SCH ×3 (08:56→21:22)
[2020-09-03] MEDS: THIAMINE 100 MG TABLET. PO SCH ×3 (08:56→21:20)
[2020-09-03] MEDS: LISINOPRIL 20 MG TABLET PO SCH (08:56)
[2020-09-03] MEDS: POTASSIUM CHLORIDE 20 MEQ TABLET.ER. PO SCH (08:56)
[2020-09-03] MEDS: FOLIC ACID 1 MG TABLET. PO SCH (08:56)
[2020-09-03] MEDS: MULTIVITAMIN with MINERAL TABLET. PO SCH (08:57)
[2020-09-03] MEDS: amLODIPine BESYLATE 5 MG TABLET PO SCH ×2 (08:57→21:21)
[2020-09-03] MEDS: SENNOSIDES/DOCUSATE 8.6/50MG TABLET. PO SCH ×2 (08:59→21:00)
[2020-09-03] MEDS: ACETAMINOPHEN 325 MG TABLET. PO PRN (08:59)
--- NOTE | 2020-09-03 09:54 | PDOC ---
PROGRESS NOTES Date of Service: DATE: 09/03/20 TIME: 09:52 Chief Complaint Chief Complaint VTE Prophylaxis Ordered VTE Prophylaxis Devices: No VTE Pharmacological Prophylaxi: No Assessment/Plan IMPRESSION A/P: Acute alcohol withdrawal with delerium - REBEL. PAT consult. Thiamine, folic acid. Add gabapentin, prn clonidine. May need acamprosate or depade/vivitrol outpatient therapy Bipolar disorder - notes prior psychiatric hospitalization started on depakote, but compliance was difficult Hypertension - will monitor, needs ambulatory monitoring for titrating meds, but based on history has been treated with amlodipine Thrombocytopenia - likely due to heavy alcohol use and bone marrow suppression uncontrolled hypertension Family history of very early onset alzheimers and early onset cardiac disease H/o gout - monitor uric acid Heavy ETOH use - CIWA scale. 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 Probable old fractures of the superior to inferior pubic ramus. 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 09-03 ALERT NAD NO TREMOR , less confused d/w rn GI CONSULT Ammonia level BP CONTROLLED change norvasc to 5 mg po bid ADD LISINOPRIL 5 MG PO BID , PRN IV HYDRALAZINE neurology consult receiving thiamine iv high dose to prevent damage from Wernicke or Korsakoff sy ndrome. Acute alcohol withdrawal with josephum - REBEL. PAT consult. Thiamine, folic acid. Add gabapentin, prn clonidine. May need acamprosate or depade/vivitrol outpatient therapy Bipolar disorder - notes prior psychiatric hospitalization started on d epakote, but compliance was difficult NEEDs INPATIENT REHAB D/W BY PHONE [phone] Discharge Recommendations * Acute Rehab facility * * * D/C PLANNING 34 MIN 5-20 PAT CONSULT today, less confused d/w rn GI CONSULT Ammonia level BP CONTROLLED change norvasc to 5 mg po bid ADD LISINOPRIL 5 MG PO BID , PRN IV HYDRALAZINE neurology consult receiving thiamine iv high dose to prevent damage from Wernicke or Korsakoff syndrome. Acute alcohol withdrawal with delerium - CIWA. PAT consult. Thiamine, folic acid. Add gabapentin, prn clonidine. May need acamprosate or depade/vivitrol outpatient therapy Bipolar disorder - notes prior psychiatric hospitalization started on depakote, but compliance was difficult NEEDs INPATIENT REHAB D/W BY PHONE [phone] Discharge Recommendations * Acute Rehab facility 5-19 PAT CONSULT today, less confused GI CONSULT Ammonia level BP CONTROLLED change norvasc to 5 mg po bid ADD LISINOPRIL 5 MG PO BID , PRN IV HYDRALAZINE neurology consult receiving thiamine iv high dose to prevent damage from Wernicke or Korsakoff syndrome. Acute alcohol withdrawal with delerium - CIWA. PAT consult. Thiamine, folic acid. Add gabapentin, prn clonidine. May need acamprosate or depade/vivitrol outpatient therapy Bipolar disorder - notes prior psychiatric hospitalization started on depakote, but compliance was difficult NEEDs INPATIENT REHAB D/W BY PHONE [phone] left message 29 min pt exam, chart review, > 50% of time spent with exam, chart review, pt care coordination 5-18 PAT CONSULT GI CONSULT Ammonia level BP UNCONTROLLED change norvasc to 5 mg po bid ADD LISINOPRIL 5 MG PO BID , PRN IV HYDRALAZINE neurology consult receiving thiamine iv high dose to prevent damage from Wernicke or Korsakoff syndrome. Acute alcohol withdrawal with delerium - CIWA. PAT consult. Thiamine, folic acid. Add gabapentin, prn clonidine. May need acamprosate or depade/vivitrol outpatient therapy Bipolar disorder - notes prior psychiatric hospitalization started on depakote, but compliance was difficult MAY NEED INPATIENT REHAB D/W BY PHONE [phone] 27 min pt exam, chart review, > 50% of time spent with exam, chart review, pt care coordination 5-17 PAT CONSULT GI CONSULT Ammonia level BP UNCONTROLLED change norvasc to 5 mg po bid ADD LISINOPRIL 5 MG PO BID , PRN IV HYDRALAZINE neurology consult receiving thiamine iv high dose to prevent damage from Wernicke or Korsakoff syndrome. Acute alcohol withdrawal with delerium - CIWA. PAT consult. Thiamine, folic acid. Add gabapentin, prn clonidine. May need acamprosate or depade/vivitrol outpatient therapy Bipolar disorder - notes prior psychiatric hospitalization started on depakote, but compliance was difficult 29 min pt exam, chart review, > 50% of time spent with exam, chart review, pt care coordination 5-16 PAT CONSULT GI CONSULT Ammonia level BP UNCONTROLLED change norvasc to 5 mg po bid ADD LISINOPRIL 5 MG PO BID , PRN IV HYDRALAZINE neurology consult receiving thiamine iv high dose to prevent damage from Wernicke or Korsakoff syndrome. Acute alcohol withdrawal with delerium - CIWA. PAT consult. Thiamine, folic acid. Add gabapentin, prn clonidine. May need acamprosate or depade/vivitrol outpatient therapy Bipolar disorder - notes prior psychiatric hospitalization started on depakote, but compliance was difficult 39 min pt exam, chart review, > 50% of time spent with exam, chart review, pt care coordination History of Present Illness History of Present Illness dentification/Chief Complaint Chief Complaint Delerium trem Source Source: Caregiver, Chart review, Patient History of Present Illness History of Present Illness Mr Finch is a 35-year-old male with PMHx elevated blood pressure without dx of HTN, ETOH use, gout who is presenting accepted as a direct admission from [facility]. He was seen on Sunday08/22/2020 intoxicated looking for alcohol withdrawal treatment was referred to [facility] and subsequently taken to [facility] but his withdrawal symptoms were not well controlled or manageable in residential treatment setting and therefore he was transferred to [facility] for inpatient treatment of delirium tremens. He was given phenobarbitol and valium treatment, continued to be difficult to redirect, hallucinating, making staff feel unsafe and transferred to [facility] for further care. 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 EKG reviewed by myself is NSR with normal axis and RBBB. Chest x-ray is negative for acute pathology, troponin is normal, d-dimer is normal. 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 He does drink heavily and has sought treatment on a few occasions. He is especially concerned because of early cardiac disease in his father and paternal grandfather and early at age 44 for both of them, he notes this was due to very early onset of Alzheimer's dementia. He is not easy to redirect and confused. His is concerned about history of bipolar disorder that required inpatient treatment and depakote therapy at [facility] ([facility]) several years ago. Blood pressure noted in the 170s over low 100s. Afebrile on exam. Accepted at [facility] for further treatment of his alcohol withdrawal deleriu Past Medical History Cardiovascular: HTN Pulmonary: No pertinent hx CENTRAL NERVOUS SYSTEM: Other GI: No pertinent hx Heme/Onc: No pertinent hx Hepatobiliary: No pertinent hx Psych: Anxiety, Bipolar, Other Musculoskeletal: Osteoarthritis, Other Rheumatologic: No pertinent hx, Gout Infectious disease: No pertinent hx Endocrine: No pertinent hx Past Surgical History Past Surgical History: Other Family History Family History: Coronary Artery Disease Social History Smoke: No ALCOHOL: heavy Drugs: None, Cocaine (in remission) Current Medications Current Medications Current Medications Sodium Chloride 1,000 ml @ 100 mls/hr Q10H IV ; Start 08/27/20 at 21:30; Stop 08/28/20 at 07:29 Ondansetron HCl (Zofran) 4 mg PRN Q6HRS PRN IVP NAUSEA/VOMITING; Start 08/27/20 at 21:30 Acetaminophen (Tylenol) 650 mg PRN Q6HRS PRN PO Headaches, Temp > 101.5F; Start 08/27/20 at 21:30 Senna/Docusate Sodium (Senna Plus) 1 tab BID PO ; Start 08/28/20 at 09:00 Magnesium Hydroxide (Milk Of Magnesia) 2,400 mg PRN Q12HR PRN PO CONSTIPATION; Start 08/27/20 at 21:30 Multivitamins (Thera M Plus) 1 tab DAILY PO ; Start 09/01/20 at 09:00 Folic Acid (Folic Acid) 1 mg DAILY PO ; Start 09/01/20 at 09:00 Thiamine Mononitrate (Vitamin B-1) 100 mg DAILY PO ; Start 09/01/20 at 09:00 Lorazepam (Ativan) 1 mg PRN Q1HR PRN PO For CIWA 8-14; Start 08/27/20 at 21:30 Lorazepam (Ativan) 2 mg PRN Q1HR PRN PO For CIWA 15 or greater; Start 08/27/20 at 21:30 Lorazepam (Ativan Inj) 1 mg PRN Q1HR PRN IV For CIWA 8-14; Start 08/27/20 at 21:30 Lorazepam (Ativan Inj) 2 mg PRN Q1HR PRN IV For CIWA 15 or greater; Start 08/27/20 at 21:30 Haloperidol Lactate (Haldol Inj) 5 mg PRN Q4HRS PRN IVP Hallucinatns,Confusn,Delirium; Start 08/27/20 at 21:30 Diphenhydramine HCl (Benadryl) 25 mg PRN Q15MIN PRN IVP EPS symptoms 2'Haldol admin; Start 08/27/20 at 21:30 Clonidine HCl (Catapres) 0.1 mg PRN Q1HR PRN PO SBP > 180 or DBP > 100, MRX3; Start 08/27/20 at 21:30 Gabapentin (Neurontin) 300 mg TID PO ; Start 08/27/20 at 21:30 Trazodone HCl (Desyrel) 50 mg PRN QHS PRN PO Sleep/depression; Start 08/27/20 at 21:30 Ziprasidone (Geodon) 20 mg QHS PO ; Start 08/27/20 at 21:30 Active Scripts Active Chlordiazepoxide Hcl 25 Mg Capsule 25 Mg PO UD Day #1: Take 50mg PO QID Day #2: Take 50mg PO BID Day #3: Take 25mg PO BID Day #4: Take 25mg PO QHS Lisinopril 40 Mg Tablet 40 Mg PO DAILY 30 Days Amlodipine Besylate 10 Mg Tablet 10 Mg PO DAILY 30 Days [place] 5-325 Tablet (Acetaminophen/Hydrocodone Bitart) 1 Each Tablet 1-2 Tab PO Q4-6HRS Ultram (Tramadol Hcl) 50 Mg Tablet 1 Tab PO PRN Q6HRS PRN MDD 4 Tablet(s) 7 Days Hydrocodone-Apap 5-325 (Hydrocodone Bit/Acetaminophen) 1 Tab Tablet 0.5-1 Tab PO PRN Q6HRS PRN Keflex (Cephalexin) 500 Mg Capsule 500 Mg PO QID 7 Days Bactrim Ds Tablet (Sulfamethoxazole/Trimethoprim) 1 Each Tablet 2 Each PO Q12HR 7 Days Doxycycline Hyclate 100 Mg Capsule 1 Cap PO BID 10 Days [place] 5-325 Tablet (Acetaminophen/Hydrocodone Bitart) 1 Each Tablet 1-2 Tab PO Q6HRS Allergies Allergies: Coded Allergies: No Known Drug Allergies (Unverified , 06/13/18) ROS Review of System Unable to complete due to confusion General: YES: Fatigue, Malaise; No: Chills, Night Sweats, Appetite, Other PSYCHOLOGICAL ROS: No: Anxiety, Behavioral Disorder, Concentration difficultie, Decreased libido, Depression, Disorientation, Hallucinations, Hostility, Irritablity, Memory difficulties, Mood Swings, Obsessive thoughts, Physical abuse, Sexual abuse, Sleep disturbances, Suicidal ideation, Other Eyes: No Blurry vision, No Decreased vision, No Double vision, No Dry eyes, No Excessive tearing, No Eye Pain, No Itchy Eyes, No Loss of vision, No Photophobia, No Scotomata, No Uses contacts, No Uses glasses, No Other HEENT: No: Heacaches, Visual Changes, Hearing change, Nasal congestion, Nasal discharge, Oral lesions, Sinus pain, Sore Throat, Epistaxis, Sneezing, Snoring, Tinnitus, Vertigo, Vocal changes, Other ALLERGY AND IMMUNOLOGY: No: Hives, Insect Bite Sensitivity, Itchy/Watery Eyes, Nasal Congestion, Post Nasal Drip, Seasonal Allergies, Other Hematological and Lymphatic: No: Bleeding Problems, Blood Clots, Blood Transfusions, Brusing, Night Sweats, Pallor, Swollen Lymph Nodes, Other ENDOCRINE: No: Breast Changes, Galactorrhea, Hair Pattern Changes, Hot Flashes, Malaise/lethargy, Mood Swings, Palpitations, Polydipsia/polyuria, Skin Changes, Temperature Intolerance, Unexpected Weight Changes, Other Breast: No New/Changing Breast Lumps, No Nipple changes, No Nipple discharge, No Other Respiratory: No: Cough, Hemoptysis, Orthopnea, Pleuritic Pain, Shortness of breath, SOB with excertion, Sputum Changes, Stridor, Tachypnea, Wheezing, Other Cardiovascular: No Chest Pain, No Palpitations, No Orthopnea, No Paroxysmal Noc. Dyspnea, No Edema, No Lt Headedness, No Other Gastrointestinal: No Nausea, No Vomiting, No Abdominal Pain, No Diarrhea, No Constipation, No Melena, No Hematochezia, No Other Genitourinary: No Dysuria, No Frequency, No Incontinence, No Hematuria, No Retention, No Discharge, No Urgency, No Pain, No Flank Pain, No Other, No , No , No , No , No , No , No Musculoskeletal: Yes Joint Pain, Yes Joint Stiffness; No Gait Disturbance, No Joint Swelling, No Muscle Pain, No Muscular Weakness, No Pain In:, No Swelling In:, No Other Neurological: No Behavorial Changes, No Bowel/Bladder ControlChng, No Confusion, No Dizziness, No Gait Disturbance, No Headaches, No Impaired Coord/balance, No Memory Loss, No Numbness/Tingling, No Seizures, No Speech Problems, No Tremors, No Visual Changes, No Weakness, No Other Skin: No Dry Skin, No Eczema, No Hair Changes, No Lumps, No Mole Changes, No Mottling, No Nail Changes, No Pruritus, No Rash, No Skin Lesion Changes, No Other, No Acne Vitals Vitals Vital Signs Date Time Temp Pulse Resp B/P (MAP) Pulse Ox O2 Delivery O2 Flow Rate FiO2 09/03/20 08:57 93 144/85 09/03/20 07:00 100.9 18 97 100.9 09/03/20 03:00 Room Air Physical Exam Physical Exam disorented General: Alert, Oriented X3, Cooperative, No acute distress Heart: Regular rate, Normal S1, Normal S2 Lungs: Clear Abdomen: Normal bowel sounds, Soft, No tenderness, No hepatosplenomegaly, No masses Extremities: No clubbing, No cyanosis, No edema, Normal pulses, No tenderness/swelling Skin: No rashes, No breakdown, No significant lesion Comment Review of Relevant I have reviewed the following items semaj (where applicable) has been applied. Labs Laboratory Tests Test 09/01/20 11:09 09/02/20 05:55 SARS-CoV-2 RNA (EMMANUELLE) Negative (Negative) White Blood Count 8.1 x10^3/uL (4.0-11.0) Red Blood Count 4.31 x10^6/uL (4.30-5.70) Hemoglobin 13.7 g/dL (13.0-17.5) Hematocrit 40.5 % (39.0-53.0) Mean Corpuscular Volume 94 fL (79-100) Mean Corpuscular Hemoglobin 32 pg (25-35) Mean Corpuscular Hemoglobin Concent 34 g/dL (31-37) Red Cell Distribution Width 14.4 % (11.5-14.5) Platelet Count 424 x10^3/uL (140-400) Neutrophils (%) (Auto) 66 % (31-73) Lymphocytes (%) (Auto) 13 % (24-48) Monocytes (%) (Auto) 16 % (0-9) Eosinophils (%) (Auto) 4 % (0-3) Basophils (%) (Auto) 1 % (0-3) Neutrophils # (Auto) 5.4 x10^3/uL (1.8-7.7) Lymphocytes # (Auto) 1.0 x10^3/uL (1.0-4.8) Monocytes # (Auto) 1.3 x10^3/uL (0.0-1.1) Eosinophils # (Auto) 0.3 x10^3/uL (0.0-0.7) Basophils # (Auto) 0.1 x10^3/uL (0.0-0.2) Sodium Level 140 mmol/L (136-145) Potassium Level 3.7 mmol/L (3.5-5.1) Chloride Level 103 mmol/L (98-107) Carbon Dioxide Level 26 mmol/L (21-32) Anion Gap 11 (6-14) Blood Urea Nitrogen 9 mg/dL (8-26) Creatinine 0.8 mg/dL (0.7-1.3) Estimated GFR (Cockcroft-Gault) 108.8 BUN/Creatinine Ratio 11 (6-20) Glucose Level 82 mg/dL (70-99) Calcium Level 8.9 mg/dL (8.5-10.1) Total Bilirubin 0.5 mg/dL (0.2-1.0) Aspartate Amino Transf (AST/SGOT) 29 U/L (15-37) Alanine Aminotransferase (ALT/SGPT) 32 U/L (16-63) Alkaline Phosphatase 83 U/L (46-116) Total Protein 7.1 g/dL (6.4-8.2) Albumin 2.5 g/dL (3.4-5.0) Albumin/Globulin Ratio 0.5 (1.0-1.7) Medications Current Medications Sodium Chloride 1,000 ml @ 100 mls/hr Q10H IV Last administered on 08/27/20at 23:20; Start 08/27/20 at 21:30; Stop 08/28/20 at 07:29; Status DC Ondansetron HCl (Zofran) 4 mg PRN Q6HRS PRN IVP NAUSEA/VOMITING; Start 08/27/20 at 21:30 Acetaminophen (Tylenol) 650 mg PRN Q6HRS PRN PO Headaches, Temp > 101.5F Last administered on 09/03/20at 08:59; Start 08/27/20 at 21:30 Senna/Docusate Sodium (Senna Plus) 1 tab BID PO Last administered on 09/02/20at 21:34; Start 08/28/20 at 09:00 Magnesium Hydroxide (Milk Of Magnesia) 2,400 mg PRN Q12HR PRN PO CONSTIPATION; Start 08/27/20 at 21:30 Multivitamins (Thera M Plus) 1 tab DAILY PO Last administered on 09/03/20at 08:57; Start 09/01/20 at 09:00 Folic Acid (Folic Acid) 1 mg DAILY PO Last administered on 09/03/20at 08:56; Start 08/29/20 at 09:00 Thiamine Mononitrate (Vitamin B-1) 100 mg DAILY PO ; Start 09/01/20 at 09:00; Stop 08/28/20 at 11:38; Status DC Lorazepam (Ativan) 1 mg PRN Q1HR PRN PO For CIWA 8-14; Start 08/27/20 at 21:30 Lorazepam (Ativan) 2 mg PRN Q1HR PRN PO For CIWA 15 or greater Last administ ered on 08/30/20at 12:47; Start 08/27/20 at 21:30 Lorazepam (Ativan Inj) 1 mg PRN Q1HR PRN IV For CIWA 8-14 Last administered on 09/01/20at 00:07; Start 08/27/20 at 21:30 Lorazepam (Ativan Inj) 2 mg PRN Q1HR PRN IV For CIWA 15 or greater Last administered on 08/29/20at 12:36; Start 08/27/20 at 21:30 Haloperidol Lactate (Haldol Inj) 5 mg PRN Q4HRS PRN IVP Hallucinatns,Confusn,Delirium; Start 08/27/20 at 21:30 Diphenhydramine HCl (Benadryl) 25 mg PRN Q15MIN PRN IVP EPS symptoms 2'Haldol admin; Start 08/27/20 at 21:30 Clonidine HCl (Catapres) 0.1 mg PRN Q1HR PRN PO SBP > 180 or DBP > 100, MRX3 Last administered on 08/31/20at 10:52; Start 08/27/20 at 21:30 Gabapentin (Neurontin) 300 mg TID PO Last administered on 09/03/20at 08:56; Start 08/27/20 at 21:30 Trazodone HCl (Desyrel) 50 mg PRN QHS PRN PO Sleep/depression; Start 08/27/20 at 21:30 Ziprasidone (Geodon) 20 mg QHS PO Last administered on 09/02/20at 21:34; Start 08/27/20 at 21:30 Amlodipine Besylate (Norvasc) 10 mg DAILY PO Last administered on 08/28/20at 08:07; Start 08/28/20 at 09:00; Stop 08/28/20 at 09:53; Status DC Hydralazine HCl (Apresoline Inj) 10 mg PRN Q4HRS PRN IVP ELEVATED BP, SEE COMMENTS Last administered on 08/30/20at 04:49; Start 08/28/20 at 10:00 Lisinopril (Prinivil) 40 mg DAILY PO Last administered on 09/03/20at 08:56; Start 08/28/20 at 10:00 Amlodipine Besylate (Norvasc) 5 mg BID PO Last administered on 09/03/20at 08:57; Start 08/29/20 at 09:00 Multivitamins 10 ml/Thiamine HCl 100 mg/Folic Acid 1 mg/Sodium Chloride 1,011.2 ml @ 100 mls/ hr DAILY IV ; Start 08/28/20 at 10:30; Stop 08/28/20 at 11:38; Status DC Thiamine HCl 100 mg/Dextrose 51 ml @ 102 mls/hr TID IV Last administered on 09/01/20at 20:31; Start 08/28/20 at 14:00; Stop 09/02/20 at 03:59; Status DC Lisinopril (Prinivil) 5 mg BID PO Last administered on 08/31/20at 07:53; Start 08/29/20 at 12:30; Stop 08/31/20 at 13:56; Status DC Potassium Chloride (Klor-Con) 40 meq 1X ONCE PO Last administered on 08/29/20at 12:35; Start 08/29/20 at 12:30; Stop 08/29/20 at 12:31; Status DC Potassium Chloride (Klor-Con) 20 meq DAILYWBKFT PO Last administered on 09/03/20at 08:56; Start 08/30/20 at 08:00 Multivitamins 10 ml/Thiamine HCl 100 mg/Folic Acid 1 mg/Sodium Chloride 1,011.2 ml @ 1,000.088 mls/hr 1X ONCE IV Last administered on 08/30/20at 09:47; Start 08/30/20 at 11:00; Stop 08/30/20 at 12:00; Status DC Sodium Chloride 1,000 ml @ 100 mls/hr Q10H IV Last administered on 09/01/20at 20:31; Start 08/30/20 at 12:00; Stop 09/02/20 at 11:14; Status DC Multivitamins 10 ml/Thiamine HCl 100 mg/Folic Acid 1 mg/Sodium Chloride 1,011.2 ml @ 1,000.088 mls/hr DAILY IV Last administered on 08/31/20at 10:30; Start 08/31/20 at 09:00; Stop 08/31/20 at 12:45; Status DC Clonidine HCl (Catapres Tts-2) 1 patch WEEKLY TD Last administered on 08/31/20at 14:06; Start 08/31/20 at 13:00 Thiamine Mononitrate (Vitamin B-1) 100 mg TID PO Last administered on 09/03/20at 08:56; Start 09/02/20 at 09:00 Active Scripts Active Chlordiazepoxide Hcl 25 Mg Capsule 25 Mg PO UD Day #1: Take 50mg PO QID Day #2: Take 50mg PO BID Day #3: Take 25mg PO BID Day #4: Take 25mg PO QHS Lisinopril 40 Mg Tablet 40 Mg PO DAILY 30 Days Amlodipine Besylate 10 Mg Tablet 10 Mg PO DAILY 30 Days [place] 5-325 Tablet (Acetaminophen/Hydrocodone Bitart) 1 Each Tablet 1-2 Tab PO Q4-6HRS Ultram (Tramadol Hcl) 50 Mg Tablet 1 Tab PO PRN Q6HRS PRN MDD 4 Tablet(s) 7 Days Hydrocodone-Apap 5-325 (Hydrocodone Bit/Acetaminophen) 1 Tab Tablet 0.5-1 Tab PO PRN Q6HRS PRN Keflex (Cephalexin) 500 Mg Capsule 500 Mg PO QID 7 Days Bactrim Ds Tablet (Sulfamethoxazole/Trimethoprim) 1 Each Tablet 2 Each PO Q12HR 7 Days Doxycycline Hyclate 100 Mg Capsule 1 Cap PO BID 10 Days [place] 5-325 Tablet (Acetaminophen/Hydrocodone Bitart) 1 Each Tablet 1-2 Tab PO Q6HRS Vitals/I & O Vital Sign - Last 24 Hours 09/02/20 09/02/20 09/02/20 09/02/20 11:00 15:00 19:00 20:00 Temp 98.6 99.1 99.4 98.6 99.1 99.4 Pulse 88 76 83 Resp 18 18 20 B/P (MAP) 146/88 (107) 162/98 (119) 148/91 (110) Pulse Ox 95 94 96 O2 Delivery Room Air Room Air 09/02/20 09/02/20 09/03/20 09/03/20 21:34 23:00 03:00 07:00 Temp 100.0 100.7 100.9 100.0 100.7 100.9 Pulse 83 80 88 93 Resp 20 20 18 B/P (MAP) 148/91 149/94 (112) 149/72 (97) 144/85 (104) Pulse Ox 96 96 97 O2 Delivery Room Air Room Air 09/03/20 09/03/20 08:56 08:57 Pulse 93 93 B/P (MAP) 144/85 144/85 Intake and Output 09/02/20 09/02/20 09/03/20 15:00 23:00 07:00 Intake Total 200 ml 400 ml Balance 200 ml 400 ml Justicifation of Admission Dx: Justifications for Admission: Justification of Admission Dx: Yes Angina: Symp at Rest GREG OLGUIN MD September 03, 2020 09:53
--- NOTE | 2020-09-03 09:58 | PDOC3 ---
Discharge Summary Date of Admission: August 27, 2020 Date of Discharge: September 03, 2020 Follow-Up: 1-2 days Admitting Diagnosis comment: hospital course HPI History of Present Illness Mr Finch is a 35-year-old male with PMHx elevated blood pressure with dx of HTN, ETOH use, gout who is presenting accepted as a direct admission from [facility]. He was seen on Sunday08/22/2020 intoxicated looking for alcohol withdrawal treatment was referred to [facility] and subsequently taken to [facility] but his withdrawal symptoms were not well controlled or manageable in residential treatment setting and therefore he was transferred to [facility] for inpatient treatment of delirium tremens. He was given phenobarbitol and valium treatment, continued to be difficult to redirect, hallucinating, making staff feel unsafe and transferred [facility] care. 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 EKG reviewed by myself is NSR with normal axis and RBBB. Chest x-ray is negative for acute pathology, troponin is normal, d-dimer is normal. 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 He does drink heavily and has sought treatment on a few occasions. He is especially concerned because of early cardiac disease in his father and paternal grandfather and early at age 44 for both of them, he notes this was due to very early onset of Alzheimer's dementia. He is not easy to redirect and confused. His is concerned about history of bipolar disorder that required inpatient treatment and depakote therapy at [facility] ([facility]) several years ago. Blood pressure noted in the 170s over low 100s. Afebrile on exam. Accepted at [facility] for further treatment of his alcohol withdrawal delerium COMPLICATIONS NONE D/C CONDITION GOOD PROGNOSIS EXCELLENT WITH COMPLIANCE D/C MEDS SEE MAR TRANSFER TO INPATIENT REHAB [facility] DISCHARGE DX IMPRESSION Acute alcohol withdrawal with delerium - CIWA. PAT consult. Thiamine, folic acid. Add gabapentin, prn clonidine. May need acamprosate or depade/vivitrol outpatient therapy Bipolar disorder - notes prior psychiatric hospitalization started on depakote, but compliance was difficult Hypertension - will monitor, needs ambulatory monitoring for titrating meds, but based on history has been treated with amlodipine Thrombocytopenia - likely due to heavy alcohol use and bone marrow suppression uncontrolled hypertension Family history of very early onset alzheimers and early onset cardiac disease H/o gout - monitor uric acid Heavy ETOH use - CIWA scale. 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 Probable old fractures of the superior to inferior pubic ramus. 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 5-21 ALERT NAD NO TREMOR , less confused d/w rn GI CONSULT Ammonia level BP CONTROLLED change norvasc to 5 mg po bid ADD LISINOPRIL 5 MG PO BID , PRN IV HYDRALAZINE neurology consult receiving thiamine iv high dose to prevent damage from Wernicke or Korsakoff syndrome. Acute alcohol withdrawal with delerium - CIWA. PAT consult. Thiamine, folic acid. Add gabapentin, prn clonidine. May need acamprosate or depade/vivitrol outpatient therapy Bipolar disorder - notes prior psychiatric hospitalization started on depakote, but compliance was difficult NEEDs INPATIENT REHAB D/W BY PHONE [phone] Discharge Recommendations * Acute Rehab facility * * * D/C PLANNING 34 MIN 5-20 PAT CONSULT today, less confused d/w rn GI CONSULT Ammonia level BP CONTROLLED change norvasc to 5 mg po bid ADD LISINOPRIL 5 MG PO BID , PRN IV HYDRALAZINE neurology consult receiving thiamine iv high dose to prevent damage from Wernicke or Korsakoff syndrome. Acute alcohol withdrawal with delerium - REBEL. PAT consult. Thiamine, folic acid. Add gabapentin, prn clonidine. May need acamprosate or depade/vivitrol outpatient therapy Bipolar disorder - notes prior psychiatric hospitalization started on depakote, but compliance was difficult NEEDs INPATIENT REHAB D/W BY PHONE [phone] Discharge Recommendations * Acute Rehab facility 5-19 PAT CONSULT today, less confused GI CONSULT Ammonia level BP CONTROLLED change norvasc to 5 mg po bid ADD LISINOPRIL 5 MG PO BID , PRN IV HYDRALAZINE neurology consult receiving thiamine iv high dose to prevent damage from Wernicke or Korsakoff syndrome. Acute alcohol withdrawal with delerium - REBEL. PAT consult. Thiamine, folic acid. Add gabapentin, prn clonidine. May need acamprosate or depade/vivitrol outpatient therapy Bipolar disorder - notes prior psychiatric hospitalization started on depakote, but compliance was difficult NEEDs INPATIENT REHAB D/W BY PHONE [phone] left message 29 min pt exam, chart review, > 50% of time spent with exam, chart review, pt care coordination 08-31 PAT CONSULT GI CONSULT Ammonia level BP UNCONTROLLED change norvasc to 5 mg po bid ADD LISINOPRIL 5 MG PO BID , PRN IV HYDRALAZINE neurology consult receiving thiamine iv high dose to prevent damage from Wernicke or Korsakoff syndrome. Acute alcohol withdrawal with delerium - REBEL. PAT consult. Thiamine, folic acid. Add gabapentin, prn clonidine. May need acamprosate or depade/vivitrol outpatient therapy Bipolar disorder - notes prior psychiatric hospitalization started on depakote, but compliance was difficult MAY NEED INPATIENT REHAB D/W BY PHONE [phone] 27 min pt exam, chart review, > 50% of time spent with exam, chart review, pt care coordination - PAT CONSULT GI CONSULT Ammonia level BP UNCONTROLLED change norvasc to 5 mg po bid ADD LISINOPRIL 5 MG PO BID , PRN IV HYDRALAZINE neurology consult receiving thiamine iv high dose to prevent damage from Wernicke or Korsakoff syndrome. Acute alcohol withdrawal with delerium - REBEL. PAT consult. Thiamine, folic acid. Add gabapentin, prn clonidine. May need acamprosate or depade/vivitrol outpatient therapy Bipolar disorder - notes prior psychiatric hospitalization started on depakote, but compliance was difficult 29 min pt exam, chart review, > 50% of time spent with exam, chart review, pt care coordination 5-16 PAT CONSULT GI CONSULT Ammonia level BP UNCONTROLLED change norvasc to 5 mg po bid ADD LISINOPRIL 5 MG PO BID , PRN IV HYDRALAZINE neurology consult receiving thiamine iv high dose to prevent damage from Wernicke or Korsakoff syn drome. Acute alcohol withdrawal with delerium - CIWA. PAT consult. Thiamine, folic acid. Add gabapentin, prn clonidine. May need acamprosate or depade/vivitrol outpatient therapy Bipolar disorder - notes prior psychiatric hospitalization started on de pakote, but compliance was difficult 39 min pt exam, chart review, > 50% of time spent with exam, chart review, pt care coordination History of Present Illness History of Present Illness dentification/Chief Complaint Chief Complaint Fabianrijulisa stauffer Source Source: Caregiver, Chart review, Patient History of Present Illness History of Present Illness Mr Finch is a 35-year-old male with PMHx elevated blood pressure without dx of HTN, ETOH use, gout who is presenting accepted as a direct admission from [facility]. He was seen on Sunday08/22/2020 intoxicated looking for alcohol withdrawal treatment was referred to [facility] and subsequently taken to [facility] but his withdrawal symptoms were not well controlled or manageable in residential treatment setting and therefore he was transferred to [facility] for inpatient treatment of delirium tremens. He was given phenobarbitol and valium treatment, continued to be difficult to redirect, hallucinating, making staff feel unsafe and transferred to [facility] for further care. 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 EKG reviewed by myself is NSR with normal axis and RBBB. Chest x-ray is negative for acute pathology, troponin is normal, d-dimer is normal. 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 He does drink heavily and has sought treatment on a few occasions. He is especially concerned because of early cardiac disease in his father and paternal grandfather and early at age 44 for both of them, he notes this was due to very early onset of Alzheimer's dementia. He is not easy to redirect and confused. His is concerned about history of bipolar disorder that required inpatient treatment and depakote therapy at [facility] ([facility]) several years ago. Blood pressure noted in the 170s over low 100s. Afebrile on exam. Accepted at [facility] for further treatment of his alcohol withdrawal deleriu Past Medical History Cardiovascular: HTN Pulmonary: No pertinent hx CENTRAL NERVOUS SYSTEM: Other GI: No pertinent hx Heme/Onc: No pertinent hx Hepatobiliary: No pertinent hx Psych: Anxiety, Bipolar, Other Musculoskeletal: Osteoarthritis, Other Rheumatologic: No pertinent hx, Gout Infectious disease: No pertinent hx Endocrine: No pertinent hx Past Surgical History Past Surgical History: Other Family History Family History: Coronary Artery Disease Social History Smoke: No ALCOHOL: heavy Drugs: None, Cocaine (in remission) Current Medications Current Medications Current Medications Sodium Chloride 1,000 ml @ 100 mls/hr Q10H IV ; Start 08/27/20 at 21:30; Stop 08/28/20 at 07:29 Ondansetron HCl (Zofran) 4 mg PRN Q6HRS PRN IVP NAUSEA/VOMITING; Start 08/27/20 at 21:30 Acetaminophen (Tylenol) 650 mg PRN Q6HRS PRN PO Headaches, Temp > 101.5F; Start 08/27/20 at 21:30 Senna/Docusate Sodium (Senna Plus) 1 tab BID PO ; Start 08/28/20 at 09:00 Magnesium Hydroxide (Milk Of Magnesia) 2,400 mg PRN Q12HR PRN PO CONSTIPATION; Start 08/27/20 at 21:30 Multivitamins (Thera M Plus) 1 tab DAILY PO ; Start 09/01/20 at 09:00 Folic Acid (Folic Acid) 1 mg DAILY PO ; Start 09/01/20 at 09:00 Thiamine Mononitrate (Vitamin B-1) 100 mg DAILY PO ; Start 09/01/20 at 09:00 Lorazepam (Ativan) 1 mg PRN Q1HR PRN PO For CIWA 8-14; Start 08/27/20 at 21:30 Lorazepam (Ativan) 2 mg PRN Q1HR PRN PO For CIWA 15 or greater; Start 08/27/20 at 21:30 Lorazepam (Ativan Inj) 1 mg PRN Q1HR PRN IV For CIWA 8-14; Start 08/27/20 at 21:30 Lorazepam (Ativan Inj) 2 mg PRN Q1HR PRN IV For CIWA 15 or greater; Start 08/27/20 at 21:30 Haloperidol Lactate (Haldol Inj) 5 mg PRN Q4HRS PRN IVP Hallucinatns,Confusn,Delirium; Start 08/27/20 at 21:30 Diphenhydramine HCl (Benadryl) 25 mg PRN Q15MIN PRN IVP EPS symptoms 2'Haldol admin; Start 08/27/20 at 21:30 Clonidine HCl (Catapres) 0.1 mg PRN Q1HR PRN PO SBP > 180 or DBP > 100, MRX3; Start 08/27/20 at 21:30 Gabapentin (Neurontin) 300 mg TID PO ; Start 08/27/20 at 21:30 Trazodone HCl (Desyrel) 50 mg PRN QHS PRN PO Sleep/depression; Start 08/27/20 at 21:30 Ziprasidone (Geodon) 20 mg QHS PO ; Start 08/27/20 at 21:30 Active Scripts Active Chlordiazepoxide Hcl 25 Mg Capsule 25 Mg PO UD Day #1: Take 50mg PO QID Day #2: Take 50mg PO BID Day #3: Take 25mg PO BID Day #4: Take 25mg PO QHS Lisinopril 40 Mg Tablet 40 Mg PO DAILY 30 Days Amlodipine Besylate 10 Mg Tablet 10 Mg PO DAILY 30 Days [place] 5-325 Tablet (Acetaminophen/Hydrocodone Bitart) 1 Each Tablet 1-2 Tab PO Q4-6HRS Ultram (Tramadol Hcl) 50 Mg Tablet 1 Tab PO PRN Q6HRS PRN MDD 4 Tablet(s) 7 Days Hydrocodone-Apap 5-325 (Hydrocodone Bit/Acetaminophen) 1 Tab Tablet 0.5-1 Tab PO PRN Q6HRS PRN Keflex (Cephalexin) 500 Mg Capsule 500 Mg PO QID 7 Days Bactrim Ds Tablet (Sulfamethoxazole/Trimethoprim) 1 Each Tablet 2 Each PO Q12HR 7 Days Doxycycline Hyclate 100 Mg Capsule 1 Cap PO BID 10 Days [place] 5-325 Tablet (Acetaminophen/Hydrocodone Bitart) 1 Each Tablet 1-2 Tab PO Q6HRS Allergies Allergies: Coded Allergies: No Known Drug Allergies (Unverified , 06/13/18) ROS Review of System Unable to complete due to confusion General: YES: Fatigue, Malaise; No: Chills, Night Sweats, Appetite, Other PSYCHOLOGICAL ROS: No: Anxiety, Behavioral Disorder, Concentration difficultie, Decreased libido, Depression, Disorientation, Hallucinations, Hostility, Irritablity, Memory difficulties, Mood Swings, Obsessive thoughts, Physical abuse, Sexual abuse, Sleep disturbances, Suicidal ideation, Other Eyes: No Blurry vision, No Decreased vision, No Double vision, No Dry eyes, No Excessive tearing, No Eye Pain, No Itchy Eyes, No Loss of vision, No Photophobia, No Scotomata, No Uses contacts, No Uses glasses, No Other HEENT: No: Heacaches, Visual Changes, Hearing change, Nasal congestion, Nasal discharge, Oral lesions, Sinus pain, Sore Throat, Epistaxis, Sneezing, Snoring, Tinnitus, Vertigo, Vocal changes, Other ALLERGY AND IMMUNOLOGY: No: Hives, Insect Bite Sensitivity, Itchy/Watery Eyes, Nasal Congestion, Post Nasal Drip, Seasonal Allergies, Other Hematological and Lymphatic: No: Bleeding Problems, Blood Clots, Blood Transfusions, Brusing, Night Sweats, Pallor, Swollen Lymph Nodes, Other ENDOCRINE: No: Breast Changes, Galactorrhea, Hair Pattern Changes, Hot Flashes, Malaise/lethargy, Mood Swings, Palpitations, Polydipsia/polyuria, Skin Changes, Temperature Intolerance, Unexpected Weight Changes, Other Breast: No New/Changing Breast Lumps, No Nipple changes, No Nipple discharge, No Other Respiratory: No: Cough, Hemoptysis, Orthopnea, Pleuritic Pain, Shortness of breath, SOB with excertion, Sputum Changes, Stridor, Tachypnea, Wheezing, Other Cardiovascular: No Chest Pain, No Palpitations, No Orthopnea, No Paroxysmal Noc. Dyspnea, No Edema, No Lt Headedness, No Other Gastrointestinal: No Nausea, No Vomiting, No Abdominal Pain, No Diarrhea, No Constipation, No Melena, No Hematochezia, No Other Genitourinary: No Dysuria, No Frequency, No Incontinence, No Hematuria, No Retention, No Discharge, No Urgency, No Pain, No Flank Pain, No Other, No , No , No , No , No , No , No Musculoskeletal: Yes Joint Pain, Yes Joint Stiffness; No Gait Disturbance, No Joint Swelling, No Muscle Pain, No Muscular Weakness, No Pain In:, No Swelling In:, No Other Neurological: No Behavorial Changes, No Bowel/Bladder ControlChng, No Confusion, No Dizziness, No Gait Disturbance, No Headaches, No Impaired C oord/balance, No Memory Loss, No Numbness/Tingling, No Seizures, No Speech Problems, No Tremors, No Visual Changes, No Weakness, No Other Skin: No Dry Skin, No Eczema, No Hair Changes, No Lumps, No Mole Changes, No Mottling, No Nail Changes, No Pruritus, No Rash, No Skin Lesion Changes, No Other, No Acne Vitals Vitals Vital Signs Date Time Temp Pulse Resp B/P (MAP) Pulse Ox O2 Delivery O2 Flow Rate FiO2 09/03/20 08:57 93 144/85 09/03/20 07:00 100.9 18 97 100.9 09/03/20 03:00 Room Air Physical Exam Physical Exam disorented General: Alert, Oriented X3, Cooperative, No acute distress Heart: Regular rate, Normal S1, Normal S2 Lungs: Clear Abdomen: Normal bowel sounds, Soft, No tenderness, No hepatosplenomegaly, No masses Extremities: No clubbing, No cyanosis, No edema, Normal pulses, No tenderness/swelling Skin: No rashes, No breakdown, No significant lesion Brief Hospital Course Mr. Finch is a 35 old [sex] who presented with [ ] Discharge Medications Current Medications Sodium Chloride 1,000 ml @ 100 mls/hr Q10H IV Last administered on 08/27/20at 23:20; Start 08/27/20 at 21:30; Stop 08/28/20 at 07:29; Status DC Ondansetron HCl (Zofran) 4 mg PRN Q6HRS PRN IVP NAUSEA/VOMITING; Start 08/27/20 at 21:30 Acetaminophen (Tylenol) 650 mg PRN Q6HRS PRN PO Headaches, Temp > 101.5F Last administered on 09/03/20at 08:59; Start 08/27/20 at 21:30 Senna/Docusate Sodium (Senna Plus) 1 tab BID PO Last administered on 09/02/20at 21:34; Start 08/28/20 at 09:00 Magnesium Hydroxide (Milk Of Magnesia) 2,400 mg PRN Q12HR PRN PO CONSTIPATION; Start 08/27/20 at 21:30 Multivitamins (Thera M Plus) 1 tab DAILY PO Last administered on 09/03/20at 08:57; Start 09/01/20 at 09:00 Folic Acid (Folic Acid) 1 mg DAILY PO Last administered on 09/03/20at 08:56; Start 08/29/20 at 09:00 Thiamine Mononitrate (Vitamin B-1) 100 mg DAILY PO ; Start 09/01/20 at 09:00; Stop 08/28/20 at 11:38; Status DC Lorazepam (Ativan) 1 mg PRN Q1HR PRN PO For CIWA 8-14; Start 08/27/20 at 21:30 Lorazepam (Ativan) 2 mg PRN Q1HR PRN PO For CIWA 15 or greater Last administered on 08/30/20at 12:47; Start 08/27/20 at 21:30 Lorazepam (Ativan Inj) 1 mg PRN Q1HR PRN IV For CIWA 8-14 Last administered on 09/01/20at 00:07; Start 08/27/20 at 21:30 Lorazepam (Ativan Inj) 2 mg PRN Q1HR PRN IV For CIWA 15 or greater Last administered on 08/29/20at 12:36; Start 08/27/20 at 21:30 Haloperidol Lactate (Haldol Inj) 5 mg PRN Q4HRS PRN IVP Hallucinatns,Confusn,Delirium; Start 08/27/20 at 21:30 Diphenhydramine HCl (Benadryl) 25 mg PRN Q15MIN PRN IVP EPS symptoms 2'Haldol admin; Start 08/27/20 at 21:30 Clonidine HCl (Catapres) 0.1 mg PRN Q1HR PRN PO SBP > 180 or DBP > 100, MRX3 Last administered on 08/31/20at 10:52; Start 08/27/20 at 21:30 Gabapentin (Neurontin) 300 mg TID PO Last administered on 09/03/20at 08:56; Start 08/27/20 at 21:30 Trazodone HCl (Desyrel) 50 mg PRN QHS PRN PO Sleep/depression; Start 08/27/20 at 21:30 Ziprasidone (Geodon) 20 mg QHS PO Last administered on 09/02/20at 21:34; Start 08/27/20 at 21:30 Amlodipine Besylate (Norvasc) 10 mg DAILY PO Last administered on 08/28/20at 08:07; Start 08/28/20 at 09:00; Stop 08/28/20 at 09:53; Status DC Hydralazine HCl (Apresoline Inj) 10 mg PRN Q4HRS PRN IVP ELEVATED BP, SEE COMMENTS Last administered on 08/30/20at 04:49; Start 08/28/20 at 10:00 Lisinopril (Prinivil) 40 mg DAILY PO Last administered on 09/03/20at 08:56; Sta rt 08/28/20 at 10:00 Amlodipine Besylate (Norvasc) 5 mg BID PO Last administered on 09/03/20at 08:57; Start 08/29/20 at 09:00 Multivitamins 10 ml/Thiamine HCl 100 mg/Folic Acid 1 mg/Sodium Chloride 1,011.2 ml @ 100 mls/ hr DAILY IV ; Start 08/28/20 at 10:30; Stop 08/28/20 at 11:38; Status DC Thiamine HCl 100 mg/Dextrose 51 ml @ 102 mls/hr TID IV Last administered on 09/01/20at 20:31; Start 08/28/20 at 14:00; Stop 09/02/20 at 03:59; Status DC Lisinopril (Prinivil) 5 mg BID PO Last administered on 08/31/20at 07:53; Start 08/29/20 at 12:30; Stop 08/31/20 at 13:56; Status DC Potassium Chloride (Klor-Con) 40 meq 1X ONCE PO Last administered on 08/29/20at 12:35; Start 08/29/20 at 12:30; Stop 08/29/20 at 12:31; Status DC Potassium Chloride (Klor-Con) 20 meq [id number] PO Last administered on 09/03/20at 08:56; Start 08/30/20 at 08:00 Multivitamins 10 ml/Thiamine HCl 100 mg/Folic Acid 1 mg/Sodium Chloride 1,011.2 ml @ 1,000.088 mls/hr 1X ONCE IV Last administered on 08/30/20at 09:47; Start 08/30/20 at 11:00; Stop 08/30/20 at 12:00; Status DC Sodium Chloride 1,000 ml @ 100 mls/hr Q10H IV Last administered on 09/01/20at 20:31; Start 08/30/20 at 12:00; Stop 09/02/20 at 11:14; Status DC Multivitamins 10 ml/Thiamine HCl 100 mg/Folic Acid 1 mg/Sodium Chloride 1,011.2 ml @ 1,000.088 mls/hr DAILY IV Last administered on 08/31/20at 10:30; Start 08/31/20 at 09:00; Stop 08/31/20 at 12:45; Status DC Clonidine HCl (Catapres Tts-2) 1 patch WEEKLY TD Last administered on 08/31/20at 14:06; Start 08/31/20 at 13:00 Thiamine Mononitrate (Vitamin B-1) 100 mg TID PO Last administered on 09/03/20at 08:56; Start 09/02/20 at 09:00 Active Scripts Active Chlordiazepoxide Hcl 25 Mg Capsule 25 Mg PO UD Day #1: Take 50mg PO QID Day #2: Take 50mg PO BID Day #3: Take 25mg PO BID Day #4: Take 25mg PO QHS Lisinopril 40 Mg Tablet 40 Mg PO DAILY 30 Days Amlodipine Besylate 10 Mg Tablet 10 Mg PO DAILY 30 Days [place] 5-325 Tablet (Acetaminophen/Hydrocodone Bitart) 1 Each Tablet 1-2 Tab PO Q4-6HRS Ultram (Tramadol Hcl) 50 Mg Tablet 1 Tab PO PRN Q6HRS PRN MDD 4 Tablet(s) 7 Days Hydrocodone-Apap 5-325 (Hydrocodone Bit/Acetaminophen) 1 Tab Tablet 0.5-1 Tab PO PRN Q6HRS PRN Keflex (Cephalexin) 500 Mg Capsule 500 Mg PO QID 7 Days Bactrim Ds Tablet (Sulfamethoxazole/Trimethoprim) 1 Each Tablet 2 Each PO Q12HR 7 Days Doxycycline Hyclate 100 Mg Capsule 1 Cap PO BID 10 Days [place] 5-325 Tablet (Acetaminophen/Hydrocodone Bitart) 1 Each Tablet 1-2 Tab PO Q6HRS Vital Signs Vital Signs Date Time Temp Pulse Resp B/P (MAP) Pulse Ox O2 Delivery O2 Flow Rate FiO2 09/03/20 08:57 93 144/85 09/03/20 07:00 100.9 18 97 100.9 09/03/20 03:00 Room Air Labs Laboratory Tests Test 09/01/20 11:09 09/02/20 05:55 SARS-CoV-2 RNA (EMMANUELLE) Negative (Negative) White Blood Count 8.1 x10^3/uL (4.0-11.0) Red Blood Count 4.31 x10^6/uL (4.30-5.70) Hemoglobin 13.7 g/dL (13.0-17.5) Hematocrit 40.5 % (39.0-53.0) Mean Corpuscular Volume 94 fL (79-100) Mean Corpuscular Hemoglobin 32 pg (25-35) Mean Corpuscular Hemoglobin Concent 34 g/dL (31-37) Red Cell Distribution Width 14.4 % (11.5-14.5) Platelet Count 424 x10^3/uL (140-400) Neutrophils (%) (Auto) 66 % (31-73) Lymphocytes (%) (Auto) 13 % (24-48) Monocytes (%) (Auto) 16 % (0-9) Eosinophils (%) (Auto) 4 % (0-3) Basophils (%) (Auto) 1 % (0-3) Neutrophils # (Auto) 5.4 x10^3/uL (1.8-7.7) Lymphocytes # (Auto) 1.0 x10^3/uL (1.0-4.8) Monocytes # (Auto) 1.3 x10^3/uL (0.0-1.1) Eosinophils # (Auto) 0.3 x10^3/uL (0.0-0.7) Basophils # (Auto) 0.1 x10^3/uL (0.0-0.2) Sodium Level 140 mmol/L (136-145) Potassium Level 3.7 mmol/L (3.5-5.1) Chloride Level 103 mmol/L (98-107) Carbon Dioxide Level 26 mmol/L (21-32) Anion Gap 11 (6-14) Blood Urea Nitrogen 9 mg/dL (8-26) Creatinine 0.8 mg/dL (0.7-1.3) Estimated GFR (Cockcroft-Gault) 108.8 BUN/Creatinine Ratio 11 (6-20) Glucose Level 82 mg/dL (70-99) Calcium Level 8.9 mg/dL (8.5-10.1) Total Bilirubin 0.5 mg/dL (0.2-1.0) Aspartate Amino Transf (AST/SGOT) 29 U/L (15-37) Alanine Aminotransferase (ALT/SGPT) 32 U/L (16-63) Alkaline Phosphatase 83 U/L (46-116) Total Protein 7.1 g/dL (6.4-8.2) Albumin 2.5 g/dL (3.4-5.0) Albumin/Globulin Ratio 0.5 (1.0-1.7) Allergies Allergies Coded Allergies Type Severity Reaction Last Updated Verified No Known Drug Allergies 06/13/18 No Justicifation of Admission Dx: Justifications for Admission: Justification of Admission Dx: Yes Angina: Symp at Rest GREG OLGUNI MD September 03, 2020 09:58
[2020-09-03] MEDS ORDERED: POTA20TA4 PO (10:03)
[2020-09-03] MEDS ORDERED: TRAZ-123 PO (10:03)
[2020-09-03] MEDS ORDERED: Folic Acid PO (10:03)
[2020-09-03] MEDS ORDERED: AMLO-186 PO (10:03)
[2020-09-03] MEDS ORDERED: ZIPR20CA2 PO (10:03)
[2020-09-03] MEDS ORDERED: GABA300C18 PO (10:03)
[2020-09-03] MEDS ORDERED: CLON1PAT6 TD (10:03)
[2020-09-03] MEDS ORDERED: THIA100T22 PO (10:03)
[2020-09-03] MEDS ORDERED: MULT1TAB92 PO (10:03)
[2020-09-03] MEDS ORDERED: ACET325T21 PO (10:03)
--- NOTE | 2020-09-03 10:05 | SNU/HH DC ---
DISCHARGE ORDERS DISCHARGE INFORMATION: DISCHARGE DATE: September 03, 2020 CONDITION ON DISCHARGE: Stable CODE STATUS: Code Status: Full ALF: SNF STAY <30 DAYS: No HOSPICE: HOSPICE: No HOSPICE EVAL & TREAT: No LTAC: ADMIT TO LTAC: No POST DISCHARGE ORDERS: ACTIVITY ORDERS: Activity as tolerated WEIGHT BEARING STATUS: Partial weight bearing DIET AFTER DISCHARGE: Cardiac CHECKS AFTER DISCHARGE: CHECKS AFTER DISCHARGE: Check blood press - daily FOLLOW-UP: PHYSICIAN FOLLOW-UP: transfer to [facility] rehab TREATMENT/EQUIPMENT ORDERS: ADAPTIVE EQUIPMENT NEEDED: Front wheeled walker Physical Therapy For: Evalulation/Treatment Occupational Therapy For: Evaluation/Treatment Speech Language Pathology For: Evaluation/Treatment DISCHARGE MEDICATIONS: Home Meds Active Scripts Multivits,Ca,Minerals/Iron/Fa (THERA-M TABLET) 1 Each Tablet, 1 TAB PO DAILY for supplement for 14 Days, #14 TAB Prov:GREG OLGUIN MD 09/03/20 Thiamine Mononitrate (VITAMIN B-1) 100 Mg Tablet, 100 MG PO TID for supplement for 14 Days, #42 TAB Prov:GREG OLGUIN MD 09/03/20 [Folic Acid] 1 MG TABLET No Conflict Check, 1 MG PO DAILY for supplement for 14 Days, #14 Prov:GREG OLGUIN MD 09/03/20 Potassium Chloride (KLOR-CON M20) 20 Meq Tab.er.prt, 20 MEQ PO DAILYWBKFT for supplement for 14 Days, #14 TAB.SR Prov:GREG OLGUIN MD 09/03/20 Ziprasidone Hcl (GEODON) 20 Mg Capsule, 20 MG PO QHS for mood for 14 Days, #14 CAP Prov:GREG OLGUIN MD 09/03/20 Trazodone Hcl (TRAZODONE HCL) 100 Mg Tablet, 50 MG PO PRN QHS PRN for Sleep/depression for 14 Days, #14 TAB Prov:GREG OLGUIN MD 09/03/20 Gabapentin (GABAPENTIN) 300 Mg Capsule, 300 MG PO TID for neuropathy, pain for 14 Days, #42 CAP Prov:GREG OLGUIN MD 09/03/20 Acetaminophen (ACETAMINOPHEN) 325 Mg Tablet, 650 MG PO PRN Q6HRS PRN for Headaches, Temp > 101.5F for 14 Days, #30 TAB Prov:GREG OLGUIN MD 09/03/20 Amlodipine Besylate (AMLODIPINE BESYLATE) 5 Mg Tablet, 5 MG PO BID for blood pressure for 30 Days, #60 TAB Prov:GREG OLGUIN MD 09/03/20 Clonidine (CLONIDINE TTS-2 ) 1 Each Patch.tdwk, 1 PATCH TD WEEKLY for blood pressure for 14 Days, #14 PATCH Prov:GREG OLGUIN MD 09/03/20 Lisinopril (LISINOPRIL) 40 Mg Tablet, 40 MG PO DAILY for HTN for 30 Days, #30 TAB 2 Refills Prov:DANG SINGH [employer] 09/25/19 Discontinued Scripts Chlordiazepoxide Hcl (CHLORDIAZEPOXIDE HCL) 25 Mg Capsule, 25 MG PO UD, #15 CAP Day #1: Take 50mg PO QID Day #2: Take 50mg PO BID Day #3: Take 25mg PO BID Day #4: Take 25mg PO QHS Prov:ISAMAR YOON DO 08/23/20 Amlodipine Besylate (AMLODIPINE BESYLATE) 10 Mg Tablet, 10 MG PO DAILY for HTN for 30 Days, #30 TAB 2 Refills Prov:DANG SINGH [employer] 09/25/19 Hydrocodone/Apap 5-325 (NORCO 5-325 TABLET) 1 Each Tablet, 1-2 TAB PO Q4-6HRS, #20 TAB Prov:UJLIAN CAPPS DO 08/27/19 Tramadol Hcl (ULTRAM) 50 Mg Tablet, 1 TAB PO PRN Q6HRS PRN for pain MDD 4 Tablet(s) for 7 Days, #28 TAB 0 Refills Prov:JULIAN CAPPS DO 08/27/19 Hydrocodone Bit/Acetaminophen (HYDROCODONE-APAP 5-325 ) 1 Tab Tablet, 0.5-1 TAB PO PRN Q6HRS PRN for PAIN, #10 TAB 0 Refills Prov:ISAMAR YOON DO 04/12/19 Cephalexin (KEFLEX) 500 Mg Capsule, 500 MG PO QID for Infection for 7 Days, #28 CAP 0 Refills Prov:ISAMAR YOON DO 04/12/19 Sulfamethoxazole/Trimethoprim (BACTRIM DS TABLET) 1 Each Tablet, 2 EACH PO Q12HR for Infection for 7 Days, #28 TAB 0 Refills Prov:ISAAMR YOON DO 04/12/19 Doxycycline Hyclate (DOXYCYCLINE HYCLATE) 100 Mg Capsule, 1 CAP PO BID for 10 Days, #20 CAP Prov:ISAMAR BOOKER APRN 04/09/19 Hydrocodone/Apap 5-325 (NORCO 5-325 TABLET) 1 Each Tablet, 1-2 TAB PO Q6HRS, #20 TAB Prov:ROBYN GALAVIZ APRN 06/13/18 GREG OLGUIN MD September 03, 2020 10:05
--- NOTE | 2020-09-03 10:32 | NUR ---
SW following. Discussed with RN, pt discharging to [facility] today between [id number]. Melanie at [facility] accessed discharged orders. Report number given to RN. Family notified. Choice form completed. No further SW needs.
[2020-09-03 11:00] VITALS: BP 127/73
--- NOTE | 2020-09-03 11:18 | RAD ---
Single AP view of the chest. Comparison: 09/24/2019. Indication: Fever Findings: The heart is at the upper limits of normal but stable. There is no pneumothorax or effusion. No air space or interstitial disease. Impression: 1. No acute cardiopulmonary process. Electronically signed by: Justin Rivas MD (09/03/2020 11:16 AM) [id number]
--- NOTE | 2020-09-03 12:03 | PDOC ---
Date of Service: DATE: 09/03/20 TIME: 12:01 Subjective: Subjective: Walking w/ therapy in [place] w/ walker. Doing better. Objective: Vital Signs: Vital Signs Date Time Temp Pulse Resp B/P (MAP) Pulse Ox O2 Delivery O2 Flow Rate FiO2 09/03/20 11:00 99.5 89 18 127/73 (91) 97 99.5 09/03/20 07:55 Room Air Imaging: CXR 09/03 Impression: 1. No acute cardiopulmonary process. PE: GEN: w/ therapy as above A/P: Alcohol withdrawal -- Improving. Justicifation of Admission Dx: Justifications for Admission: Justification of Admission Dx: Yes Angina: [facility] MARIBEL CAPPS September 03, 2020 12:03
[2020-09-03 15:00] VITALS: BP 137/85
[2020-09-03 15:07] LABS: BILIRUBIN,URINE NEGATIVE (NEG); CLARITY,URINE CLEAR; COLOR,URINE YELLOW; NITRITE,URINE NEGATIVE (NEG); PROTEIN,URINE NEGATIVE (NEG-TRACE); UROBILINOGEN,URINE 0.2 mg/dL (0.2 mg/dL)
[2020-09-03 15:27] LABS: HYALINE CASTS, URINE MANY /HPF
[2020-09-03 15:28] LABS: BACTERIA,URINE FEW /HPF (0-FEW); RBC,URINE 0 /HPF (0-2)
[2020-09-03 19:00] VITALS: BP 114/46
[2020-09-03] MEDS: ZIPRASIDONE 20 MG CAPSULE PO SCH (21:20)
[2020-09-03] MEDS: CETIRIZINE HCL 10 MG TABLET. PO SCH (22:25)
[2020-09-03 23:00] VITALS: BP 143/84
[2020-09-04 03:02] VITALS: BP 150/95
[2020-09-04 07:50] VITALS: BP 133/75
[2020-09-04] MEDS: SENNOSIDES/DOCUSATE 8.6/50MG TABLET. PO SCH (09:00)
--- NOTE | 2020-09-04 09:32 | PDOC ---
PROGRESS NOTES Date of Service: DATE: 09/04/20 TIME: 09:30 Chief Complaint Chief Complaint VTE Prophylaxis Ordered VTE Prophylaxis Devices: No VTE Pharmacological Prophylaxi: No Assessment/Plan IMPRESSION A/P: Acute alcohol withdrawal with delerium - CIWA. PAT consult. Thiamine, folic acid. Add gabapentin, prn clonidine. May need acamprosate or depade/vivitrol outpatient therapy Bipolar disorder - notes prior psychiatric hospitalization started on depakote, but compliance was difficult Hypertension - will monitor, needs ambulatory monitoring for titrating meds, but based on history has been treated with amlodipine Thrombocytopenia - likely due to heavy alcohol use and bone marrow suppression uncontrolled hypertension Family history of very early onset alzheimers and early onset cardiac disease H/o gout - monitor uric acid Heavy ETOH use - CIWA scale. 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 Probable old fractures of the superior to inferior pubic ramus. 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 09-03 ALERT NAD NO TREMOR , less confused d/w rn GI CONSULT Ammonia level BP CONTROLLED change norvasc to 5 mg po bid ADD LISINOPRIL 5 MG PO BID , PRN IV HYDRALAZINE neurology consult receiving thiamine iv high dose to prevent damage from Wernicke or Korsakoff syndrome. Acute alcohol withdrawal with delerium - CIWA. PAT consult. Thiamine, folic acid. Add gabapentin, prn clonidine. May need acamprosate or depade/vivitrol outpatient therapy Bipolar disorder - notes prior psychiatric hospitalization started on depakote, but compliance was difficult NEEDs INPATIENT REHAB D/W BY PHONE [phone] Discharge Recommendations * Acute Rehab facility * * * D/C PLANNING 34 MIN 5-20 PAT CONSULT today, less confused d/w rn GI CONSULT Ammonia level BP CONTROLLED change norvasc to 5 mg po bid ADD LISINOPRIL 5 MG PO BID , PRN IV HYDRALAZINE neurology consult receiving thiamine iv high dose to prevent damage from Wernicke or Korsakoff syn drome. Acute alcohol withdrawal with delerium - RAHCELLEWA. PAT consult. Thiamine, folic acid. Add gabapentin, prn clonidine. May need acamprosate or depade/vivitrol outpatient therapy Bipolar disorder - notes prior psychiatric hospitalization started on de pakote, but compliance was difficult NEEDs INPATIENT REHAB D/W BY PHONE [phone] Discharge Recommendations * Acute Rehab facility 5-19 PAT CONSULT today, less confused GI CONSULT Ammonia level BP CONTROLLED change norvasc to 5 mg po bid ADD LISINOPRIL 5 MG PO BID , PRN IV HYDRALAZINE neurology consult receiving thiamine iv high dose to prevent damage from Wernicke or Korsakoff syndrome. Acute alcohol withdrawal with delerium - CIWA. PAT consult. Thiamine, folic acid. Add gabapentin, prn clonidine. May need acamprosate or depade/vivitrol outpatient therapy Bipolar disorder - notes prior psychiatric hospitalization started on depakote, but compliance was difficult NEEDs INPATIENT REHAB D/W BY PHONE [phone] left message 29 min pt exam, chart review, > 50% of time spent with exam, chart review, pt care coordination 5-18 PAT CONSULT GI CONSULT Ammonia level BP UNCONTROLLED change norvasc to 5 mg po bid ADD LISINOPRIL 5 MG PO BID , PRN IV HYDRALAZINE neurology consult receiving thiamine iv high dose to prevent damage from Wernicke or Korsakoff syndrome. Acute alcohol withdrawal with delerium - CIWA. PAT consult. Thiamine, folic acid. Add gabapentin, prn clonidine. May need acamprosate or depade/vivitrol outpatient therapy Bipolar disorder - notes prior psychiatric hospitalization started on depakote, but compliance was difficult MAY NEED INPATIENT REHAB D/W BY PHONE [phone] 27 min pt exam, chart review, > 50% of time spent with exam, chart review, pt care coordination 5-17 PAT CONSULT GI CONSULT Ammonia level BP UNCONTROLLED change norvasc to 5 mg po bid ADD LISINOPRIL 5 MG PO BID , PRN IV HYDRALAZINE neurology consult receiving thiamine iv high dose to prevent damage from Wernicke or Korsakoff syndrome. Acute alcohol withdrawal with delerium - CIWA. PAT consult. Thiamine, folic acid. Add gabapentin, prn clonidine. May need acamprosate or depade/vivitrol outpatient therapy Bipolar disorder - notes prior psychiatric hospitalization started on depakote, but compliance was difficult 29 min pt exam, chart review, > 50% of time spent with exam, chart review, pt care coordination 5-16 PAT CONSULT GI CONSULT Ammonia level BP UNCONTROLLED change norvasc to 5 mg po bid ADD LISINOPRIL 5 MG PO BID , PRN IV HYDRALAZINE neurology consult receiving thiamine iv high dose to prevent damage from Wernicke or Korsakoff syndrome. Acute alcohol withdrawal with delerium - CIWA. PAT consult. Thiamine, folic acid. Add gabapentin, prn clonidine. May need acamprosate or depade/vivitrol outpatient therapy Bipolar disorder - notes prior psychiatric hospitalization started on depakote, but compliance was difficult 39 min pt exam, chart review, > 50% of time spent with exam, chart review, pt care coordination History of Present Illness History of Present Illness dentification/Chief Complaint Chief Complaint Delerium tremens Source Source: Caregiver, Chart review, Patient History of Present Illness History of Present Illness Mr Finch is a 35-year-old male with PMHx elevated blood pressure without dx of HTN, ETOH use, gout who is presenting accepted as a direct admission from [facility]. He was seen on Sunday08/22/2020 intoxicated looking for alcohol withdrawal treatment was referred to [facility] and subsequently taken to [facility] but his withdrawal symptoms were not well controlled or manageable in residential treatment setting and therefore he was transferred to [facility] for inpatient treatment of delirium tremens. He was given phenobarbitol and valium treatment, continued to be difficult to redirect, hallucinating, making staff feel unsafe and transferred to preferred hospital for further care. 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 EKG reviewed by myself is NSR with normal axis and RBBB. Chest x-ray is negative for acute pathology, troponin is normal, d-dimer is normal. 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 He does drink heavily and has sought treatment on a few occasions. He is especially concerned because of early cardiac disease in his father and paternal grandfather and early at age 44 for both of them, he notes this was due to very early onset of Alzheimer's dementia. He is not easy to redirect and confused. His is concerned about history of bipolar disorder that required inpatient treatment and depakote therapy at [facility] ([facility]) several years ago. Blood pressure noted in the 170s over low 100s. Afebrile on exam. Accepted at [facility] for further treatment of his alcohol withdrawal deleriu Past Medical History Cardiovascular: HTN Pulmonary: No pertinent hx CENTRAL NERVOUS SYSTEM: Other GI: No pertinent hx Heme/Onc: No pertinent hx Hepatobiliary: No pertinent hx Psych: Anxiety, Bipolar, Other Musculoskeletal: Osteoarthritis, Other Rheumatologic: No pertinent hx, Gout Infectious disease: No pertinent hx Endocrine: No pertinent hx Past Surgical History Past Surgical History: Other Family History Family History: Coronary Artery Disease Social History Smoke: No ALCOHOL: heavy Drugs: None, Cocaine (in remission) Current Medications Current Medications Current Medications Sodium Chloride 1,000 ml @ 100 mls/hr Q10H IV ; Start 08/27/20 at 21:30; Stop 08/28/20 at 07:29 Ondansetron HCl (Zofran) 4 mg PRN Q6HRS PRN IVP NAUSEA/VOMITING; Start 08/27/20 at 21:30 Acetaminophen (Tylenol) 650 mg PRN Q6HRS PRN PO Headaches, Temp > 101.5F; Start 08/27/20 at 21:30 Senna/Docusate Sodium (Senna Plus) 1 tab BID PO ; Start 08/28/20 at 09:00 Magnesium Hydroxide (Milk Of Magnesia) 2,400 mg PRN Q12HR PRN PO CONSTIPATION; Start 08/27/20 at 21:30 Multivitamins (Thera M Plus) 1 tab DAILY PO ; Start 09/01/20 at 09:00 Folic Acid (Folic Acid) 1 mg DAILY PO ; Start 09/01/20 at 09:00 Thiamine Mononitrate (Vitamin B-1) 100 mg DAILY PO ; Start 09/01/20 at 09:00 Lorazepam (Ativan) 1 mg PRN Q1HR PRN PO For CIWA 8-14; Start 08/27/20 at 21:30 Lorazepam (Ativan) 2 mg PRN Q1HR PRN PO For CIWA 15 or greater; Start 08/27/20 at 21:30 Lorazepam (Ativan Inj) 1 mg PRN Q1HR PRN IV For CIWA 8-14; Start 08/27/20 at 21:30 Lorazepam (Ativan Inj) 2 mg PRN Q1HR PRN IV For CIWA 15 or greater; Start 08/27/20 at 21:30 Haloperidol Lactate (Haldol Inj) 5 mg PRN Q4HRS PRN IVP Hallucinatns,Confusn,Delirium; Start 08/27/20 at 21:30 Diphenhydramine HCl (Benadryl) 25 mg PRN Q15MIN PRN IVP EPS symptoms 2'Haldol admin; Start 08/27/20 at 21:30 Clonidine HCl (Catapres) 0.1 mg PRN Q1HR PRN PO SBP > 180 or DBP > 100, MRX3; Start 08/27/20 at 21:30 Gabapentin (Neurontin) 300 mg TID PO ; Start 08/27/20 at 21:30 Trazodone HCl (Desyrel) 50 mg PRN QHS PRN PO Sleep/depression; Start 08/27/20 at 21:30 Ziprasidone (Geodon) 20 mg QHS PO ; Start 08/27/20 at 21:30 Active Scripts Active Chlordiazepoxide Hcl 25 Mg Capsule 25 Mg PO UD Day #1: Take 50mg PO QID Day #2: Take 50mg PO BID Day #3: Take 25mg PO BID Day #4: Take 25mg PO QHS Lisinopril 40 Mg Tablet 40 Mg PO DAILY 30 Days Amlodipine Besylate 10 Mg Tablet 10 Mg PO DAILY 30 Days [place] 5-325 Tablet (Acetaminophen/Hydrocodone Bitart) 1 Each Tablet 1-2 Tab PO Q4-6HRS Ultram (Tramadol Hcl) 50 Mg Tablet 1 Tab PO PRN Q6HRS PRN MDD 4 Tablet(s) 7 Days Hydrocodone-Apap 5-325 (Hydrocodone Bit/Acetaminophen) 1 Tab Tablet 0.5-1 Tab PO PRN Q6HRS PRN Keflex (Cephalexin) 500 Mg Capsule 500 Mg PO QID 7 Days Bactrim Ds Tablet (Sulfamethoxazole/Trimethoprim) 1 Each Tablet 2 Each PO Q12HR 7 Days Doxycycline Hyclate 100 Mg Capsule 1 Cap PO BID 10 Days [place] 5-325 Tablet (Acetaminophen/Hydrocodone Bitart) 1 Each Tablet 1-2 Tab PO Q6HRS Allergies Allergies: Coded Allergies: No Known Drug Allergies (Unverified , 06/13/18) ROS Review of System Unable to complete due to confusion General: YES: Fatigue, Malaise; No: Chills, Night Sweats, Appetite, Other PSYCHOLOGICAL ROS: No: Anxiety, Behavioral Disorder, Concentration difficultie, Decreased libido, Depression, Disorientation, Hallucinations, Hostility, Irritablity, Memory difficulties, Mood Swings, Obsessive thoughts, Physical abuse, Sexual abuse, Sleep disturbances, Suicidal ideation, Other Eyes: No Blurry vision, No Decreased vision, No Double vision, No Dry eyes, No Excessive tearing, No Eye Pain, No Itchy Eyes, No Loss of vision, No Photophobia, No Scotomata, No Uses contacts, No Uses glasses, No Other HEENT: No: Heacaches, Visual Changes, Hearing change, Nasal congestion, Nasal discharge, Oral lesions, Sinus pain, Sore Throat, Epistaxis, Sneezing, Snoring, Tinnitus, Vertigo, Vocal changes, Other ALLERGY AND IMMUNOLOGY: No: Hives, Insect Bite Sensitivity, Itchy/Watery Eyes, Nasal Congestion, Post Nasal Drip, Seasonal Allergies, Other Hematological and Lymphatic: No: Bleeding Problems, Blood Clots, Blood Transfusions, Brusing, Night Sweats, Pallor, Swollen Lymph Nodes, Other ENDOCRINE: No: Breast Changes, Galactorrhea, Hair Pattern Changes, Hot Flashes, Malaise/lethargy, Mood Swings, Palpitations, Polydipsia/polyuria, Skin Changes, Temperature Intolerance, Unexpected Weight Changes, Other Breast: No New/Changing Breast Lumps, No Nipple changes, No Nipple discharge, No Other Respiratory: No: Cough, Hemoptysis, Orthopnea, Pleuritic Pain, Shortness of breath, SOB with excertion, Sputum Changes, Stridor, Tachypnea, Wheezing, Other Cardiovascular: No Chest Pain, No Palpitations, No Orthopnea, No Paroxysmal Noc. Dyspnea, No Edema, No Lt Headedness, No Other Gastrointestinal: No Nausea, No Vomiting, No Abdominal Pain, No Diarrhea, No Constipation, No Melena, No Hematochezia, No Other Genitourinary: No Dysuria, No Frequency, No Incontinence, No Hematuria, No Retention, No Discharge, No Urgency, No Pain, No Flank Pain, No Other, No , No , No , No , No , No , No Musculoskeletal: Yes Joint Pain, Yes Joint Stiffness; No Gait Disturbance, No Joint Swelling, No Muscle Pain, No Muscular Weakness, No Pain In:, No Swelling In:, No Other Neurological: No Behavorial Changes, No Bowel/Bladder ControlChng, No Confusion, No Dizziness, No Gait Disturbance, No Headaches, No Impaired Coord/balance, No Memory Loss, No Numbness/Tingling, No Seizures, No Speech Problems, No Tremors, No Visual Changes, No Weakness, No Other Skin: No Dry Skin, No Eczema, No Hair Changes, No Lumps, No Mole Changes, No Mottling, No Nail Changes, No Pruritus, No Rash, No Skin Lesion Changes, No Other, No Acne Vitals Vitals Vital Signs Date Time Temp Pulse Resp B/P (MAP) Pulse Ox O2 Delivery O2 Flow Rate FiO2 09/04/20 07:50 99.4 102 18 133/75 (94) 97 Room Air 99.4 Physical Exam Physical Exam disorented General: Alert, Oriented X3, Cooperative, No acute distress Heart: Regular rate, Normal S1, Normal S2 Lungs: Clear Abdomen: Normal bowel sounds, Soft, No tenderness, No hepatosplenomegaly, No masses Extremities: No clubbing, No cyanosis, No edema, Normal pulses, No tenderness/swelling Skin: No rashes, No breakdown, No significant lesion Labs LABS Laboratory Tests Test 09/03/20 14:40 09/03/20 16:10 Urine Collection Type Unknown Urine Color Yellow Urine Clarity Clear Urine pH 6.0 (<5.0-8.0) Urine Specific [place] 1.015 (1.000-1.030) Urine Protein Negative mg/dL (NEG-TRACE) Urine Glucose (UA) Negative mg/dL (NEG) Urine Ketones (Stick) Negative mg/dL (NEG) Urine Blood Negative (NEG) Urine Nitrite Negative (NEG) Urine Bilirubin Negative (NEG) Urine Urobilinogen Dipstick 0.2 mg/dL (0.2 mg/dL) Urine Leukocyte Esterase Negative (NEG) Urine RBC 0 /HPF (0-2) Urine WBC 1-4 /HPF (0-4) Urine Squamous Epithelial Cells Many /LPF Urine Bacteria Few /HPF (0-FEW) Urine Hyaline Casts Many /HPF Urine Mucus Marked /LPF SARS-CoV-2 RNA (EMMANUELLE) Negative (Negative) Comment Review of Relevant I have reviewed the following items semaj (where applicable) has been applied. Labs Laboratory Tests Test 09/03/20 14:40 09/03/20 16:10 Urine Collection Type Unknown Urine Color Yellow Urine Clarity Clear Urine pH 6.0 (<5.0-8.0) Urine Specific [place] 1.015 (1.000-1.030) Urine Protein Negative mg/dL (NEG-TRACE) Urine Glucose (UA) Negative mg/dL (NEG) Urine Ketones (Stick) Negative mg/dL (NEG) Urine Blood Negative (NEG) Urine Nitrite Negative (NEG) Urine Bilirubin Negative (NEG) Urine Urobilinogen Dipstick 0.2 mg/dL (0.2 mg/dL) Urine Leukocyte Esterase Negative (NEG) Urine RBC 0 /HPF (0-2) Urine WBC 1-4 /HPF (0-4) Urine Squamous Epithelial Cells Many /LPF Urine Bacteria Few /HPF (0-FEW) Urine Hyaline Casts Many /HPF Urine Mucus Marked /LPF SARS-CoV-2 RNA (EMMANUELLE) Negative (Negative) Laboratory Tests Test 09/03/20 14:40 09/03/20 16:10 Urine Collection Type Unknown Urine Color Yellow Urine Clarity Clear Urine pH 6.0 (<5.0-8.0) Urine Specific [place] 1.015 (1.000-1.030) Urine Protein Negative mg/dL (NEG-TRACE) Urine Glucose (UA) Negative mg/dL (NEG) Urine Ketones (Stick) Negative mg/dL (NEG) Urine Blood Negative (NEG) Urine Nitrite Negative (NEG) Urine Bilirubin Negative (NEG) Urine Urobilinogen Dipstick 0.2 mg/dL (0.2 mg/dL) Urine Leukocyte Esterase Negative (NEG) Urine RBC 0 /HPF (0-2) Urine WBC 1-4 /HPF (0-4) Urine Squamous Epithelial Cells Many /LPF Urine Bacteria Few /HPF (0-FEW) Urine Hyaline Casts Many /HPF Urine Mucus Marked /LPF SARS-CoV-2 RNA (EMMANUELLE) Negative (Negative) Medications Current Medications Sodium Chloride 1,000 ml @ 100 mls/hr Q10H IV Last administered on 08/27/20at 23:20; Start 08/27/20 at 21:30; Stop 08/28/20 at 07:29; Status DC Ondansetron HCl (Zofran) 4 mg PRN Q6HRS PRN IVP NAUSEA/VOMITING; Start 08/27/20 at 21:30 Acetaminophen (Tylenol) 650 mg PRN Q6HRS PRN PO Headaches, Temp > 101.5F Last administered on 09/03/20at 08:59; Start 08/27/20 at 21:30 Senna/Docusate Sodium (Senna Plus) 1 tab BID PO Last administered on 09/02/20at 21:34; Start 08/28/20 at 09:00 Magnesium Hydroxide (Milk Of Magnesia) 2,400 mg PRN Q12HR PRN PO CONSTIPATION; Start 08/27/20 at 21:30 Multivitamins (Thera M Plus) 1 tab DAILY PO Last administered on 09/03/20at 08:57; Start 09/01/20 at 09:00 Folic Acid (Folic Acid) 1 mg DAILY PO Last administered on 09/03/20at 08:56; Start 08/29/20 at 09:00 Thiamine Mononitrate (Vitamin B-1) 100 mg DAILY PO ; Start 09/01/20 at 09:00; Stop 08/28/20 at 11:38; Status DC Lorazepam (Ativan) 1 mg PRN Q1HR PRN PO For CIWA 8-14; Start 08/27/20 at 21:30 Lorazepam (Ativan) 2 mg PRN Q1HR PRN PO For CIWA 15 or greater Last administered on 08/30/20at 12:47; Start 08/27/20 at 21:30 Lorazepam (Ativan Inj) 1 mg PRN Q1HR PRN IV For CIWA 8-14 Last administered on 09/01/20at 00:07; Start 08/27/20 at 21:30 Lorazepam (Ativan Inj) 2 mg PRN Q1HR PRN IV For CIWA 15 or greater Last admi nistered on 08/29/20at 12:36; Start 08/27/20 at 21:30 Haloperidol Lactate (Haldol Inj) 5 mg PRN Q4HRS PRN IVP Hallucinatns,Confu sn,Delirium; Start 08/27/20 at 21:30 Diphenhydramine HCl (Benadryl) 25 mg PRN Q15MIN PRN IVP EPS symptoms 2'Haldol admin; Start 08/27/20 at 21:30 Clonidine HCl (Catapres) 0.1 mg PRN Q1HR PRN PO SBP > 180 or DBP > 100, MRX3 Last administered on 08/31/20at 10:52; Start 08/27/20 at 21:30 Gabapentin (Neurontin) 300 mg TID PO Last administered on 09/03/20at 21:22; Start 08/27/20 at 21:30 Trazodone HCl (Desyrel) 50 mg PRN QHS PRN PO Sleep/depression; Start 08/27/20 at 21:30 Ziprasidone (Geodon) 20 mg QHS PO Last administered on 09/03/20at 21:20; Start 08/27/20 at 21:30 Amlodipine Besylate (Norvasc) 10 mg DAILY PO Last administered on 08/28/20at 08:07; Start 08/28/20 at 09:00; Stop 08/28/20 at 09:53; Status DC Hydralazine HCl (Apresoline Inj) 10 mg PRN Q4HRS PRN IVP ELEVATED BP, SEE COMMENTS Last administered on 08/30/20at 04:49; Start 08/28/20 at 10:00 Lisinopril (Prinivil) 40 mg DAILY PO Last administered on 09/03/20at 08:56; Start 08/28/20 at 10:00 Amlodipine Besylate (Norvasc) 5 mg BID PO Last administered on 09/03/20at 21:21; Start 08/29/20 at 09:00 Multivitamins 10 ml/Thiamine HCl 100 mg/Folic Acid 1 mg/Sodium Chloride 1,011.2 ml @ 100 mls/ hr DAILY IV ; Start 08/28/20 at 10:30; Stop 08/28/20 at 11:38; Status DC Thiamine HCl 100 mg/Dextrose 51 ml @ 102 mls/hr TID IV Last administered on 09/01/20at 20:31; Start 08/28/20 at 14:00; Stop 09/02/20 at 03:59; Status DC Lisinopril (Prinivil) 5 mg BID PO Last administered on 08/31/20at 07:53; Start 08/29/20 at 12:30; Stop 08/31/20 at 13:56; Status DC Potassium Chloride (Klor-Con) 40 meq 1X ONCE PO Last administered on 08/29/20at 12:35; Start 08/29/20 at 12:30; Stop 08/29/20 at 12:31; Status DC Potassium Chloride (Klor-Con) 20 meq DAILYWBKFT PO Last administered on 09/03/20at 08:56; Start 08/30/20 at 08:00 Multivitamins 10 ml/Thiamine HCl 100 mg/Folic Acid 1 mg/Sodium Chloride 1,011.2 ml @ 1,000.088 mls/hr 1X ONCE IV Last administered on 08/30/20at 09:47; Start 08/30/20 at 11:00; Stop 08/30/20 at 12:00; Status DC Sodium Chloride 1,000 ml @ 100 mls/hr Q10H IV Last administered on 09/01/20at 20:31; Start 08/30/20 at 12:00; Stop 09/02/20 at 11:14; Status DC Multivitamins 10 ml/Thiamine HCl 100 mg/Folic Acid 1 mg/Sodium Chloride 1,011.2 ml @ 1,000.088 mls/hr DAILY IV Last administered on 08/31/20at 10:30; Start 08/31/20 at 09:00; Stop 08/31/20 at 12:45; Status DC Clonidine HCl (Catapres Tts-2) 1 patch WEEKLY TD Last administered on 08/31/20at 14:06; Start 08/31/20 at 13:00 Thiamine Mononitrate (Vitamin B-1) 100 mg TID PO Last administered on 09/03/20at 21:20; Start 09/02/20 at 09:00 Cetirizine HCl (ZyrTEC) 10 mg DAILY PO Last administered on 09/03/20at 22:25; Start 09/03/20 at 22:30 Active Scripts Active Amlodipine Besylate 5 Mg Tablet 5 Mg PO BID 30 Days Clonidine Tts-2 (Clonidine) 1 Each Patch.tdwk 1 Patch TD WEEKLY 14 Days Lisinopril 40 Mg Tablet 40 Mg PO DAILY 30 Days Acetaminophen 325 Mg Tablet 650 Mg PO PRN Q6HRS PRN 14 Days Vitals/I & O Vital Sign - Last 24 Hours 09/03/20 09/03/20 09/03/20 09/03/20 11:00 15:00 19:00 19:45 Temp 99.5 99.1 99.0 99.5 99.1 99.0 Pulse 89 76 105 Resp 18 18 20 B/P (MAP) 127/73 (91) 137/85 (102) 114/46 (68) Pulse Ox 97 97 98 O2 Delivery Room Air Room Air 09/03/20 09/03/20 09/04/20 09/04/20 21: 23:00 03:02 07:50 Temp 99.3 98.1 99.4 99.3 98.1 99.4 Pulse 88 100 82 102 Resp 20 18 18 B/P (MAP) 114/46 143/84 (103) 150/95 (113) 133/75 (94) Pulse Ox 99 96 97 O2 Delivery Room Air Room Air Room Air Intake and Output 09/03/20 09/03/20 09/04/20 15:00 23:00 07:00 Intake Total 240 ml 500 ml Output Total 400 ml 1100 ml 1950 ml Balance -160 ml -1100 ml -1450 ml Justicifation of Admission Dx: Justifications for Admission: Justification of Admission Dx: Yes Angina: Symp at Rest GREG OLGUIN MD September 04, 2020 09:32
[2020-09-04] MEDS: FOLIC ACID 1 MG TABLET. PO SCH (10:19)
[2020-09-04] MEDS: CETIRIZINE HCL 10 MG TABLET. PO SCH (10:19)
[2020-09-04] MEDS: THIAMINE 100 MG TABLET. PO SCH ×2 (10:19→13:17)
[2020-09-04] MEDS: amLODIPine BESYLATE 5 MG TABLET PO SCH (10:20)
[2020-09-04] MEDS: LISINOPRIL 20 MG TABLET PO SCH (10:20)
[2020-09-04] MEDS: GABAPENTIN 300 MG CAPSULE. PO SCH ×2 (10:21→13:17)
[2020-09-04] MEDS: MULTIVITAMIN with MINERAL TABLET. PO SCH (10:21)
[2020-09-04] MEDS: POTASSIUM CHLORIDE 20 MEQ TABLET.ER. PO SCH (10:21)
--- NOTE | 2020-09-04 10:54 | SNU/HH DC ---
DISCHARGE ORDERS DISCHARGE INFORMATION: DISCHARGE DATE: September 04, 2020 CONDITION ON DISCHARGE: Stable CODE STATUS: Code Status: Full GROUP HOME: SNF STAY <30 DAYS: No HOSPICE: HOSPICE: No HOSPICE EVAL & TREAT: No LTAC: ADMIT TO LTAC: No POST DISCHARGE ORDERS: ACTIVITY ORDERS: Activity as tolerated WEIGHT BEARING STATUS: As tolerated DIET AFTER DISCHARGE: Cardiac CHECKS AFTER DISCHARGE: CHECKS AFTER DISCHARGE: Check blood press - daily FOLLOW-UP: PHYSICIAN FOLLOW-UP: Dr. Smith in 2 months [phone] ADDITIONAL FOLLOW-UP: Primary care in 2-3 weeks Additional Instructions: discharge to inpatient rehab TREATMENT/EQUIPMENT ORDERS: ADAPTIVE EQUIPMENT NEEDED: None, Front wheeled walker, Raised toilet seat w/arms Physical Therapy For: Evalulation/Treatment Occupational Therapy For: Evaluation/Treatment Speech Language Pathology For: Evaluation/Treatment DISCHARGE MEDICATIONS: Home Meds Active Scripts Multivits,Ca,Minerals/Iron/Fa (THERA-M TABLET) 1 Each Tablet, 1 TAB PO DAILY for supplement for 14 Days, #14 TAB Prov:GREG OLGUIN MD 09/03/20 Thiamine Mononitrate (VITAMIN B-1) 100 Mg Tablet, 100 MG PO TID for supplement for 14 Days, #42 TAB Prov:GREG OLGUIN MD 09/03/20 [Folic Acid] 1 MG TABLET No Conflict Check, 1 MG PO DAILY for supplement for 14 Days, #14 Prov:GREG OLGUIN MD 09/03/20 Potassium Chloride (KLOR-CON M20) 20 Meq Tab.er.prt, 20 MEQ PO DAILYWBKFT for supplement for 14 Days, #14 TAB.SR Prov:GREG OLGUIN MD 09/03/20 Ziprasidone Hcl (GEODON) 20 Mg Capsule, 20 MG PO QHS for mood for 14 Days, #14 CAP Prov:GREG OLGUIN MD 09/03/20 Trazodone Hcl (TRAZODONE HCL) 100 Mg Tablet, 50 MG PO PRN QHS PRN for Sleep/depression for 14 Days, #14 TAB Prov:GREG OLGUIN MD 09/03/20 Gabapentin (GABAPENTIN) 300 Mg Capsule, 300 MG PO TID for neuropathy, pain for 14 Days, #42 CAP Prov:GREG OLGUIN MD 09/03/20 Acetaminophen (ACETAMINOPHEN) 325 Mg Tablet, 650 MG PO PRN Q6HRS PRN for Headaches, Temp > 101.5F for 14 Days, #30 TAB Prov:GREG OLGUIN MD 09/03/20 Amlodipine Besylate (AMLODIPINE BESYLATE) 5 Mg Tablet, 5 MG PO BID for blood pressure for 30 Days, #60 TAB Prov:GREG OLGUIN MD 09/03/20 Clonidine (CLONIDINE TTS-2 ) 1 Each Patch.tdwk, 1 PATCH TD WEEKLY for blood pressure for 14 Days, #14 PATCH Prov:GREG OLGUIN MD 09/03/20 Lisinopril (LISINOPRIL) 40 Mg Tablet, 40 MG PO DAILY for HTN for 30 Days, #30 TAB 2 Refills Prov:DANG SINGH DINKEY SKINNER 09/25/19 Discontinued Scripts Chlordiazepoxide Hcl (CHLORDIAZEPOXIDE HCL) 25 Mg Capsule, 25 MG PO UD, #15 CAP Day #1: Take 50mg PO QID Day #2: Take 50mg PO BID Day #3: Take 25mg PO BID Day #4: Take 25mg PO QHS Prov:ISAMAR YOON DO 08/23/20 Amlodipine Besylate (AMLODIPINE BESYLATE) 10 Mg Tablet, 10 MG PO DAILY for HTN f or 30 Days, #30 TAB 2 Refills Prov:DANG SINGH APRN 09/25/19 Hydrocodone/Apap 5-325 (NORCO 5-325 TABLET) 1 Each Tablet, 1-2 TAB PO Q4-6HRS, #20 TAB Prov:JULIAN CAPPS I DO 08/27/19 Tramadol Hcl (ULTRAM) 50 Mg Tablet, 1 TAB PO PRN Q6HRS PRN for pain MDD 4 Tablet(s) for 7 Days, #28 TAB 0 Refills Prov:JULIAN CAPPS I DO 08/27/19 Hydrocodone Bit/Acetaminophen (HYDROCODONE-APAP 5-325 ) 1 Tab Tablet, 0.5-1 TAB PO PRN Q6HRS PRN for PAIN, #10 TAB 0 Refills Prov:ISAMAR YOON DO 04/12/19 Cephalexin (KEFLEX) 500 Mg Capsule, 500 MG PO QID for Infection for 7 Days, #28 CAP 0 Refills Prov:ISAMAR YOON DO 04/12/19 Sulfamethoxazole/Trimethoprim (BACTRIM DS TABLET) 1 Each Tablet, 2 EACH PO Q12HR for Infection for 7 Days, #28 TAB 0 Refills Prov:ISAMAR YOON DO 04/12/19 Doxycycline Hyclate (DOXYCYCLINE HYCLATE) 100 Mg Capsule, 1 CAP PO BID for 10 Days, #20 CAP Prov:ISAMAR BOOKER APRN 04/09/19 Hydrocodone/Apap 5-325 (NORCO 5-325 TABLET) 1 Each Tablet, 1-2 TAB PO Q6HRS, #20 TAB Prov:ROBYN GALAVIZ APRN 06/13/18 GREG OLGUIN MD September 04, 2020 10:54
[2020-09-04 11:46] VITALS: BP 139/87
--- NOTE | 2020-09-04 15:25 | NUR ---
Pt scheduled to go to [facility] for inpatient rehab. He will be taken by [facility] [employer]. Report was called to Don at [phone]. Pt will be going to room 511. notified.
[2020-09-04 15:33] VITALS: BP 131/70
--- NOTE | 2020-09-04 15:55 | NUR ---
Pt discharged to [facility]. Transported by [facility] [employer].
== END 2020-09-04 15:55 | DRG 897 ==
LOC: 6 SOUTH 20:59
PROVIDERS: ADMIT Internal Medicine; ATTEND Internal Medicine
DX: F10.231 Alcohol dependence with withdrawal delirium (principal); G93.40 Encephalopathy, unspecified; M87.9 Osteonecrosis, unspecified; F41.9 Anxiety disorder, unspecified; M10.9 Gout, unspecified; M19.90 Unspecified osteoarthritis, unspecified site; D69.59 Other secondary thrombocytopenia; F03.90 Unspecified dementia, unspecified severity, without behavioral disturbance, psychotic disturbance, mood disturbance, and anxiety; F10.26 Alcohol dependence with alcohol-induced persisting amnestic disorder; F12.90 Cannabis use, unspecified, uncomplicated; F31.9 Bipolar disorder, unspecified; I10 Essential (primary) hypertension; I45.10 Unspecified right bundle-branch block; Y90.8 Blood alcohol level of 240 mg/100 ml or more; Z20.822 Contact with and (suspected) exposure to COVID-19; Z56.0 Unemployment, unspecified; Z79.899 Other long term (current) drug therapy; Z87.891 Personal history of nicotine dependence; Z82.0 Family history of epilepsy and other diseases of the nervous system; Z82.49 Family history of ischemic heart disease and other diseases of the circulatory system
CPT/HCPCS: 36415; 71045; 76700; 80048; 80053; 80069; 81001; 82140; 82607; 84439; 85007; 85025; 85610; G0238; J0360; J2060; J3411; J3490; J7030; J7060; U0003; U0005; 97530-GO; 97530-GP; 97535-GO; G0378

== ENCOUNTER → 2020-12-06 | Outpatient (CLI) | payer OTHER ==
[~2020-12-06] MED LIST changes: +ACET325T21 PO; +AMLO-186 PO; +CLON1PAT6 TD; +CYCL10TA2 PO; -DOXY100C2 PO; +DOXY100C3 PO; +Folic Acid PO; +GABA300C18 PO; +LISI1TAB37 PO; +MULT1TAB92 PO; +POTA20TA4 PO; +SERT50TA PO; +THIA100T22 PO; +TRAZ-123 PO; +ZIPR20CA2 PO
--- NOTE | 2020-12-06 08:58 | EKG ---
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
[2020-12-06 09:11] LABS: BASO % 0 % (0-3); EOS # 0.1 x10^3/uL (0.0-0.7); EOS % 2 % (0-3); HEMATOCRIT 41.1 % (39.0-53.0); HEMOGLOBIN 14.2 g/dL (13.0-17.5); LYMPH # 1.5 x10^3/uL (1.0-4.8); LYMPH % 21 % (24-48); MEAN CORPUSCULAR HEMOGLOBIN 30 pg (25-35); MEAN CORPUSCULAR HGB CONC 35 g/dL (31-37); MEAN CORPUSCULAR VOLUME 87 fL (79-100); MONO # 0.7 x10^3/uL (0.0-1.1); MONO % 9 % (0-9); NEUT # 5.1 x10^3/uL (1.8-7.7); NEUT % 68 % (31-73); PLATELET COUNT 227 x10^3/uL (140-400); RED BLOOD COUNT 4.72 x10^6/uL (4.30-5.70); WHITE BLOOD COUNT 7.4 x10^3/uL (4.0-11.0)
[2020-12-06 09:26] LABS: PROTHROMBIN TIME PATIENT 13.3 SEC (11.7-14.0)
[2020-12-06 09:49] LABS: CALCIUM 9.3 mg/dL (8.5-10.1); GFR 84.1; POTASSIUM 4.2 mmol/L (3.5-5.1)
[2020-12-07 01:14] LABS: HEMOGLOBIN A1C 5.4 % (4.8-5.6)
== END ==
LOC: SURGPAT 08:06
PROVIDERS: ATTEND Orthopaedic Surgery
DX: Z01.818 Encounter for other preprocedural examination (principal); M87.051 Idiopathic aseptic necrosis of right femur
CPT/HCPCS: 36415; 80048; 82040; 82306; 83036; 85025; 85610; 85651; 85730; 87641; 93005

== ENCOUNTER 2020-12-14 11:43 | Observation (INO) | payer OTHER ==
[2020-12-06 08:52] VITALS: BP 168/98
[2020-12-06 09:12] VITALS: BP 168/98
[2020-12-14] VITALS (7 sets, daily range): BP systolic 99–154; BP diastolic 63–89
[~2020-12-14] VITALS: Ht 182.9 cm; Wt 107.0 kg
[2020-12-14] MEDS: MORPHINE SULFATE 5 MG, KETOROLAC 30MG VIAL 30 MG, ROPIVacaine 0.5% PF 60 ML, EPINEPHrin... INT ART ONE ×2 (10:45→13:48)
[~2020-12-14 11:43] MED LIST changes: +ACETAMINOPHEN 500 MG TABLET PO PRN; +GABAPENTIN 300 MG CAPSULE. PO PRN; +HYDROmorphone 2 MG/ML VIAL IVP PRN; +IV RINGERS,LACTATED 1000ML 1,000 ML IV SCH; +MELOXICAM 7.5 MG TABLET PO PRN; +POTA-121 PO; -POTA20TA4 PO; +PROCHLORPERAZINE 10 MG/2 ML VIAL. IVP PRN; +TRANEXAMIC ACID in NS IVPB 50 ML INJ ONE; +TRANEXAMIC ACID in NS IVPB 50 ML ONE; +VANCOMYCIN 1 GM VIAL. ONE; +fentaNYL PF VIAL 100 MCG/2 ML VIAL IVP PRN
[2020-12-14] MEDS ORDERED: MELO15TA23 PO (12:09)
[2020-12-14] MEDS ORDERED: WARF-31 PO (12:09)
[2020-12-14] MEDS ORDERED: PROPOFOL 10 MG/ML (20ML) VIAL. IV ONE (12:40)
[2020-12-14] MEDS ORDERED: LIDOCAINE 2% PF 5 ML VIAL. ONE (12:40)
[2020-12-14] MEDS ORDERED: fentaNYL PF VIAL 250 MCG/5 ML VIAL ONE (12:41)
[2020-12-14] MEDS ORDERED: ROCURONIUM 50 MG/5 ML VIAL. ONE ×2 (12:41→13:48)
[2020-12-14 12:45] LABS: PROTHROMBIN TIME PATIENT 12.8 SEC (11.7-14.0)
[2020-12-14] MEDS ORDERED: NEOSTIGMINE METHYLSULFATE 5 MG/5 ML SYRINGE. ONE (14:15)
[2020-12-14] MEDS ORDERED: GLYCOPYRROLATE 1 MG/5 ML VIAL. ONE (14:15)
[2020-12-14] MEDS ORDERED: HYDROmorphone 2 MG/ML VIAL ONE (14:38)
[2020-12-14] MEDS ORDERED: ONDANSETRON PF 4 MG/2 ML VIAL. ONE (14:58)
[2020-12-14] MEDS ORDERED: MORPHINE SULFATE 2 MG/ML INJ. ONE (15:56)
[2020-12-14] MEDS: MORPHINE SULFATE 2 MG/ML INJ. IVP PRN ×2 (15:58→16:13)
--- NOTE | 2020-12-14 16:40 | PDOC4 ---
Operative Note Operative Note Date of surgery: 12/14/2020 Preoperative diagnosis: Degenerative joint disease right hip Postoperative diagnosis: Same Operative procedure: Right total hip arthroplasty with anterior approach Surgeon Frances Meter Inspector: Brook pennington Anesthesia: General Estimated blood loss: 350 cc Complications: None Drains: None Operative indications: Please see my orthopedic clinic note and dictated history and physical for detailed operative indications and note that we covered risks benefits postoperative course of the procedure. We specifically discussed the possibility of infection leg length inequality, nerve or blood vessel damage premature wear or loosening medical or other anesthetic complications among others. All his questions were answered and he wishes to proceed with surgical evaluation and treatment having given informed consent Operative text: Patient was identified procedure verified patient placed in the supine position on the Hammett fracture table after adequate amounts of general anesthesia were administered. All bony prominences were well-padded and right hip was prepped and draped in the standard sterile fashion. After timeout was performed patient procedure identified and verified an incision was made just distal to the anterior superior iliac spine running along the tensor fascia sangita for a distance of about 4 inches. Fascia was incised tensor fascia sangita was taken laterally and circumflex vessels were located and coagulated and the anterior capsule was exposed with the rectus femoris gently retracted medially along with the underlying fascia that was dissected free. Capsule was split in a T-shaped incision and superior aspect of the capsule was excised and further superior release was carried out with the hip in external rotation. Hip was returned to 40 degrees external rotation and a napkin ring cut was made with an Avenir Joleen broach for reference napkin ring was removed and femoral head was removed and sized. Reaming was carried out to a size 55 with a size 56 Biomet G7 acetabular shell was placed in proper version under fluoroscopic guidance and excellent scratch fit was noted. A 40 mm vitamin E liner was impacted into place. Femur was brought into maximum external rotation extension and adduction and release was carried out at the 11 o'clock position to free up the femur and retractors were placed medially and above the greater trochanter for maximum femoral exposure box osteotome was used along with the rattail rasp and successive size broaching up to a size 6.5 which provided excellent stability and fit within the canal. Calcar reaming was carried out and trial fitting with a +0 40 mm head to reproduce leg length and offset appropriately under fluoros copic guidance. Trial components were removed and a size 6.5 standard offset collared Avenir stem was impacted into place with a +0 ceramic 40 mm head. Excellent stability and range of motion were noted and leg length and offset were reproduced closely according to preoperative measurements and measurements from the contralateral side. Thorough irrigation carried out with normal saline solution and pulse lavage. Intra-articular mixture was injected subperiosteally throughout the joint capsule and subcutaneous areas and 1 g vancomycin sprinkled throughout the joint capsule area. Fascia was closed with #1 PDS strata fix suture in a running fashion subcutaneous closure with buried Vicryl skin closure with subcuticular Monocryl and a rafi dressing was applied. Patient was returned to recovery room in stable condition having tolerated the procedure well. Brook pennington was present for the procedure and assisted in the patient positioning prepping draping retraction closure and dressings TORO SOLIS MD Dec 14, 2020 16:40
[2020-12-14] MEDS ORDERED: DEXTROSE 50% 25 GM / 50ML DISP.SYRIN. IV PRN (16:45)
[2020-12-14] MEDS ORDERED: CALCIUM CARBONATE 500 MG TAB.CHEW PO PRN (16:45)
[2020-12-14] MEDS ORDERED: ZOLPIDEM 5 MG TABLET. PO PRN (16:45)
[2020-12-14] MEDS ORDERED: 0.9 % SODIUM CHLORIDE 10 ML DISP.SYRIN. IV PRN (16:45)
[2020-12-14] MEDS ORDERED: diphenhydrAMINE 50 MG/ML VIAL IVP PRN (16:45)
[2020-12-14] MEDS ORDERED: fentaNYL PF VIAL 100 MCG/2 ML VIAL IVP PRN (16:45)
[2020-12-14] MEDS ORDERED: MORPHINE SULFATE 2 MG/ML INJ. IVP PRN (16:45)
[2020-12-14] MEDS ORDERED: PROCHLORPERAZINE 5 MG TABLET. PO PRN (16:45)
[2020-12-14] MEDS ORDERED: NON FORMULARY ITEM (Meloxicam 1 TAB) PO SCH (17:00)
[2020-12-14] MEDS: ONDANSETRON ODT 4 MG TAB.RAPDIS. PO SCH ×2 (18:00→23:45)
[2020-12-14] MEDS: ONDANSETRON PF 4 MG/2 ML VIAL. IVP SCH ×2 (18:00→23:45)
[2020-12-14] MEDS ORDERED: WARFARIN 7.5 MG TABLET. PO ONE (18:00)
--- NOTE | 2020-12-14 18:10 | NUR ---
Arrived to unit by bed from PACU. Awake with no c/o at this time. Dressing on right hip is d/i. Able to wiggle toes easily. IVF's intact and infusing. RASHEEDA's and SCD's on bilaterally. Oriented to room and controls. Side rails up x's 2 with call light in reach. Ordering is dinner tray for tonight. Cont. monitor.
[2020-12-14] MEDS: oxyCODONE IR 5 MG TABLET PO PRN ×2 (19:14→23:17)
[2020-12-14] MEDS: FERROUS SULFATE 325 MG TABLET. PO SCH (19:15)
[2020-12-14] MEDS: IV NORMAL SALINE 1000ML BAG 1,000 ML IV SCH (19:25)
[2020-12-14] MEDS: CYCLOBENZAPRINE 10 MG TABLET. PO SCH (21:22)
[2020-12-14] MEDS ORDERED: oxyCODONE IR 5 MG TABLET PO ONE (23:45)
[2020-12-15] MEDS: ACETAMINOPHEN 500 MG TABLET PO SCH ×4 (02:48→21:06)
[2020-12-15 02:49] VITALS: BP 120/53
[2020-12-15] MEDS: IV NORMAL SALINE 1000ML BAG 1,000 ML IV SCH (03:38)
[2020-12-15] MEDS: oxyCODONE IR 5 MG TABLET PO PRN ×5 (03:42→21:06)
[2020-12-15 05:05] LABS: PROTHROMBIN TIME PATIENT 19.9 SEC (11.7-14.0)
[2020-12-15] MEDS ORDERED: MAGNESIUM HYDROXIDE 2,400 MG/30 ML ORAL.SUSP. PO PRN (06:00)
[2020-12-15 06:01] VITALS: BP 124/72
[2020-12-15] MEDS: ONDANSETRON PF 4 MG/2 ML VIAL. IVP SCH ×2 (06:26→11:38)
[2020-12-15] MEDS: ONDANSETRON ODT 4 MG TAB.RAPDIS. PO SCH ×2 (06:27→11:38)
[2020-12-15] MEDS: traMADol 50 MG TABLET PO SCH ×3 (06:27→17:23)
[2020-12-15] MEDS: GABAPENTIN 100 MG CAPSULE. PO SCH ×3 (06:27→21:06)
[2020-12-15] MEDS: SENNOSIDES/DOCUSATE 8.6/50MG TABLET. PO SCH (08:15)
[2020-12-15] MEDS: SERTRALINE 50 MG TABLET. PO SCH (08:15)
[2020-12-15] MEDS: CYCLOBENZAPRINE 10 MG TABLET. PO SCH ×3 (08:15→19:57)
[2020-12-15] MEDS: hydroCHLOROthiazide 12.5 MG CAPSULE PO SCH (08:15)
[2020-12-15] MEDS: FERROUS SULFATE 325 MG TABLET. PO SCH ×2 (08:16→16:04)
[2020-12-15] MEDS: LISINOPRIL 20 MG TABLET PO SCH (08:16)
[2020-12-15] MEDS: MULTIVITAMIN with MINERAL TABLET. PO SCH (08:17)
[2020-12-15] MEDS: MELOXICAM 7.5 MG TABLET PO SCH (08:17)
[2020-12-15] MEDS ORDERED: ACETAMINOPHEN 500 MG TABLET PO SCH ×2 (09:00)
--- NOTE | 2020-12-15 11:04 | NUR ---
Pharmacy Warfarin Dosing Note S: Pharmacy consulted to assist with anticoagulation therapy started 12/14/20 O: ESTELLA LEVY is a 35 year old M with MICHELLE LABS: Last INR: 1.7 Last dose of 7.5 mg given on 12/14/20 at 1915 Vitamin K given: N Ongoing Drug Interactions: MOBIC A:INR of 1.7 is within desired range. Target range for this patient is: 1.6 - 2.5 P: Warfarin dose: 2.5 mg Today at 1600 Bridge Therapy: None Next INR due 12/16/20 AM Pharmacy anticoagulation service will continue to follow. CAMILO RAM RP, 12/15/20 [id number]
[2020-12-15] MEDS ORDERED: ONDANSETRON PF 4 MG/2 ML VIAL. IVP PRN (12:00)
[2020-12-15] MEDS ORDERED: ONDANSETRON ODT 4 MG TAB.RAPDIS. PO PRN (12:00)
--- NOTE | 2020-12-15 14:51 | PDOC ---
PROGRESS NOTES Date of Service DATE: 12/15/20 TIME: 14:48 Subjective Subjective Problems overnight: Difficulty with pain control overnight but now better controlled on higher dose of oxycodone Objective Vital Signs Vital Signs Date Time Temp Pulse Resp B/P (MAP) Pulse Ox O2 Delivery O2 Flow Rate FiO2 12/15/20 13:30 98 Room Air 12/15/20 08:16 80 122/74 12/15/20 06:57 18 12/15/20 06:01 99.0 99.0 12/14/20 16:32 10 Physical Exam Pinky dressing clean dry intact leg lengths equal distal neurovascular status intact Labs Laboratory Tests Test 12/14/20 12:15 12/15/20 03:45 Prothrombin Time 12.8 SEC (11.7-14.0) 19.9 SEC (11.7-14.0) Prothromb Time International Ratio 1.0 (0.8-1.1) 1.7 (0.8-1.1) Activated Partial Thromboplast Time 40 SEC (24-38) Laboratory Tests Test 12/15/20 03:45 Prothrombin Time 19.9 SEC (11.7-14.0) Prothromb Time International Ratio 1.7 (0.8-1.1) Imaging Intraoperative fluoroscopic views show excellent alignment total hip arthroplasty with equal leg lengths and offset Assessment Assessment POD#one right total hip arthroplasty Plan Plan of Care Continue mobilize with physical therapy Warfarin anticoagulation Discussed placement issue with Georgina from case management due to marital issue Justicifation of Admission Dx: Justifications for Admission: Justification of Admission Dx: N/A Angina: [facility] TORO SOLIS MD Dec 15, 2020 14:51
[2020-12-15] MEDS ORDERED: WARFARIN 2.5 MG TABLET. PO ONE (16:00)
[2020-12-15] MEDS ORDERED: BISACODYL 10 MG SUPP.RECT. PR PRN (16:00)
[2020-12-15 17:57] VITALS: BP 113/68
[2020-12-16] MEDS: traMADol 50 MG TABLET PO SCH ×3 (00:16→13:35)
[2020-12-16] MEDS: ACETAMINOPHEN 500 MG TABLET PO SCH ×3 (03:00→15:13)
[2020-12-16] MEDS: GABAPENTIN 100 MG CAPSULE. PO SCH (05:53)
[2020-12-16 06:01] VITALS: BP 113/70
[2020-12-16] MEDS: FERROUS SULFATE 325 MG TABLET. PO SCH (09:10)
[2020-12-16] MEDS: MULTIVITAMIN with MINERAL TABLET. PO SCH (09:11)
[2020-12-16] MEDS: SERTRALINE 50 MG TABLET. PO SCH (09:11)
[2020-12-16] MEDS: CYCLOBENZAPRINE 10 MG TABLET. PO SCH ×2 (09:11→15:13)
[2020-12-16] MEDS: hydroCHLOROthiazide 12.5 MG CAPSULE PO SCH (09:13)
[2020-12-16] MEDS: MELOXICAM 7.5 MG TABLET PO SCH (09:13)
[2020-12-16] MEDS: LISINOPRIL 20 MG TABLET PO SCH (09:13)
[2020-12-16] MEDS: SENNOSIDES/DOCUSATE 8.6/50MG TABLET. PO SCH (09:13)
[2020-12-16] MEDS: oxyCODONE IR 5 MG TABLET PO PRN ×2 (09:14→15:13)
[2020-12-16 11:37] VITALS: BP 110/66
[2020-12-16 12:06] LABS: HEMATOCRIT 31.1 % (39.0-53.0); HEMOGLOBIN 10.6 g/dL (13.0-17.5)
--- NOTE | 2020-12-16 13:29 | NUR ---
Pharmacy Warfarin Dosing Note S:Pharmacy consulted to assist with anticoagulation therapy started 12/14/20 with target INR: 1.6 - 2.5 O:ESTELLA LEVY is a 35 year old M with MICHELLE LABS: Last INR: 1.1 Last HGB: Last HCT: Last PLT: Last dose of 2.5 mg given on 12/15/20 at 1915 Previous Regimen: Vitamin K given: N Drug Interaction Changes: Same Interacting Drug Ongoing Drug Interactions: MOBIC A:INR of 1.1 is below desired range. Target range for this patient is: 1.6 - 2.5 P: Warfarin dose: 7.5 mg Prior to Discharge Bridge Therapy: None Next INR due QMONDAY X5, HOME WITH [facility] Pharmacy anticoagulation service will continue to follow. SHAINA SANTIAGO [facility], 12/16/20 [id number]
[2020-12-16] MEDS ORDERED: OXYC10TA PO (13:59)
[2020-12-16] MEDS ORDERED: WARFARIN 7.5 MG TABLET. PO ONE (14:00)
--- NOTE | 2020-12-16 14:02 | SNU/HH DC ---
DISCHARGE WITH HOME HEALTH DISCHARGE INFORMATION: Discharge Date: Dec 16, 2020 Final Diagnosis: Status post right total hip arthroplasty Condition on Discharge: Stable CODE STATUS: Code Status: Full HOME HEALTH: Face to Face: I certify this patient is under my care and that I, or a nurse practitioner or physician's human services assistant working with me, had a face to face encounter that meets the physician face to face encounter requirements with this patient on [12/16/20]. Medical Complications: S/P Joint Replacement Fpc For: Assess/Skilled Observatio RN For Eval/Treatment: Yes Physical Therapy For: Evalulation/Treatment Pt Meets Homebound Status: Limited distance walking POST DISCHARGE ORDERS: Activity Instructions for Disc: Activity as tolerated, Progressive ambulation Weight Bearing Status after Di: Full weight bearing Bathing Instructions: Shower-keep dressing dry DIET AFTER DISCHARGE: Regular Wound/Incision Care: Ice to area for comfort, Do not change dressing (Maintain rafi dressing, call if saturated, otherwise when suction machine stops cut dressing tail and tape over to maintain seal) Other wound/incision instructi: remove battery pack o Monday 11/20 unscrew tubing from pack tape end downw CHECKS AFTER DISCHARGE: Checks after discharge: Check blood press - daily Comment: pt/inr to be drawn q sunday starting sunday af FOLLOW-UP: Follow Up With: F/U with Roger Andrews on 12/28 at 1 pm if need to caesar call [phone] Warfarin Follow UP: [facility] to manage and monitor coumadin ??? call [phone] TREATMENT/EQUIPMENT ORDERS: Adaptive Equipment Issued: Front wheeled walker CERTIFICATION STATEMENT: Certification Statement: Certification Statement: Based on the above finding, I certify that this patient is confined to the home and needs intermittent fdc care, physical t herapy and/or speech therapy, or continues to need occupational therapy.~ This patient is under my care, and I have initiated the establishment of the plan of care.~ This patient will be followed by myself or a community physician who will periodically review the plan of care. Home Meds Active Scripts Oxycodone Hcl (OXYCODONE HCL IMMED.RELEASE) 10 Mg Tablet, 10 MG PO PRN Q4HRS PRN for PAIN, #40 TAB 0 Refills Prov:TORO SOLIS MD 12/16/20 Reported Medications Warfarin Sodium (WARFARIN SODIUM) 5 Mg Tablet, 5 MG PO DAILYWSUP for BLOOD THINNER, #45 TAB 0 Refills 12/14/20 Meloxicam (MELOXICAM) 15 Mg Tablet, 1 TAB PO 1X for ANTI INFLAM for 30 Days, TAB 0 Refills 12/14/20 Sertraline Hcl (ZOLOFT) 50 Mg Tablet, 50 MG PO DAILY for ANTI-DEPRESSANT, TAB 0 Refills 12/03/20 Cyclobenzaprine Hcl (CYCLOBENZAPRINE HCL) 10 Mg Tablet, 10 MG PO TID for MUSCLE RELAXER, TAB 12/03/20 Lisinopril/Hydrochlorothiazide (LISINOPRIL-HCTZ 20-12.5 MG TAB) 1 Each Tablet, 1 TAB PO DAILY for TREAT HYPERTENSION, #90 TAB 3 Refills 12/03/20 TORO SOLIS MD Dec 16, 2020 14:02
--- NOTE | 2020-12-16 14:19 | DS ---
DATE OF DISCHARGE: 12/16/2020 DIAGNOSIS: Degenerative joint disease, right hip. PROCEDURE: Status post right total hip arthroplasty. DISPOSITION: Home with home health. DISPOSITION MEDICATIONS: Oxycodone 10 mg p.o. q.4 hours p.r.n. pain, warfarin as directed by anticoagulation clinic. DISCHARGE ACTIVITIES: Activity is weightbearing as tolerated. Avoid extremes of range of motion. Maintain SILVANO dressing, call if saturated, otherwise cut tail of dressing and tape over to maintain seal. DISCHARGE FOLLOWUP: Follow up with Dr. Daniels or Dr. Andrews 2 weeks postoperatively. BRIEF DESCRIPTION OF HOSPITAL COURSE: The patient underwent an uncomplicated right total hip arthroplasty, was having difficulty initially postoperatively with pain control, got up and around well with physical therapy, safely performing transfers and activities of daily living and was discharged home with family on postop day #[address] WIN [address]: WIN/arielle TID: [id number]
[2020-12-16] MEDS ORDERED: WARFARIN 5 MG TABLET. PO ONE (16:00)
--- NOTE | 2020-12-16 16:48 | NUR ---
REVIEWED WRITTEN DISCHARGE INSTRUCTIONS . REVIEWED WOULD NEED LAB DRAWS EVERY SUNDAY FOR 6 WEEKS OR JAN 24. PHARMACIST WOULD CALL AND GIVE DOSAGE EVERY SUNDAY(EXCEPT FOR LABOR DAY) HE IS BEING PICKED UP BY HIS MOTHER AND IS GOING HOME . ANSWERED QUESTIONS REGARDING FOLLOW UP MEDICATIONS AND INCISIONAL CARE. REVIEWED RESTRICTIONS TO ACTIVITIES OF DAILY LIVING.
--- NOTE | 2020-12-17 12:08 | PREOP HP ---
DATE OF SERVICE: 12/14/2020 PREOPERATIVE HISTORY AND PHYSICAL CHIEF COMPLAINT: Right hip pain. HISTORY OF PRESENT ILLNESS: The patient is a 35-year-old male with a several year history of progressively worsening right hip and groin area pain. 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 PAST MEDICAL HISTORY: Significant for avascular necrosis of his right hip and hypertension. PAST SURGICAL HISTORY: Left tibia and patellar surgeries. FAMILY HISTORY: Alzheimer disease in his dad and hypertension in the grandmother. SOCIAL HISTORY: He is a former smoker, but quit 6 months ago and has occasional alcohol consumption, but cut down very significantly. Denies any drug use. MEDICATIONS: List is reviewed. ALLERGIES: He has no known drug allergies. REVIEW OF SYSTEMS: Denies any chest pain, shortness of breath, febrile illness, focal weakness, numbness, tingling or other constitutional symptoms. PHYSICAL EXAMINATION: VITAL SIGNS: Per admission sheet. HEENT: Atraumatic, normocephalic. HEART: Regular rate and rhythm. LUNGS: Clear to auscultation bilaterally. ABDOMEN: Benign. EXTREMITIES: Examination of the right hip reveals extreme pain on his already decreased range of motion on the right hip in all planes compared to normal motion of the left hip. Normal alignment, stability, bilateral knees and ankles. He has scars well healed from previous patellar alignment surgery. He has tight hamstrings bilaterally as well. Leg lengths are grossly equal and overall intact motor function, distal pulses, sensation, reflexes, skin in both upper extremities throughout. RADIOLOGICAL DATA: X-rays show bone on bone degenerative change with femoral head collapse and cystic changes consistent with avascular necrosis of his right hip. IMPRESSION: Avascular necrosis of right hip. TREATMENT PLAN: I had previously covered with him in the clinic and reviewed today the rationale for hip arthroplasty, the possibility of infection, nerve or blood vessel damage, leg length inequality, instability, premature wear or loosening, medical or other anesthetic complications among others, all his questions were answered and he wishes to proceed with surgical evaluation and treatment, which will include [facility] observation to follow. WIN/ASHANTI/TRINITY DR: Kevin TID: [id number]
--- NOTE | 2020-12-17 14:08 | PATHOLOGY ---
[facility] Accession Number: [id number] . 01 Material submitted: . hip - RIGHT HIP BONE AND TISSUE. Modifiers: right . 01 Clinical history: . AVASCULAR NECROSIS OF BONE RIGHT HIP RIGHT ANTERIOR TOTAL HIP ARTHROPLASTY . 02 Diagnosis: Femoral head and separate segments of bone and bone shavings, anterior right total hip arthroplasty: - Advanced degenerative arthritis, with focal avascular necrosis, and with focal subarticular fibrosis and osteosclerosis. (JPM:jennifer; 12/17/2020) QMS 12/17/2020 1313 Local . 02 Electronically signed: . Pepito Ward MD, Pathologist NPI- [id number] . 01 Gross description: . The specimen is received in formalin, labeled "Nile Finch, right hip bone and tissue" and consists of a severely disfigured femoral head (4.7 x 4.5 x 3.4 cm) with a moderate amount of attached soft tissue. The articular surface is pale-oneill to acharya, dusky and roughened. A prominent area of eburnation (5.5 x 4.3 cm) is identified without osteophytic growths. Also received in the same container is an additional portion of femoral neck (1.2 cm in length by 4.0 cm diameter). Also received are multiple oneill-brown hemorrhagic and rubbery irregular bone shavings (9.3 x 7.7 x 2.8 cm in aggregate). [employer] sections are submitted in 3 cassettes following decalcification. (KALSKAG; 12/15/2020) DKA/DKA 12/15/2020 1735 Local . 02 Pathologist provided ICD-10: M16.11, M87.9, Q78.2 . 02 CPT . 660437, 809875 Specimen Comment: A courtesy copy of this report has been sent to [phone], [phone] Specimen Comment: [id number] Specimen Comment: Report sent to / DR MINOR Performed at: 01 [facility] [address] [id number] MD Roddy Estevez MD Phone: [phone] Performed at: 02 [facility] [address] [place], [place] [id number] MD Pepito Ward MD Phone: [phone]
== END 2020-12-16 16:55 | disposition home health service (06) ==
LOC: SURG 11:43 → 4 SOUTHEST 16:50
PROVIDERS: ADMIT Orthopaedic Surgery; ATTEND Orthopaedic Surgery
DX: M16.11 Unilateral primary osteoarthritis, right hip (principal); I10 Essential (primary) hypertension; M87.9 Osteonecrosis, unspecified; Z82.0 Family history of epilepsy and other diseases of the nervous system; Z82.49 Family history of ischemic heart disease and other diseases of the circulatory system; Z87.891 Personal history of nicotine dependence; Z96.641 Presence of right artificial hip joint
CPT/HCPCS: 27130; 36415; 85014; 85018; 85610; 85730; 86850; 86900; 86901; 88304; 88311; 96361; 96365; 96366; 96375; 97116; 97150; 97162; 97165; 97530; 97535; A4213; A4930; A6550; C1776; G0378; J0171; J0690; J1170; J1885; J2270; J2704; J2710; J2795; J3010; J3370; J3490; J7030; 76000; A4223; G0379; J2405